=== PATIENT | male | born 1945 | race Caucasian/White ===

== ENCOUNTER → 2025-01-11 | Outpatient (CLI) | payer MEDICARE, BC, SELFPAY ==
--- NOTE | 2025-01-11 | XR_ITS ---
Examination: PA lateral chest 2 views TECHNIQUE: Upright PA lateral chest 2 views Exam date and time: January 11, 2025 at 0816 hours INDICATIONS: Anterior chest pain beginning 5 days ago FINDINGS: Normal heart size Scarring in the lingular segment. No pneumonia or pulmonary edema Prominent osteopenia IMPRESSION: No pneumonia or pulmonary edema
== END | disposition home or self-care (01) ==
PROVIDERS: PCP Family Medicine; Referring Provider Family Medicine; Visit Provider Family Medicine
DX: R07.1 Chest pain on breathing (principal)
CPT/HCPCS: 71046

== ENCOUNTER 2025-02-20 07:14 | Emergency (ER) | payer MEDICARE, BC, SELFPAY ==
[2025-02-20 07:15] VITALS: BMI 25.8
[2025-02-20 07:28] VITALS: BP 189/97; PULSE 96; RESP 18; TEMP 36.6; O2SAT 94
--- NOTE | 2025-02-20 07:36 | PD.EDRME ---
Rapid Medical Screening Exam E Arrival date/time: 02/20/25 07:14 79-year-old male with a history of a CVA, BPH, hypertension presents to the emergency room with a chief complaint of epistaxis x 3 hours. Patient states this epistaxis has been bothering him for the last week, he saw an ENT specialist yesterday but states his symptoms have not gotten better. The patient is on blood thinners. I have greeted and performed a focused initial assessment of this patient. A comprehensive ED assessment and evaluation of the patient, analysis of all test results, and completion of the medical decision making process will be conducted by additional ED providers. Chief Complaint: Epistaxis/Nasal Foreign Body Vital signs: Vital Signs Temperature 97.9 F 02/20/25 07:28 Pulse Rate 96 02/20/25 07:28 Respiratory Rate 18 02/20/25 07:28 Blood Pressure 189/97 H 02/20/25 07:28 Pulse Oximetry (%) 94 L 02/20/25 07:28 Oxygen Delivery Method Room Air 02/20/25 07:28 Vital signs reviewed by provider: Yes
[2025-02-20 08:03] LABS: Basophils % (Auto) 0 % (0-2.5); Eosinophils # (Auto) 0.2 Thou/mm3 (0.0-0.5); Eosinophils % (Auto) 2 % (0-10); Hematocrit 42.2 % (41.0-53.0); Hemoglobin 15.2 g/dL (13.5-16.0); Immature Granulocytes % (Auto) 1 % (0-0); Immature Granulocytes Auto 0.04 Thou/mm3 (0.00-0.00); Lymphocytes # (Auto) 1.6 Thou/mm3 (1.0-4.8); Lymphocytes % (Auto) 22 % (10-50); Mean Corpuscular Hemoglobin 30.8 pg (25.0-35.0); Mean Corpuscular Volume 85 fL (80-100); Monocytes # (Auto) 0.8 Thou/mm3 (0.0-0.8); Monocytes % (Auto) 11 % (0-12); Neutrophils # (Auto) 4.8 Thou/mm3 (1.8-7.7); Neutrophils % (Auto) 65 % (37-80); Nucleated Red Blood Cell % 0 /100 WBC (0); Platelet Count 167 Thou/mm3 (140-440); RDW Standard Deviation 41.6 fL (35.1-43.9); Red Blood Count 4.94 Miln/mm3 (4.50-5.90); White Blood Count 7.4 Thou/mm3 (3.8-10.6)
[2025-02-20 08:23] LABS: Partial Thromboplastin Time 25.6 Seconds (22.0-36.0); Prothrombin Time 11.4 Seconds (9.0-12.2)
[2025-02-20 08:25] LABS: Alanine Aminotransferase 19 U/L (10-49); Albumin, Serum 4.4 gm/dL (3.4-4.8); Albumin/Globulin Ratio 1.8 (1.2-2.2); Alkaline Phosphatase 92 U/L (46-116); Anion Gap 9 (7-16); Aspartate Amino Transferase 23 U/L (0-34); BUN/Creatinine Ratio 15 Ratio (12-20); Bilirubin,Total 0.8 mg/dL (0.3-1.2); Blood Urea Nitrogen 12 mg/dL (9-23); Calcium 9.9 mg/dL (8.3-10.6); Calcium (Corrected) 9.9 mg/dL (8.5-10.1); Carbon Dioxide 29.1 mMol/L (20.0-31.0); Chloride 98 mMol/L (98-107); Creatinine (Component) 0.8 mg/dL (0.6-1.3); Globulin 2.5 gm/dL (2.3-3.5); Glucose 110 mg/dL (74-106); Osmolality,Calculated 272 (275-295); Potassium 3.4 mMol/L (3.4-5.1); Sodium 136 mMol/L (136-145); Total Protein 6.9 gm/dL (5.7-8.2); eGFR > 60 See Note
[2025-02-20 09:08] VITALS: BP 198/121; PULSE 89; RESP 16; TEMP 37.2; O2SAT 95
--- NOTE | 2025-02-20 09:28 | PC.NURSE ---
Patient from [facility] and taken to room 17 with c/o epistaxis to right nare x 2 1/2 hrs, per patient he saw ENT for this yesterday and was prescribed ointment to be used 2 x a day, however, patient continue to bleed this am.
--- NOTE | 2025-02-20 10:26 | PD.EDADULT ---
ED General RME/HPI General Chief complaint: Epistaxis/Nasal Foreign Body Stated complaint: NOSE BLEED X 30 MIN; WON'T STOP, ON BLOOD THINNERS Arrival date/time: 02/20/25 07:14 RME / HPI RME / HPI narrative: Patient is a 79 years old male with PMH of CVA, BPH, hypertension, Parkinson disease presents to the ED complaining of epistaxis for 3 hours. Patient states this epistaxis has been bothering him for the last week, he saw an ENT specialist yesterday. He started bleeding again today morning and had packing done in the ED, however he continued bleeding. The patient is on clopidogrel. He denies trauma, fever, chills, SOB, chest pain. Related Data Home Medications ?Medication ?Instructions ?Recorded ?Confirmed amlodipine 10 mg tablet 5 mg PO QDAY 11/19/20 08/30/23 terazosin 5 mg capsule 5 mg PO QDAY 11/19/20 08/30/23 valsartan 80 mg tablet 320 mg PO QDAY 11/19/20 08/30/23 hydrochlorothiazide 12.5 mg capsule 12.5 mg PO QDAY 12/11/21 12/11/21 hydroxyzine HCl 50 mg tablet mg 08/30/23 tamsulosin 0.4 mg capsule mg PO 08/30/23 Previous Rx's ?Medication ?Instructions ?Recorded potassium chloride 10 mEq 10 meq PO QDAY #7 tabs 01/15/24 tablet,extended release Allergies Allergy/AdvReac Type Severity Reaction Status Date / Time No Known Allergies Allergy Verified 02/20/25 07:18 Review of Systems Review of Systems Systems Reviewed: All systems reviewed, normal except as documented ED Exam Narrative Physical exam: Gen: Well-developed and well-nourished elderly male. HEENT: NCAT, PERRLA, EOMI, MMM, anicteric conjunctivae, right nostril is packed with dry blood around it. CVS: normal S1 and S2. RRR. No M/R/G. Resp: CTA B/L. No rhonchi, rales, crackles or wheezing. Abd: soft, non-tender, non-distended. BS+ in all 4 quadrants. MSK: Good ROM in BUE & BLE. No edema or rash. Neuro: CN II-XII grossly intact. Strength 5/5 in BUE & BLE. Alert and oriented x3. Course Quality Measures none Orders Category Date Time Status CBC Stat Lab 02/20/25 07:50 Completed CMP [Comprehensive Metabolic Panel] Stat Lab 02/20/25 07:50 Completed PT [Prothrombin Time with INR] Stat Lab 02/20/25 07:50 Completed PTT [Partial Thromboplastin Time] Stat Lab 02/20/25 07:50 Completed Vital Signs Vital signs: Vital Signs Temperature 97.9 F 02/20/25 07:28 Pulse Rate 96 02/20/25 07:28 Respiratory Rate 18 02/20/25 07:28 Blood Pressure 189/97 H 02/20/25 07:28 Pulse Oximetry (%) 94 L 02/20/25 07:28 Oxygen Delivery Method Room Air 02/20/25 07:28 [facility] Patient data External records reviewed:: [facility] previous records Clinical information provided by:: patient and family Social determinants that could affect healthcare access:: none Patient has the following chronic illnesses:: CVA, BPH, hypertension, Parkinson disease How is presenting disease/condition affected by chronic disease/condition?: exacerbated by Evaluation data The following diagnostics were reviewed and interpreted by me:: lab results Lab and/or radiology exams considered but not ordered:: CT head Interpretation Summary: mild hyperglycemia Medications Medications considered but not ordered:: na Medication administrations:: na Consultations Consultation(s) initiated? (list below): No Diagnosis Differential Diagnosis ED Complaint MDM: anterior epistaxis, posterior epistaxis Most likely diagnosis given after review of the tests above:: Anterior epistaxis Admission Indicated Admission indicated?: not indicated Explain why admission is indicated or not indicated:: Simple anterior epistaxis, resolved after packing. Admission Request Was there a request for admission?: No Disposition Plan Disposition Plan: Discharge Discharge Attestation Discharge Attestation: The patient and all family members were given an opportunity to ask questions and understood the discharge instructions. Discharge instructions specifically effects, indications for sooner follow up or return to the emergency department, and the expected course of current diagnosis. Patient condition: Stable Medical Decision Making MDM Narrative MDM Narrative: The patient is an 79-year-old male with a history of cerebrovascular accident (CVA), benign prostatic hyperplasia (BPH), hypertension, and Parkinson's disease, presenting with a 3-hour episode of anterior epistaxis that persisted despite packing in the emergency department (ED). He reports ongoing epistaxis over the past week and had seen an ENT specialist the day before. The patient is on clopidogrel, which may have contributed to the bleeding. No other associated symptoms such as trauma, fever, chills, shortness of breath, or chest pain were reported. Examination findings include nasal packing in the right nostril with dry blood around it, and all other systemic examinations were unremarkable. The patient's anterior epistaxis resolved after nasal packing in the ED. Recommendations include leaving the packing in place for 2-3 days, with follow-up care by his ENT or primary care provider (PCP) for removal. He is advised to continue his home medications as prescribed and return to the ED if symptoms recur or worsen. A follow-up visit with his PCP within one week is also recommended to ensure proper recovery and assess the need for further management. Differential Diagnosis Differential Diagnosis: anterior epistaxis, posterior epistaxis Lab Data 02/20/25 07:50 02/20/25 07:50 Labs: Lab Results 02/20/25 Range/Units 07:50 WBC 7.4 (3.8-10.6) Thou/mm3 RBC 4.94 (4.50-5.90) Miln/mm3 Hgb 15.2 (13.5-16.0) g/dL Hct 42.2 (41.0-53.0) % MCV 85 (80-100) fL MCH 30.8 (25.0-35.0) pg MCHC 36.0 (31.0-37.0) g/dl RDW Std Deviation 41.6 (35.1-43.9) fL Plt Count 167 (140-440) Thou/mm3 Neut % (Auto) 65 (37-80) % Lymph % (Auto) 22 (10-50) % [place] % (Auto) 11 (0-12) % Eos % (Auto) 2 (0-10) % Baso % (Auto) 0 (0-2.5) % Neut # (Auto) 4.8 (1.8-7.7) Thou/mm3 Lymph # (Auto) 1.6 (1.0-4.8) Thou/mm3 [place] # (Auto) 0.8 (0.0-0.8) Thou/mm3 Eos # (Auto) 0.2 (0.0-0.5) Thou/mm3 Baso # (Auto) 0.0 (0.0-0.2) Thou/mm3 Immature Gran # (Auto) 0.04 H (0.00-0.00) Thou/mm3 Absolute Nucleated RBC 0.00 (0.00-0.00) Thou/mm3 Immature Gran % 1 H (0-0) % Nucleated RBC % 0 (0) /100 WBC PT 11.4 (9.0-12.2) Seconds INR 1.0 (0.9-1.3) APTT 25.6 (22.0-36.0) Seconds Sodium 136 (136-145) mMol/L Potassium 3.4 (3.4-5.1) mMol/L Chloride 98 (98-107) mMol/L Carbon Dioxide 29.1 (20.0-31.0) mMol/L Anion Gap 9 (7-16) BUN 12 (9-23) mg/dL Creatinine 0.8 (0.6-1.3) mg/dL Estim Creat Clear Calc 76.0 (>60) mL/min eGFR > 60 (60 - ) See Note BUN/Creatinine Ratio 15 (12-20) Ratio Glucose 110 H (74-106) mg/dL Calculated Osmolality 272 L (275-295) Calcium 9.9 (8.3-10.6) mg/dL Corrected Calcium 9.9 (8.5-10.1) mg/dL Total Bilirubin 0.8 (0.3-1.2) mg/dL AST 23 (0-34) U/L ALT 19 (10-49) U/L Alkaline Phosphatase 92 (46-116) U/L Total Protein 6.9 (5.7-8.2) gm/dL Albumin 4.4 (3.4-4.8) gm/dL Globulin 2.5 (2.3-3.5) gm/dL Albumin/Globulin Ratio 1.8 (1.2-2.2) Discharge Plan Plan Patient Disposition: HOME (Self Care) Patient condition on transfer: Stable Prescriptions/Referrals Prescriptions/Med Rec: No Action terazosin 5 mg capsule 5 mg PO QDAY amlodipine 10 mg tablet 5 mg PO QDAY valsartan 80 mg tablet 320 mg PO QDAY hydrochlorothiazide 12.5 mg capsule 12.5 mg PO QDAY potassium chloride 10 mEq tablet extended release 10 meq PO QDAY Qty: 7 0RF hydroxyzine HCl 50 mg tablet Patient Comments: TAKE 1 TABLET BY MOUTH TWICE A DAY NEEDED tamsulosin 0.4 mg capsule PO Patient Comments: TAKE 1 CAPSULE BY MOUTH TWICE A DAY Referrals: Bruce Osman MD [Primary Care Provider] - In 1 week Problem List Clinical Impression: Epistaxis Patient/Caregiver Discharge Instructions Education Materials: ED Epistaxis (Adult), ED Nasal Packing Removable Anterior Additional Instructions: Keep nasal packing for 2-3 days, then visit your ENT/PCP or ER to remove it. Follow up with PCP within 1 week. Continue home medications as prescribed. Return to the ED if symptoms recur or worsen. Print Language: Tanzanian Stand Alone Forms: Jane Award Info., Patient Portal Info Letter
[2025-02-20 10:50] VITALS: BP 203/112; PULSE 90; RESP 16; O2SAT 95
--- NOTE | 2025-02-20 10:51 | PC.NURSE ---
Dr. Little at bedside.
--- NOTE | 2025-02-20 11:17 | PC.NURSE ---
Patient and family at bedside insistent upon getting d/c instructions now, family and patient upset stating that was very rude attempted to help resolve issue, however, family states, it's ok I just need to get him out of here d/c instructions given informed patient and family they can contact hospital and ask for Sky, from patient experience so they could express there concerns.
== END 2025-02-20 11:19 | disposition home or self-care (01) ==
PROVIDERS: Nurse Practitioner Family; Emergency Provider Emergency Medicine; PCP Family Medicine
DX: R04.0 Epistaxis (principal)
CPT/HCPCS: 36415; 80053; 85025; 85610; 85730; 99283

== ENCOUNTER → 2025-03-18 | Outpatient (CLI) | payer MEDICARE, BC, SELFPAY ==
[2025-03-18 08:23] LABS: Basophils % (Auto) 0 % (0-2.5); Eosinophils # (Auto) 0.2 Thou/mm3 (0.0-0.5); Eosinophils % (Auto) 3 % (0-10); Hemoglobin 14.3 g/dL (13.5-16.0); Immature Granulocytes % (Auto) 0 % (0-0); Immature Granulocytes Auto 0.03 Thou/mm3 (0.00-0.00); Lymphocytes # (Auto) 1.6 Thou/mm3 (1.0-4.8); Lymphocytes % (Auto) 21 % (10-50); Mean Corpuscular Hemoglobin 30.9 pg (25.0-35.0); Mean Corpuscular Volume 91 fL (80-100); Monocytes # (Auto) 0.9 Thou/mm3 (0.0-0.8); Monocytes % (Auto) 12 % (0-12); Neutrophils # (Auto) 4.8 Thou/mm3 (1.8-7.7); Neutrophils % (Auto) 64 % (37-80); Nucleated Red Blood Cell % 0 /100 WBC (0); Platelet Count 166 Thou/mm3 (140-440); RDW Standard Deviation 43.9 fL (35.1-43.9); Red Blood Count 4.63 Miln/mm3 (4.50-5.90); White Blood Count 7.5 Thou/mm3 (3.8-10.6)
[2025-03-18 08:40] LABS: Alanine Aminotransferase 11 U/L (10-49); Albumin, Serum 4.1 gm/dL (3.4-4.8); Alkaline Phosphatase 86 U/L (46-116); Anion Gap 5 (7-16); Aspartate Amino Transferase 17 U/L (0-34); BUN/Creatinine Ratio 14 Ratio (12-20); Bilirubin,Direct 0.3 mg/dL (0.0-0.3); Bilirubin,Total 0.9 mg/dL (0.3-1.2); Blood Urea Nitrogen 14 mg/dL (9-23); Calcium 9.1 mg/dL (8.3-10.6); Carbon Dioxide 30.8 mMol/L (20.0-31.0); Chloride 106 mMol/L (98-107); Cholesterol 100 mg/dL (132-200); Free T4 (Free Thyroxine) 1.31 ng/dL (0.89-1.76); Glucose 111 mg/dL (74-106); HDL Cholesterol 51 mg/dL (40-60); LDL Cholesterol,Calculated 36 mg/dL (0-130); Osmolality,Calculated 284 (275-295); Potassium 3.6 mMol/L (3.4-5.1); Sodium 142 mMol/L (136-145); Thyroid Stimulating Hormone 1.61 uIU/mL (0.55-4.78); Total Protein 6.3 gm/dL (5.7-8.2); Triglycerides 63 mg/dL (30-150); eGFR > 60 See Note
== END | disposition home or self-care (01) ==
LOC: COPL 06:47
PROVIDERS: PCP Family Medicine; Referring Provider Internal Medicine Cardiovascular Disease; Visit Provider Internal Medicine Cardiovascular Disease
DX: E78.5 Hyperlipidemia, unspecified (principal); I10 Essential (primary) hypertension
CPT/HCPCS: 36415; 80048; 80061; 80076; 84439; 84443; 85025

== ENCOUNTER 2025-04-25 09:30 | Inpatient (IN) | payer MEDICARE, BC, SELFPAY ==
[2025-04-25] VITALS (20 sets, daily range): BP systolic 90–143; BP diastolic 68–97; PULSE 72–153; RESP 17–40; TEMP 36.6–37.8; O2SAT 91–99; BMI 26.1
--- NOTE | 2025-04-25 09:38 | EKG_ITS ---
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1945 Requested By: ED Temporary Provider Order Number: [id number] Reading MD: ED Temporary Provider Measurements Intervals [place] Rate: 153 P: AK: QRS: -16 QRSD: 112 T: 23 QT: 290 QTc: 463 Interpretive Statements ATRIAL FLUTTER/TACHYCARDIA WITH RAPID VENTRICULAR RESPONSE WITH ABERRANT CONDUCTION OR VENTRICULAR PREMATURE COMPLEXES INCOMPLETE RIGHT BUNDLE BRANCH BLOCK [90+ ms QRS DURATION, TERMINAL R IN V1/V2, 40+ ms S IN I/aVL/V4/V5/V6] MODERATE ST DEPRESSION [0.05+ mV ST DEPRESSION] CRITICAL TEST RESULT Compared to ECG 01/15/2024 06:58:23 Ventricular premature complex(es) now present Aberrant conduction of supraventricular beat(s) now present Incomplete right bundle-branch block now present ST (T wave) deviation now present Supraventricular rhythm no longer present /store/S0/[id number]/[id number].pdf
--- NOTE | 2025-04-25 09:48 | XR_ITS ---
Examination: AP chest single view Technique one AP portable upright chest single view Date and time: April 25, 2025 10:23 AM Comparison January 11, 2025 INDICATIONS: Chest pain beginning 2 days ago. FINDINGS: Diffuse bilateral significant pneumonia. Normal heart size Moderate vascular congestion Prominent osteopenia IMPRESSION: Diffuse extensive bilateral pneumonia
[2025-04-25] MEDS: SODIUM CHLORIDE 0.9% 1000 ML 1,000 ML 999 ML IV ×2 (10:05→11:50)
--- NOTE | 2025-04-25 10:06 | PD.EDSOB ---
ED SOB =RME/HPI General Chief Complaint: Shortness of Breath/Dyspnea Stated Complaint: SENT BY PMD FOR IRREGULAR BREATHING Time Seen by Provider: 04/25/25 09:43 Arrival date/time: 04/25/25 09:30 RME / HPI RME / HPI Narrative: 79 year old male with history of Parkinson's disease, CVA, on Eliquis, hypertension, BPH, hyperlipidemia presents to the ED for evaluation of shortness of breath that began 2 days ago and progressively worsening. More so with talking. Accompanied by subjective fevers and productive cough with clear phlegm. Denies hemoptysis or any change in sputum color. Approximately 6 days ago, the patient?s daughter noted that he had been complaining of chest congestion. He consulted with his PCP, who prescribed a 7 day course of Augmentin and Benzonatate. The patient reports taking the medications with only minimal improvement. The patient denies any chest pain. Denies the use of supplemental oxygen at home. Denies any sick contacts or any recent travel. Related Data Home Medications ?Medication ?Instructions ?Recorded ?Confirmed tamsulosin 0.4 mg capsule 0.4 mg PO QAM 08/30/23 04/25/25 atorvastatin 80 mg tablet 80 mg PO QPM 04/25/25 04/25/25 benzonatate 200 mg capsule 200 mg PO TID 04/25/25 04/25/25 buspirone 10 mg tablet 10 mg PO BID 04/25/25 04/25/25 carbidopa ER 25 mg-levodopa 100 mg 1 tab PO BID 04/25/25 04/25/25 tablet,extended release cetirizine 10 mg tablet 10 mg PO QPM 04/25/25 04/25/25 clopidogrel 75 mg tablet 75 mg PO QDAY 04/25/25 04/25/25 dutasteride 0.5 mg capsule 0.5 mg PO QPM 04/25/25 04/25/25 hydrochlorothiazide 12.5 mg tablet 12.5 mg PO QDAY 04/25/25 04/25/25 lactulose 10 gram/15 mL oral 10 g PO QAM 04/25/25 04/25/25 solution montelukast 10 mg tablet 10 mg PO QAM 04/25/25 04/25/25 potassium citrate 15 mEq (1,620 15 meq PO BID 04/25/25 04/25/25 mg) tablet,extended release Allergies Allergy/AdvReac Type Severity Reaction Status Date / Time No Known Allergies Allergy Verified 04/25/25 09:34 Review of Systems Review of Systems Narrative Review of Systems: GEN: + fever, no chills, no weight loss EYES: No discharge, no visual changes, no pain HEENT: No ear pain, no congestion, no sore throat PULM: + shortness of breath, +cough CV: No chest pain, no dyspnea on exertion, no palpitations GI: No nausea, no vomiting, no diarrhea, no pain, no constipation : No frequency, no urgency, no dysuria MUSC/SKEL: No joint pain, no back pain SKIN: No rash NEURO: No weakness, no headache Past Medical History Past Medical History NEUROLOGIC: Positive Neurological Disorders, Cerebrovascular Accident (2022 no deficits) and Migraine CARDIAC: Positive Cardiac Disorders, Hypercholesterolemia and Hypertension GENITOURINARY: Positive Benign Prostatic Hyperplasia MUSCULOSKELETAL: Positive Musculoskeletal Disorders OTHER HISTORY: Positive Chicken Pox, Measles and Mumps Surgical History SURGICAL: Positive Vasectomy Social History SMOKING STATUS: Former smoker ED Exam Narrative Physical exam: GENERAL APPEARANCE: alert and oriented x 4, well-developed, well-nourished, tachypneic, dyspneic HEENT: Normocephalic, atraumatic; pupils equal, round, reactive to light; EOMI; mucous membranes pink, moist; oropharynx clear NECK: Supple LUNGS: Tachypneic, dyspneic; no wheezes, no rales, no rhonchi HEART: Tachycardic; normal S1, S2; no murmurs ABDOMEN: non distended; normal BS; soft, no tenderness, no guarding, no rebound; no masses, no organomegaly, no hernia BACK: no CVA tenderness EXTREMITIES: atraumatic; no edema NEUROLOGIC: awake; alert and oriented x4; cranial nerves II-XII grossly intact; no focal sensory or motor deficits PSYCHIATRIC: appropriate mood and affect SKIN: warm, dry, normal color; no rashes Course Course Course Narrative: chest xray ordered to help determine etiology of shortness of breath. Quality Measures none Orders Category Date Time Status Can Maker NOW Care 04/25/25 09:48 Active EKG (ED ONLY) *Do not use* NOW Care 04/25/25 09:38 Completed EKG (ED ONLY) *Do not use* NOW Care 04/25/25 11:35 Active EKG (ED Only) Stat Exams 04/25/25 09:38 Draft EKG (ED Only) Stat Exams 04/25/25 11:35 Ordered XR chest 1V portable Stat Exams 04/25/25 09:48 Completed B-Type Natriuretic Peptide Stat Lab 04/25/25 10:00 Completed Blood Culture (Lab) Stat Lab 04/25/25 10:00 Received CBC Stat Lab 04/25/25 10:14 Completed Cocci Serology IgM with reflex to IgG [Cocci Serology, Lab 04/25/25 11:33 Received Unk History] Stat Comprehensive Metabolic Panel Stat Lab 04/25/25 10:14 Completed Lactate (Lactic Acid) Stat Lab 04/25/25 10:14 Results Lipase Stat Lab 04/25/25 10:14 Completed Magnesium Stat Lab 04/25/25 10:14 Completed Partial Thromboplastin Time Stat Lab 04/25/25 10:14 Completed Procalcitonin Stat Lab 04/25/25 10:14 Completed Prothrombin Time with INR Stat Lab 04/25/25 10:14 Completed Troponin I Stat Lab 04/25/25 10:14 Completed Urinalysis Stat Lab 04/25/25 10:23 Completed Urine Culture Stat Lab 04/25/25 10:23 Received Azithromycin Inj [Zithromax Inj] 500 mg Med 04/25/25 11:21 Active Sodium Chloride 0.9% 250 ml [Ns] 250 ml IV X1 DILTIAZEM in D5W 125 MG Med 04/25/25 10:10 Active 125 mg in 125 ml IV 5 mg/hr Diltiazem Inj [Cardizem Inj] Med 04/25/25 10:05 Discontinued 15 mg IV X1 ONE MethylPREDNISolone.* [SoluMEDROL Inj] Med 04/25/25 11:21 Discontinued 125 mg IVP X1 ONE Sodium Chloride 0.9% 1000 ml [Ns] 1,000 ml Med 04/25/25 11:30 Active IV 999 mls/hr cefTRIAXone/D5w 1gm IV premix [Rocephin/D5w 1gm IV Med 04/25/25 11:21 Discontinued premix] 1 gm in 50 ml IV X1 Oxygen Delivery PRN RT 04/25/25 10:13 Active Vital Signs Vital signs: Vital Signs Temperature 100.1 F 04/25/25 10:00 Pulse Rate 150 H 04/25/25 10:00 Respiratory Rate 24 H 04/25/25 10:00 Blood Pressure 123/81 04/25/25 10:00 Pulse Oximetry (%) 91 L 04/25/25 10:00 Oxygen Delivery Method Oxy Mask 04/25/25 10:00 Oxygen Flow Rate 15 04/25/25 10:00 Shortness of Breath / Dyspnea MDM Narrative MDM Narrative:: IAlivia am scribing for and in the presence of Dr. Astorga. 1014: Patient saturating 91% on 15L Oxy Mask. Ordered high flow. 1037: Patient received 15mg IV Diltiazem and started on Diltiazem drip, HR 146 at this time. Ordered for 1L IVF. Saturating 99% on high flow. 1145: Rate has improved, now 93 bpm, atrial fibrillation with occasional PVCs. Patient data External records reviewed:: [facility] previous records (I reviewed ED visit on 02/20/2025 ) Clinical information provided by:: patient and family (daughter adds to hpi ) Social determinants that could affect healthcare access:: none Patient has the following chronic illnesses:: Parkinson's disease, CVA, on Eliquis, hypertension, BPH, hyperlipidemia How is presenting disease/condition affected by chronic disease/condition?: exacerbated by Evaluation data The following diagnostics were reviewed and interpreted by me:: lab results, radiology exam(s) and EKG tracing(s) (EKG #1 @ 09:47 AM. Atrial firbrillation with occasional PVCs, rate 150, incomplete right bundle branch block. EKG #2 @ 11:49 AM shows atrial fbrillation with occasional PVCs, rate 93. ) Lab and/or radiology exams considered but not ordered:: None Interpretation Summary: Ordering Physician: Marisol Astorga MD Date of Service: 04/25/25 Procedure(s): XR chest 1V portable Accession Number(s): [id number] cc: Parrish Murphy MD; Marisol Astorga MD~ Examination: AP chest single view Technique one AP portable upright chest single view Date and time: April 25, 2025 10:23 AM Comparison January 11, 2025 INDICATIONS: Chest pain beginning 2 days ago. FINDINGS: Diffuse bilateral significant pneumonia. Normal heart size Moderate vascular congestion Prominent osteopenia IMPRESSION: Diffuse extensive bilateral pneumonia Dictated By: Parrish Murphy MD Signed By: <Electronically signed by Parrish Murphy MD in OV> 04/25/25 1117 Medications / Prescriptions Medications or Prescriptions considered but not ordered:: None Medication administrations:: Medication Administration History Diltiazem HCl (Diltiazem In D5w 125 Mg) 125 mg in 125 mls @ 5 mls/hr IV .Q24H JANINE Stop: 05/25/25 10:09 Last Admin: 04/25/25 10:45 Dose: 5 mg/hr, 5 mls/hr Documented By: REBEKA Azithromycin 500 mg/ Sodium (Chloride) 250 mls @ 250 mls/hr IV X1 ONE Stop: 04/25/25 12:20 Sodium Chloride (Ns) 1,000 mls @ 999 mls/hr IV .Q1H1M ONE Stop: 04/25/25 12:30 Discontinued Medications Diltiazem HCl (Diltiazem Inj 5 Mg/Ml Vial 5 Ml) 15 mg IV X1 ONE Stop: 04/25/25 10:06 Last Admin: 04/25/25 10:35 Dose: 15 mg Documented By: REBEKA Comments: Ceftriaxone Sodium/Dextrose (Rocephin/D5w 1gm Iv Premix) 1 gm in 50 mls @ 100 mls/hr IV X1 ONE Stop: 04/25/25 11:50 Last Admin: 04/25/25 11:42 Dose: 100 mls/hr Documented By: SHARON Methylprednisolone Sodium Succinate (Methylprednisolone Sod Succ 62.5 Mg/Ml 2ml Vial) 125 mg IVP X1 ONE Stop: 04/25/25 11:22 Last Admin: 04/25/25 11:38 Dose: 125 mg Documented By: SHARON See above Consultations Consultation(s) initiated? (list below): Yes Consultation #1 (Physician, Specialty, Details): I spoke with resident Dr. Herring working with Dr. Gonzales. Discussed patients PMHx, HPI, ED course, exam findings, labs, and radiology results. The hospitalist agree to accept the patient for admission. Time: 11:42 Diagnosis Shortness of Breath Differential Diagnosis: acute exacerbation of chronic obstructive airways disease, congestive heart failure and community acquired pneumonia Most likely diagnosis given after review of the tests above:: Pneumonia Atrial fibrillation Elevated toponin Admission Indicated Admission indicated?: indicated Admission Request Was there a request for admission?: Yes Admission Attestation Admission request attestation: Discussed case with [] from Hospitalist service regarding admission. Discussed patients ED course, exam findings, labs, and radiology results. The Hospitalist [agrees,declines] to accept the patient for admission. Disposition Plan Disposition Plan: Admit Critical Care Time Critical Care Time Critical Care Time: Yes Total Critical Care Time (min.): 35 Attestation: The high probability of sudden, clinically significant deterioration in the patient's condition required the highest level of my preparedness to intervene urgently. The services I provided to this patient were to treat and/or prevent clinically significant deterioration. Services included the following: chart data review, reviewing nursing notes and/or old charts, documentation time, systems consultant collaboration regarding findings and treatment options, medication orders and management, direct patient care, vital sign assessments and ordering, interpreting and reviewing diagnostic studies and lab tests. Aggregate critical care time includes only time during which I was engaged in work directly related to the patient's care, as described above, whether at bedside or elsewhere in the Emergency Department. It did not include time spent performing other reported procedures or the services of residents, students, nurses or physician assistants. Discharge Plan Plan Patient Disposition: Admit Acute Care w/in Hospital Prescriptions/Referrals Prescriptions/Med Rec: No Action tamsulosin 0.4 mg capsule 0.4 mg PO QAM Patient Comments: TAKE 1 CAPSULE BY MOUTH TWICE A DAY lactulose 10 gram/15 mL solution 10 g PO QAM Patient Comments: TAKE 15ML BY MOUTH EVERY DAY IN THE MORNING FOR CONSTIPATION benzonatate 200 mg capsule 200 mg PO TID carbidopa-levodopa 25-100 mg tablet extended release 1 tab PO BID Patient Comments: TAKE 1 TABLET BY MOUTH TWICE A DAY clopidogrel 75 mg tablet 75 mg PO QDAY Patient Comments: TAKE 1 TABLET BY MOUTH EVERY DAY dutasteride 0.5 mg capsule 0.5 mg PO QPM Patient Comments: TAKE 1 CAPSULE BY MOUTH EVERY EVENING hydrochlorothiazide 12.5 mg tablet 12.5 mg PO QDAY Patient Comments: TAKE 1 TABLET BY MOUTH EVERY DAY buspirone 10 mg tablet 10 mg PO BID Patient Comments: TAKE 1 TABLET BY MOUTH TWICE A DAY cetirizine 10 mg tablet 10 mg PO QPM Patient Comments: TAKE 1 TABLET BY MOUTH AT DINNER NEEDED FOR ALLERGY atorvastatin 80 mg tablet 80 mg PO QPM Patient Comments: TAKE 1 TABLET BY MOUTH NIGHTLY AT BEDTIME montelukast 10 mg tablet 10 mg PO QAM Patient Comments: TAKE 1 TABLET BY MOUTH EVERY DAY potassium citrate 15 mEq tablet extended release 15 meq PO BID Patient Comments: TAKE 1 TABLET BY MOUTH TWICE A DAY Referrals: Bruce Osman MD [Primary Care Provider] - In 1 week Problem List Clinical Impression: Pneumonia, Atrial fibrillation, Elevated troponin Patient/Caregiver Discharge Instructions Print Language: R[place] Stand Alone Forms: Jane Award Info., Patient Portal Info Letter
[2025-04-25 10:31] LABS: Collection Type, Urine Clean Catch
[2025-04-25 10:35] LABS: Basophils # (Auto) 0.1 Thou/mm3 (0.0-0.2); Basophils % (Auto) 0 % (0-2.5); Eosinophils % (Auto) 0 % (0-10); Hematocrit 40.1 % (41.0-53.0); Hemoglobin 13.9 g/dL (13.5-16.0); Immature Granulocytes % (Auto) 2 % (0-0); Immature Granulocytes Auto 0.64 Thou/mm3 (0.00-0.00); Lymphocytes # (Auto) 0.9 Thou/mm3 (1.0-4.8); Lymphocytes % (Auto) 3 % (10-50); Mean Corpuscular HGB Conc 34.7 g/dl (31.0-37.0); Mean Corpuscular Hemoglobin 30.8 pg (25.0-35.0); Mean Corpuscular Volume 89 fL (80-100); Monocytes # (Auto) 2.3 Thou/mm3 (0.0-0.8); Monocytes % (Auto) 8 % (0-12); Neutrophils # (Auto) 24.5 Thou/mm3 (1.8-7.7); Neutrophils % (Auto) 86 % (37-80); Nucleated Red Blood Cell % 0 /100 WBC (0); Platelet Count 369 Thou/mm3 (140-440); RDW Standard Deviation 43.7 fL (35.1-43.9); Red Blood Count 4.52 Miln/mm3 (4.50-5.90); White Blood Count 28.4 Thou/mm3 (3.8-10.6)
[2025-04-25] MEDS: DILTIAZEM INJ 5 MG/ML VIAL 5 ML 15 MG IV (10:35)
[2025-04-25 10:40] LABS: Bilirubin,Urine Negative (Negative); Blood,Urine Trace (Negative); Clarity,Urine Clear (Clear/Hazy); Color,Urine Yellow (Lt Yel-Yel); Glucose, Urine Negative (Negative); Ketones,Urine Trace (Negative); Leukocyte Esterase,Urine Negative (Negative); Nitrite,Urine Negative (Negative); Protein,Urine 1+ (Neg - Trace); RBC,Urine < 1 /hpf (0-3); Specific Gravity,Urine 1.033 (1.001-1.035); Squamous Epithelial Cell,Urine < 1 /hpf (0-5); WBC,Urine 1 /hpf (0-5)
[2025-04-25] MEDS: DILTIAZEM in D5W 125 MG 125 MG/125 ML BAG IV (10:45)
[2025-04-25 10:48] LABS: INR 1.2 (0.9-1.3); Partial Thromboplastin Time 23.7 Seconds (22.0-36.0); Prothrombin Time 12.5 Seconds (9.0-12.2)
[2025-04-25 11:02] LABS: Alanine Aminotransferase 43 U/L (10-49); Albumin/Globulin Ratio 1.3 (1.2-2.2); Alkaline Phosphatase 107 U/L (46-116); Anion Gap 17 (7-16); Aspartate Amino Transferase 30 U/L (0-34); BUN/Creatinine Ratio 21 Ratio (12-20); Bilirubin,Total 0.8 mg/dL (0.3-1.2); Blood Urea Nitrogen 23 mg/dL (9-23); Calcium 9.7 mg/dL (8.3-10.6); Calcium (Corrected) 9.7 mg/dL (8.5-10.1); Chloride 90 mMol/L (98-107); Creatinine (Component) 1.1 mg/dL (0.6-1.3); Estimated Creatinine Clearance 55.3 mL/min (>60); Glucose 200 mg/dL (74-106); Lipase 25 U/L (12-53); Magnesium 2.1 mg/dL (1.6-2.6); Osmolality,Calculated 270 (275-295); Procalcitonin 0.95 ng/ml (0.0-0.49); Sodium 130 mMol/L (136-145); eGFR > 60 See Note
[2025-04-25 11:03] LABS: Lactate (Lactic Acid) 5.4 mMol/L (0.4-2.0)
[2025-04-25 11:04] LABS: Troponin I 0.135 ng/mL (0.0-0.045)
[2025-04-25 11:05] LABS: B-Type Natriuretic Peptide 629 pg/mL (0-100)
--- NOTE | 2025-04-25 11:35 | EKG_ITS ---
[facility] Test Date: 2025-04-25 Pat Name: DANISHA PEOPLES Department: Room: - Gender: Male Shared Services Representative: : 1945 Requested By: Marisol Ortiz Order Number: [id number] Reading MD: Marisol Ortiz Measurements Intervals [place] Rate: 93 P: VT: QRS: -2 QRSD: 93 T: 18 QT: 367 QTc: 457 Interpretive Statements ATRIAL FIBRILLATION WITH ABERRANT CONDUCTION OR VENTRICULAR PREMATURE COMPLEXES ABNORMAL RHYTHM ECG Compared to ECG 04/25/2025 09:47:12 Atrial flutter no longer present Incomplete right bundle-branch block no longer present ST (T wave) deviation no longer present /store/S0/[id number]/[id number].pdf
[2025-04-25] MEDS: MethylPREDNISolone SOD SUCC 62.5 MG/ML 2ML VIAL 125 MG IVP (11:38)
[2025-04-25] MEDS: cefTRIAXone/D5w 1gm IV premix 1 GM/50 ML BAG IV (11:42)
[2025-04-25] MEDS: AZITHROMYCIN INJ 500 MG in SODIUM CHLORIDE 0.9% 250 ML 250 ML 250 MG IV (12:12)
--- NOTE | 2025-04-25 12:26 | ECHO_ITS ---
Transthoracic Echo Report Ht (in): 70 Wt (lb): 182 Exam Location: Echo Lab Status: Inpatient Equipment Planner: Vanessa Martinez Indications: Procedure Performed: BP: 140 / 84 HR: 67 Technical Quality: Technically difficult study MEASUREMENTS (Male / Female) Normal Values 2D ECHO LV Diastolic Diameter PLAX 4.5 cm 4.2 - 5.9 / 3.9 - 5.3 cm LV Systolic Diameter PLAX 3.0 cm IVS Diastolic Thickness 0.9 cm 0.6 - 1.0 / 0.6 - 0.9 cm LVPW Diastolic Thickness 0.8 cm 0.6 - 1.0 / 0.6 - 0.9 cm LV Relative Wall Thickness 0.4 LVOT Diameter 2.1 cm LA Systolic Diameter LX 2.9 cm 3.0 - 4.0 / 2.7 - 3.8 cm LV Ejection Fraction MOD BP 56.5 % >= 55 % LV Cardiac Index MOD BP 1530.8 cm?/min?m? LV Ejection Fraction MOD 4C 59.7 % LV Cardiac Index MOD 4C 1619.9 cm?/min?m? LV Ejection Fraction 4C AL 59.8 % LV Cardiac Index 4C AL 1680.9 cm?/min?m? LV Ejection Fraction MOD 2C 50.5 % LV Cardiac Index MOD 2C 1326.3 cm?/min?m? LV Ejection Fraction 2C AL 51.2 % LV Cardiac Index 2C AL 1346.6 cm?/min?m? LA Volume Index 17.9 cm?/m? 16 - 28 cm?/m? M-MODE Aortic Root Diameter MM 2.7 cm LA Systolic Diameter MM 3.7 cm LA Ao Ratio MM 1.4 AV Cusp Separation MM 1.5 cm DOPPLER AV Peak Velocity 105.3 cm/s AV Peak Gradient 4.4 mmHg AV Mean Gradient 2.3 mmHg AV Velocity Time Integral 19.5 cm LVOT Peak Velocity 112.0 cm/s LVOT Peak Gradient 5.0 mmHg LVOT Velocity Time Integral 23.3 cm LVOT Cardiac Index 2662.5 cm?/min?m? AV Area Cont Eq vti 4.1 cm? AV Area Cont Eq pk 3.7 cm? MV Area PHT 4.1 cm? Mitral E Point Velocity 66.0 cm/s Mitral A Point Velocity 78.1 cm/s Mitral E to A Ratio 0.8 LV E' Lateral Velocity 9.3 cm/s Mitral E to LV E' Lateral Ratio 7.1 LV E' Septal Velocity 7.7 cm/s Mitral E to LV E' Septal Ratio 8.5 TR Peak Velocity 375.0 cm/s TR Peak Gradient 56.3 mmHg PV Peak Velocity 58.9 cm/s PV Peak Gradient 1.4 mmHg FINDINGS Left Ventricle Normal left ventricular size, wall thickness, systolic function with no obvious regional wall motion abnormalities.There is grade I diastolic dysfunction of the left ventricle (impaired relaxation pattern). The ejection fraction is visually estimated at 55-60%. Right Ventricle The right ventricle is normal in size and systolic function. Left Atrium The left atrium is normal by two-dimensional, color flow and Doppler imaging with no structural abnormalities, no thrombus formation present. Right Atrium The right atrium is normal by two-dimensional imaging, color flow and Doppler imaging with no structural abnormalities, no thrombus formation present. Atrial Septum The interatrial septum appears normal with no evidence of a shunt. Aorta The aorta is normal by two-dimensional, color flow and Doppler interrogation. Mitral Valve Mild mitral regurgitation. Aortic Valve The aortic valve is trileaflet and normal by two-dimensional, color flow and Doppler interrogation. There is no significant aortic valve regurgitation. Tricuspid Valve There is moderate tricuspid regurgitation. Pulmonic Valve The pulmonic valve is not well visualized. There is no significant pulmonic valve regurgitation. Vessels Inferior vena cava not well visualized. Pericardium The pericardium is normal by two-dimensional imaging. There is no significant pericardial effusion. CONCLUSIONS Indication: Assess for wall motion abnormalities, EF Normal LV size and function. Grade I diastolic dysfunction. Estimated EF 55- 60%. RV is normal in size and systolic function. Mild MR. Moderate TR. Lesly Marie (Electronically Signed) Final Date: 27 Apr 2025 11:27
[2025-04-25 12:29] LABS: COVID-19 Antigen (In-House) Negative (Negative)
[2025-04-25] MEDS: LEVALBUTEROL RT 0.63 MG/3 ML NEBU INH ×3 (12:38→13:40)
[2025-04-25] MEDS: IPRATROPIUM RT 0.5 MG/ 2.5 ML NEBU INH ×4 (12:38→19:46)
[2025-04-25] MEDS: HEPARIN SOD INJ 5000 UNIT/ML VIAL SC (12:41)
[2025-04-25 12:44] LABS: Respiratory Syncytial Virus Ag Negative (Negative)
[2025-04-25 13:27] LABS: Reflex Lactate? Y
--- NOTE | 2025-04-25 13:34 | PD.RESHP ---
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 He follows up with his PCP Dr. Osman and wax cutter Dr. Molina Patient's says that his cough and congestion started 1 week ago and at the time he presented to his PCP who prescribed him a 1 week course of amoxicillin and benzonatate. However during this time his symptoms did not improve and actually progressively worsened resulting in a fever in the past 24 hours and palpitations. Of note patient did have recent travel about 2 weeks ago to [place]. Denies any vomiting, nausea, diarrhea, chest pain/pressure, sick contacts. Subsequently he again presented to his PCPs office today for worsening symptoms after failing outpatient antibiotics, his PCP instructed him to immediately present to the emergency department. Of note 2 years ago patient had a stroke and was treated with tenecteplase, however his symptoms were not resolving and he had to be airlifted to a hospital in [place]. After the stroke he still had mild residual right lower limb weakness and was on treatment with clopidogrel for prophylaxis. He also says that he regularly follows with his wax cutter Dr. Molina as an outpatient and at his last appointment he was told that he was fit as an ox . Patient denies any known history of atrial fibrillation and cannot recall if he has ever had an echocardiogram or stress test in the past. From his medication list he also does not appear to be on any anticoagulation or rate control medication. Incidentally on exam patient's right lower extremity was noted to be slightly larger than his left and according to the patient he had an outpatient duplex scan which was negative for any DVT. ED course: BP 121/75, pulse 86, RR 36, temp 98.3, SpO2 97% on high flow nasal cannula 40/85 Labs significant for WBC 28.4, lactic acid 5.4, BNP 629 and troponin 0.135. Chest x-ray showed extensive bilateral consolidation Initial EKG showed A-fib with RVR 155 and repeat showed A-fib rate 93. No acute ST changes In the ED patient received normal saline 2 L IV fluid bolus, diltiazem 50 Mg IV x 1, diltiazem drip at 5 Mg, methylprednisolone 125 Mg IV x 1, ceftriaxone 1 g IV x 1, azithromycin 500 Mg IV x 1 Patient will be admitted for treatment and management of acute respiratory failure with hypoxia secondary to community-acquired pneumonia. Pantry Cook, Dr. Americo Morrison consulted and closely following. Appreciate recommendations Review of Systems Review of Systems Narrative Review of Systems: GENERAL: Denies fever/chills or diaphoresis. HEENT: Denies headaches or visual changes. Denies discharge. Neuro: Denies unusual weakness or difficulty speaking. CARDIO: As above PULM: As above GI: Denies abdominal pain, N/V/C/D. Reports having BMs. URO: Denies burning/itching/pain/urinary changes. MSK/EXT/SKIN: Denies joint/skeletal/muscle pain, issues/changes in upper or lower extremities, itchiness, or superficial pain. PSYCH: Cooperative, pleasant mood & affect. The rest of the review of systems is otherwise negative. Past Medical History Past Medical History Comments PMH COMMENT: Past medical history: Essential tremor BPH History of stroke 2022 with residual right leg weakness Primary hypertension Hyperlipidemia Medication list: Atorvastatin 80 Mg p.o. daily Benzonatate 200 Mg p.o. 3 times daily Buspirone 10 mg p.o. twice daily Carbidopa/levodopa 1 tab p.o. twice daily Cetirizine 10 Mg p.o. every afternoon Clopidogrel 75 Mg p.o. daily Dutasteride 0.5 Mg p.o. every afternoon HCTZ 12.5 Mg p.o. daily Lactulose 10G p.o. nightly Montelukast 10 Mg p.o. every morning Potassium citrate 15 mEq p.o. twice daily Tamsulosin 0.4 Mg p.o. 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 Has 2 biologic kids and 5 step kids Tobacco use: Quit 45 years ago. Approximately 10 pack years ETHO use: Socially Illicit drug use: Denies Social History Note: Lives alone Family History: His father of colon cancer at 42 Exam Vital Signs Temp Pulse Resp BP Pulse Ox O2 Del Method O2 Flow Rate 98.3 F 88 28 H 121/75 100 High Flow Nasal Cannula 40 04/25/25 11:00 04/25/25 12:42 04/25/25 12:42 04/25/25 11:00 04/25/25 12:42 04/25/25 11:00 04/25/25 12:42 FiO2 85 04/25/25 12:42 Narrative Exam Constitutional Alert, oriented x 3 and comfortable. Elderly male on HFNC at 40/85. Able to speak in full sentences HEENT Vision grossly intact. Patent nares. Trachea midline Respiratory Chest normal on inspection and reduced air entry in all lung noonan with mild crackles at bases Cardiovascular S1 and S2 audible, RRR. No murmurs carotid bruit. No gross JVD. Abdominal Soft and non tender to palpation in all quadrants. BS + Genitourinary No bladder tenderness, no flank pain. Normal to palpation Musculoskeletal Extremities tone within normal limits. Right lower extremity appears slightly larger than left. Trace edema Neurological CN II - XII grossly intact. Extremity motor and sensation grossly intact. Skin Warm, dry and intact. No apparent lesions. Psychiatric Patient has good affect, is cooperative Results: Labs 04/26/25 05:01 04/26/25 05:01 Labs: Short CBC 04/25/25 Range/Units 10:14 WBC 28.4 H (3.8-10.6) Thou/mm3 Hgb 13.9 (13.5-16.0) g/dL Hct 40.1 L (41.0-53.0) % Plt Count 369 D (140-440) Thou/mm3 BMP 04/25/25 10:14 Sodium 130 L Potassium 4.0 Chloride 90 L Carbon Dioxide 23.0 BUN 23 Creatinine 1.1 Glucose 200 H Calcium 9.7 Cardiac Enzymes 04/25/25 Range/Units 10:14 Troponin I 0.135 H* (0.0-0.045) ng/mL Liver Function 04/25/25 Range/Units 10:14 Total Bilirubin 0.8 (0.3-1.2) mg/dL AST 30 (0-34) U/L ALT 43 (10-49) U/L Alkaline Phosphatase 107 (46-116) U/L Albumin 4.0 (3.4-4.8) gm/dL Urine 04/25/25 Range/Units 10:23 Urine Color Yellow (Lt Yel-Yel) Urine Clarity Clear (Clear/Hazy) Urine pH 6.0 (5.0-7.0) Ur Specific [place] 1.033 (1.001-1.035) Urine Protein 1+ A (Neg - Trace) Urine Glucose (UA) Negative (Negative) Quality Measures Quality Measures none Advance care planning discussed with:: patient Medications Home Medications and Allergies Home Medications ?Medication ?Instructions ?Recorded ?Confirmed ?Type tamsulosin 0.4 mg capsule 0.4 mg PO QAM 08/30/23 04/25/25 History atorvastatin 80 mg tablet 80 mg PO QPM 04/25/25 04/25/25 History benzonatate 200 mg capsule 200 mg PO TID 04/25/25 04/25/25 History buspirone 10 mg tablet 10 mg PO BID 04/25/25 04/25/25 History carbidopa ER 25 mg-levodopa 100 mg 1 tab PO BID 04/25/25 04/25/25 History tablet,extended release cetirizine 10 mg tablet 10 mg PO QPM 04/25/25 04/25/25 History clopidogrel 75 mg tablet 75 mg PO QDAY 04/25/25 04/25/25 History dutasteride 0.5 mg capsule 0.5 mg PO QPM 04/25/25 04/25/25 History hydrochlorothiazide 12.5 mg tablet 12.5 mg PO QDAY 04/25/25 04/25/25 History lactulose 10 gram/15 mL oral 10 g PO QAM 04/25/25 04/25/25 History solution montelukast 10 mg tablet 10 mg PO QAM 04/25/25 04/25/25 History potassium citrate 15 mEq (1,620 15 meq PO BID 04/25/25 04/25/25 History mg) tablet,extended release Allergies Allergy/AdvReac Type Severity Reaction Status Date / Time No Known Allergies Allergy Verified 04/25/25 09:34 Visit Medications Acetaminophen (Acetaminophen 325 Mg Tablet) 650 mg PO Q6H PRN PRN Reason: Fever >100.3 or pain Stop: 05/25/25 12:22 Hydrocodone Bitart/Acetaminophen (Hydrocodone/Apap 5/325 Tablet) 1 tab PO Q4HR PRN PRN Reason: PAIN SCALE 4-10(Mod-Sev Stop: 04/30/25 12:22 Heparin Sodium (Porcine) (Heparin Sod Inj 5000 Unit/Ml Vial) 5,000 unit SC BID JANINE Stop: 05/09/25 12:29 Last Admin: 04/25/25 12:41 Dose: 5,000 unit Diltiazem HCl (Diltiazem In D5w 125 Mg) 125 mg in 125 mls @ 5 mls/hr IV .Q24H JANINE Stop: 05/25/25 10:09 Last Admin: 04/25/25 10:45 Dose: 5 mg/hr, 5 mls/hr Ipratropium [place] (Ipratropium Rt 0.5 Mg/ 2.5 Ml Nebu) 0.5 mg INH Q20MIN JANINE Stop: 04/27/25 12:31 Last Admin: 04/25/25 12:38 Dose: 0.5 mg Levalbuterol HCl (Levalbuterol Rt 0.63 Mg/3 Ml Nebu) 0.63 mg INH Q20MIN JANINE Stop: 04/27/25 12:31 Last Admin: 04/25/25 12:38 Dose: 0.63 mg Ondansetron HCl (Ondansetron Inj 2 Mg/Ml Inj 2 Ml) 4 mg IVP Q6H PRN; Protocol PRN Reason: NAUSEA OR VOMITING Stop: 05/25/25 12:22 Discontinued Medications Diltiazem HCl (Diltiazem Inj 5 Mg/Ml Vial 5 Ml) 15 mg IV X1 ONE Stop: 04/25/25 10:06 Last Admin: 04/25/25 10:35 Dose: 15 mg Azithromycin 500 mg/ Sodium (Chloride) 250 mls @ 250 mls/hr IV X1 ONE Stop: 04/25/25 12:20 Last Admin: 04/25/25 12:12 Dose: 250 mls/hr Ceftriaxone Sodium/Dextrose (Rocephin/D5w 1gm Iv Premix) 1 gm in 50 mls @ 100 mls/hr IV X1 ONE Stop: 04/25/25 11:50 Last Infusion: 04/25/25 12:12 Dose: Infused Sodium Chloride (Ns) 1,000 mls @ 999 mls/hr IV .Q1H1M ONE Stop: 04/25/25 12:30 Last Admin: 04/25/25 11:50 Dose: 999 mls/hr Sodium Chloride (Ns) 1,000 mls @ 999 mls/hr IV .Q1H1M ONE Stop: 04/25/25 11:05 Last Infusion: 04/25/25 11:05 Dose: Infused Methylprednisolone Sodium Succinate (Methylprednisolone Sod Succ 62.5 Mg/Ml 2ml Vial) 125 mg IVP X1 ONE Stop: 04/25/25 11:22 Last Admin: 04/25/25 11:38 Dose: 125 mg Sodium Chloride (Sodium Chloride Rt 10% 15 Ml Nebu) 5 ml INH X1 ONE Stop: 04/25/25 12:24 Assessment & Plan Plan Patient is an 79-year-old male with a past medical history significant for essential tremor, BPH, primary hypertension, hyperlipidemia and 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 He follows up with his PCP Dr. Osman and wax cutter Dr. Molina. Patient will be admitted for treatment and management of acute respiratory failure with hypoxia secondary to community-acquired pneumonia. Acute respiratory failure with hypoxia secondary to likely community-acquired pneumonia Possible ARDS Lactic acidosis Leukocytosis patient presented with worsening cough and shortness of breath refractory to outpatient antibiotics. On exam had severely reduced air entry in all lung noonan with mild crackles at bases. Labs showed WBC 28.4, lactic acid 5.4, BNP 629 and troponin 0.135 Chest x-ray showed extensive bilateral consolidation PSI; risk class IV. Hospitalization recommended based on risk Dresden score; positive; severe ARDS P/F ratio 84.7. 45% mortality Ronda index; 3.69 points. Risk of HFNC failure is high Plan: ? Trend lactic acid ? RSV, cocci, influenza A and B, Legionella ordered ? Started on levofloxacin 750 Mg IV daily on [04/25? ? Levalbuterol nebs Q6 hourly ? Ipratropium nebs Q6 hourly ? Chest physiotherapy Q6 hourly ? Acapella device Q6 hourly New onset A-fib with RVR Patient endorses some palpitations starting last night and continuing today intermittently. Initial EKG showed A-fib with RVR 155 and repeat showed A-fib rate 93. No acute ST changes Received diltiazem 15 Mg IV x 1 followed by non titratable diltiazem infusion in the ED after which rate improved to 93 [id number]; 5 points; stroke risk 7.2%. HAS-BLED; 4 points. Major risk of bleeding Plan: ? Continue telemetry monitoring ? Transthoracic echocardiogram ordered to assess wall motion abnormalities, valvular defects and ejection fraction ? Discontinue diltiazem infusion ? Started on diltiazem 60 Mg p.o. 3 times daily for rate control ? To discuss patient's risk versus benefit of anticoagulation ? Pantry Cook, Dr. Americo Morrison consulted and closely following. Appreciate recommendations Primary hypertension Hyperlipidemia Plan: ? Resumed home medication atorvastatin ? HCTZ on hold for now Right lower extremity swelling On exam right lower extremity appears to be mildly larger than the left. When questioned patient states that he had an outpatient duplex ultrasound which was negative for DVT Troponinemia NSTEMI type I versus type II On admission troponin mildly elevated at 0.135 and patient had palpitations and mild chest pressure. Plan: ? Trend troponin BPH Plan: ? Resume home medication tamsulosin and dutasteride Health maintenance: Disposition: IV antibiotics. HFNC. Pending cardiology recommendation Diet: Regular Lines: pIVs GI Prophylaxis: None Thrombo Prophylaxis: Heparin Code status: DNR Plan of care discussed with Attending Dr. Gonzales and PGY2 Dr. Nima Deluca MD PGY 1 Disclaimer: This note was dictated by speech recognition. Minor errors in director skills may be present due to voice recognition software. Attending Provider Attestation/Addendum I reviewed labs, imaging, EKG, home medications and prior available records. Face to face evaluation was performed by me. I have personally examined the patient and discussed assessment and plan with the IM team. I reviewed the resident note and agree with the plan with exceptions as below. Acute hypoxic respiratory failure Bilateral pneumonia Possible CHF History of CVA Lactic acidosis Non-STEMI Atrial fibrillation with controlled ventricular rhythm Started levofloxacin Continue oxygen and wean off as tolerated Gave low-dose Lasix IV. Ordered echocardiogram Trend troponin Continue clopidogrel and atorvastatin Trend lactic acid: Normalized Started diltiazem drip. Switch to oral diltiazem
--- NOTE | 2025-04-25 13:45 | PC.NURSE ---
lunch tray provided.
[2025-04-25 14:02] LABS: Base Excess 0 (-3-3); HCO3 23 mEq/L (20-26); PCO2 34 mmHg (32.0-48.0); PO2 73 mmHg (83-108); pH, Arterial 7.45 (7.35-7.45)
[2025-04-25 14:14] LABS: Allen Test Performed/OK; Inspired Oxygen, FIO2 70 %; O2 Saturation 97 % (91-98); Puncture Site Right Radial
--- NOTE | 2025-04-25 14:21 | PC.CC ---
Patient is a 79 year-old male who presents to the hospital for AHRF Secondary to CAP. NATHALYWStephaine made [id number] contact with patient. ASW introduced self, role, and reason for visit. Patient appeared alert and oriented to self, location, and situation. Patient was informed of limits to confidentiality. At bedside was patient's daughter, Lorie Felix whom patient provided consent to remain in the room during assessment. Patient was pleasant and engaged in initial assessment. Patient confirmed information on demographics and reports he lives alone. Per patient, his medical decision makers are both of his daughters Lorie Felix and Jackelyn Escalante . Patient reports he is able to ambulate independently at home and complete his own ADLs. Patient does not require any oxygen at home or DME. Patient is not a dialysis patient. Patient's primary care provider is Bruce Osman and his pharmacy of choice is [facility]. Upon discharge the patient plans to return back home and is open to home health if needed. product manager financial services to follow up for any discharge needs.
[2025-04-25] MEDS: LEVOFLOXACIN/D5W 750MG IVPB 750 MG/150 ML BAG 100 MG IV (14:43)
[2025-04-25] MEDS: CLOPIDOGREL BISULFATE 75 MG TABLET PO (14:43)
[2025-04-25] MEDS: FUROSEMIDE INJ 10 MG/ML VIAL 2 ML 20 MG IVP (14:45)
[2025-04-25 15:24] LABS: Troponin I 0.125 ng/mL (0.0-0.045)
--- NOTE | 2025-04-25 16:13 | CHAP ---
Family member expressed gratitude for visit and conversation
[2025-04-25] MEDS: guaiFENesin SYRUP 200 MG/10 ML UDC 100 MG PO ×2 (16:26→21:08)
[2025-04-25] MEDS: BENZONATATE 100 MG CAPSULE 200 MG PO ×2 (16:27→21:11)
--- NOTE | 2025-04-25 17:11 | ESCONSULT_ITS ---
<Statement entered by Gisela Morrison MD - 04/26/25 17:27> I personally evaluated examined the patient in the emergency room with resident physician PGY 2 Dr. Bishop patient's very well-known to me history of longstanding hypertension admitted hospital pneumonia is atrial fibrillation paroxysmal episode or rapid heart rate digoxin diltiazem converted the patient to sinus rhythm patient gives history of paroxysmal episodes of palpitations he had a stroke in August 2024 patient apparently only on Plavix most likely patient has had paroxysmal A-fib causing stroke and he should be treated with Eliquis 5 mg twice daily I also recommend continuing the amiodarone to maintain sinus rhythm. Evaluate the patient and treatment plan recommendations discussed and agree with the treatment plan recommendation as documented by Dr. Bishop PGY 2 HPI Data of Consult Requesting Physician: Johnny Gonzales MD Admitting Provider: Johnny Gonzales MD Attending Provider: Jhonny Gonzales MD Primary Care Provider: Bruce Osman MD Consult Narrative Reason for consult: New Afib History of present illness: Patient is a 79 years old male with PMH of CVA with residual right leg weakness, BPH, hypertension, hyperlipidemia, Parkinson disease (essential tremor?) presents to the ED complaining of shortness of breath for the last week. He was seen by his PCP 1 week ago and was prescribed amoxicillin for pneumonia, his symptoms has failed to improve and over the last 4 days his SOB was getting significantly worse. His reported his pulse ox was at 70% today. He went to his PCP and and was told to go to the ED. He denies any chest pain or pressure. He also denies orthopnea symptoms. His legs got swollen also within the last week. He takes HCTZ at home for hypertension and clopidogrel and atorvastatin due to prior stroke. He is followed by Dr. Molina outpatient. In the ED on admission his BP 123/81, HR 150 BPM, RR 24, temp 100.1F, saturation 91% on 15L oxymask. Labs showed WBC 28.4, Na 130, LA 5.4, troponin I 0.135 -> 0.125, BNP 629. CXR showed extensive bilateral pneumonia. EKG showed atrial tachycardia with RVR at 153, he was given diltiazem IV and EKG showed sinus tachycardia. On telemonitor his rhythm is irregular with no clear P waves. Patient met SIRS criteria and was admitted for further management. Cardiology was consulted due to new onset Afib. Patient was seen and examined at the bedside. He is on high flow oxygen saturating 92%. Continue management of underlying pneumonia. Continue diltiazem PO. Start on amiodarone 200 mg BID and Eliquis 5 mg BID. Echo is pending. cc:: cc: Johnny Gonzales MD Review of Systems Review of Systems Systems Reviewed: All systems reviewed, normal except as documented Exam Vital Signs Temp Pulse Resp BP Pulse Ox O2 Del Method O2 Flow Rate 98.8 F 89 22 H 131/82 H 97 High Flow Nasal Cannula 40 04/25/25 15:39 04/25/25 15:39 04/25/25 15:39 04/25/25 15:39 04/25/25 15:39 04/25/25 11:00 04/25/25 14:09 FiO2 70 04/25/25 14:09 Narrative Exam Gen: Well-developed and well-nourished on high flow oxygen, not in distress. HEENT: NCAT, PERRLA, EOMI, MMM, anicteric conjunctivae. CVS: normal S1 and S2. RRR. No M/R/G. Difficult auscultation due to high flow oxygen. Resp: rhonchi B/L. No rales, crackles or wheezing. Abd: soft, obese, non-tender, non-distended. BS+ in all 4 quadrants. MSK: Good ROM in BUE & BLE. 2+ pitting edema RLE, Trace edema LLE. Neuro: CN II-XII grossly intact. Strength 5/5 in BUE & BLE. Alert and oriented x3. Psych: appropriate mood and affect. Results Labs 04/25/25 10:14 04/25/25 10:14 Labs: Short CBC 04/25/25 Range/Units 10:14 WBC 28.4 H (3.8-10.6) Thou/mm3 Hgb 13.9 (13.5-16.0) g/dL Hct 40.1 L (41.0-53.0) % Plt Count 369 D (140-440) Thou/mm3 BMP 04/25/25 10:14 Sodium 130 L Potassium 4.0 Chloride 90 L Carbon Dioxide 23.0 BUN 23 Creatinine 1.1 Glucose 200 H Calcium 9.7 Cardiac Enzymes 04/25/25 04/25/25 Range/Units 10:14 14:21 Troponin I 0.135 H* 0.125 H* (0.0-0.045) ng/mL Liver Function 04/25/25 Range/Units 10:14 Total Bilirubin 0.8 (0.3-1.2) mg/dL AST 30 (0-34) U/L ALT 43 (10-49) U/L Alkaline Phosphatase 107 (46-116) U/L Albumin 4.0 (3.4-4.8) gm/dL Urine 04/25/25 Range/Units 10:23 Urine Color Yellow (Lt Yel-Yel) Urine Clarity Clear (Clear/Hazy) Urine pH 6.0 (5.0-7.0) Ur Specific [place] 1.033 (1.001-1.035) Urine Protein 1+ A (Neg - Trace) Urine Glucose (UA) Negative (Negative) ABG Interpretation ABG results: 04/25/25 13:58 ABG pH 7.45 ABG pCO2 34 ABG pO2 73 L ABG HCO3 23 ABG O2 Saturation 97 ABG Base Excess 0 Quality Measures Quality Measures VTE prophylaxis Advance care planning discussed with:: patient Medications Home Medications and Allergies Home Medications ?Medication ?Instructions ?Recorded ?Confirmed ?Type tamsulosin 0.4 mg capsule 0.4 mg PO QAM 08/30/2304/25 History atorvastatin 80 mg tablet 80 mg PO QPM 04/25/25 History benzonatate 200 mg capsule 200 mg PO TID 04/25/2503/29 History buspirone 10 mg tablet 10 mg PO BID 04/25/25 History carbidopa ER 25 mg-levodopa 100 mg 1 tab PO BID 04/25/25 History tablet,extended release cetirizine 10 mg tablet 10 mg PO QPM 04/25/25 History clopidogrel 75 mg tablet 75 mg PO QDAY 04/25/2504/25 History dutasteride 0.5 mg capsule 0.5 mg PO QPM 04/25/2503/29 History hydrochlorothiazide 12.5 mg tablet 12.5 mg PO QDAY 04/25/25 History lactulose 10 gram/15 mL oral 10 g PO QAM 04/25/25 05/2 08/22 History solution montelukast 10 mg tablet 10 mg PO QAM 04/25/25 History potassium citrate 15 mEq (1,620 15 meq PO BID 04/25/25 04/25/25 History mg) tablet,extended release Allergies Allergy/AdvReac Type Severity Reaction Status Date / Time No Known Allergies Allergy Verified 04/25/25 09:34 Visit Medications Acetaminophen (Acetaminophen 325 Mg Tablet) 650 mg PO Q6H PRN PRN Reason: Fever >100.3 or pain Stop: 05/25/25 12:22 Hydrocodone Bitart/Acetaminophen (Hydrocodone/Apap 5/325 Tablet) 1 tab PO Q4HR PRN PRN Reason: PAIN SCALE 4-10(Mod-Sev Stop: 04/30/25 12:22 Atorvastatin Calcium (Atorvastatin Calcium 20 Mg Tablet) 80 mg PO QPM [facility] Stop: 05/25/25 20:59 Benzonatate (Benzonatate 100 Mg Capsule) 200 mg PO TID [facility]; Protocol Stop: 05/25/25 14:14 Last Admin: 04/25/25 16:27 Dose: 200 mg Buspirone HCl (Buspirone Hcl 5 Mg Tablet) 10 mg PO BID [facility] Stop: 05/25/25 20:59 Carbidopa/Levodopa (Carbidopa/Levodopa Cr 25/100 Tabcr) 1 tab PO BID [facility] Stop: 05/25/25 20:59 Clopidogrel Bisulfate (Clopidogrel Bisulfate 75 Mg Tablet) 75 mg PO QDAY [facility] Stop: 05/25/25 14:14 Last Admin: 04/25/25 14:43 Dose: 75 mg Diltiazem HCl (Diltiazem 30 Mg Tablet) 60 mg PO TID [facility] Stop: 05/25/25 21:59 Dutasteride (Dutasteride 0.5 Mg Capsule (Non-Formulary)) 0.5 mg PO QPM [facility] Stop: 05/25/25 20:59 Guaifenesin (Guaifenesin Syrup 200 Mg/10 Ml Udc) 100 mg PO QID [facility]; Protocol Stop: 05/25/25 16:59 Last Admin: 04/25/25 16:26 Dose: 100 mg Heparin Sodium (Porcine) (Heparin Sod Inj 5000 Unit/Ml Vial) 5,000 unit SC BID [facility] Stop: 05/09/25 12:29 Last Admin: 04/25/25 12:41 Dose: 5,000 unit Levofloxacin/Dextrose (Levaquin Ivpb) 750 mg in 150 mls @ 100 mls/hr IV QDAY [facility] Stop: 05/02/25 14:14 Last Admin: 04/25/25 14:43 Dose: 100 mls/hr Ipratropium [place] (Ipratropium Rt 0.5 Mg/ 2.5 Ml Nebu) 0.5 mg INH Q20MIN [facility] Stop: 04/27/25 12:31 Last Admin: 04/25/25 12:38 Dose: 0.5 mg Ipratropium [place] (Ipratropium Rt 0.5 Mg/ 2.5 Ml Nebu) 0.5 mg INH Q6HRRT [facility] Stop: 05/25/25 18:59 Levalbuterol HCl (Levalbuterol Rt 0.63 Mg/3 Ml Nebu) 0.63 mg INH Q20MIN [facility] Stop: 04/27/25 12:31 Last Admin: 04/25/25 12:38 Dose: 0.63 mg Montelukast Sodium (Montelukast Sodium 10 Mg Tablet) 10 mg PO QAM [facility] Stop: 05/26/25 08:59 Ondansetron HCl (Ondansetron Inj 2 Mg/Ml Inj 2 Ml) 4 mg IVP Q6H PRN; Protocol PRN Reason: NAUSEA OR VOMITING Stop: 05/25/25 12:22 Sennosides (Senna Tablet) 1 tab PO QDAY [facility]; Protocol Stop: 05/26/25 08:59 Tamsulosin HCl (Tamsulosin Hcl 0.4 Mg Capsule) 0.4 mg PO QAM [facility] Stop: 05/26/25 08:59 Discontinued Medications Diltiazem HCl (Diltiazem Inj 5 Mg/Ml Vial 5 Ml) 15 mg IV X1 ONE Stop: 04/25/25 10:06 Last Admin: 04/25/25 10:35 Dose: 15 mg Furosemide (Furosemide Inj 10 Mg/Ml Vial 2 Ml) 20 mg IVP X1 ONE Stop: 04/25/25 14:12 Last Admin: 04/25/25 14:45 Dose: 20 mg Diltiazem HCl (Diltiazem In D5w 125 Mg) 125 mg in 125 mls @ 5 mls/hr IV .Q24H [facility] Stop: 05/25/25 10:09 Last Admin: 04/25/25 10:45 Dose: 5 mg/hr, 5 mls/hr Azithromycin 500 mg/ Sodium (Chloride) 250 mls @ 250 mls/hr IV X1 ONE Stop: 04/25/25 12:20 Last Infusion: 04/25/25 13:12 Dose: Infused Ceftriaxone Sodium/Dextrose (Rocephin/D5w 1gm Iv Premix) 1 gm in 50 mls @ 100 mls/hr IV X1 ONE Stop: 04/25/25 11:50 Last Infusion: 04/25/25 12:12 Dose: Infused Sodium Chloride (Ns) 1,000 mls @ 999 mls/hr IV .Q1H1M ONE Stop: 04/25/25 12:30 Last Infusion: 04/25/25 11:50 Dose: Infused Sodium Chloride (Ns) 1,000 mls @ 999 mls/hr IV .Q1H1M ONE Stop: 04/25/25 11:05 Last Infusion: 04/25/25 11:05 Dose: Infused Levalbuterol HCl (Levalbuterol Rt 0.31 Mg/3 Ml Nebu) 0.31 mg INH Q6HRRT ONE Stop: 04/25/25 16:18 Methylprednisolone Sodium Succinate (Methylprednisolone Sod Succ 62.5 Mg/Ml 2ml Vial) 125 mg IVP X1 ONE Stop: 04/25/25 11:22 Last Admin: 04/25/25 11:38 Dose: 125 mg Sodium Chloride (Sodium Chloride Rt 10% 15 Ml Nebu) 5 ml INH X1 ONE Stop: 04/25/25 12:24 Assessment & Plan Plan Patient is a 79 years old male with PMH of CVA with residual right leg weakness, BPH, hypertension, hyperlipidemia, Parkinson disease (essential tremor?) presents to the ED complaining of shortness of breath for the last week. CXR showed extensive bilateral pneumonia. Patient met SIRS criteria and was admitted for further management. Cardiology was consulted due to new onset Afib. #Paroxysmal Afib. - Patient reported palpitations for a year. - [id number] 5 points. Plan: - continue diltiazem 60 mg TID. - started on amiodarone 200 mg BID. - started on Eliquis 5 mg BID. #Troponinemia. #Hx of CVA. - Patient had stroke in 2022. - on admission troponin I 0.135 -> 0.125. Likely NSTEMI type II in setting of sepsis. Plan: - continue trending troponin I. - resume home Plavix and atorvastatin. #Elevated BNP. #BLE swelling. - no CHF history. - presented with BLE swelling and BNP 629. - echo from 2022 showed EF 69%. Plan: - echo is pending. Management of other problems as per primary team. Plan of care discussed with attending Dr. Morrison. Dario Rousseau MD, PGY 2. Disclaimer: This note was dictated by speech recognition. Minor errors in smoke control supervisor may be present due to voice recognition software.
[2025-04-25] MEDS: BusPIRone HCL 5 MG TABLET 10 MG PO (21:09)
[2025-04-25] MEDS: DUTASTERIDE 0.5 MG CAPSULE (NON-FORMULARY) PO (21:09)
[2025-04-25] MEDS: APIXABAN 2.5 MG TABLET 5 MG PO (21:10)
[2025-04-25] MEDS: ATORVASTATIN CALCIUM 20 MG TABLET 80 MG PO (21:10)
[2025-04-25] MEDS: TABCR PO (21:11)
[2025-04-25] MEDS: DILTIAZEM 30 MG TABLET 60 MG PO (21:11)
[2025-04-25] MEDS: CARBIDOPA PO (21:11)
[2025-04-25] MEDS: LEVODOPA PO (21:11)
[2025-04-25] MEDS: AMIODARONE HCL 200 MG TABLET PO (21:12)
[2025-04-25] MEDS: MELATONIN 3 MG TABLET PO (23:45)
[2025-04-26] VITALS (23 sets, daily range): BP systolic 99–149; BP diastolic 56–86; PULSE 63–92; RESP 15–33; TEMP 36–36.7; O2SAT 88–99; BMI 27.1
[2025-04-26] MEDS: IPRATROPIUM RT 0.5 MG/ 2.5 ML NEBU INH ×4 (00:21→19:10)
[2025-04-26] MEDS: DILTIAZEM 30 MG TABLET 60 MG PO ×3 (05:07→21:01)
[2025-04-26] MEDS: BENZONATATE 100 MG CAPSULE 200 MG PO ×3 (05:07→21:01)
[2025-04-26] MEDS: guaiFENesin SYRUP 200 MG/10 ML UDC 100 MG PO ×4 (05:07→20:55)
[2025-04-26 06:20] LABS: Basophils % (Auto) 0 % (0-2.5); Eosinophils % (Auto) 0 % (0-10); Hematocrit 33.9 % (41.0-53.0); Hemoglobin 11.7 g/dL (13.5-16.0); Immature Granulocytes % (Auto) 2 % (0-0); Immature Granulocytes Auto 0.34 Thou/mm3 (0.00-0.00); Lymphocytes # (Auto) 0.8 Thou/mm3 (1.0-4.8); Lymphocytes % (Auto) 3 % (10-50); Mean Corpuscular HGB Conc 34.5 g/dl (31.0-37.0); Mean Corpuscular Hemoglobin 30.5 pg (25.0-35.0); Mean Corpuscular Volume 89 fL (80-100); Monocytes # (Auto) 1.1 Thou/mm3 (0.0-0.8); Monocytes % (Auto) 5 % (0-12); Neutrophils % (Auto) 90 % (37-80); Nucleated Red Blood Cell % 0 /100 WBC (0); Platelet Count 266 Thou/mm3 (140-440); RDW Standard Deviation 44.2 fL (35.1-43.9); Red Blood Count 3.83 Miln/mm3 (4.50-5.90); White Blood Count 23.3 Thou/mm3 (3.8-10.6)
[2025-04-26 06:50] LABS: Alanine Aminotransferase 25 U/L (10-49); Albumin, Serum 3.3 gm/dL (3.4-4.8); Albumin/Globulin Ratio 1.6 (1.2-2.2); Alkaline Phosphatase 117 U/L (46-116); Anion Gap 10 (7-16); Aspartate Amino Transferase 39 U/L (0-34); BUN/Creatinine Ratio 33 Ratio (12-20); Bilirubin,Total 0.4 mg/dL (0.3-1.2); Blood Urea Nitrogen 30 mg/dL (9-23); Calcium (Corrected) 8.6 mg/dL (8.5-10.1); Chloride 99 mMol/L (98-107); Creatinine (Component) 0.9 mg/dL (0.6-1.3); Estimated Creatinine Clearance 67.6 mL/min (>60); Globulin 2.1 gm/dL (2.3-3.5); Glucose 179 mg/dL (74-106); Magnesium 2.2 mg/dL (1.6-2.6); Osmolality,Calculated 284 (275-295); Phosphorous 3.7 mg/dL (2.4-5.1); Potassium 4.8 mMol/L (3.4-5.1); Sodium 137 mMol/L (136-145); Total Protein 5.4 gm/dL (5.7-8.2); eGFR > 60 See Note
[2025-04-26] MEDS: PANTOPRAZOLE INJ 40 MG VIAL IVP (08:00)
[2025-04-26] MEDS: LEVOFLOXACIN/D5W 750MG IVPB 750 MG/150 ML BAG 100 MG IV (08:00)
[2025-04-26] MEDS: MONTELUKAST SODIUM 10 MG TABLET PO (08:01)
[2025-04-26] MEDS: SENNA TABLET 1 TAB PO (08:01)
[2025-04-26] MEDS: TAMSULOSIN HCL 0.4 MG CAPSULE PO (08:01)
[2025-04-26] MEDS: APIXABAN 2.5 MG TABLET 5 MG PO ×2 (08:01→20:56)
[2025-04-26] MEDS: BusPIRone HCL 5 MG TABLET 10 MG PO ×2 (08:02→20:56)
[2025-04-26] MEDS: AMIODARONE HCL 200 MG TABLET PO ×2 (08:03→20:56)
[2025-04-26] MEDS: CLOPIDOGREL BISULFATE 75 MG TABLET PO (08:03)
[2025-04-26] MEDS: TABCR PO ×2 (08:06→21:09)
[2025-04-26] MEDS: CARBIDOPA PO ×2 (08:06→21:09)
[2025-04-26] MEDS: LEVODOPA PO ×2 (08:06→21:09)
--- NOTE | 2025-04-26 09:14 | EKG_ITS ---
[facility] Test Date: 2025-04-26 Pat Name: DANISHA PEOPLES Department: Room: S263A Gender: Male [employer]: GAGE : 1945 Requested By: Demian Deluca Order Number: [id number] Reading MD: Demian Deluca Measurements Intervals Point Clear Rate: 65 P: 33 DE: 191 QRS: 30 QRSD: 111 T: 27 QT: 469 QTc: 490 Interpretive Statements SINUS RHYTHM WITH SINUS ARRHYTHMIA MODERATE INTRAVENTRICULAR CONDUCTION DELAY MODERATE T-WAVE ABNORMALITY, CONSIDER ANTEROLATERAL ISCHEMIA Compared to ECG 04/25/2025 11:49:13 Intraventricular conduction delay now present T-wave abnormality now present Possible ischemia now present Atrial fibrillation no longer present Ventricular premature complex(es) no longer present Aberrant conduction of supraventricular beat(s) no longer present /store/S0/[id number]
--- NOTE | 2025-04-26 09:55 | PD.RESPRO ---
Documentation for date of: 04/26/25 Subjective Subjective Interval history: Overnight patient was hypotensive with BP 99/56, diltiazem infusion was subsequently discontinued. This morning patient says he feels better, endorses improvement of his shortness of breath although he still has a productive. Currently saturating at 94% on HFNC at 30L O2, 80% FiO2. From telemetry review patient alternated between sinus arrhythmia and sinus rhythm overnight with heart rates in the 60s/80s. Troponin down trended to 0.125 from 0.135, WBC decreased to 23.3 from 28.4, hemoglobin decreased to 11.7 from 13.9, K4.8 and Mg 2.2. Sputum Gram stain grew 3+ GPC preliminary, urine and blood cultures pending. Currently patient on day 2 levofloxacin 750 Mg IV daily, levalbuterol and ipratropium nebs Q6 hourly and amiodarone, diltiazem and apixaban for A-fib. Lasix 20 Mg IV x 1 given. Exam Vital Signs Temp Pulse Resp BP Pulse Ox O2 Del Method O2 Flow Rate 97.9 F 75 21 H 118/71 93 L High Flow Nasal Cannula 30 04/26/25 08:00 04/26/25 08:03 04/26/25 08:00 04/26/25 08:03 04/26/25 08:00 04/26/25 08:00 04/26/25 08:00 FiO2 70 04/26/25 08:00 Narrative Exam Constitutional Alert, oriented x 3 and comfortable. Elderly male on HFNC at 30 / 80. Able to speak in full sentences HEENT Vision grossly intact. Patent nares. Trachea midline Respiratory Chest normal on inspection and improved air entry in all lung noonan with mild crackles at bases Cardiovascular S1 and S2 audible, RRR. 4/6 ejection systolic murmur heard at right sternal border with radiation to bilateral carotid. JVD not assessed Abdominal Soft and non tender to palpation in all quadrants. BS + Genitourinary No bladder tenderness, no flank pain. Normal to palpation Musculoskeletal Extremities tone within normal limits. Right lower extremity appears slightly larger than left. No signs of edema. Neurological CN II - XII grossly intact. Extremity motor and sensation grossly intact. Skin Warm, dry and intact. No apparent lesions. Psychiatric Patient has good affect, is cooperative Objective Labs 04/26/25 13:59 05/30/25 05:01 Labs: Laboratory Results - last 24 hr 04/25/25 04/25/25 04/25/25 10:00 10:14 10:23 WBC 28.4 H RBC 4.52 Hgb 13.9 Hct 40.1 L MCV 89 MCH 30.8 MCHC 34.7 RDW Std Deviation 43.7 Plt Count 369 D Neut % (Auto) 86 H Lymph % (Auto) 3 L [place] % (Auto) 8 Eos % (Auto) 0 Baso % (Auto) 0 Neut # (Auto) 24.5 H Lymph # (Auto) 0.9 L [place] # (Auto) 2.3 H Eos # (Auto) 0.0 Baso # (Auto) 0.1 Immature Gran # (Auto) 0.64 H Absolute Nucleated RBC 0.00 Immature Gran % 2 H Nucleated RBC % 0 PT 12.5 H INR 1.2 APTT 23.7 Puncture Site ABG pH ABG pCO2 ABG pO2 ABG HCO3 ABG O2 Saturation ABG Base Excess FiO2 Sodium 130 L Potassium 4.0 Chloride 90 L Carbon Dioxide 23.0 Anion Gap 17 H BUN 23 Creatinine 1.1 Estim Creat Clear Calc 55.3 L eGFR > 60 BUN/Creatinine Ratio 21 H Glucose 200 H Calculated Osmolality 270 L Lactic Acid 5.4 H* Calcium 9.7 Corrected Calcium 9.7 Phosphorus Magnesium 2.1 Total Bilirubin 0.8 AST 30 ALT 43 Alkaline Phosphatase 107 Troponin I 0.135 H* B-Natriuretic Peptide 629 H* Total Protein 7.0 Albumin 4.0 Globulin 3.0 Albumin/Globulin Ratio 1.3 Lipase 25 Procalcitonin 0.95 H Ur Collection Type Clean Catch Urine Color Yellow Urine Clarity Clear Urine pH 6.0 Ur Specific [place] 1.033 Urine Protein 1+ A Urine Glucose (UA) Negative Urine Ketones Trace Urine Blood Trace Urine Nitrite Negative Urine Bilirubin Negative Urine Urobilinogen (Auto) 4.0 Ur Leukocyte Esterase Negative Urine RBC < 1 Urine WBC 1 Ur Squamous Epith Cells < 1 Urine Bacteria None RSV Rapid SARS-CoV-2 Ag (Rapid) 04/25/25 04/25/25 04/25/25 11:57 12:18 13:33 WBC RBC Hgb Hct MCV MCH MCHC RDW Std Deviation Plt Count Neut % (Auto) Lymph % (Auto) [place] % (Auto) Eos % (Auto) Baso % (Auto) Neut # (Auto) Lymph # (Auto) [place] # (Auto) Eos # (Auto) Baso # (Auto) Immature Gran # (Auto) Absolute Nucleated RBC Immature Gran % Nucleated RBC % PT INR APTT Puncture Site ABG pH ABG pCO2 ABG pO2 ABG HCO3 ABG O2 Saturation ABG Base Excess FiO2 Sodium Potassium Chloride Carbon Dioxide Anion Gap BUN Creatinine Estim Creat Clear Calc eGFR BUN/Creatinine Ratio Glucose Calculated Osmolality Lactic Acid 2.0 Calcium Corrected Calcium Phosphorus Magnesium Total Bilirubin AST ALT Alkaline Phosphatase Troponin I B-Natriuretic Peptide Total Protein Albumin Globulin Albumin/Globulin Ratio Lipase Procalcitonin Ur Collection Type Urine Color Urine Clarity Urine pH Ur Specific [place] Urine Protein Urine Glucose (UA) Urine Ketones Urine Blood Urine Nitrite Urine Bilirubin Urine Urobilinogen (Auto) Ur Leukocyte Esterase Urine RBC Urine WBC Ur Squamous Epith Cells Urine Bacteria RSV Rapid Negative SARS-CoV-2 Ag (Rapid) Negative 04/25/25 04/25/25 04/26/25 13:58 14:21 05:01 WBC 23.3 H D RBC 3.83 L Hgb 11.7 L D Hct 33.9 L MCV 89 MCH 30.5 MCHC 34.5 RDW Std Deviation 44.2 H Plt Count 266 D Neut % (Auto) 90 H Lymph % (Auto) 3 L [place] % (Auto) 5 Eos % (Auto) 0 Baso % (Auto) 0 Neut # (Auto) 21.0 H Lymph # (Auto) 0.8 L [place] # (Auto) 1.1 H Eos # (Auto) 0.0 Baso # (Auto) 0.0 Immature Gran # (Auto) 0.34 H Absolute Nucleated RBC 0.00 Immature Gran % 2 H Nucleated RBC % 0 PT INR APTT Puncture Site Right Radial ABG pH 7.45 ABG pCO2 34 ABG pO2 73 L ABG HCO3 23 ABG O2 Saturation 97 ABG Base Excess 0 FiO2 70 Sodium 137 Potassium 4.8 D Chloride 99 Carbon Dioxide 28.0 Anion Gap 10 BUN 30 H Creatinine 0.9 Estim Creat Clear Calc 67.6 eGFR > 60 BUN/Creatinine Ratio 33 H Glucose 179 H Calculated Osmolality 284 Lactic Acid Calcium 8.0 L D Corrected Calcium 8.6 Phosphorus 3.7 Magnesium 2.2 Total Bilirubin 0.4 AST 39 H ALT 25 Alkaline Phosphatase 117 H Troponin I 0.125 H* B-Natriuretic Peptide Total Protein 5.4 L Albumin 3.3 L D Globulin 2.1 L Albumin/Globulin Ratio 1.6 Lipase Procalcitonin Ur Collection Type Urine Color Urine Clarity Urine pH Ur Specific [place] Urine Protein Urine Glucose (UA) Urine Ketones Urine Blood Urine Nitrite Urine Bilirubin Urine Urobilinogen (Auto) Ur Leukocyte Esterase Urine RBC Urine WBC Ur Squamous Epith Cells Urine Bacteria RSV Rapid SARS-CoV-2 Ag (Rapid) ABG Interpretation ABG results: 04/25/25 13:58 ABG pH 7.45 ABG pCO2 34 ABG pO2 73 L ABG HCO3 23 ABG O2 Saturation 97 ABG Base Excess 0 Quality Measures Quality Measures VTE prophylaxis Advance care planning discussed with:: patient Assessment & Plan Assessment Current Active Medications: Generic Name Dose Route Start Last Admin Trade Name Freq PRN Reason Stop Dose Admin Acetaminophen 650 mg 04/26/25 07:40 Acetaminophen 325 Mg Tablet PO 05/25/25 12:22 Q6H PRN Fever >100.3 or pain 1-3 Hydrocodone Bitart/Acetaminophen 1 tab 04/25/25 12:23 Hydrocodone/Apap 5/325 Tablet PO 04/30/25 12:22 Q4HR PRN PAIN SCALE 4-10(Mod-Sev Amiodarone HCl 200 mg 04/25/25 19:05 04/26/25 08:03 Amiodarone Hcl 200 Mg Tablet PO 05/25/25 19:04 200 mg BID JANINE Administration Apixaban 5 mg 04/25/25 21:00 04/26/25 08:01 Apixaban 2.5 Mg Tablet PO 05/25/25 20:59 5 mg BID JANINE Administration Atorvastatin Calcium 80 mg 04/25/25 21:00 04/25/25 21:10 Atorvastatin Calcium 20 Mg Tablet PO 05/25/25 20:59 80 mg QPM JANINE Administration Benzonatate 200 mg 04/25/25 14:15 04/26/25 05:07 Benzonatate 100 Mg Capsule PO 05/25/25 14:14 200 mg TID JANINE Administration Protocol Buspirone HCl 10 mg 04/25/25 21:00 04/26/25 08:02 Buspirone Hcl 5 Mg Tablet PO 05/25/25 20:59 10 mg BID JANINE Administration Carbidopa/Levodopa 1 tab 04/25/25 21:00 04/26/25 08:06 Carbidopa/Levodopa Cr 25/100 Tabcr PO 05/25/25 20:59 1 tab BID JANINE Administration Clopidogrel Bisulfate 75 mg 04/25/25 14:15 04/26/25 08:03 Clopidogrel Bisulfate 75 Mg Tablet PO 05/25/25 14:14 75 mg QDAY JANINE Administration Diltiazem HCl 60 mg 04/25/25 22:00 04/26/25 05:07 Diltiazem 30 Mg Tablet PO 05/25/25 21:59 60 mg TID JANINE Administration Dutasteride 0.5 mg 04/25/25 21:00 04/25/25 21:09 Dutasteride 0.5 Mg Capsule (Non-Formulary) PO 05/25/25 20:59 0.5 mg QPM JANINE Administration Guaifenesin 100 mg 04/25/25 17:00 04/26/25 05:07 Guaifenesin Syrup 200 Mg/10 Ml Udc PO 05/25/25 16:59 100 mg QID JANINE Administration Protocol Levofloxacin/Dextrose 750 mg in 150 mls @ 100 mls/hr 04/25/25 14:15 04/26/25 08:00 Levaquin Ivpb IV 05/02/25 14:14 100 mls/hr QDAY JANINE Administration Ipratropium [place] 0.5 mg 04/25/25 19:00 04/26/25 06:36 Ipratropium Rt 0.5 Mg/ 2.5 Ml Nebu INH 05/25/25 18:59 0.5 mg Q6HRRT JANINE Administration Melatonin 3 mg 04/25/25 23:40 04/25/25 23:45 Melatonin 3 Mg Tablet PO 05/25/25 23:39 3 mg HS JANINE Administration Montelukast Sodium 10 mg 04/26/25 09:00 04/26/25 08:01 Montelukast Sodium 10 Mg Tablet PO 05/26/25 08:59 10 mg QAM JANINE Administration Ondansetron HCl 4 mg 04/25/25 12:23 Ondansetron Inj 2 Mg/Ml Inj 2 Ml IVP 05/25/25 12:22 Q6H PRN NAUSEA OR VOMITING Protocol Pantoprazole Sodium 40 mg 04/26/25 09:00 04/26/25 08:00 Pantoprazole Inj 40 Mg Vial IVP 05/26/25 08:59 40 mg QDAY JANINE Administration Sennosides 1 tab 04/26/25 09:00 04/26/25 08:01 Senna Tablet PO 05/26/25 08:59 1 tab QDAY [facility] Administration Protocol Tamsulosin HCl 0.4 mg 04/26/25 09:00 04/26/25 08:01 Tamsulosin Hcl 0.4 Mg Capsule PO 05/26/25 08:59 0.4 mg QAM [facility] Administration Plan Patient is an 79-year-old male with a past medical history significant for essential tremor, BPH, primary hypertension, hyperlipidemia and 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 He follows up with his PCP Dr. 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 Molina. Patient will be admitted for treatment and management of acute respiratory failure with hypoxia secondary to community-acquired pneumonia. Acute respiratory failure with hypoxia secondary to likely community-acquired pneumonia - resolving Possible ARDS Lactic acidosis -resolved Leukocytosis?resolving patient presented with worsening cough and shortness of breath refractory to outpatient antibiotics. On exam had severely reduced air entry in all lung noonan with mild crackles at bases. Labs showed WBC 28.4, lactic acid 5.4, BNP 629 and troponin 0.135 Chest x-ray showed extensive bilateral consolidation PSI; risk class IV. Hospitalization recommended based on risk Shickley score; positive; severe ARDS P/F ratio 84.7. 45% mortality S/F ratio : 117.5 - Non-intubated ARDS Ronda index; 3.69 points. Risk of HFNC failure is high Currently saturating at 94% on HFNC at 30L O2, 80% FiO2. From telemetry review patient alternated between sinus arrhythmia and sinus rhythm overnight with heart rates in the 60s/80s. Troponin down trended to 0.125 from 0.135, WBC decreased to 23.3 from 28.4, hemoglobin decreased to 11.7 from 13.9, K4.8 and Mg 2.2. Sputum Gram stain grew 3+ GPC preliminary, urine and blood cultures pending. Currently patient on day 2 levofloxacin 750 Mg IV daily, levalbuterol and ipratropium nebs Q6 hourly and amiodarone, diltiazem and apixaban for A-fib. Lasix 20 Mg IV x 1 given. Plan: ? Pending cocci serology ? D2 levofloxacin 750 Mg IV daily on [04/25? ? Lasix 20 Mg IV x 1 given ? Levalbuterol nebs Q6 hourly ? Ipratropium nebs Q6 hourly ? Chest physiotherapy Q6 hourly ? Acapella device Q6 hourly ? Both patient and his daughter updated on poor prognosis and high likelihood of deterioration and possible . They expressed understanding. Acute blood loss anemia On admission patient's Hb 13.9 now 11.7. Patient started on Eliquis overnight along with clopidogrel. Plan: ? Repeat H&H at 2 PM New onset A-fib with RVR Patient endorses some palpitations starting last night and continuing today intermittently. Initial EKG showed A-fib with RVR 155 and repeat showed A-fib rate 93. No acute ST changes Received diltiazem 15 Mg IV x 1 followed by non titratable diltiazem infusion in the ED after which rate improved to 93 [id number]; 5 points; stroke risk 7.2%. HAS-BLED; 4 points. Major risk of bleeding Currently saturating at 94% on HFNC at 30L O2, 80% FiO2. From telemetry review patient alternated between sinus arrhythmia and sinus rhythm overnight with heart rates in the 60s/80s. Troponin down trended to 0.125 from 0.135, WBC decreased to 23.3 from 28.4, hemoglobin decreased to 11.7 from 13.9, K4.8 and Mg 2.2. Sputum Gram stain grew 3+ GPC preliminary, urine and blood cultures pending. Currently patient on day 2 levofloxacin 750 Mg IV daily, levalbuterol and ipratropium nebs Q6 hourly and amiodarone, diltiazem and apixaban for A-fib. Lasix 20 Mg IV x 1 given. Plan: ? Continue telemetry monitoring ? Transthoracic echocardiogram ordered to assess wall motion abnormalities, valvular defects and ejection fraction ? Continue diltiazem 60 Mg p.o. 3 times daily for rate control ? Continue amiodarone 200 Mg p.o. twice daily as per cardiology recommendations ? Continue apixaban 5 Mg p.o. twice daily as per cardiology recommendations ? [facility] Floor, Dr. Americo Morrison consulted and closely following. Appreciate recommendations Cardiac murmur, unspecified 4/6 ejection systolic murmur heard at right sternal border with radiation to bilateral carotids. Thrill palpated. Plan: ? Transthoracic echocardiogram ordered to assess wall motion abnormalities, valvular defects and ejection fraction Primary hypertension Hyperlipidemia Plan: ? Continue home medication atorvastatin ? HCTZ on hold for now Right lower extremity swelling On exam right lower extremity appears to be mildly larger than the left. When questioned patient states that he had an outpatient duplex ultrasound which was negative for DVT Troponinemia NSTEMI type I versus type II On admission troponin mildly elevated at 0.135 down trended to 0.125. Most likely type II in setting of demand ischemia from pneumonia. No need to further trend troponins BPH Plan: ? Bladder scan as needed ordered ? In-N-Out catheter as needed ordered ? Continue home medication tamsulosin and dutasteride Health maintenance: Disposition: IV antibiotics. HFNC. Pending echo. Diet: Regular Lines: pIVs GI Prophylaxis: Pantoprazole 40 Mg IV daily Thrombo Prophylaxis: Apixaban Code status: DNR Plan of care discussed with Attending Dr. Christian Deluca MD PGY 1 Disclaimer: This note was dictated by speech recognition. Minor errors in executive vice president and chief financial officer may be present due to voice recognition software. Attending Provider Attestation/Addendum I reviewed labs, imaging, EKG, home medications and prior available records. Face to face evaluation was performed by me. I have personally examined the patient and discussed assessment and plan with the IM team. I reviewed the resident note and agree with the plan with exceptions as below. Acute hypoxic respiratory failure Bilateral pneumonia Possible CHF History of CVA Lactic acidosis Non-STEMI Atrial fibrillation with controlled ventricular rhythm Started levofloxacin Follow-up cocci IgM. Follow-up sputum culture: Grew gram-positive cocci Continue oxygen and wean off as tolerated Continue IV Lasix. Ordered echocardiogram Trend troponin: Peaked Continue clopidogrel and atorvastatin Consulted cardiology Trend lactic acid: Normalized Started diltiazem drip. Switched to oral diltiazem. Added p.o. amiodarone. Started Eliquis
[2025-04-26] MEDS: FUROSEMIDE INJ 10 MG/ML 4ML VIAL 20 MG IVP (10:19)
--- NOTE | 2025-04-26 10:44 | ESPR_ITS ---
<Statement entered by Gisela Morrison MD - 04/26/25 17:35> I personally examined evaluate the patient appears to be much better today no further episodes of A-fib sinus rhythm does not complain of shortness of breath improving with pneumonia treatment recommend continue current regimen amiodarone Eliquis because of paroxysmal A-fib and recent stroke [id number] is more than 5. Evaluated patient with resident physician Dr. Bishop agree with treatment plan and recommendations. Documentation for date of: 04/26/25 Subjective Subjective Interval history: Patient is a 79 years old male with PMH of CVA with residual right leg weakness, BPH, hypertension, hyperlipidemia, Parkinson disease (essential tremor?) presents to the ED complaining of shortness of breath for the last week. He was seen by his PCP 1 week ago and was prescribed amoxicillin for pneumonia, his symptoms has failed to improve and over the last 4 days his SOB was getting significantly worse. His reported his pulse ox was at 70% today. He went to his PCP and and was told to go to the ED. He denies any chest pain or pressure. He also denies orthopnea symptoms. His legs got swollen also within the last week. He takes HCTZ at home for hypertension and clopidogrel and atorvastatin due to prior stroke. He is followed by Dr. Molina outpatient. In the ED on admission his BP 123/81, HR 150 BPM, RR 24, temp 100.1F, saturation 91% on 15L oxymask. Labs showed WBC 28.4, Na 130, LA 5.4, troponin I 0.135 -> 0.125, BNP 629. CXR showed extensive bilateral pneumonia. EKG showed atrial tachycardia with RVR at 153, he was given diltiazem IV and EKG showed sinus tachycardia. On telemonitor his rhythm is irregular with no clear P waves. Patient met SIRS criteria and was admitted for further management. Cardiology was consulted due to new onset Afib. 04/25/2025: Patient was seen and examined at the bedside. He is on high flow oxygen saturating 92%. Continue management of underlying pneumonia. Continue diltiazem PO. Start on amiodarone 200 mg BID and Eliquis 5 mg BID. Echo is pending. 04/26/2025: Patient was seen and examined at the bedside. No acute overnight events. He reports his breathing has improved significantly today. He is WBCs are downtrending. He remains on high flow oxygen 30 L 70% FiO2 saturating 93%. Vitals are stable, blood pressure 118/71, heart rate 75 bpm. Echo is pending. He continues on diltiazem 60 mg 3 times daily, clopidogrel, amiodarone 200 mg twice daily and Eliquis 5 mg twice daily and atorvastatin. Exam Vital Signs Temp Pulse Resp BP Pulse Ox O2 Del Method O2 Flow Rate 97.9 F 68 21 H 122/76 93 L High Flow Nasal Cannula 30 04/26/25 08:00 04/26/25 10:19 04/26/25 08:00 04/26/25 10:19 04/26/25 08:00 04/26/25 08:00 04/26/25 08:00 FiO2 70 04/26/25 08:00 Narrative Exam Gen: Well-developed and well-nourished on high flow oxygen, not in distress. HEENT: NCAT, PERRLA, EOMI, MMM, anicteric conjunctivae. CVS: normal S1 and S2. RRR. No M/R/G. Difficult auscultation due to high flow oxygen. Resp: rhonchi B/L. No rales, crackles or wheezing. Abd: soft, obese, non-tender, non-distended. BS+ in all 4 quadrants. MSK: Good ROM in BUE & BLE. 1+ pitting edema RLE, Trace edema LLE. Neuro: CN II-XII grossly intact. Strength 5/5 in BUE & BLE. Alert and oriented x3. Psych: appropriate mood and affect. Objective Labs 04/26/25 05:01 04/26/25 05:01 Labs: Laboratory Results - last 24 hr 04/25/25 04/25/25 04/25/25 10:00 10:14 10:23 WBC 28.4 H RBC 4.52 Hgb 13.9 Hct 40.1 L MCV 89 MCH 30.8 MCHC 34.7 RDW Std Deviation 43.7 Plt Count 369 D Neut % (Auto) 86 H Lymph % (Auto) 3 L [place] % (Auto) 8 Eos % (Auto) 0 Baso % (Auto) 0 Neut # (Auto) 24.5 H Lymph # (Auto) 0.9 L [place] # (Auto) 2.3 H Eos # (Auto) 0.0 Baso # (Auto) 0.1 Immature Gran # (Auto) 0.64 H Absolute Nucleated RBC 0.00 Immature Gran % 2 H Nucleated RBC % 0 PT 12.5 H INR 1.2 APTT 23.7 Puncture Site ABG pH ABG pCO2 ABG pO2 ABG HCO3 ABG O2 Saturation ABG Base Excess FiO2 Sodium 130 L Potassium 4.0 Chloride 90 L Carbon Dioxide 23.0 Anion Gap 17 H BUN 23 Creatinine 1.1 Estim Creat Clear Calc 55.3 L eGFR > 60 BUN/Creatinine Ratio 21 H Glucose 200 H Calculated Osmolality 270 L Lactic Acid 5.4 H* Calcium 9.7 Corrected Calcium 9.7 Phosphorus Magnesium 2.1 Total Bilirubin 0.8 AST 30 ALT 43 Alkaline Phosphatase 107 Troponin I 0.135 H* B-Natriuretic Peptide 629 H* Total Protein 7.0 Albumin 4.0 Globulin 3.0 Albumin/Globulin Ratio 1.3 Lipase 25 Procalcitonin 0.95 H Ur Collection Type Clean Catch Urine Color Yellow Urine Clarity Clear Urine pH 6.0 Ur Specific [place] 1.033 Urine Protein 1+ A Urine Glucose (UA) Negative Urine Ketones Trace Urine Blood Trace Urine Nitrite Negative Urine Bilirubin Negative Urine Urobilinogen (Auto) 4.0 Ur Leukocyte Esterase Negative Urine RBC < 1 Urine WBC 1 Ur Squamous Epith Cells < 1 Urine Bacteria None RSV Rapid SARS-CoV-2 Ag (Rapid) 04/25/25 04/25/25 04/25/25 11:57 12:18 13:33 WBC RBC Hgb Hct MCV MCH MCHC RDW Std Deviation Plt Count Neut % (Auto) Lymph % (Auto) [place] % (Auto) Eos % (Auto) Baso % (Auto) Neut # (Auto) Lymph # (Auto) [place] # (Auto) Eos # (Auto) Baso # (Auto) Immature Gran # (Auto) Absolute Nucleated RBC Immature Gran % Nucleated RBC % PT INR APTT Puncture Site ABG pH ABG pCO2 ABG pO2 ABG HCO3 ABG O2 Saturation ABG Base Excess FiO2 Sodium Potassium Chloride Carbon Dioxide Anion Gap BUN Creatinine Estim Creat Clear Calc eGFR BUN/Creatinine Ratio Glucose Calculated Osmolality Lactic Acid 2.0 Calcium Corrected Calcium Phosphorus Magnesium Total Bilirubin AST ALT Alkaline Phosphatase Troponin I B-Natriuretic Peptide Total Protein Albumin Globulin Albumin/Globulin Ratio Lipase Procalcitonin Ur Collection Type Urine Color Urine Clarity Urine pH Ur Specific [place] Urine Protein Urine Glucose (UA) Urine Ketones Urine Blood Urine Nitrite Urine Bilirubin Urine Urobilinogen (Auto) Ur Leukocyte Esterase Urine RBC Urine WBC Ur Squamous Epith Cells Urine Bacteria RSV Rapid Negative SARS-CoV-2 Ag (Rapid) Negative 04/25/25 04/25/25 04/26/25 13:58 14:21 05:01 WBC 23.3 H D RBC 3.83 L Hgb 11.7 L D Hct 33.9 L MCV 89 MCH 30.5 MCHC 34.5 RDW Std Deviation 44.2 H Plt Count 266 D Neut % (Auto) 90 H Lymph % (Auto) 3 L [place] % (Auto) 5 Eos % (Auto) 0 Baso % (Auto) 0 Neut # (Auto) 21.0 H Lymph # (Auto) 0.8 L [place] # (Auto) 1.1 H Eos # (Auto) 0.0 Baso # (Auto) 0.0 Immature Gran # (Auto) 0.34 H Absolute Nucleated RBC 0.00 Immature Gran % 2 H Nucleated RBC % 0 PT INR APTT Puncture Site Right Radial ABG pH 7.45 ABG pCO2 34 ABG pO2 73 L ABG HCO3 23 ABG O2 Saturation 97 ABG Base Excess 0 FiO2 70 Sodium 137 Potassium 4.8 D Chloride 99 Carbon Dioxide 28.0 Anion Gap 10 BUN 30 H Creatinine 0.9 Estim Creat Clear Calc 67.6 eGFR > 60 BUN/Creatinine Ratio 33 H Glucose 179 H Calculated Osmolality 284 Lactic Acid Calcium 8.0 L D Corrected Calcium 8.6 Phosphorus 3.7 Magnesium 2.2 Total Bilirubin 0.4 AST 39 H ALT 25 Alkaline Phosphatase 117 H Troponin I 0.125 H* B-Natriuretic Peptide Total Protein 5.4 L Albumin 3.3 L D Globulin 2.1 L Albumin/Globulin Ratio 1.6 Lipase Procalcitonin Ur Collection Type Urine Color Urine Clarity Urine pH Ur Specific [place] Urine Protein Urine Glucose (UA) Urine Ketones Urine Blood Urine Nitrite Urine Bilirubin Urine Urobilinogen (Auto) Ur Leukocyte Esterase Urine RBC Urine WBC Ur Squamous Epith Cells Urine Bacteria RSV Rapid SARS-CoV-2 Ag (Rapid) ABG Interpretation ABG results: 04/25/25 13:58 ABG pH 7.45 ABG pCO2 34 ABG pO2 73 L ABG HCO3 23 ABG O2 Saturation 97 ABG Base Excess 0 Quality Measures Quality Measures VTE prophylaxis Advance care planning discussed with:: patient Assessment & Plan Assessment Current Active Medications: Generic Name Dose Route Start Last Admin Trade Name Rex PRN Reason Stop Dose Admin Acetaminophen 650 mg 04/26/25 07:40 Acetaminophen 325 Mg Tablet PO 05/25/25 12:22 Q6H PRN Fever >100.3 or pain 1-3 Hydrocodone Bitart/Acetaminophen 1 tab 04/25/25 12:23 Hydrocodone/Apap 5/325 Tablet PO 04/30/25 12:22 Q4HR PRN PAIN SCALE 4-10(Mod-Sev Amiodarone HCl 200 mg 04/25/25 19:05 04/26/25 08:03 Amiodarone Hcl 200 Mg Tablet PO 05/25/25 19:04 200 mg BID JANINE Administration Apixaban 5 mg 04/25/25 21:00 04/26/25 08:01 Apixaban 2.5 Mg Tablet PO 05/25/25 20:59 5 mg BID JANINE Administration Atorvastatin Calcium 80 mg 04/25/25 21:00 04/25/25 21:10 Atorvastatin Calcium 20 Mg Tablet PO 05/25/25 20:59 80 mg QPM JANINE Administration Benzonatate 200 mg 04/25/25 14:15 04/26/25 05:07 Benzonatate 100 Mg Capsule PO 05/25/25 14:14 200 mg TID JANINE Administration Protocol Buspirone HCl 10 mg 04/25/25 21:00 04/26/25 08:02 Buspirone Hcl 5 Mg Tablet PO 05/25/25 20:59 10 mg BID JANINE Administration Carbidopa/Levodopa 1 tab 04/25/25 21:00 04/26/25 08:06 Carbidopa/Levodopa Cr 25/100 Tabcr PO 05/25/25 20:59 1 tab BID JANINE Administration Clopidogrel Bisulfate 75 mg 04/25/25 14:15 04/26/25 08:03 Clopidogrel Bisulfate 75 Mg Tablet PO 05/25/25 14:14 75 mg QDAY JANINE Administration Diltiazem HCl 60 mg 04/25/25 22:00 04/26/25 05:07 Diltiazem 30 Mg Tablet PO 05/25/25 21:59 60 mg TID JANINE Administration Dutasteride 0.5 mg 04/25/25 21:00 04/25/25 21:09 Dutasteride 0.5 Mg Capsule (Non-Formulary) PO 05/25/25 20:59 0.5 mg QPM JANINE Administration Guaifenesin 100 mg 04/25/25 17:00 04/26/25 05:07 Guaifenesin Syrup 200 Mg/10 Ml Udc PO 05/25/25 16:59 100 mg QID JANINE Administration Protocol Levofloxacin/Dextrose 750 mg in 150 mls @ 100 mls/hr 04/25/25 14:15 04/26/25 08:00 Levaquin Ivpb IV 05/02/25 14:14 100 mls/hr QDAY JANINE Administration Ipratropium [place] 0.5 mg 04/25/25 19:00 04/26/25 06:36 Ipratropium Rt 0.5 Mg/ 2.5 Ml Nebu INH 05/25/25 18:59 0.5 mg Q6HRRT JANINE Administration Melatonin 3 mg 04/25/25 23:40 04/25/25 23:45 Melatonin 3 Mg Tablet PO 05/25/25 23:39 3 mg HS JANINE Administration Montelukast Sodium 10 mg 04/26/25 09:00 04/26/25 08:01 Montelukast Sodium 10 Mg Tablet PO 05/26/25 08:59 10 mg QAM JANINE Administration Ondansetron HCl 4 mg 04/25/25 12:23 Ondansetron Inj 2 Mg/Ml Inj 2 Ml IVP 05/25/25 12:22 Q6H PRN NAUSEA OR VOMITING Protocol Pantoprazole Sodium 40 mg 04/26/25 09:00 04/26/25 08:00 Pantoprazole Inj 40 Mg Vial IVP 05/26/25 08:59 40 mg QDAY JANINE Administration Sennosides 1 tab 04/26/25 09:00 04/26/25 08:01 Senna Tablet PO 05/26/25 08:59 1 tab QDAY JANINE Administration Protocol Tamsulosin HCl 0.4 mg 04/26/25 09:00 04/26/25 08:01 Tamsulosin Hcl 0.4 Mg Capsule PO 05/26/25 08:59 0.4 mg QAM JANINE Administration Plan Patient is a 79 years old male with PMH of CVA with residual right leg weakness, BPH, hypertension, hyperlipidemia, Parkinson disease (essential tremor?) presents to the ED complaining of shortness of breath for the last week. CXR showed extensive bilateral pneumonia. Patient met SIRS criteria and was admitted for further management. Cardiology was consulted due to new onset Afib. #Paroxysmal Afib. - Patient reported palpitations for a year. - [id number] 5 points. Plan: - Continue on diltiazem 60 mg TID. - Continue on amiodarone 200 mg BID. - Continue on Eliquis 5 mg BID. #Troponinemia. #Hx of CVA. - Patient had stroke in 2022. - on admission troponin I 0.135 -> 0.125. Likely NSTEMI type II in setting of sepsis. Plan: - Continue home Plavix and atorvastatin. #Elevated BNP. #BLE swelling. - no CHF history. - presented with BLE swelling and BNP 629. - echo from 2022 showed EF 69%. - given 40 mg of Lasix IV. Plan: - echo is pending. Management of other problems as per primary team. Plan of care discussed with attending Dr. Morrison. Dario Rousseau MD, PGY 2. Disclaimer: This note was dictated by speech recognition. Minor errors in air carrier operations inspector may be present due to voice recognition software.
[2025-04-26 12:43] LABS: Cocci Serology, IgM Negative (Negative)
[2025-04-26 14:25] LABS: Basophils % (Auto) 0 % (0-2.5); Eosinophils % (Auto) 0 % (0-10); Hematocrit 35.2 % (41.0-53.0); Hemoglobin 12.4 g/dL (13.5-16.0); Immature Granulocytes % (Auto) 1 % (0-0); Immature Granulocytes Auto 0.33 Thou/mm3 (0.00-0.00); Lymphocytes # (Auto) 0.7 Thou/mm3 (1.0-4.8); Lymphocytes % (Auto) 3 % (10-50); Mean Corpuscular HGB Conc 35.2 g/dl (31.0-37.0); Mean Corpuscular Hemoglobin 30.2 pg (25.0-35.0); Mean Corpuscular Volume 86 fL (80-100); Monocytes # (Auto) 1.4 Thou/mm3 (0.0-0.8); Monocytes % (Auto) 6 % (0-12); Neutrophils # (Auto) 21.2 Thou/mm3 (1.8-7.7); Neutrophils % (Auto) 89 % (37-80); Nucleated Red Blood Cell % 0 /100 WBC (0); Platelet Count 228 Thou/mm3 (140-440); RDW Standard Deviation 42.5 fL (35.1-43.9); Red Blood Count 4.11 Miln/mm3 (4.50-5.90); White Blood Count 23.7 Thou/mm3 (3.8-10.6)
--- NOTE | 2025-04-26 14:25 | PC.SS ---
Rounding note: patient continues being on highflow of 02.
[2025-04-26 14:53] LABS: OBS Card Lot # 23001; OBS Developer Lot # 23002; OBS Performed By raccj; OBS QC OK? Yes; Occult Blood, Stool Negative (Negative)
[2025-04-26] MEDS: FUROSEMIDE INJ 10 MG/ML VIAL 2 ML 20 MG IVP (17:14)
[2025-04-26] MEDS: HYDROcodone/APAP 5/325 TABLET 1 TAB PO (19:47)
[2025-04-26] MEDS: MELATONIN 3 MG TABLET PO (20:56)
[2025-04-26] MEDS: DUTASTERIDE 0.5 MG CAPSULE (NON-FORMULARY) PO (20:56)
[2025-04-26] MEDS: ATORVASTATIN CALCIUM 20 MG TABLET 80 MG PO (20:56)
[2025-04-27] VITALS (20 sets, daily range): BP systolic 115–150; BP diastolic 66–92; PULSE 59–97; RESP 10–37; TEMP 36.1–36.4; O2SAT 88–99; BMI 26.7
[2025-04-27] MEDS: IPRATROPIUM RT 0.5 MG/ 2.5 ML NEBU INH ×4 (00:41→18:33)
[2025-04-27] MEDS: guaiFENesin SYRUP 200 MG/10 ML UDC 100 MG PO ×3 (06:02→21:32)
[2025-04-27] MEDS: FUROSEMIDE INJ 10 MG/ML VIAL 2 ML 20 MG IVP ×2 (06:02→18:35)
[2025-04-27] MEDS: DILTIAZEM 30 MG TABLET 60 MG PO ×3 (06:03→22:36)
[2025-04-27] MEDS: BENZONATATE 100 MG CAPSULE 200 MG PO ×3 (06:03→21:31)
[2025-04-27 06:17] LABS: Basophils % (Auto) 0 % (0-2.5); Eosinophils % (Auto) 0 % (0-10); Hematocrit 36.9 % (41.0-53.0); Hemoglobin 12.6 g/dL (13.5-16.0); Immature Granulocytes % (Auto) 2 % (0-0); Immature Granulocytes Auto 0.43 Thou/mm3 (0.00-0.00); Lymphocytes # (Auto) 1.1 Thou/mm3 (1.0-4.8); Lymphocytes % (Auto) 5 % (10-50); Mean Corpuscular HGB Conc 34.1 g/dl (31.0-37.0); Mean Corpuscular Hemoglobin 30.2 pg (25.0-35.0); Mean Corpuscular Volume 89 fL (80-100); Monocytes % (Auto) 8 % (0-12); Neutrophils # (Auto) 21.3 Thou/mm3 (1.8-7.7); Neutrophils % (Auto) 86 % (37-80); Nucleated Red Blood Cell % 0 /100 WBC (0); Platelet Count 311 Thou/mm3 (140-440); RDW Standard Deviation 44.3 fL (35.1-43.9); Red Blood Count 4.17 Miln/mm3 (4.50-5.90); White Blood Count 24.9 Thou/mm3 (3.8-10.6)
[2025-04-27 06:32] LABS: Alanine Aminotransferase 15 U/L (10-49); Albumin, Serum 3.5 gm/dL (3.4-4.8); Albumin/Globulin Ratio 1.6 (1.2-2.2); Alkaline Phosphatase 124 U/L (46-116); Anion Gap 8 (7-16); Aspartate Amino Transferase 48 U/L (0-34); BUN/Creatinine Ratio 38 Ratio (12-20); Bilirubin,Total 0.5 mg/dL (0.3-1.2); Blood Urea Nitrogen 34 mg/dL (9-23); Calcium 8.5 mg/dL (8.3-10.6); Calcium (Corrected) 8.9 mg/dL (8.5-10.1); Carbon Dioxide 30.6 mMol/L (20.0-31.0); Chloride 100 mMol/L (98-107); Creatinine (Component) 0.9 mg/dL (0.6-1.3); Estimated Creatinine Clearance 67.6 mL/min (>60); Globulin 2.2 gm/dL (2.3-3.5); Glucose 136 mg/dL (74-106); Magnesium 2.4 mg/dL (1.6-2.6); Osmolality,Calculated 287 (275-295); Phosphorous 3.8 mg/dL (2.4-5.1); Potassium 5.3 mMol/L (3.4-5.1); Sodium 139 mMol/L (136-145); Total Protein 5.7 gm/dL (5.7-8.2); eGFR > 60 See Note
--- NOTE | 2025-04-27 07:15 | PC.NURSE ---
0699 Dr. Mahoney notified about increasing o2 requirements overnight. Dr. Mahoney to give sign out to dayshift and continue from there.
--- NOTE | 2025-04-27 08:18 | XR_ITS ---
Examination: AP chest single view Technique one AP upright portable chest single view Date and time: April 27, 2025 0822 hrs. Comparison April 25, 2025 Indications: Acute hypoxic respiratory failure. Findings: Prominent bilateral lung opacity Mild enlargement cardiac contour with vascular congestion Moderate osteopenia Impression: Extensive bilateral pneumonia Mild associated heart failure.
[2025-04-27] MEDS: LEVODOPA PO ×2 (08:30→21:30)
[2025-04-27] MEDS: CARBIDOPA PO ×2 (08:30→21:30)
[2025-04-27] MEDS: TABCR PO ×2 (08:30→21:30)
[2025-04-27] MEDS: BusPIRone HCL 5 MG TABLET 10 MG PO ×2 (11:34→21:32)
[2025-04-27] MEDS: APIXABAN 2.5 MG TABLET 5 MG PO ×2 (11:34→21:31)
[2025-04-27] MEDS: AMIODARONE HCL 200 MG TABLET PO ×2 (11:34→21:32)
[2025-04-27] MEDS: CLOPIDOGREL BISULFATE 75 MG TABLET PO (11:35)
[2025-04-27] MEDS: FUROSEMIDE INJ 10 MG/ML 4ML VIAL 40 MG IVP (11:35)
[2025-04-27] MEDS: CEFEPIME INJ 2 GM in SODIUM CHLORIDE 0.9% (Popper) 50 ML IV ×2 (11:35→22:09)
[2025-04-27] MEDS: LEVOFLOXACIN/D5W 750MG IVPB 750 MG/150 ML BAG 100 MG IV (11:35)
[2025-04-27] MEDS: PANTOPRAZOLE INJ 40 MG VIAL IVP (11:36)
[2025-04-27] MEDS: TAMSULOSIN HCL 0.4 MG CAPSULE PO (11:36)
[2025-04-27] MEDS: MONTELUKAST SODIUM 10 MG TABLET PO (11:37)
[2025-04-27] MEDS: VANCOMYCIN/D5W 1,250 MG IVPB 250 ML 120 MG IV (11:40)
[2025-04-27] MEDS: LEVALBUTEROL RT 0.63 MG/3 ML NEBU INH ×2 (13:05→18:33)
--- NOTE | 2025-04-27 13:25 | ESPR_ITS ---
<Statement entered by Gisela Morrison MD - 04/28/25 19:36> I personally evaluated examined the patient appears to have worsened from yesterday shortness of breath worsened hypoxemia high flow oxygen now chest x- ray bilateral infiltration possible pneumonia versus heart failure but more consider volume overload continue IV diuretic therapy if he does not improve aggressive and IV diuretic therapy as long as renal function is normal still has paroxysmal A-fib continue the Eliquis because of previous history of stroke we will monitor the patient closely agree with the treatment plan recommendation as documented by Dr. Bishop PGY 2 Documentation for date of: 04/27/25 Subjective Subjective Interval history: Patient is a 79 years old male with PMH of CVA with residual right leg weakness, BPH, hypertension, hyperlipidemia, Parkinson disease (essential tremor?) presents to the ED complaining of shortness of breath for the last week. He was seen by his PCP 1 week ago and was prescribed amoxicillin for pneumonia, his symptoms has failed to improve and over the last 4 days his SOB was getting significantly worse. His reported his pulse ox was at 70% today. He went to his PCP and and was told to go to the ED. He denies any chest pain or pressure. He also denies orthopnea symptoms. His legs got swollen also within the last week. He takes HCTZ at home for hypertension and clopidogrel and atorvastatin due to prior stroke. He is followed by Dr. Molina outpatient. In the ED on admission his BP 123/81, HR 150 BPM, RR 24, temp 100.1F, saturation 91% on 15L oxymask. Labs showed WBC 28.4, Na 130, LA 5.4, troponin I 0.135 -> 0.125, BNP 629. CXR showed extensive bilateral pneumonia. EKG showed atrial tachycardia with RVR at 153, he was given diltiazem IV and EKG showed sinus tachycardia. On telemonitor his rhythm is irregular with no clear P waves. Patient met SIRS criteria and was admitted for further management. Cardiology was consulted due to new onset Afib. 04/25/2025: Patient was seen and examined at the bedside. He is on high flow oxygen saturating 92%. Continue management of underlying pneumonia. Continue diltiazem PO. Start on amiodarone 200 mg BID and Eliquis 5 mg BID. Echo is pending. 04/26/2025: Patient was seen and examined at the bedside. No acute overnight events. He reports his breathing has improved significantly today. He is WBCs are downtrending. He remains on high flow oxygen 30 L 70% FiO2 saturating 93%. Vitals are stable, blood pressure 118/71, heart rate 75 bpm. Echo is pending. He continues on diltiazem 60 mg 3 times daily, clopidogrel, amiodarone 200 mg twice daily and Eliquis 5 mg twice daily andatorvastatin. 04/27/2025: Patient was seen and examined at the bedside. Overnight patient desaturated on maximum high flow oxygen and was started on BiPAP. he is hemodynamically stable otherwise. Telemonitor shows possible MAT. Continue pneumonia treatment and avoid IVF if possible. Give another dose of IV Lasix 40 mg today. Exam Vital Signs Temp Pulse Resp BP Pulse Ox O2 Del Method O2 Flow Rate 97.0 F 94 27 H 150/92 H 95 BiPAP 40 04/27/25 12:00 04/27/25 13:05 04/27/25 13:05 04/27/25 12:00 04/27/25 13:05 04/27/25 12:00 04/27/25 13:05 FiO2 80 04/27/25 13:05 Narrative Exam Gen: Well-developed and well-nourished on BiPAP in mild distress. HEENT: NCAT, PERRLA, EOMI, MMM, anicteric conjunctivae. CVS: normal S1 and S2. RRR. No M/R/G. Difficult auscultation due to BiPAP. Resp: rhonchi B/L. No rales, crackles or wheezing. Abd: soft, obese, non-tender, non-distended. BS+ in all 4 quadrants. MSK: Good ROM in BUE & BLE. 1+ pitting edema RLE, Trace edema LLE. Neuro: CN II-XII grossly intact. Strength 5/5 in BUE & BLE. Alert and oriented x3. Objective Labs 04/27/25 05:15 04/27/25 05:15 Labs: Laboratory Results - last 24 hr 04/26/25 04/26/25 04/27/25 13:59 14:40 05:15 WBC 23.7 H 24.9 H RBC 4.11 L 4.17 L Hgb 12.4 L 12.6 L Hct 35.2 L 36.9 L MCV 86 89 MCH 30.2 30.2 MCHC 35.2 34.1 RDW Std Deviation 42.5 44.3 H Plt Count 228 D 311 D Neut % (Auto) 89 H 86 H Lymph % (Auto) 3 L 5 L [place] % (Auto) 6 8 Eos % (Auto) 0 0 Baso % (Auto) 0 0 Neut # (Auto) 21.2 H 21.3 H Lymph # (Auto) 0.7 L 1.1 [place] # (Auto) 1.4 H 2.0 H Eos # (Auto) 0.0 0.0 Baso # (Auto) 0.0 0.0 Immature Gran # (Auto) 0.33 H 0.43 H Absolute Nucleated RBC 0.00 0.00 Immature Gran % 1 H 2 H Nucleated RBC % 0 0 Sodium 139 Potassium 5.3 H D Chloride 100 Carbon Dioxide 30.6 Anion Gap 8 BUN 34 H Creatinine 0.9 Estim Creat Clear Calc 67.6 eGFR > 60 BUN/Creatinine Ratio 38 H Glucose 136 H Calculated Osmolality 287 Calcium 8.5 Corrected Calcium 8.9 Phosphorus 3.8 Magnesium 2.4 Total Bilirubin 0.5 AST 48 H ALT 15 Alkaline Phosphatase 124 H Total Protein 5.7 Albumin 3.5 Globulin 2.2 L Albumin/Globulin Ratio 1.6 Stool Occult Blood Negative ABG Interpretation ABG results: 04/25/25 13:58 ABG pH 7.45 ABG pCO2 34 ABG pO2 73 L ABG HCO3 23 ABG O2 Saturation 97 ABG Base Excess 0 Quality Measures Quality Measures VTE prophylaxis Advance care planning discussed with:: patient Assessment & Plan Assessment Current Active Medications: Generic Name Dose Route Start Last Admin Trade Name Freq PRN Reason Stop Dose Admin Acetaminophen 650 mg 04/26/25 07:40 Acetaminophen 325 Mg Tablet PO 05/25/25 12:22 Q6H PRN Fever >100.3 or pain 1-3 Hydrocodone Bitart/Acetaminophen 1 tab 04/25/25 12:23 04/26/25 19:47 Hydrocodone/Apap 5/325 Tablet PO 04/30/25 12:22 1 tab Q4HR PRN Administration PAIN SCALE 4-10(Mod-Sev Amiodarone HCl 200 mg 04/25/25 19:05 04/27/25 11:34 Amiodarone Hcl 200 Mg Tablet PO 05/25/25 19:04 200 mg BID JANINE Administration Apixaban 5 mg 04/25/25 21:00 04/27/25 11:34 Apixaban 2.5 Mg Tablet PO 05/25/25 20:59 5 mg BID JANINE Administration Atorvastatin Calcium 80 mg 04/25/25 21:00 04/26/25 20:56 Atorvastatin Calcium 20 Mg Tablet PO 05/25/25 20:59 80 mg QPM JANINE Administration Benzonatate 200 mg 04/25/25 14:15 04/27/25 06:03 Benzonatate 100 Mg Capsule PO 05/25/25 14:14 200 mg TID JANINE Administration Protocol Buspirone HCl 10 mg 04/25/25 21:00 04/27/25 11:34 Buspirone Hcl 5 Mg Tablet PO 05/25/25 20:59 10 mg BID JANINE Administration Carbidopa/Levodopa 1 tab 04/25/25 21:00 04/27/25 08:30 Carbidopa/Levodopa Cr 25/100 Tabcr PO 05/25/25 20:59 1 tab BID JANINE Administration Clopidogrel Bisulfate 75 mg 04/25/25 14:15 04/27/25 11:35 Clopidogrel Bisulfate 75 Mg Tablet PO 05/25/25 14:14 75 mg QDAY JANINE Administration Diltiazem HCl 60 mg 04/25/25 22:00 04/27/25 06:03 Diltiazem 30 Mg Tablet PO 05/25/25 21:59 60 mg TID JANINE Administration Dutasteride 0.5 mg 04/25/25 21:00 04/26/25 20:56 Dutasteride 0.5 Mg Capsule (Non-Formulary) PO 05/25/25 20:59 0.5 mg QPM JANINE Administration Furosemide 20 mg 04/26/25 18:00 04/27/25 06:02 Furosemide Inj 10 Mg/Ml Vial 2 Ml IVP 05/26/25 17:59 20 mg BIDD JANINE Administration Guaifenesin 100 mg 04/25/25 17:00 04/27/25 11:36 Guaifenesin Syrup 200 Mg/10 Ml Udc PO 05/25/25 16:59 100 mg QID JANINE Administration Protocol Levofloxacin/Dextrose 750 mg in 150 mls @ 100 mls/hr 04/25/25 14:15 04/27/25 11:35 Levaquin Ivpb IV 05/02/25 14:14 100 mls/hr QDAY JANINE Administration Cefepime HCl 2 gm/ Sodium 50 mls @ 100 mls/hr 04/27/25 11:07 04/27/25 11:35 Chloride IV 05/04/25 11:06 100 mls/hr Q8HR JANINE Administration Vancomycin HCl/Dextrose 250 mls @ 120 mls/hr 04/27/25 11:15 04/27/25 11:40 Vancomycin/D5w 1,250 Mg Ivpb IV 05/04/25 11:14 120 mls/hr DAILY@1000 JANINE Administration Ipratropium [place] 0.5 mg 04/25/25 19:00 04/27/25 13:04 Ipratropium Rt 0.5 Mg/ 2.5 Ml Nebu INH 05/25/25 18:59 0.5 mg Q6HRRT JANINE Administration Levalbuterol HCl 0.63 mg 04/27/25 13:00 04/27/25 13:05 Levalbuterol Rt 0.63 Mg/3 Ml Nebu INH 05/27/25 12:59 0.63 mg Q6HRRT JANINE Administration Melatonin 3 mg 04/25/25 23:40 04/26/25 20:56 Melatonin 3 Mg Tablet PO 05/25/25 23:39 3 mg HS JANINE Administration Methylprednisolone Sodium Succinate 60 mg 04/27/25 13:30 Methylprednisolone Sod Succ 40 Mg Vial IVP 05/04/25 13:29 Q8H JANINE Montelukast Sodium 10 mg 04/26/25 09:00 04/27/25 11:37 Montelukast Sodium 10 Mg Tablet PO 05/26/25 08:59 10 mg QAM JANINE Administration Ondansetron HCl 4 mg 04/25/25 12:23 Ondansetron Inj 2 Mg/Ml Inj 2 Ml IVP 05/25/25 12:22 Q6H PRN NAUSEA OR VOMITING Protocol Pantoprazole Sodium 40 mg 04/26/25 09:00 04/27/25 11:36 Pantoprazole Inj 40 Mg Vial IVP 05/26/25 08:59 40 mg QDAY JANINE Administration Pharmacy Consult 1 each 04/27/25 11:15 Vancomycin Pharmacy To Dose 1 Each Each IV 05/27/25 11:14 QDAY PRN CONSULT Sennosides 1 tab 04/26/25 09:00 04/27/25 11:41 Senna Tablet PO 05/26/25 08:59 Not Given QDAY [facility] Protocol Tamsulosin HCl 0.4 mg 04/26/25 09:00 04/27/25 11:36 Tamsulosin Hcl 0.4 Mg Capsule PO 05/26/25 08:59 0.4 mg QAM JANINE Administration Plan Patient is a 79 years old male with PMH of CVA with residual right leg weakness, BPH, hypertension, hyperlipidemia, Parkinson disease (essential tremor?) presents to the ED complaining of shortness of breath for the last week. CXR showed extensive bilateral pneumonia. Patient met SIRS criteria and was admitted for further management. Cardiology was consulted due to new onset Afib. #Paroxysmal Afib. - Patient reported palpitations for a year. - [id number] 5 points. Plan: - Continue on diltiazem 60 mg TID. - Continue on amiodarone 200 mg BID. - Continue on Eliquis 5 mg BID. #Troponinemia. #Hx of CVA. - Patient had stroke in 2022. - on admission troponin I 0.135 -> 0.125. Likely NSTEMI type II in setting of sepsis. Plan: - Continue home Plavix and atorvastatin. #HFpEF 55-60%. - no CHF history. - presented with BLE swelling and BNP 629. - echo from 2022 showed EF 69%. - echo from 04/25/25 showed grade I diastolic dysfunction, estimated EF 55-60%. - given 40 mg of Lasix IV. Plan: - give another dose of Lasix IV 40 mg today. Management of other problems as per primary team. Plan of care discussed with attending Dr. Morrison. Dario Rousseau MD, PGY 2. Disclaimer: This note was dictated by speech recognition. Minor errors in engine room operator may be present due to voice recognition software.
[2025-04-27 13:35] LABS: Allen Test Not Performed; Base Excess 6 (-3-3); HCO3 30 mEq/L (20-26); O2 Saturation 95 % (91-98); PCO2 38 mmHg (32.0-48.0); PO2 68 mmHg (83-108); Puncture Site Right Radial; pH, Arterial 7.51 (7.35-7.45)
[2025-04-27 13:36] LABS: Inspired Oxygen, FIO2 80 %
[2025-04-27 13:39] LABS: Anion Gap 12 (7-16); BUN/Creatinine Ratio 35 Ratio (12-20); Blood Urea Nitrogen 28 mg/dL (9-23); Calcium 8.2 mg/dL (8.3-10.6); Carbon Dioxide 29.5 mMol/L (20.0-31.0); Chloride 97 mMol/L (98-107); Creatinine (Component) 0.8 mg/dL (0.6-1.3); Glucose 164 mg/dL (74-106); Osmolality,Calculated 285 (275-295); Potassium 4.3 mMol/L (3.4-5.1); Sodium 138 mMol/L (136-145); eGFR > 60 See Note
--- NOTE | 2025-04-27 13:54 | PC.RT ---
Spoke with md about whether to put pt back on bipap or leave pt on high flow per abg results. Pt currently saturating 96% on 40 lpm and 100% fio2, no respiratory distress or increased WOB noted at this time. Md agreed to keep pt on high flow on current settings.
--- NOTE | 2025-04-27 13:55 | PD.ADDPROG ---
Addendum Progress Note Addendum Date of report being addended: 04/27/25 Narrative: Attending's attestation: I reviewed labs, imaging, EKG, home medications and prior available records. Face to face evaluation was performed by me. I have personally examined the patient and discussed assessment and plan with the IM team. I reviewed the resident note and agree with the plan with exceptions as below. Acute hypoxic respiratory failure Bilateral pneumonia Possible CHF History of CVA Lactic acidosis Non-STEMI Atrial fibrillation with controlled ventricular rhythm Oxygen requirements increased. Ordered chest x-ray that showed worsening infiltrates. Broaden antibiotics to vancomycin/cefepime. Started the patient on BiPAP. Follow-up ABG in the evening Follow-up cocci IgM: Negative. Follow-up sputum culture: Grew gram-positive cocci Continue oxygen and wean off as tolerated Continue IV Lasix. Increased the dose ordered echocardiogram Trend troponin: Peaked Continue clopidogrel and atorvastatin Consulted cardiology Trend lactic acid: Normalized Started diltiazem drip. Switched to oral diltiazem. Added p.o. amiodarone. Started Eliquis
[2025-04-27 14:14] LABS: Cocci Serology, IgG Negative (Negative)
--- NOTE | 2025-04-27 15:16 | PD.RESPRO ---
Documentation for date of: 04/27/25 Subjective Subjective Interval history: Patient was seen and examined at bedside. Noticed that he is still on high flow nasal cannula saturating 93% on 90% FiO2 and 40 L flow. He denied any new symptoms at this time however noticed that he was tachypneic. Overnight patient was put on BiPAP because of his oxygen saturation was in the high 80s and low 90s. His respiratory rate was 29 . His WBC showed mild decrease to 24.9, his hemoglobin stable at 12.6, ordered for the patient repeat ABG which showed mild alkalosis most likely secondary to his tachypnea, Lasix, and the BiPAP his pH of 7.51, pCO2 of 38, PO2 of 68 which decreased from last ABG during admission which was 73. His sodium bicarb within normal limits. For that reason we will not start the patient on Diamox at this time. I spoke with the patient regarding his CODE STATUS in order for us to have a plan for possible need of intubation mechanical ventilation. Patient was hesitant regarding the ventilation as he mentions that his because of mechanical ventilation complication that resulted in rupture of her line and . Explained the risks and benefits of mechanical ventilation if needed. He told me to talk with his stepdaughter Lorie. I called her she mentioned that she will be at the hospital within the next few minutes as she mentions that she is not the decision-maker and she has to talk with other family members and they will come to the hospital for discussion regarding his CODE STATUS. Because of his condition keep worsening we will broaden his antibiotics from levofloxacin to cefepime and vancomycin we also added for the patient Solu-Medrol 60 mg 3 times daily. Exam Vital Signs Temp Pulse Resp BP Pulse Ox O2 Del Method O2 Flow Rate 97.0 F 85 33 H 150/92 H 96 BiPAP 40 04/27/25 12:00 04/27/25 14:19 04/27/25 13:57 04/27/25 14:19 04/27/25 13:57 04/27/25 12:00 04/27/25 13:57 FiO2 100 04/27/25 13:57 Narrative Exam GEN: AOx3, tachypneic however he is able to speak full sentences, on high flow nasal cannula HEENT: NC/AC, oral mucosa moist, neck supple CVS: RRR, S1-S2 present, no murmurs appreciated RESP: Patient looks in respiratory distress, coarse crepitations bilaterally, good air entry bilaterally. GI: soft,non distended, non tender, NBS MSK: able to move all 4 limbs, place lower extremity edema SKIN: warm and dry HISTORICAL RECORDS ADMINISTRATOR: CN II-XII and Sensation grossly intact. Objective Labs 04/28/25 05:29 04/28/25 05:29 Labs: Laboratory Results - last 24 hr 04/25/25 04/27/25 04/27/25 11:33 05:15 12:53 WBC 24.9 H RBC 4.17 L Hgb 12.6 L Hct 36.9 L MCV 89 MCH 30.2 MCHC 34.1 RDW Std Deviation 44.3 H Plt Count 311 D Neut % (Auto) 86 H Lymph % (Auto) 5 L Clayton % (Auto) 8 Eos % (Auto) 0 Baso % (Auto) 0 Neut # (Auto) 21.3 H Lymph # (Auto) 1.1 Clayton # (Auto) 2.0 H Eos # (Auto) 0.0 Baso # (Auto) 0.0 Immature Gran # (Auto) 0.43 H Absolute Nucleated RBC 0.00 Immature Gran % 2 H Nucleated RBC % 0 Puncture Site ABG pH ABG pCO2 ABG pO2 ABG HCO3 ABG O2 Saturation ABG Base Excess FiO2 Sodium 139 138 Potassium 5.3 H D 4.3 D Chloride 100 97 L Carbon Dioxide 30.6 29.5 Anion Gap 8 12 BUN 34 H 28 H Creatinine 0.9 0.8 Estim Creat Clear Calc 67.6 76.0 eGFR > 60 > 60 BUN/Creatinine Ratio 38 H 35 H Glucose 136 H 164 H Calculated Osmolality 287 285 Calcium 8.5 8.2 L Corrected Calcium 8.9 Phosphorus 3.8 Magnesium 2.4 Total Bilirubin 0.5 AST 48 H ALT 15 Alkaline Phosphatase 124 H Total Protein 5.7 Albumin 3.5 Globulin 2.2 L Albumin/Globulin Ratio 1.6 Coccidioides IgG Ab Negative 04/27/25 13:25 WBC RBC Hgb Hct MCV MCH MCHC RDW Std Deviation Plt Count Neut % (Auto) Lymph % (Auto) Clayton % (Auto) Eos % (Auto) Baso % (Auto) Neut # (Auto) Lymph # (Auto) Clayton # (Auto) Eos # (Auto) Baso # (Auto) Immature Gran # (Auto) Absolute Nucleated RBC Immature Gran % Nucleated RBC % Puncture Site Right Radial ABG pH 7.51 H ABG pCO2 38 ABG pO2 68 L ABG HCO3 30 H ABG O2 Saturation 95 ABG Base Excess 6 H FiO2 80 Sodium Potassium Chloride Carbon Dioxide Anion Gap BUN Creatinine Estim Creat Clear Calc eGFR BUN/Creatinine Ratio Glucose Calculated Osmolality Calcium Corrected Calcium Phosphorus Magnesium Total Bilirubin AST ALT Alkaline Phosphatase Total Protein Albumin Globulin Albumin/Globulin Ratio Coccidioides IgG Ab ABG Interpretation ABG results: 04/25/25 04/27/25 13:58 13:25 ABG pH 7.45 7.51 H ABG pCO2 34 38 ABG pO2 73 L 68 L ABG HCO3 23 30 H ABG O2 Saturation 97 95 ABG Base Excess 0 6 H Quality Measures Quality Measures VTE prophylaxis Advance care planning discussed with:: patient and child Assessment & Plan Assessment Current Active Medications: Generic Name Dose Route Start Last Admin Trade Name Freq PRN Reason Stop Dose Admin Acetaminophen 650 mg 04/26/25 07:40 Acetaminophen 325 Mg Tablet PO 05/25/25 12:22 Q6H PRN Fever >100.3 or pain 1-3 Hydrocodone Bitart/Acetaminophen 1 tab 04/25/25 12:23 04/26/25 19:47 Hydrocodone/Apap 5/325 Tablet PO 04/30/25 12:22 1 tab Q4HR PRN Administration PAIN SCALE 4-10(Mod-Sev Amiodarone HCl 200 mg 04/25/25 19:05 04/27/25 11:34 Amiodarone Hcl 200 Mg Tablet PO 05/25/25 19:04 200 mg BID JANINE Administration Apixaban 5 mg 04/25/25 21:00 04/27/25 11:34 Apixaban 2.5 Mg Tablet PO 05/25/25 20:59 5 mg BID JANINE Administration Atorvastatin Calcium 80 mg 04/25/25 21:00 04/26/25 20:56 Atorvastatin Calcium 20 Mg Tablet PO 05/25/25 20:59 80 mg QPM JANINE Administration Benzonatate 200 mg 04/25/25 14:15 04/27/25 14:19 Benzonatate 100 Mg Capsule PO 05/25/25 14:14 200 mg TID JANINE Administration Protocol Buspirone HCl 10 mg 04/25/25 21:00 04/27/25 11:34 Buspirone Hcl 5 Mg Tablet PO 05/25/25 20:59 10 mg BID JANINE Administration Carbidopa/Levodopa 1 tab 04/25/25 21:00 04/27/25 08:30 Carbidopa/Levodopa Cr 25/100 Tabcr PO 05/25/25 20:59 1 tab BID JANINE Administration Clopidogrel Bisulfate 75 mg 04/25/25 14:15 04/27/25 11:35 Clopidogrel Bisulfate 75 Mg Tablet PO 05/25/25 14:14 75 mg QDAY JANINE Administration Diltiazem HCl 60 mg 04/25/25 22:00 04/27/25 14:19 Diltiazem 30 Mg Tablet PO 05/25/25 21:59 60 mg TID JANINE Administration Dutasteride 0.5 mg 04/25/25 21:00 04/26/25 20:56 Dutasteride 0.5 Mg Capsule (Non-Formulary) PO 05/25/25 20:59 0.5 mg QPM JANINE Administration Furosemide 20 mg 04/26/25 18:00 04/27/25 06:02 Furosemide Inj 10 Mg/Ml Vial 2 Ml IVP 05/26/25 17:59 20 mg BIDD JANINE Administration Guaifenesin 100 mg 04/25/25 17:00 04/27/25 11:36 Guaifenesin Syrup 200 Mg/10 Ml Udc PO 05/25/25 16:59 100 mg QID JANINE Administration Protocol Levofloxacin/Dextrose 750 mg in 150 mls @ 100 mls/hr 04/25/25 14:15 04/27/25 11:35 Levaquin Ivpb IV 05/02/25 14:14 100 mls/hr QDAY JANINE Administration Cefepime HCl 2 gm/ Sodium 50 mls @ 100 mls/hr 04/27/25 11:07 04/27/25 11:35 Chloride IV 05/04/25 11:06 100 mls/hr Q8HR JANINE Administration Vancomycin HCl/Dextrose 250 mls @ 120 mls/hr 04/27/25 11:15 04/27/25 11:40 Vancomycin/D5w 1,250 Mg Ivpb IV 05/04/25 11:14 120 mls/hr DAILY@1000 JANINE Administration Ipratropium Glide 0.5 mg 04/25/25 19:00 04/27/25 13:04 Ipratropium Rt 0.5 Mg/ 2.5 Ml Nebu INH 05/25/25 18:59 0.5 mg Q6HRRT JANINE Administration Levalbuterol HCl 0.63 mg 04/27/25 13:00 04/27/25 13:05 Levalbuterol Rt 0.63 Mg/3 Ml Nebu INH 05/27/25 12:59 0.63 mg Q6HRRT JANINE Administration Melatonin 3 mg 04/25/25 23:40 04/26/25 20:56 Melatonin 3 Mg Tablet PO 05/25/25 23:39 3 mg HS JANINE Administration Methylprednisolone Sodium Succinate 60 mg 04/27/25 13:30 04/27/25 14:19 Methylprednisolone Sod Succ 40 Mg Vial IVP 05/04/25 13:29 60 mg Q8H JANINE Administration Montelukast Sodium 10 mg 04/26/25 09:00 04/27/25 11:37 Montelukast Sodium 10 Mg Tablet PO 05/26/25 08:59 10 mg QAM JANINE Administration Ondansetron HCl 4 mg 04/25/25 12:23 Ondansetron Inj 2 Mg/Ml Inj 2 Ml IVP 05/25/25 12:22 Q6H PRN NAUSEA OR VOMITING Protocol Pantoprazole Sodium 40 mg 04/26/25 09:00 04/27/25 11:36 Pantoprazole Inj 40 Mg Vial IVP 05/26/25 08:59 40 mg QDAY JANINE Administration Pharmacy Consult 1 each 04/27/25 11:15 Vancomycin Pharmacy To Dose 1 Each Each IV 05/27/25 11:14 QDAY PRN CONSULT Sennosides 1 tab 04/26/25 09:00 04/27/25 11:41 Senna Tablet PO 05/26/25 08:59 Not Given QDAY JANINE Protocol Tamsulosin HCl 0.4 mg 04/26/25 09:00 04/27/25 11:36 Tamsulosin Hcl 0.4 Mg Capsule PO 05/26/25 08:59 0.4 mg QAM JANINE Administration Plan Summary: Patient is an 79-year-old male with a past medical history significant for essential tremor, BPH, primary hypertension, hyperlipidemia and 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 He follows up with his PCP Dr. Osman and bilingual speech language pathologist Dr. Molina. Patient will be admitted for treatment and management of acute respiratory failure with hypoxia secondary to community-acquired pneumonia. #ARDS #Acute respiratory failure with hypoxia secondary to likely community-acquired pneumonia #Community-acquired pneumonia failed outpatient treatment patient presented with worsening cough and shortness of breath refractory to outpatient antibiotics. On exam had severely reduced air entry in all lung noonan with mild crackles at bases. Labs showed WBC 28.4, lactic acid 5.4, BNP 629 and troponin 0.135 Chest x-ray showed extensive bilateral consolidation PSI; risk class IV. Hospitalization recommended based on risk [place] score; positive; severe ARDS P/F ratio 84.7. 45% mortality S/F ratio : 117.5 - Non-intubated ARDS Ronda index; 3.69 points. Risk of HFNC failure is high Currently saturating 93% on 100% FiO2 and 40 L flow. From telemetry review patient alternated between sinus arrhythmia and sinus rhythm overnight with heart rates in the 60s/80s. Echo showed normal left ventricular function with ejection fraction of 55 to 60%. Grade 1 diastolic dysfunction. Plan: ? Pending cocci serology ? Stop levofloxacin 750 Mg IV daily on [04/25?04/27/2025 ? Start the patient on cefepime 2 g IV Q8h March 2025 ? Start the patient on vancomycin pharmacy to dose March 2025 ? Lasix 40 mg x 1 IV stat ? Start the patient on Solu-Medrol 60 mg IV every 8 hours ? Lasix 20 Mg IV x 1 given ? Levalbuterol nebs Q6 hourly ? Ipratropium nebs Q6 hourly ? Chest physiotherapy Q6 hourly ? Acapella device Q6 hourly ? Goals of care discussion was held today for 27 Apr 2025 with the family in the afternoon regarding the patient CODE STATUS and possible see the need of intubation. #New onset A-fib with RVR #Diastolic dysfunction grade 1 #Non-STEMI type II?resolved Patient endorses some palpitations starting last night and continuing today intermittently. Initial EKG showed A-fib with RVR 155 and repeat showed A-fib rate 93. No acute ST changes Received diltiazem 15 Mg IV x 1 followed by non titratable diltiazem infusion in the ED after which rate improved to 93 [id number]; 5 points; stroke risk 7.2%. HAS-BLED; 4 points. Major risk of bleeding Echocardiogram showed ejection fraction of 60%, diastolic dysfunction grade 1. Plan: ? Continue telemetry monitoring ? Continue diltiazem 60 Mg p.o. 3 times daily for rate control ? Continue amiodarone 200 Mg p.o. twice daily as per cardiology recommendations ? Continue apixaban 5 Mg p.o. twice daily as per cardiology recommendations ? Industrial Training Specialist, Dr. Americo Morrison consulted and closely following. Appreciate recommendations #Possible acute blood loss anemia On admission patient's Hb 13.9 now 11.7. Patient started on Eliquis overnight along with clopidogrel. 04/27/2025 his hemoglobin today is 12.6 yesterday was 12.4. Plan: ? Continue to monitor H&H daily #Primary hypertension #Hyperlipidemia Plan: ? Continue home medication atorvastatin ? HCTZ on hold for now #Right lower extremity swelling On exam right lower extremity appears to be mildly larger than the left. When questioned patient states that he had an outpatient duplex ultrasound which was negative for DVT #Troponinemia #NSTEMI type II On admission troponin mildly elevated at 0.135 down trended to 0.125. Most likely type II in setting of demand ischemia from pneumonia. No need to further trend troponins #BPH Plan: ? Bladder scan as needed ordered ? In-N-Out catheter as needed ordered ? Continue home medication tamsulosin and dutasteride Health maintenance: Disposition: IV antibiotics. HFNC. Diet: Regular Lines: pIVs GI Prophylaxis: Pantoprazole 40 Mg IV daily Thrombo Prophylaxis: Apixaban Code status: DNR, however, dose of care to be discussed with the family regarding his CODE STATUS and the anticipated need of intubation. - Patient's plan and care discussed with my attending, Dr. Christian Herring MD Internal Medicine PGY-2 Attending Provider Attestation/Addendum I reviewed labs, imaging, EKG, home medications and prior available records. Face to face evaluation was performed by me. I have personally examined the patient and discussed assessment and plan with the IM team. I reviewed the resident note and agree with the plan with exceptions as below. Acute hypoxic respiratory failure Bilateral pneumonia Possible CHF History of CVA Lactic acidosis Non-STEMI Atrial fibrillation with controlled ventricular rhythm Oxygen requirements increased. Ordered chest x-ray that showed worsening infiltrates. Broaden antibiotics to vancomycin/cefepime. Started the patient on BiPAP. Follow-up ABG in the evening Follow-up cocci IgM: Negative. Follow-up sputum culture: Grew gram-positive cocci Continue oxygen and wean off as tolerated Continue IV Lasix. Increased the dose ordered echocardiogram Trend troponin: Peaked Continue clopidogrel and atorvastatin Consulted cardiology Trend lactic acid: Normalized Started diltiazem drip. Switched to oral diltiazem. Added p.o. amiodarone. Started Eliquis
--- NOTE | 2025-04-27 16:49 | PD.RESEVENT ---
Documentation for date of: 04/27/25 Event Note Event Note: Today at 4 PM I had a discussion with the family including Lorie his stepdaughter and his daughter Jackelyn regarding his condition. I explained the risk and benefits of medical treatment and what can be done to the patient that his condition to deteriorate. They asked for some time to discuss with the family. Eventually they decided with the patient Farhan Medina that they want to change his CODE STATUS from DNR/DNI to limited code where no compression however they want intubation if needed. CODE STATUS was changed as per the patient and family wishes. - Patient's plan and care discussed with my attending, Dr. Christian Herring MD Internal Medicine PGY-2
[2025-04-27] MEDS: ATORVASTATIN CALCIUM 20 MG TABLET 80 MG PO (21:31)
[2025-04-27] MEDS: MELATONIN 3 MG TABLET PO (21:32)
[2025-04-27] MEDS: DUTASTERIDE 0.5 MG CAPSULE (NON-FORMULARY) PO (21:33)
[2025-04-27 22:34] LABS: Allen Test Performed/OK; Base Excess 5 (-3-3); HCO3 29 mEq/L (20-26); Inspired Oxygen, FIO2 100 %; O2 Saturation 93 % (91-98); PCO2 40 mmHg (32.0-48.0); PO2 63 mmHg (83-108); Puncture Site Right Radial; pH, Arterial 7.48 (7.35-7.45)
[2025-04-28] VITALS (73 sets, daily range): BP systolic 124–162; BP diastolic 69–94; PULSE 70–103; RESP 0–43; TEMP 36.1–36.9; O2SAT 86–98; BMI 26.7
[2025-04-28] MEDS: IPRATROPIUM RT 0.5 MG/ 2.5 ML NEBU INH ×4 (01:59→18:18)
[2025-04-28] MEDS: LEVALBUTEROL RT 0.63 MG/3 ML NEBU INH ×4 (02:00→18:18)
[2025-04-28] MEDS: guaiFENesin SYRUP 200 MG/10 ML UDC 100 MG PO ×4 (05:26→20:09)
[2025-04-28] MEDS: BENZONATATE 100 MG CAPSULE 200 MG PO ×3 (05:26→21:14)
[2025-04-28] MEDS: CEFEPIME INJ 2 GM in SODIUM CHLORIDE 0.9% (Popper) 50 ML IV ×3 (05:31→21:14)
[2025-04-28] MEDS: DILTIAZEM 30 MG TABLET 60 MG PO ×3 (05:35→21:15)
[2025-04-28] MEDS: FUROSEMIDE INJ 10 MG/ML VIAL 2 ML 20 MG IVP ×2 (05:36→17:38)
[2025-04-28 06:05] LABS: Basophils % (Auto) 0 % (0-2.5); Eosinophils % (Auto) 0 % (0-10); Hematocrit 36.5 % (41.0-53.0); Hemoglobin 13.1 g/dL (13.5-16.0); Immature Granulocytes % (Auto) 2 % (0-0); Immature Granulocytes Auto 0.36 Thou/mm3 (0.00-0.00); Lymphocytes # (Auto) 0.4 Thou/mm3 (1.0-4.8); Lymphocytes % (Auto) 2 % (10-50); Mean Corpuscular HGB Conc 35.9 g/dl (31.0-37.0); Mean Corpuscular Hemoglobin 30.5 pg (25.0-35.0); Mean Corpuscular Volume 85 fL (80-100); Monocytes # (Auto) 0.5 Thou/mm3 (0.0-0.8); Monocytes % (Auto) 3 % (0-12); Neutrophils # (Auto) 18.6 Thou/mm3 (1.8-7.7); Neutrophils % (Auto) 94 % (37-80); Nucleated Red Blood Cell % 0 /100 WBC (0); Platelet Count 231 Thou/mm3 (140-440); RDW Standard Deviation 41.9 fL (35.1-43.9); Red Blood Count 4.29 Miln/mm3 (4.50-5.90); White Blood Count 19.9 Thou/mm3 (3.8-10.6)
[2025-04-28 07:02] LABS: Alanine Aminotransferase 33 U/L (10-49); Albumin, Serum 3.5 gm/dL (3.4-4.8); Albumin/Globulin Ratio 1.5 (1.2-2.2); Alkaline Phosphatase 153 U/L (46-116); Anion Gap 12 (7-16); Aspartate Amino Transferase 25 U/L (0-34); BUN/Creatinine Ratio 29 Ratio (12-20); Bilirubin,Total 0.8 mg/dL (0.3-1.2); Blood Urea Nitrogen 26 mg/dL (9-23); Calcium 8.5 mg/dL (8.3-10.6); Calcium (Corrected) 8.9 mg/dL (8.5-10.1); Carbon Dioxide 29.7 mMol/L (20.0-31.0); Chloride 95 mMol/L (98-107); Creatinine (Component) 0.9 mg/dL (0.6-1.3); Estimated Creatinine Clearance 67.6 mL/min (>60); Globulin 2.3 gm/dL (2.3-3.5); Glucose 201 mg/dL (74-106); Magnesium 2.2 mg/dL (1.6-2.6); Osmolality,Calculated 284 (275-295); Phosphorous 3.6 mg/dL (2.4-5.1); Potassium 4.7 mMol/L (3.4-5.1); Sodium 137 mMol/L (136-145); Total Protein 5.8 gm/dL (5.7-8.2); eGFR > 60 See Note
--- NOTE | 2025-04-28 08:17 | PC.NURSE ---
MD Ambrocio made aware of increasing O2 demands of patient, upon shift change patient on HFNC 35L and 100% FiO2. Patient's O2 saturation dropping down to the 80's. Patient placed on BiPap machine.
--- NOTE | 2025-04-28 08:18 | PC.NURSE ---
MD Ambrocio called, pt refusing BiPap, at bedside educating patient on BiPap and STAT ABG ordered.
[2025-04-28 08:47] LABS: Base Excess 6 (-3-3); HCO3 30 mEq/L (20-26); Inspired O2, VO2 Liters 92 L/min; Inspired Oxygen, FIO2 70 %; O2 Saturation 93 % (91-98); PCO2 41 mmHg (32.0-48.0); PO2 64 mmHg (83-108); pH, Arterial 7.48 (7.35-7.45)
[2025-04-28 08:48] LABS: Allen Test Performed/OK; Puncture Site Right Radial
[2025-04-28] MEDS: APIXABAN 2.5 MG TABLET 5 MG PO ×2 (09:34→20:08)
[2025-04-28] MEDS: CLOPIDOGREL BISULFATE 75 MG TABLET PO (09:34)
[2025-04-28] MEDS: LEVODOPA PO (09:34)
[2025-04-28] MEDS: CARBIDOPA PO (09:34)
[2025-04-28] MEDS: TABCR PO (09:34)
[2025-04-28] MEDS: PANTOPRAZOLE INJ 40 MG VIAL IVP (09:34)
[2025-04-28] MEDS: BusPIRone HCL 5 MG TABLET 10 MG PO ×2 (09:35→20:07)
[2025-04-28] MEDS: SENNA TABLET 1 TAB PO (09:35)
[2025-04-28] MEDS: AMIODARONE HCL 200 MG TABLET PO ×2 (09:35→20:08)
[2025-04-28] MEDS: LEVOFLOXACIN/D5W 750MG IVPB 750 MG/150 ML BAG 100 MG IV (09:35)
[2025-04-28] MEDS: TAMSULOSIN HCL 0.4 MG CAPSULE PO (09:35)
[2025-04-28] MEDS: VANCOMYCIN/D5W 1,250 MG IVPB 250 ML 120 MG IV (09:35)
[2025-04-28] MEDS: MONTELUKAST SODIUM 10 MG TABLET PO (09:35)
--- NOTE | 2025-04-28 09:59 | ESPR_ITS ---
<Statement entered by Nara Ambrocio MD - 04/28/25 14:53> Patient was seen and examined by me personally. I have directly supervised and reviewed documentation by the team resident and agree with its findings with any exceptions or additional findings as below. Plan of care was discussed with the attending, Dr. Albarado. Mr. 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 He initally was started on levofloxacin, however, due to worsening pulmonary status antibiotics were broadened to cefepime and vancomycin. Initially COVID, influenza A&B, cocci, and blood cultures were negative. Sputum culture negative but was poor in quality with significant squams. Primary team had discussion regarding the guarded prognosis due to worsening hypoxia and oxygen requirements up to 100% FiO2 Hi-Flow and needing BiPAP. Patient was initially DNR status but changed to Limited Code including Intubation OK but No Chest Compressions. New Team B took over care on 04/28/2025. This morning the patient was saturating low 90s and high 80s on maxed out Hi-Flow, therefore RT transitioned the patient to BiPAP. However patient was showing some reluctance in keeping the BiPAP on. He was awake, alert, and oriented, able to speak full sentences but clearly exerting significant effort in respiration with retractions and belly breathing. Our team came to speak to the patient and family again, patient felt calmer on the BiPAP and maintained compliance. Ordered repeat cocci, beta-1-D glucan, repeat sputum culture, ABG. However due to tachypnea up to the high 30s and clear effort in respiration, decided to consult ICU for anticipation of possible deterioration and/or need for closer monitoring, likely has underlying ARDS. Ordered CT angio chest to further evaluate hypoxia however after consultation with ICU decided to cancel due to high risk status on Hi-Flow/BiPAP for now. Nara Ambrocio, PGY-2 Documentation for date of: 04/28/25 Subjective Subjective Interval history: Patient seen and examined at bedside. Patient was unable to maintain SpO2 more than 92 on high flow nasal cannula O2 flow 40, FiO2 100. Was transition to BiPAP, reportedly patient had anxiety secondary to BiPAP, was counseled, agreed to continue with BiPAP. Patient had significant respiratory distress, respiratory rate in 40s and had accessory muscle use. Ordered repeat cocci, beta-1 3D glucan, repeat sputum culture. Clinical Consultant was consulted as patient has underlying ARDS, no improvement noted since admission. Patient will be upgraded to intensive care unit for observation. On chart review in November [address] abdomen pelvis does show minor pulmonary fibrosis pattern at lung base Exam Vital Signs Temp Pulse Resp BP Pulse Ox O2 Del Method O2 Flow Rate 97.2 F 87 16 151/75 H 91 L High Flow Nasal Cannula 35 04/28/25 08:00 04/28/25 09:35 04/28/25 08:00 04/28/25 09:35 04/28/25 08:00 04/28/25 08:00 04/28/25 08:00 FiO2 100 04/28/25 08:00 Narrative Exam GEN: AOx3, tachypneic, on BiPaP HEENT: NC/AC, oral mucosa moist, neck supple CVS: Irregular rate, S1-S2 present, no murmurs appreciated RESP: Increased respiratory distress noted, accessory muscle use noted, coarse crepitations bilateral GI: soft,non distended, non tender, NBS MSK: able to move all 4 limbs, place lower extremity edema SKIN: warm and dry CHIP PERSON: CN II-XII and Sensation grossly intact. Objective Labs 04/30/25 04:48 04/30/25 04:48 Labs: Laboratory Results - last 24 hr 04/25/25 04/27/25 04/27/25 11:33 12:53 13:25 WBC RBC Hgb Hct MCV MCH MCHC RDW Std Deviation Plt Count Neut % (Auto) Lymph % (Auto) [place] % (Auto) Eos % (Auto) Baso % (Auto) Neut # (Auto) Lymph # (Auto) [place] # (Auto) Eos # (Auto) Baso # (Auto) Immature Gran # (Auto) Absolute Nucleated RBC Immature Gran % Nucleated RBC % Puncture Site Right Radial ABG pH 7.51 H ABG pCO2 38 ABG pO2 68 L ABG HCO3 30 H ABG O2 Saturation 95 ABG Base Excess 6 H Oxygen Liter Flow FiO2 80 Sodium 138 Potassium 4.3 D Chloride 97 L Carbon Dioxide 29.5 Anion Gap 12 BUN 28 H Creatinine 0.8 Estim Creat Clear Calc 76.0 eGFR > 60 BUN/Creatinine Ratio 35 H Glucose 164 H Calculated Osmolality 285 Calcium 8.2 L Corrected Calcium Phosphorus Magnesium Total Bilirubin AST ALT Alkaline Phosphatase Total Protein Albumin Globulin Albumin/Globulin Ratio Coccidioides IgG Ab Negative 04/27/25 04/28/25 04/28/25 22:23 05:29 08:42 WBC 19.9 H D RBC 4.29 L Hgb 13.1 L Hct 36.5 L MCV 85 MCH 30.5 MCHC 35.9 RDW Std Deviation 41.9 Plt Count 231 D Neut % (Auto) 94 H Lymph % (Auto) 2 L [place] % (Auto) 3 Eos % (Auto) 0 Baso % (Auto) 0 Neut # (Auto) 18.6 H Lymph # (Auto) 0.4 L [place] # (Auto) 0.5 Eos # (Auto) 0.0 Baso # (Auto) 0.0 Immature Gran # (Auto) 0.36 H Absolute Nucleated RBC 0.00 Immature Gran % 2 H Nucleated RBC % 0 Puncture Site Right Radial Right Radial ABG pH 7.48 H 7.48 H ABG pCO2 40 41 ABG pO2 63 L 64 L ABG HCO3 29 H 30 H ABG O2 Saturation 93 93 ABG Base Excess 5 H 6 H Oxygen Liter Flow 92 FiO2 100 70 Sodium 137 Potassium 4.7 Chloride 95 L Carbon Dioxide 29.7 Anion Gap 12 BUN 26 H Creatinine 0.9 Estim Creat Clear Calc 67.6 eGFR > 60 BUN/Creatinine Ratio 29 H Glucose 201 H Calculated Osmolality 284 Calcium 8.5 Corrected Calcium 8.9 Phosphorus 3.6 Magnesium 2.2 Total Bilirubin 0.8 AST 25 ALT 33 Alkaline Phosphatase 153 H D Total Protein 5.8 Albumin 3.5 Globulin 2.3 Albumin/Globulin Ratio 1.5 Coccidioides IgG Ab ABG Interpretation ABG results: 04/25/25 04/27/25 04/27/25 13:58 13:25 22:23 ABG pH 7.45 7.51 H 7.48 H ABG pCO2 34 38 40 ABG pO2 73 L 68 L 63 L ABG HCO3 23 30 H 29 H ABG O2 Saturation 97 95 93 ABG Base Excess 0 6 H 5 H 04/28/25 08:42 ABG pH 7.48 H ABG pCO2 41 ABG pO2 64 L ABG HCO3 30 H ABG O2 Saturation 93 ABG Base Excess 6 H Quality Measures Quality Measures VTE prophylaxis Advance care planning discussed with:: patient and child Assessment & Plan Assessment Current Active Medications: Generic Name Dose Route Start Last Admin Trade Name Freq PRN Reason Stop Dose Admin Acetaminophen 650 mg 04/26/25 07:40 Acetaminophen 325 Mg Tablet PO 05/25/25 12:22 Q6H PRN Fever >100.3 or pain 1-3 Hydrocodone Bitart/Acetaminophen 1 tab 04/25/25 12:23 04/26/25 19:47 Hydrocodone/Apap 5/325 Tablet PO 04/30/25 12:22 1 tab Q4HR PRN Administration PAIN SCALE 4-10(Mod-Sev Amiodarone HCl 200 mg 04/25/25 19:05 04/28/25 09:35 Amiodarone Hcl 200 Mg Tablet PO 05/25/25 19:04 200 mg BID JANINE Administration Apixaban 5 mg 04/25/25 21:00 04/28/25 09:34 Apixaban 2.5 Mg Tablet PO 05/25/25 20:59 5 mg BID JANINE Administration Atorvastatin Calcium 80 mg 04/25/25 21:00 04/27/25 21:31 Atorvastatin Calcium 20 Mg Tablet PO 05/25/25 20:59 80 mg QPM JANINE Administration Benzonatate 200 mg 04/25/25 14:15 04/28/25 05:26 Benzonatate 100 Mg Capsule PO 05/25/25 14:14 200 mg TID JANINE Administration Protocol Buspirone HCl 10 mg 04/25/25 21:00 04/28/25 09:35 Buspirone Hcl 5 Mg Tablet PO 05/25/25 20:59 10 mg BID JANINE Administration Carbidopa/Levodopa 1 tab 04/25/25 21:00 04/28/25 09:34 Carbidopa/Levodopa Cr 25/100 Tabcr PO 05/25/25 20:59 1 tab BID JANINE Administration Clopidogrel Bisulfate 75 mg 04/25/25 14:15 04/28/25 09:34 Clopidogrel Bisulfate 75 Mg Tablet PO 05/25/25 14:14 75 mg QDAY JANINE Administration Diltiazem HCl 60 mg 04/25/25 22:00 04/28/25 05:35 Diltiazem 30 Mg Tablet PO 05/25/25 21:59 60 mg TID JANINE Administration Dutasteride 0.5 mg 04/25/25 21:00 04/27/25 21:33 Dutasteride 0.5 Mg Capsule (Non-Formulary) PO 05/25/25 20:59 0.5 mg QPM JANINE Administration Furosemide 20 mg 04/26/25 18:00 04/28/25 05:36 Furosemide Inj 10 Mg/Ml Vial 2 Ml IVP 05/26/25 17:59 20 mg BIDD JANINE Administration Guaifenesin 100 mg 04/25/25 17:00 04/28/25 05:26 Guaifenesin Syrup 200 Mg/10 Ml Udc PO 05/25/25 16:59 100 mg QID JANINE Administration Protocol Levofloxacin/Dextrose 750 mg in 150 mls @ 100 mls/hr 04/25/25 14:15 04/28/25 09:35 Levaquin Ivpb IV 05/02/25 14:14 100 mls/hr QDAY JANINE Administration Cefepime HCl 2 gm/ Sodium 50 mls @ 100 mls/hr 04/27/25 11:07 04/28/25 05:31 Chloride IV 05/04/25 11:06 100 mls/hr Q8HR JANINE Administration Vancomycin HCl/Dextrose 250 mls @ 120 mls/hr 04/27/25 11:15 04/28/25 09:35 Vancomycin/D5w 1,250 Mg Ivpb IV 05/04/25 11:14 120 mls/hr DAILY@1000 JANINE Administration Ipratropium [place] 0.5 mg 04/25/25 19:00 04/28/25 06:34 Ipratropium Rt 0.5 Mg/ 2.5 Ml Nebu INH 05/25/25 18:59 0.5 mg Q6HRRT JANINE Administration Levalbuterol HCl 0.63 mg 04/27/25 13:00 04/28/25 06:34 Levalbuterol Rt 0.63 Mg/3 Ml Nebu INH 05/27/25 12:59 0.63 mg Q6HRRT JANINE Administration Melatonin 3 mg 04/25/25 23:40 04/27/25 21:32 Melatonin 3 Mg Tablet PO 05/25/25 23:39 3 mg HS JANNIE Administration Methylprednisolone Sodium Succinate 60 mg 04/27/25 13:30 04/28/25 05:28 Methylprednisolone Sod Succ 40 Mg Vial IVP 05/04/25 13:29 60 mg Q8H JANINE Administration Montelukast Sodium 10 mg 04/26/25 09:00 04/28/25 09:35 Montelukast Sodium 10 Mg Tablet PO 05/26/25 08:59 10 mg QAM JANINE Administration Ondansetron HCl 4 mg 04/25/25 12:23 Ondansetron Inj 2 Mg/Ml Inj 2 Ml IVP 05/25/25 12:22 Q6H PRN NAUSEA OR VOMITING Protocol Pantoprazole Sodium 40 mg 04/26/25 09:00 04/28/25 09:34 Pantoprazole Inj 40 Mg Vial IVP 05/26/25 08:59 40 mg QDAY JANINE Administration Pharmacy Consult 1 each 04/27/25 11:15 Vancomycin Pharmacy To Dose 1 Each Each IV 05/27/25 11:14 QDAY PRN CONSULT Sennosides 1 tab 04/26/25 09:00 04/28/25 09:35 Senna Tablet PO 05/26/25 08:59 1 tab QDAY JANINE Administration Protocol Tamsulosin HCl 0.4 mg 04/26/25 09:00 04/28/25 09:35 Tamsulosin Hcl 0.4 Mg Capsule PO 05/26/25 08:59 0.4 mg QAM JANINE Administration Plan Summary: Patient is an 79-year-old male with a past medical history significant for essential tremor, BPH, primary hypertension, hyperlipidemia and 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 He follows up with his PCP Dr. Osman and bilingual receptionist Dr. Molina. Patient will be admitted for treatment and management of acute respiratory failure with hypoxia secondary to community- acquired pneumonia. #ARDS #Acute respiratory failure with hypoxia secondary to likely community-acquired pneumonia #Community-acquired pneumonia failed outpatient treatment Patient presented with worsening cough and shortness of breath refractory to outpatient antibiotics. On exam had severely reduced air entry in all lung noonan with mild crackles at bases. Labs showed WBC 28.4, lactic acid 5.4, BNP 629 and troponin 0.135 Chest x-ray showed extensive bilateral consolidation PSI; risk class IV. Hospitalization recommended based on risk Monroe score; positive; severe ARDS P/F ratio 84.7. 45% mortality S/F ratio : 117.5 - Non-intubated ARDS Ronda index; 3.69 points. Risk of HFNC failure is high Currently saturating 93% on 100% FiO2 and 40 L flow. From telemetry review patient alternated between sinus arrhythmia and sinus rhythm overnight with heart rates in the 60s/80s. Echo showed normal left ventricular function with ejection fraction of 55 to 60%. Grade 1 diastolic dysfunction. Plan: ? Repeat cocci serology, ordered beta-1 3D glucan, will repeat sputum culture ? Consulted spinning bath patroller, patient will be upgraded to ICU for observation ? Continue levofloxacin 750 Mg IV daily on [04/25?04/27/2025 ? Continue cefepime 2 g IV Q8h March 2025 ? Continue vancomycin pharmacy to dose March 2025 ? Continue Solu-Medrol 60 mg IV every 8 hours ? Coninue Lasix 20 Mg IV twice daily ? Levalbuterol nebs Q6 hourly ? Ipratropium nebs Q6 hourly ? Chest physiotherapy Q6 hourly ? Acapella device Q6 hourly #New onset A-fib with RVR #Diastolic dysfunction grade 1 #Non-STEMI type II?resolved Patient endorses some palpitations starting last night and continuing today intermittently. Initial EKG showed A-fib with RVR 155 and repeat showed A-fib rate 93. No acute ST changes Received diltiazem 15 Mg IV x 1 followed by non titratable diltiazem infusion in the ED after which rate improved to 93 [id number]; 5 points; stroke risk 7.2%. HAS-BLED; 4 points. Major risk of bleeding Echocardiogram showed ejection fraction of 60%, diastolic dysfunction grade 1. Plan: ? Continue telemetry monitoring ? Continue diltiazem 60 Mg p.o. 3 times daily for rate control ? Continue amiodarone 200 Mg p.o. twice daily as per cardiology recommendations ? Continue apixaban 5 Mg p.o. twice daily as per cardiology recommendations ? Environmental Remediation Engineer, Dr. Americo Morrison consulted and closely following. Appreciate recommendation ? Continue Plavix 75 mg daily #Primary hypertension #Hyperlipidemia Plan: ? Continue home medication atorvastatin ? Patient is on Cardizem 60 mg p.o. daily #Right lower extremity swelling On exam right lower extremity appears to be mildly larger than the left. When questioned patient states that he had an outpatient duplex ultrasound which was negative for DVT #Troponinemia #NSTEMI type II On admission troponin mildly elevated at 0.135 down trended to 0.125. Most likely type II in setting of demand ischemia from pneumonia. No need to further trend troponins #Parkinson's disease Continue home dose carbidopa levodopa Patient is on buspirone at home, continue #BPH Continue Flomax, dutasteride Health maintenance: Disposition: IV antibiotics. HFNC. Diet: Regular Lines: pIVs GI Prophylaxis: Pantoprazole 40 Mg IV daily Thrombo Prophylaxis: Apixaban Code status: Limited code, no chest compressions, acceptable to intubation Case discussed with Attending Dr. Albarado and Dr. Ambrocio PGY2. Glendy Engle PGY1 Disclaimer: This note was dictated by speech recognition. Minor errors in plant pathology teacher may be present due to voice recognition software. Attending Provider Attestation/Addendum Face to face evaluation was performed by me. I have personally seen and examined the patient. I discussed the assessment and plan with the entire medicine team. I reviewed available medical records, imaging studies, laboratory results. I agree with the above subjective data, objective findings, assessment and plan except as corrected by me or noted below Acute hypoxic respiratory failure ARDS New onset acute CHF suspected to be diastolic Bilateral lower lobe pneumonia, likely bacterial gram-positive cocci NSTEMI type II, demand ischemia due to above Continue with antibiotics, continue with IV diuresis, high flow nasal cannula oxygen alternating with BiPAP, repeat ABG, spinning bath patroller consultation for evaluation possible upgrade to the ICU. Continue with current medications, follow vitals, labs, clinical course closely. Very few patient with multiple coronary disease and multiorgan dysfunction, high risk of morbidity/mortality. DNR-but okay with intubation More than > 30 minutes spent on the encounter
--- NOTE | 2025-04-28 10:06 | PC.SS ---
Addendum entered by Eulalia Martin 04/28/25 15:25: Per rounding notes, pt is in ICU in obs, no d/c date at this time. Original Note: ASW met with Team B and per their report, pt is on IV antibiotics, on Bipap and is staying. At this time, there is no d/c date.
[2025-04-28 12:07] LABS: Procalcitonin 0.25 ng/ml (0.0-0.49)
--- NOTE | 2025-04-28 12:49 | ESCONSULT_ITS ---
<Statement entered by Wei Padilla MD - 04/29/25 07:54> TOTAL CC TIME: 45 MIN I saw and evaluated the patient. I reviewed the resident?s note and agree with findings and plan as documented in the resident?s note. Upon my evaluation, this patient had a high probability of imminent or life- threatening deterioration due to acute hypoxic respiratory failure, which required my direct attention, intervention, and personal management. This time is exclusive of time spent on procedures, which are documented separately if performed. Subacute progressive SOB on presentation progressed to severe acute hypoxic resp failure lack of infectious prodrome exposures 1mo prior at [employer] [place] no prior hx of resp failure no hobbies/pets/inflammatory exposure risks past imaging 2022 CT brain (for cva) revealed subpleural reticular mild changes ??early ILD; past CT abd/pelv w/ basilar r>l bronchiectasis ??aspiration chronic PCL mild/mod elevated on admission - absence of fevers, chills, productive cough Agree w/ steroids and empiric abx - but d/c vancomycin STOP AMIODARONE STAT due to acute hypoxic resp failure monitor closely in ICU - intubate if necessary - very limited to no role for NIPPV above discussed at length with ICU team HPI Data of Consult Patient: new to practice Consult date: 04/28/25 Requesting Physician: Johnny Gonzales MD Admitting Provider: Johnny Gonzales MD Attending Provider: Johnny Gonzales MD Primary Care Provider: Bruce Osman MD Consult Narrative Reason for consult: Hypoxia on HFNC History of present illness: ESTABLISHED DIAGNOSES: 1. Essential tremor 2. Benign prostatic hyperplasia 3. Primary hypertension 4. Hyperlipidemia 5. Seasonal allergies 6. 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 Possible new onset CHF 8. New onset Atrial Fibrillation HISTORY OF PRESENT ILLNESS : Patient is an 79-year-old male with a past medical history significant for essential tremor, BPH, primary hypertension, hyperlipidemia and 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 He follows up with his PCP Dr. Osman and senior data modeler Dr. Molina Patient's says that his cough and congestion started 1 week ago and at the time he presented to his PCP who prescribed him a 1 week course of amoxicillin and benzonatate. However during this time his symptoms did not improve and actually progressively worsened resulting in a fever in the past 24 hours and palpitations. Of note patient did have recent travel about 2 weeks ago to [place]. Denies any vomiting, nausea, diarrhea, chest pain/pressure, sick contacts. Patient also denies any subjective fevers, exposure to birds, cat scratches or bites, exposure to car exhaust and heavy machinery. Patient got his COVID-vaccine in 2019 and flu shot last year. Subsequently he again presented to his PCPs office on 04/25 for worsening symptoms after failing outpatient antibiotics, his PCP instructed him to immediately present to the emergency department. Of note 2 years ago patient had a stroke and was treated with tenecteplase, however his symptoms were not resolving and he had to be airlifted to a hospital in [place]. After the stroke he still had mild residual right lower limb weakness and was on treatment with clopidogrel for prophylaxis. He also says that he regularly follows with his senior data modeler Dr. Molina as an outpatient and at his last appointment he was told that he was fit as an ox . Patient denies any known history of atrial fibrillation and cannot recall if he has ever had an echocardiogram or stress test in the past. From his medication list he also does not appear to be on any anticoagulation or rate control medication. Incidentally on exam patient's right lower extremity was noted to be slightly larger than his left and according to the patient he had an outpatient duplex scan which was negative for any DVT. ED course: BP 121/75, pulse 86, RR 36, temp 98.3, SpO2 97% on high flow nasal cannula 40/85 Labs significant for WBC 28.4, lactic acid 5.4, BNP 629 and troponin 0.135. Chest x-ray showed extensive bilateral consolidation Initial EKG showed A-fib with RVR 155 and repeat showed A-fib rate 93. No acute ST changes In the ED patient received normal saline 2 L IV fluid bolus, diltiazem 50 Mg IV x 1, diltiazem drip at 5 Mg, methylprednisolone 125 Mg IV x 1, ceftriaxone 1 g IV x 1, azithromycin 500 Mg IV x 1 Upon admission patient was DNR, however as patient's condition deteriorated during hospitalization discussion was held with him and his family who changed his CODE STATUS to limited code, no CPR but intubation allowed. Currently patient is on the maximum setting of HFNC at 40L/min and 100% FiO2 and saturating between 91/94%. Patient will be upgraded to the ICU for closer monitoring and possible intubation with mechanical ventilation. HOME AND VISIT MEDICATIONS: 1. Atorvastatin 80 Mg p.o. every afternoon 2. Benzonatate 200 Mg p.o. 3 times daily 3. Buspirone 100 Mg p.o. twice daily 4. Carbidopa?levodopa 1 tab p.o. 2 times daily 5. Cetirizine 10 Mg p.o. every afternoon 6. Clopidogrel 75 Mg p.o. daily 7. Dutasteride 0.5 Mg p.o. every afternoon 8. HCTZ 12.5 Mg p.o. daily 9. Lactulose 10 g p.o. every morning 10. Montelukast 10 Mg p.o. nightly 11. Potassium citrate 15 mEq p.o. twice daily 12. Tamsulosin 0.4 Mg p.o. every morning 13. Apixaban 5 Mg p.o. twice daily 14. Diltiazem 60 Mg p.o. 3 times daily 15. Amiodarone 200 Mg p.o. twice daily 16. Furosemide 20 Mg IV twice daily 17. Levalbuterol every 6 hourly 18. Ipratropium Q6 hourly 19. Methylprednisone 60 Mg IV every 8 hourly 20. Montelukast 10 Mg p.o. every morning 21. Pantoprazole 40 Mg IV daily 22. Senna 1 tab p.o. daily 23. Cefepime 2 g IV every 8 hourly 24. Vancomycin 1 g IV daily LABS: Influenza A and B negative, COVID-negative, RSV negative, cocci negative, sputum Gram stain 3+ GPC, 2+ WBC, sputum culture 3+ mixed safia, blood and urine cultures negative, WBC 19.9, Pro-Andres 0.95 IMAGING : Chest x-ray on this admission showed extensive bilateral pulmonary consolidation with pulmonary edema. Patient had a chest x-ray done in December [address] images from 2020 and 2022 were reviewed which did reveal some upper and lower lobe bronchiectasis and early fibrotic changes. IMPRESSION: 1. Acute respiratory failure with hypoxia secondary to acute interstitial pneumonitis 2. Likely ARDS RECOMMENDATION: Recommend to hold amiodarone as this may be contributing to interstitial lung disease. Continue with HFNC treatment along with broad- spectrum antibiotics and IV steroids. If patient's continues to deteriorate for possible intubation with mechanical ventilation. cc:: cc: Johnny Gonzales MD Review of Systems Review of Systems Narrative Review of Systems: GENERAL: Denies fever/chills or diaphoresis. Weight loss over past 3 years HEENT: Denies headaches or visual changes. Denies discharge. Neuro: Denies unusual weakness or difficulty speaking. CARDIO: As above PULM: As above GI: Denies abdominal pain, N/V/C/D. Reports having BMs. URO: Denies burning/itching/pain/urinary changes. MSK/EXT/SKIN: Denies joint/skeletal/muscle pain, issues/changes in upper or lower extremities, itchiness, or superficial pain. PSYCH: Cooperative, pleasant mood & affect. The rest of the review of systems is otherwise negative. Exam Vital Signs Temp Pulse Resp BP Pulse Ox O2 Del Method O2 Flow Rate 97.5 F 90 28 H 130/87 H 94 L High Flow Nasal Cannula 40 04/28/25 12:04/28/25 12:04/28/25 12:04/28/25 12:04/28/25 12:04/28/25 12:04/28/25 12:09 FiO2 100 04/28/25 12:09 Narrative Exam Constitutional Alert, oriented x 3 and comfortable. Elderly male on HFNC at 40L/min and 100% FiO2. Able to speak in full sentences HEENT Vision grossly intact. Patent nares. Trachea midline Respiratory Chest normal on inspection and decreased air entry in all lung noonan, fine inspiratory crackles and coarse crackles at bilateral bases. Abdominal breathing with accessory muscle use Cardiovascular S1 and S2 audible, RRR. 4/6 ejection systolic murmur heard at right sternal border with radiation to bilateral carotid. JVD not assessed Abdominal Soft, obese and non tender to palpation in all quadrants. BS + Genitourinary No bladder tenderness, no flank pain. Normal to palpation. Condom catheter Musculoskeletal Extremities tone within normal limits. Right lower extremity appears slightly larger than left. No signs of edema. Neurological CN II - XII grossly intact. Extremity motor and sensation grossly intact. Gait not assessed Skin Warm, dry and intact. Multiple ecchymosis on bilateral arms Psychiatric Patient has good affect, is cooperative Results Labs 04/28/25 05:29 04/28/25 05:29 Labs: Short CBC 04/28/25 Range/Units 05: WBC 19.9 H D (3.8-10.6) Thou/mm3 Hgb 13.1 L (13.5-16.0) g/dL Hct 36.5 L (41.0-53.0) % Plt Count 231 D (140-440) Thou/mm3 BMP 04/27/25 04/28/25 12:53 05:29 Sodium 138 137 Potassium 4.3 D 4.7 Chloride 97 L 95 L Carbon Dioxide 29.5 29.7 BUN 28 H 26 H Creatinine 0.8 0.9 Glucose 164 H 201 H Calcium 8.2 L 8.5 Liver Function 04/28/25 Range/Units 05:29 Total Bilirubin 0.8 (0.3-1.2) mg/dL AST 25 (0-34) U/L ALT 33 (10-49) U/L Alkaline Phosphatase 153 H D (46-116) U/L Albumin 3.5 (3.4-4.8) gm/dL ABG Interpretation ABG results: 04/25/25 04/27/25 04/27/25 13:58 13:25 22:23 ABG pH 7.45 7.51 H 7.48 H ABG pCO2 34 38 40 ABG pO2 73 L 68 L 63 L ABG HCO3 23 30 H 29 H ABG O2 Saturation 97 95 93 ABG Base Excess 0 6 H 5 H 04/28/25 08:42 ABG pH 7.48 H ABG pCO2 41 ABG pO2 64 L ABG HCO3 30 H ABG O2 Saturation 93 ABG Base Excess 6 H Quality Measures Quality Measures VTE prophylaxis Advance care planning discussed with:: patient and child Medications Home Medications and Allergies Home Medications ?Medication ?Instructions ?Recorded ?Confirmed ?Type tamsulosin 0.4 mg capsule 0.4 mg PO QAM 08/30/2304/25 History atorvastatin 80 mg tablet 80 mg PO QPM 04/25/25 History benzonatate 200 mg capsule 200 mg PO TID 04/25/25 05/08/22 History buspirone 10 mg tablet 10 mg PO BID 04/25/25 History carbidopa ER 25 mg-levodopa 100 mg 1 tab PO BID 04/25/25 History tablet,extended release cetirizine 10 mg tablet 10 mg PO QPM 04/25/25 History clopidogrel 75 mg tablet 75 mg PO QDAY 04/25/2504/25 History dutasteride 0.5 mg capsule 0.5 mg PO QPM 04/25/2503/29 History hydrochlorothiazide 12.5 mg tablet 12.5 mg PO QDAY 04/25/25 History lactulose 10 gram/15 mL oral 10 g PO QAM 04/25/2503/29 History solution montelukast 10 mg tablet 10 mg PO QAM 04/25/25 History potassium citrate 15 mEq (1,620 15 meq PO BID 04/25/25 04/25/25 History mg) tablet,extended release Allergies Allergy/AdvReac Type Severity Reaction Status Date / Time No Known Allergies Allergy Verified 04/25/25 09:34 Visit Medications Acetaminophen (Acetaminophen 325 Mg Tablet) 650 mg PO Q6H PRN PRN Reason: Fever >100.3 or pain 1-3 Stop: 05/25/25 12:22 Hydrocodone Bitart/Acetaminophen (Hydrocodone/Apap 5/325 Tablet) 1 tab PO Q4HR PRN PRN Reason: PAIN SCALE 4-10(Mod-Sev Stop: 04/30/25 12:22 Last Admin: 04/26/25 19:47 Dose: 1 tab Amiodarone HCl (Amiodarone Hcl 200 Mg Tablet) 200 mg PO BID [facility] Stop: 05/25/25 19:04 Last Admin: 04/28/25 09:35 Dose: 200 mg Apixaban (Apixaban 2.5 Mg Tablet) 5 mg PO BID [facility] Stop: 05/25/25 20:59 Last Admin: 04/28/25 09:34 Dose: 5 mg Atorvastatin Calcium (Atorvastatin Calcium 20 Mg Tablet) 80 mg PO QPM [facility] Stop: 05/25/25 20:59 Last Admin: 04/27/25 21:31 Dose: 80 mg Benzonatate (Benzonatate 100 Mg Capsule) 200 mg PO TID [facility]; Protocol Stop: 05/25/25 14:14 Last Admin: 04/28/25 05:26 Dose: 200 mg Buspirone HCl (Buspirone Hcl 5 Mg Tablet) 10 mg PO BID [facility] Stop: 05/25/25 20:59 Last Admin: 04/28/25 09:35 Dose: 10 mg Carbidopa/Levodopa (Carbidopa/Levodopa Cr 25/100 Tabcr) 1 tab PO BID [facility] Stop: 05/25/25 20:59 Last Admin: 04/28/25 09:34 Dose: 1 tab Clopidogrel Bisulfate (Clopidogrel Bisulfate 75 Mg Tablet) 75 mg PO QDAY [facility] Stop: 05/25/25 14:14 Last Admin: 04/28/25 09:34 Dose: 75 mg Diltiazem HCl (Diltiazem 30 Mg Tablet) 60 mg PO TID [facility] Stop: 05/25/25 21:59 Last Admin: 04/28/25 05:35 Dose: 60 mg Dutasteride (Dutasteride 0.5 Mg Capsule (Non-Formulary)) 0.5 mg PO QPM [facility] Stop: 05/25/25 20:59 Last Admin: 04/27/25 21:33 Dose: 0.5 mg Furosemide (Furosemide Inj 10 Mg/Ml Vial 2 Ml) 20 mg IVP BIDD [facility] Stop: 05/26/25 17:59 Last Admin: 04/28/25 05:36 Dose: 20 mg Guaifenesin (Guaifenesin Syrup 200 Mg/10 Ml Udc) 100 mg PO QID [facility]; Protocol Stop: 05/25/25 16:59 Last Admin: 04/28/25 12:13 Dose: 100 mg Levofloxacin/Dextrose (Levaquin Ivpb) 750 mg in 150 mls @ 100 mls/hr IV QDAY [facility] Stop: 05/02/25 14:14 Last Admin: 04/28/25 09:35 Dose: 100 mls/hr Cefepime HCl 2 gm/ Sodium (Chloride) 50 mls @ 100 mls/hr IV Q8HR [facility] Stop: 05/04/25 11:06 Last Admin: 04/28/25 05:31 Dose: 100 mls/hr Vancomycin HCl/Dextrose (Vancomycin/D5w 1,250 Mg Ivpb) 250 mls @ 120 mls/hr IV DAILY@1000 [facility] Stop: 05/04/25 11:14 Last Admin: 04/28/25 09:35 Dose: 120 mls/hr Ipratropium Bradford (Ipratropium Rt 0.5 Mg/ 2.5 Ml Nebu) 0.5 mg INH Q6HRRT JANINE Stop: 05/25/25 18:59 Last Admin: 04/28/25 12:09 Dose: 0.5 mg Levalbuterol HCl (Levalbuterol Rt 0.63 Mg/3 Ml Nebu) 0.63 mg INH Q6HRRT JANINE Stop: 05/27/25 12:59 Last Admin: 04/28/25 12:09 Dose: 0.63 mg Melatonin (Melatonin 3 Mg Tablet) 3 mg PO HS [facility] Stop: 05/25/25 23:39 Last Admin: 04/27/25 21:32 Dose: 3 mg Methylprednisolone Sodium Succinate (Methylprednisolone Sod Succ 40 Mg Vial) 60 mg IVP Q8H JANINE Stop: 05/04/25 13:29 Last Admin: 04/28/25 05:28 Dose: 60 mg Montelukast Sodium (Montelukast Sodium 10 Mg Tablet) 10 mg PO QAM [facility] Stop: 05/26/25 08:59 Last Admin: 04/28/25 09:35 Dose: 10 mg Ondansetron HCl (Ondansetron Inj 2 Mg/Ml Inj 2 Ml) 4 mg IVP Q6H PRN; Protocol PRN Reason: NAUSEA OR VOMITING Stop: 05/25/25 12:22 Pantoprazole Sodium (Pantoprazole Inj 40 Mg Vial) 40 mg IVP QDAY JANINE Stop: 05/26/25 08:59 Last Admin: 04/28/25 09:34 Dose: 40 mg Pharmacy Consult (Vancomycin Pharmacy To Dose 1 Each Each) 1 each IV QDAY PRN PRN Reason: CONSULT Stop: 05/27/25 11:14 Sennosides (Senna Tablet) 1 tab PO QDAY [facility]; Protocol Stop: 05/26/25 08:59 Last Admin: 04/28/25 09:35 Dose: 1 tab Tamsulosin HCl (Tamsulosin Hcl 0.4 Mg Capsule) 0.4 mg PO QAM [facility] Stop: 05/26/25 08:59 Last Admin: 04/28/25 09:35 Dose: 0.4 mg Discontinued Medications Acetaminophen (Acetaminophen 325 Mg Tablet) 650 mg PO Q6H PRN PRN Reason: Fever >100.3 or pain Stop: 05/25/25 12:22 Diltiazem HCl (Diltiazem Inj 5 Mg/Ml Vial 5 Ml) 15 mg IV X1 ONE Stop: 04/25/25 10:06 Last Admin: 04/25/25 10:35 Dose: 15 mg Furosemide (Furosemide Inj 10 Mg/Ml Vial 2 Ml) 20 mg IVP X1 ONE Stop: 04/25/25 14:12 Last Admin: 04/25/25 14:45 Dose: 20 mg Furosemide (Furosemide Inj 10 Mg/Ml 4ml Vial) 20 mg IVP X1 ONE Stop: 04/26/25 09:22 Last Admin: 04/26/25 10:19 Dose: 20 mg Furosemide (Furosemide Inj 10 Mg/Ml 4ml Vial) 40 mg IVP X1 ONE Stop: 04/27/25 08:04 Last Admin: 04/27/25 11:35 Dose: 40 mg Heparin Sodium (Porcine) (Heparin Sod Inj 5000 Unit/Ml Vial) 5,000 unit SC BID JANINE Stop: 05/09/25 12:29 Last Admin: 04/25/25 12:41 Dose: 5,000 unit Diltiazem HCl (Diltiazem In D5w 125 Mg) 125 mg in 125 mls @ 5 mls/hr IV .Q24H JANINE Stop: 05/25/25 10:09 Last Admin: 04/25/25 10:45 Dose: 5 mg/hr, 5 mls/hr Azithromycin 500 mg/ Sodium (Chloride) 250 mls @ 250 mls/hr IV X1 ONE Stop: 04/25/25 12:20 Last Infusion: 04/25/25 13:12 Dose: Infused Ceftriaxone Sodium/Dextrose (Rocephin/D5w 1gm Iv Premix) 1 gm in 50 mls @ 100 mls/hr IV X1 ONE Stop: 04/25/25 11:50 Last Infusion: 04/25/25 12:12 Dose: Infused Sodium Chloride (Ns) 1,000 mls @ 999 mls/hr IV .Q1H1M ONE Stop: 04/25/25 12:30 Last Infusion: 04/25/25 11:50 Dose: Infused Sodium Chloride (Ns) 1,000 mls @ 999 mls/hr IV .Q1H1M ONE Stop: 04/25/25 11:05 Last Infusion: 04/25/25 11:05 Dose: Infused Piperacillin Sod/Tazobactam (Sod 4.5 gm/ Sodium Chloride) 100 mls @ 200 mls/hr IV Q6HR JNAINE Stop: 05/04/25 11:03 Last Admin: 04/27/25 15:01 Dose: Not Given Ipratropium Bradford (Ipratropium Rt 0.5 Mg/ 2.5 Ml Nebu) 0.5 mg INH Q20MIN JANINE Stop: 04/27/25 12:31 Last Admin: 04/25/25 13:40 Dose: 0.5 mg Levalbuterol HCl (Levalbuterol Rt 0.63 Mg/3 Ml Nebu) 0.63 mg INH Q20MIN JANINE Stop: 04/27/25 12:31 Last Admin: 04/25/25 13:40 Dose: 0.63 mg Levalbuterol HCl (Levalbuterol Rt 0.31 Mg/3 Ml Nebu) 0.31 mg INH Q6HRRT ONE Stop: 04/25/25 16:18 Last Admin: 04/25/25 17:21 Dose: Not Given Methylprednisolone Sodium Succinate (Methylprednisolone Sod Succ 62.5 Mg/Ml 2ml Vial) 125 mg IVP X1 ONE Stop: 04/25/25 11:22 Last Admin: 04/25/25 11:38 Dose: 125 mg Sodium Chloride (Sodium Chloride Rt 10% 15 Ml Nebu) 5 ml INH X1 ONE Stop: 04/25/25 12:24 Last Admin: 04/26/25 00:23 Dose: Not Given Sodium Chloride (Sodium Chloride Rt 10% 15 Ml Nebu) 5 ml INH X1 ONE Stop: 04/28/25 09:56 Assessment & Plan Plan Patient is an 79-year-old male with a past medical history significant for essential tremor, BPH, primary hypertension, hyperlipidemia and 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 He follows up with his PCP Dr. Osman and senior data modeler Dr. Molina. Initially admitted to the floor for acute respiratory failure with hypoxia secondary to community-acquired pneumonia. Upgraded to the ICU for worsening hypoxia on HFNC at maximum settings for closer monitoring and possible intubation mechanical ventilation. NEURO History of stroke with mild right lower limb residual weakness Rx: Stroke prophylaxis with clopidogrel 75 Mg p.o. daily RRX: Will continue every shift neuro checks Essential tremor Patient on carbidopa/levodopa as home medication for tremor. No signs of parkinsonism. No cogwheel rigidity Rx: Continue home medication carbidopa/levodopa RRx: Will continue to monitor for cogwheel rigidity, tardive dyskinesia and dementia. CVS New onset atrial fibrillation, paroxysmal [id number] 5; HAS-BLED 4 Dx: EKG on admission showed A-fib with RVR, rate 155. Repeat EKG showed sinus arrhythmia, rate 65. From telemetry review, patient in sinus for the past 24 hours rate 60s/80s Rx: Telemetry monitoring. Diltiazem 60 Mg p.o. 3 times daily, apixaban 5 Mg p.o. twice daily. We recommend to hold amiodarone due to possible pulmonary toxicity RRX: We will continue to monitor heart rate and titrate diltiazem as necessary Elevated BNP with grade 1 diastolic dysfunction DDx: New onset CHF, inflammatory cytokines, atrial fibrillation, age Dx: Echo showed grade 1 diastolic dysfunction, EF 50-55%, BNP elevated at 629 Rx: Lasix 20 Mg IV twice daily, 1500 cc/day fluid restriction, strict ins and out RRX: Continue to monitor urine output Primary hypertension Currently BP 133/74 Rx: Continue diltiazem, Lasix RRx: Continue blood pressure monitor PULM Acute respiratory failure with hypoxia secondary to likely acute interstitial pneumonitis DDx: Community-acquired pneumonia, acute interstitial pneumonitis, hypersensitivity pneumonitis, autoimmune, COVID-19 Dx: Chest x-ray on this admission showed extensive bilateral pulmonary consolidation with pulmonary edema. Patient had a chest x-ray done in December [address] images from 2020 and 2022 were reviewed which did reveal some upper and lower lobe bronchiectasis and early fibrotic changes. Rx: HFNC, levalbuterol every 6 hourly, ipratropium Q6 hourly, chest physiotherapy Q6 hourly, methylprednisone 60 Mg IV every 8 hourly, cefepime 2 g IV every 8 hourly, vancomycin IV RRX: Monitor respiration rate and SpO2. Low threshold for intubation or mechanical intubation GI/Hep Peptic ulcer disease prophylaxis Rx: Pantoprazole 40 Mg IV daily RENAL Alkalosis, likely metabolic DDx: New onset A-fib, medication side effect Dx: pH 7.48, pCO2 41, bicarb 29.7 Rx: Will monitor bicarb on CMP HEME/ONC Normocytic Anemia DDx: Most likely from venipuncture Dx: Will limit blood test to only necessary investigations Leukocytosis DDx: Reactive, secondary to inflammation, steroid side effect Dx: WBC 19.9 Rx: Monitor on CBC ENDO HLD Dx: Triglycerides 63, total cholesterol 100, LDL 36, HDL 51 Rx: Continue home medication atorvastatin 80 Mg p.o. every afternoon ID Acute interstitial pneumonitis versus community-acquired pneumonia DDx: COVID-19, viral pneumonia Dx: Influenza A and B negative, COVID-negative, RSV negative, cocci negative, sputum Gram stain 3+ GPC, 2+ WBC, sputum culture 3+ mixed safia, blood and urine cultures negative, WBC 19.9, Pro-Andres 0.95 Rx: LDH, ferritin, CRP, ESR, Pro-Andres, KRYSTYNA panel, COVID-19 ordered RRX: Will follow-up on results and tailor treatment as necessary MSK/DERM Multiple ecchymoses on bilateral upper limbs DDx: Most likely from venipuncture Rx: Cold compress ICU Health maintenance: Dispo: Admit to ICU for close monitoring and possible Diet: Regular, 2G sodium restricted, 1800 cc/day fluid restriction DVT ppx: Apixaban 5 Mg p.o. twice daily GI ppx: Protonix 40mg IV daily Ventilattion: HFNC 40L/min and FiO2 100% Sedation: None IV lines: 1 piv. 18G on Right antecubital fossa Central line: No Arterial line: No Hua: NO Code status: Limited. NO CPR. Intubation is ok Plan of care discussed with Press Bucker Dr. Padilla and PGY 3 Dr. Henok Deluca MD PGY 1 Disclaimer: This note was dictated by speech recognition. Minor errors in muck hauler may be present due to voice recognition software.
[2025-04-28 13:26] LABS: Ferritin 356 ng/mL (10.5-307.3)
[2025-04-28 13:30] LABS: C-Reactive Protein 13.9 mg/dL (0.0-0.9); LDH (Lactate Dehydrogenase) 371 U/L (120-246)
--- NOTE | 2025-04-28 13:37 | PC.NURSE ---
Pt transferred to ICU room [address] 1300. Bedside shift report given to MAXIME Chapin.
[2025-04-28 13:40] LABS: Sed Rate (ESR) 21 mm/hr (0-20)
[2025-04-28 14:51] LABS: COVID-19 Antigen (In-House) Negative (Negative)
--- NOTE | 2025-04-28 16:00 | EKG_ITS ---
[facility] Test Date: 2025-04-28 Pat Name: DANISHA PEOPLES Department: Room: S254A Gender: Male Director Style: STAR : 1945 Requested By: Demian Deluca Order Number: [id number] Reading MD: Demian Deluca Measurements Intervals [place] Rate: 73 P: 3 MO: 222 QRS: 31 QRSD: 109 T: 32 QT: 414 QTc: 457 Interpretive Statements SINUS RHYTHM WITH FIRST DEGREE AV BLOCK WITH OCCASIONAL SUPRAVENTRICULAR PREMATURE COMPLEXES INCOMPLETE RIGHT BUNDLE BRANCH BLOCK MODERATE T-WAVE ABNORMALITY, CONSIDER ANTEROLATERAL ISCHEMIA Compared to ECG 04/26/2025 10:12:04 First degree AV block now present Incomplete right bundle-branch block now present Sinus arrhythmia no longer present Intraventricular conduction delay no longer present T-wave abnormality still present Possible ischemia still present /store/S0/[id number].pdf
--- NOTE | 2025-04-28 18:00 | EVENTNT_ITS ---
Documentation for date of: 04/28/25 Event Note Event Note: Patient developed orthopnea upon lying flat for ultrasound. POCUS Lung : Sliding sign positive, no sign of pneumothorax. Multiple B lines visualized in bilateral Lung noonan. Dilated IVC Impression: 1. Diastolic congestive heart failure exacerbation [EF 50-55%] Plan: - 2G sodium restriction - Fluid Restriction 1500cc/day - Strict I/O's - Discontinue Lasix and Start Bumex 2mg IV BID as per Cardiology recommendations - Resumed Amiodarone 200mg po BID as per Cardiology recommendations Plan of care discussed with Attending and PGY 3 Dr. Henok Deluca MD PGY 1 Disclaimer: This note was dictated by speech recognition. Minor errors in p 3 armament/ordnance ima technician may be present due to voice recognition software.
[2025-04-28] MEDS: BUMETANIDE INJ 0.25 MG/ML VIAL 4 ML 2 MG IVP (18:37)
[2025-04-28] MEDS: ATORVASTATIN CALCIUM 20 MG TABLET 80 MG PO (20:07)
[2025-04-28] MEDS: DUTASTERIDE 0.5 MG CAPSULE (NON-FORMULARY) PO (20:08)
--- NOTE | 2025-04-28 21:02 | ESCONSULT_ITS ---
RE: FARHAN ESCALANTE : 1945 DATE OF CONSULTATION: 04/28/2025 HISTORY OF PRESENT ILLNESS: Farhan Escalante is an 79-year-old male admitted to the hospital with possible pneumonia initially paroxysmal atrial fibrillation, developed congestive heart failure symptoms, possible bilateral infiltrate, worsening of shortness of breath since yesterday. He was on low-dose diuretic, did not respond. Still on high flow oxygen, which is quite concerning. He does not complain of any chest pain, shortness of breath, he remains in paroxysmal Afib, rate controlled. PHYSICAL EXAMINATION: Vital Signs: Exam shows blood pressure is nicely stable but critical. Blood pressure 130/76, Neck: Supple. Lungs: Decreased breath sounds. Heart: S1, S2 regular. Abdomen: Thin and soft. Extremities: No edema. LABORATORY DATA: Showed White count is down to 19.9 from 24. His ABG showed 7.48, 64 and 70% FiO2. Chemistry panel showed creatinine 0.9, BUN 26, and potassium is normal. His chest x-ray showed bilateral infiltrate, possibly bilateral pneumonia versus congestive heart failure, which appears to be more reasonable since a dramatic change in condition over the 24-hour period. Cardiac echocardiogram did show preserved ejection fraction of 55% to 60%, mild mitral regurgitation, moderate tricuspid regurgitation. Bedside echo does show dilated IVC. ASSESSMENT: 1. Acute hypoxic respiratory failure secondary to combination of pneumonia and congestive heart failure, volume overload. 2. Hypertensive cardiovascular disease. Hypertension. 3. Paroxysmal atrial fibrillation with history of stroke. RECOMMENDATIONS: Continue present medications. We will give IV Bumex 2 mg twice daily as a trial to see clinical improvement to 2 liters of urine output at least diuresis to improve oxygenation. If he does not improve renal function, worsens, he can back off from the diuretic and monitor clinically. DT: 19:51:11 TT: 20:45:00 Ref: [id number] - TID: [id number]
[2025-04-28] MEDS: MELATONIN 3 MG TABLET PO (21:15)
[2025-04-29] VITALS (38 sets, daily range): BP systolic 123–166; BP diastolic 66–96; PULSE 68–115; RESP 2–40; TEMP 36.1–36.9; O2SAT 87–98; BMI 25.2
[2025-04-29] MEDS: IPRATROPIUM RT 0.5 MG/ 2.5 ML NEBU INH ×4 (00:30→18:43)
[2025-04-29] MEDS: LEVALBUTEROL RT 0.63 MG/3 ML NEBU INH ×4 (00:30→18:43)
--- NOTE | 2025-04-29 05:00 | XR_ITS ---
Examination: AP chest single view Technique AP portable upright chest single view Date and time: April 29, 2025 0504 hours Comparison February 25, 2025 INDICATIONS: Pneumonia ARDS on earlier chest films this week, shortness of breath FINDINGS: Again noted diffuse extensive lung opacity Mild enlargement of cardiac origin. Vascular congestion moderate No pneumothorax Prominent osteopenia. IMPRESSION: Diffuse bilateral lung opacity, pneumonia/ARDS pattern
[2025-04-29] MEDS: BENZONATATE 100 MG CAPSULE 200 MG PO ×3 (05:02→22:03)
[2025-04-29] MEDS: CEFEPIME INJ 2 GM in SODIUM CHLORIDE 0.9% (Popper) 50 ML IV ×3 (05:02→22:00)
[2025-04-29] MEDS: DILTIAZEM 30 MG TABLET 60 MG PO ×3 (05:03→22:00)
[2025-04-29] MEDS: BUMETANIDE INJ 0.25 MG/ML VIAL 4 ML 2 MG IVP ×2 (05:11→08:13)
[2025-04-29] MEDS: guaiFENesin SYRUP 200 MG/10 ML UDC 100 MG PO ×4 (05:41→21:58)
[2025-04-29 05:52] LABS: Basophils % (Auto) 0 % (0-2.5); Eosinophils % (Auto) 0 % (0-10); Hematocrit 34.1 % (41.0-53.0); Hemoglobin 12.4 g/dL (13.5-16.0); Immature Granulocytes % (Auto) 1 % (0-0); Immature Granulocytes Auto 0.27 Thou/mm3 (0.00-0.00); Lymphocytes # (Auto) 0.4 Thou/mm3 (1.0-4.8); Lymphocytes % (Auto) 2 % (10-50); Mean Corpuscular HGB Conc 36.4 g/dl (31.0-37.0); Mean Corpuscular Hemoglobin 30.6 pg (25.0-35.0); Mean Corpuscular Volume 84 fL (80-100); Monocytes # (Auto) 0.7 Thou/mm3 (0.0-0.8); Monocytes % (Auto) 3 % (0-12); Neutrophils # (Auto) 17.6 Thou/mm3 (1.8-7.7); Neutrophils % (Auto) 93 % (37-80); Nucleated Red Blood Cell % 0 /100 WBC (0); Platelet Count 201 Thou/mm3 (140-440); RDW Standard Deviation 41.2 fL (35.1-43.9); Red Blood Count 4.05 Miln/mm3 (4.50-5.90); White Blood Count 18.9 Thou/mm3 (3.8-10.6)
[2025-04-29 06:32] LABS: Alanine Aminotransferase 49 U/L (10-49); Albumin, Serum 3.2 gm/dL (3.4-4.8); Albumin/Globulin Ratio 1.5 (1.2-2.2); Anion Gap 11 (7-16); Aspartate Amino Transferase 25 U/L (0-34); BUN/Creatinine Ratio 36 Ratio (12-20); Bilirubin,Total 0.6 mg/dL (0.3-1.2); Blood Urea Nitrogen 32 mg/dL (9-23); Calcium (Corrected) 8.6 mg/dL (8.5-10.1); Carbon Dioxide 29.4 mMol/L (20.0-31.0); Chloride 97 mMol/L (98-107); Creatinine (Component) 0.9 mg/dL (0.6-1.3); Estimated Creatinine Clearance 67.6 mL/min (>60); Globulin 2.1 gm/dL (2.3-3.5); Glucose 192 mg/dL (74-106); Magnesium 2.2 mg/dL (1.6-2.6); Osmolality,Calculated 285 (275-295); Phosphorous 4.1 mg/dL (2.4-5.1); Potassium 3.9 mMol/L (3.4-5.1); Sodium 137 mMol/L (136-145); Total Protein 5.3 gm/dL (5.7-8.2); eGFR > 60 See Note
[2025-04-29 06:33] LABS: Alkaline Phosphatase 130 U/L (46-116)
[2025-04-29] MEDS: POTASSIUM CHLORIDE 10% 20 MEQ/15 ML UDC GT (08:10)
[2025-04-29] MEDS: TAMSULOSIN HCL 0.4 MG CAPSULE PO (08:14)
[2025-04-29] MEDS: PANTOPRAZOLE INJ 40 MG VIAL IVP (08:14)
[2025-04-29] MEDS: BusPIRone HCL 5 MG TABLET 10 MG PO ×2 (08:14→21:59)
[2025-04-29] MEDS: MONTELUKAST SODIUM 10 MG TABLET PO (08:15)
[2025-04-29] MEDS: LEVOFLOXACIN/D5W 750MG IVPB 750 MG/150 ML BAG 100 MG IV (08:15)
[2025-04-29] MEDS: APIXABAN 2.5 MG TABLET 5 MG PO ×2 (08:15→21:58)
[2025-04-29] MEDS: CLOPIDOGREL BISULFATE 75 MG TABLET PO (08:15)
[2025-04-29] MEDS: AMIODARONE HCL 200 MG TABLET PO ×2 (08:15→21:59)
[2025-04-29] MEDS: SENNA TABLET 1 TAB PO (08:33)
[2025-04-29] MEDS: FUROSEMIDE INJ 10 MG/ML 4ML VIAL 40 MG IVP ×2 (09:28→17:01)
--- NOTE | 2025-04-29 09:38 | ESPR_ITS ---
Documentation for date of: 04/29/25 Subjective Subjective Interval history: This is a 79yo M who presents with SOB on 04/25. Patient states that his cough is productive. Images noticed shortness of breath approximately a week or so prior to arrival. On admission to the ER his chest x-ray showed bilateral infiltrates. He required high FiO2 to maintain sats above 90%. He was started on antibiotics and steroids on the floor. His respiratory status declined yesterday requiring ICU evaluation. He was on 100% FiO2 satting 88-89%. He was started on more aggressive diuresis with good urinary output. He is currently net -200 cc over the last 24 hours. He does appear to be net pos over his hospital stay. Today his sats are 95% on 100% FiO2 feeling well. Denies chest pain, n/v, fever/chills, abd pain Critical Care Note Critical care time (min.): 40 Exam Vital Signs Temp Pulse Resp BP Pulse Ox O2 Del Method O2 Flow Rate 98.4 F 73 28 H 142/71 H 93 L High Flow Nasal Cannula 40 04/29/25 07:00 04/29/25 09:28 04/29/25 07:00 04/29/25 09:28 04/29/25 07:00 04/29/25 05:00 04/29/25 06:23 FiO2 100 04/29/25 06:23 Narrative Exam Gen- NAD, AAOx3, elderly and frail, nl body habitus HEENT- NC/AT, mucosa hydrated, sclera anicteric, HFNC in place Chest- diminished with crackles at post bases, HRRR, no increase in WOB no use of accessory muscles Abd- s/nt/bs+ Ext- pedal edema, pulses palp, no clubbing, no mottling, moves all 4 Physical Exam Completion Physical Exam Complete?: Yes Objective - [employer] Labs 04/30/25 04:48 04/30/25 04:48 Labs: Laboratory Results - last 24 hr 04/28/25 04/28/25 04/29/25 05:29 14:00 04:32 WBC 18.9 H RBC 4.05 L Hgb 12.4 L Hct 34.1 L MCV 84 MCH 30.6 MCHC 36.4 RDW Std Deviation 41.2 Plt Count 201 D Neut % (Auto) 93 H Lymph % (Auto) 2 L [place] % (Auto) 3 Eos % (Auto) 0 Baso % (Auto) 0 Neut # (Auto) 17.6 H Lymph # (Auto) 0.4 L [place] # (Auto) 0.7 Eos # (Auto) 0.0 Baso # (Auto) 0.0 Immature Gran # (Auto) 0.27 H Absolute Nucleated RBC 0.00 Immature Gran % 1 H Nucleated RBC % 0 ESR 21 H Sodium 137 Potassium 3.9 D Chloride 97 L Carbon Dioxide 29.4 Anion Gap 11 BUN 32 H Creatinine 0.9 Estim Creat Clear Calc 67.6 eGFR > 60 BUN/Creatinine Ratio 36 H Glucose 192 H Calculated Osmolality 285 Calcium 8.0 L Corrected Calcium 8.6 Phosphorus 4.1 Magnesium 2.2 Ferritin 356 H Total Bilirubin 0.6 AST 25 ALT 49 Alkaline Phosphatase 130 H D Lactate Dehydrogenase 371 H C-Reactive Prot, Quant 13.9 H Total Protein 5.3 L Albumin 3.2 L Globulin 2.1 L Albumin/Globulin Ratio 1.5 Procalcitonin 0.25 SARS-CoV-2 Ag (Rapid) Negative Assessment & Plan Additional Assessment Additional Assessment: In summary this is a 79yo M admitted with acute hypoxic resp failure a/p [employer]ORY WORK[employer] stable CV Afib - on amio and apixiban HFpEF- on diuretics Resp Acute hypoxic resp failure- currently on HFNC 100% FiO2-> titrated down to 75% today - currently on abx, diuretics, steroids - unclear etiology - procal minimally elevated on arrival and yesterday wnl - Cx NTD and has been on abx without significant improvement - ? drug toxicity v ILD v vasculitis v atypical infection - IgM neg, HIV neg, RSV neg, covid neg ARDS- pt meets criteria for ARDS - does not require intubation at this time - would utilize bipap judiciously given risk of P-SILI - ? chronicity -> no signs of elevated pulmonary pressures or RV pressure/volume overload which would be expected if he had long standing undx ILD Renal Metabolic alkalosis- likely contraction GI stable Endo stable Heme Leukocytosis- on steroids but trending down Anemia- near baseline, no active bleed noted, monitor ID -stable case d/w ICU team d/w pt in detail. he stated he would not want to be intubated and does not want to be hooked up to life support labs, imaging, records reviewed ~40min required for eval, exam, review , intervention, discusion and formulation of POC Provider Notation Provider Notation: Although this document has been carefully reviewed, there may still be some phonetic and other typographical errors. These errors are purely grammatical due to imperfections in the software program and should not be construed in any way to compromise the substance of the patient's medical care during this visit. Thank you for the opportunity and privilege in assisting you with this patient's care and management.
--- NOTE | 2025-04-29 09:40 | XR_ITS ---
Examination: CT chest, without intravenous contrast. Sagittal and coronal 2-D reconstructions. Exam date and time: April 29, 2025 1115 hours INDICATIONS: Severe hypoxia today CTDI:vol (mGy) 23.3 DLP: (mGycm) 849 Technique: Multiple 3.0 mm axial sections of the chest to been obtained. Bone and lung density settings are obtained. Sagittal and coronal 2-D reconstructions have been obtained. Low dose protocols were performed. One or more of the following dose reduction techniques were used; automated exposure control, adjustment of the mA and/or KV according to patient size, use of iterative reconstruction technique. Findings: No thoracic aortic aneurysm dilatation Pulmonary artery segments are not enlarged Severe bilateral lung opacity with mild bilateral pleural effusions Liver cysts Gallstones 3 mm partially visualized left renal calculus No pancreatic mass Nodular thickening left adrenal gland Moderate osteopenia IMPRESSION: Severe bilateral lung opacity, pneumonia/ARDS pattern Cholelithiasis 3 mm left renal calculus
[2025-04-29 09:41] LABS: HIV (1&2) Antibody Rapid Non-Reactive
--- NOTE | 2025-04-29 10:52 | PD.RESPRO ---
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 He follows up with his PCP Dr. Osman and cessation systems outreach specialist Dr. Molina Patient's says that his cough and congestion started 1 week ago and at the time he presented to his PCP who prescribed him a 1 week course of amoxicillin and benzonatate. However during this time his symptoms did not improve and actually progressively worsened resulting in a fever in the past 24 hours and palpitations. Of note patient did have recent travel about 2 weeks ago to [place]. Denies any vomiting, nausea, diarrhea, chest pain/pressure, sick contacts. Patient also denies any subjective fevers, exposure to birds, cat scratches or bites, exposure to car exhaust and heavy machinery. Patient got his COVID-vaccine in 2019 and flu shot last year. Subsequently he again presented to his PCPs office on 04/25 for worsening symptoms after failing outpatient antibiotics, his PCP instructed him to immediately present to the emergency department. Of note 2 years ago patient had a stroke and was treated with tenecteplase, however his symptoms were not resolving and he had to be airlifted to a hospital in [place]. After the stroke he still had mild residual right lower limb weakness and was on treatment with clopidogrel for prophylaxis. He also says that he regularly follows with his cessation systems outreach specialist Dr. Molina as an outpatient and at his last appointment he was told that he was fit as an ox . Patient denies any known history of atrial fibrillation and cannot recall if he has ever had an echocardiogram or stress test in the past. From his medication list he also does not appear to be on any anticoagulation or rate control medication. Incidentally on exam patient's right lower extremity was noted to be slightly larger than his left and according to the patient he had an outpatient duplex scan which was negative for any DVT. ED course: BP 121/75, pulse 86, RR 36, temp 98.3, SpO2 97% on high flow nasal cannula 40/85 Labs significant for WBC 28.4, lactic acid 5.4, BNP 629 and troponin 0.135. Chest x-ray showed extensive bilateral consolidation Initial EKG showed A-fib with RVR 155 and repeat showed A-fib rate 93. No acute ST changes In the ED patient received normal saline 2 L IV fluid bolus, diltiazem 50 Mg IV x 1, diltiazem drip at 5 Mg, methylprednisolone 125 Mg IV x 1, ceftriaxone 1 g IV x 1, azithromycin 500 Mg IV x 1 Upon admission patient was DNR, however as patient's condition deteriorated during hospitalization discussion was held with him and his family who changed his CODE STATUS to limited code, no CPR but intubation allowed. Currently patient is on the maximum setting of HFNC at 40L/min and 100% FiO2 and saturating between 91/94%. Patient will be upgraded to the ICU for closer monitoring and possible intubation with mechanical ventilation. 04/29/2025 Overnight there was a discussion with patient and family about switching CODE STATUS from limited to full code, eventually decision was made to keep limited code with no CPR. Upon further discussion this morning with the patient's decision was made to switch patient to DNR/DNI. I/Os 1540/1665, weight decreased to 79.9 kg from 89.6 kg. Patient seen and examined in ICU this morning, denies any SOB, chest pain/pressure and palpitations. However he does endorse generalized weakness and says that he was too weak to stand this morning. Blood pressure 142/71, pulse 73, saturating 96% on HFNC 40L/min and 100% FiO2. Telemetry reviewed patient's rhythm was sinus overnight with rates in the 70s?80s. WBC improved to 18.9 from 19.9, PLT decreased to 201 from 231, chloride improved to 97 from 95, BUN increased to 32 from 26. Patient on broad-spectrum antibiotics with cefepime 2 g IV every 8 hourly, levofloxacin 750 Mg IV daily and vancomycin 1 g IV daily. DuoNebs every 6 hourly, methylprednisone 60 Mg IV every 8 hourly and diuresis with Bumex 2 Mg IV twice daily. Today we will discontinue vancomycin as bacterial pneumonia unlikely, decrease diuresis to Lasix 40 Mg IV twice daily, ordered ANCA panel and chest CT. Patient currently saturation 94% on HFNC 40l / FiO2 75% and clinically stable for downgrade to the floor. Exam Vital Signs Temp Pulse Resp BP Pulse Ox O2 Del Method O2 Flow Rate 98.4 F 73 40 H 142/71 H 96 High Flow Nasal Cannula 40 06/02/25 07:00 04/29/25 10:03 04/29/25 10:03 04/29/25 09:28 04/29/25 10:03 04/29/25 05:00 04/29/25 10:03 FiO2 100 04/29/25 10:03 Narrative Exam Constitutional Alert, oriented x 3 and comfortable. Elderly male on HFNC at 40L/min and 100% FiO2. Able to speak in full sentences HEENT Vision grossly intact. Patent nares. Trachea midline Respiratory Chest normal on inspection and decreased air entry in all lung noonan, fine inspiratory crackles and coarse crackles at bilateral bases. Abdominal breathing with accessory muscle use Cardiovascular S1 and S2 audible, RRR. 4/6 ejection systolic murmur heard at right sternal border with radiation to bilateral carotid. JVD not assessed Abdominal Soft, obese and non tender to palpation in all quadrants. BS + Genitourinary No bladder tenderness, no flank pain. Normal to palpation. Condom catheter Musculoskeletal Extremities tone within normal limits. Right lower extremity appears slightly larger than left. No signs of edema. Neurological CN II - XII grossly intact. Extremity motor and sensation grossly intact. Gait not assessed Skin Warm, dry and intact. Multiple ecchymosis on bilateral arms Psychiatric Patient has good affect, is cooperative Objective Labs 04/29/25 04:32 04/29/25 04:32 Labs: Laboratory Results - last 24 hr 04/28/25 04/28/25 04/29/25 05:29 14:00 04:32 WBC 18.9 H RBC 4.05 L Hgb 12.4 L Hct 34.1 L MCV 84 MCH 30.6 MCHC 36.4 RDW Std Deviation 41.2 Plt Count 201 D Neut % (Auto) 93 H Lymph % (Auto) 2 L Mcnairy % (Auto) 3 Eos % (Auto) 0 Baso % (Auto) 0 Neut # (Auto) 17.6 H Lymph # (Auto) 0.4 L [place] # (Auto) 0.7 Eos # (Auto) 0.0 Baso # (Auto) 0.0 Immature Gran # (Auto) 0.27 H Absolute Nucleated RBC 0.00 Immature Gran % 1 H Nucleated RBC % 0 ESR 21 H Sodium 137 Potassium 3.9 D Chloride 97 L Carbon Dioxide 29.4 Anion Gap 11 BUN 32 H Creatinine 0.9 Estim Creat Clear Calc 67.6 eGFR > 60 BUN/Creatinine Ratio 36 H Glucose 192 H Calculated Osmolality 285 Calcium 8.0 L Corrected Calcium 8.6 Phosphorus 4.1 Magnesium 2.2 Ferritin 356 H Total Bilirubin 0.6 AST 25 ALT 49 Alkaline Phosphatase 130 H D Lactate Dehydrogenase 371 H C-Reactive Prot, Quant 13.9 H Total Protein 5.3 L Albumin 3.2 L Globulin 2.1 L Albumin/Globulin Ratio 1.5 Procalcitonin 0.25 HIV 1&2 Antibody Rapid Non-Reactive SARS-CoV-2 Ag (Rapid) Negative ABG Interpretation ABG results: 04/25/25 04/27/25 04/27/25 13:58 13:25 22:23 ABG pH 7.45 7.51 H 7.48 H ABG pCO2 34 38 40 ABG pO2 73 L 68 L 63 L ABG HCO3 23 30 H 29 H ABG O2 Saturation 97 95 93 ABG Base Excess 0 6 H 5 H 04/28/25 08:42 ABG pH 7.48 H ABG pCO2 41 ABG pO2 64 L ABG HCO3 30 H ABG O2 Saturation 93 ABG Base Excess 6 H Quality Measures Quality Measures VTE prophylaxis Advance care planning discussed with:: patient and child Assessment & Plan Assessment Current Active Medications: Generic Name Dose Route Start Last Admin Trade Name Freq PRN Reason Stop Dose Admin Acetaminophen 650 mg 04/26/25 07:40 Acetaminophen 325 Mg Tablet PO 05/25/25 12:22 Q6H PRN Fever >100.3 or pain 1-3 Hydrocodone Bitart/Acetaminophen 1 tab 04/25/25 12:23 04/26/25 19:47 Hydrocodone/Apap 5/325 Tablet PO 04/30/25 12:22 1 tab Q4HR PRN Administration PAIN SCALE 4-10(Mod-Sev Amiodarone HCl 200 mg 04/25/25 19:05 04/29/25 08:15 Amiodarone Hcl 200 Mg Tablet PO 05/25/25 19:04 200 mg BID JANINE Administration Apixaban 5 mg 04/25/25 21:00 04/29/25 08:15 Apixaban 2.5 Mg Tablet PO 05/25/25 20:59 5 mg BID JANINE Administration Atorvastatin Calcium 80 mg 04/25/25 21:00 04/28/25 20:07 Atorvastatin Calcium 20 Mg Tablet PO 05/25/25 20:59 80 mg QPM JANINE Administration Benzonatate 200 mg 04/25/25 14:15 04/29/25 05:02 Benzonatate 100 Mg Capsule PO 05/25/25 14:14 200 mg TID JANINE Administration Protocol Buspirone HCl 10 mg 04/25/25 21:00 04/29/25 08:14 Buspirone Hcl 5 Mg Tablet PO 05/25/25 20:59 10 mg BID JANINE Administration Carbidopa/Levodopa 1 tab 04/25/25 21:00 04/29/25 10:15 Carbidopa/Levodopa Cr 25/100 Tabcr PO 05/25/25 20:59 Not Given BID JANINE Clopidogrel Bisulfate 75 mg 04/25/25 14:15 04/29/25 08:15 Clopidogrel Bisulfate 75 Mg Tablet PO 05/25/25 14:14 75 mg QDAY JANINE Administration Diltiazem HCl 60 mg 04/25/25 22:00 04/29/25 05:03 Diltiazem 30 Mg Tablet PO 05/25/25 21:59 60 mg TID JANINE Administration Dutasteride 0.5 mg 04/25/25 21:00 04/28/25 20:08 Dutasteride 0.5 Mg Capsule (Non-Formulary) PO 05/25/25 20:59 0.5 mg QPM JANINE Administration Furosemide 40 mg 04/29/25 09:15 04/29/25 09:28 Furosemide Inj 10 Mg/Ml 4ml Vial IVP 05/29/25 09:14 40 mg QDAY JANINE Administration Guaifenesin 100 mg 04/25/25 17:00 04/29/25 05:41 Guaifenesin Syrup 200 Mg/10 Ml Udc PO 05/25/25 16:59 100 mg QID JANINE Administration Protocol Levofloxacin/Dextrose 750 mg in 150 mls @ 100 mls/hr 04/25/25 14:15 04/29/25 08:15 Levaquin Ivpb IV 05/02/25 14:14 100 mls/hr QDAY JANINE Administration Cefepime HCl 2 gm/ Sodium 50 mls @ 100 mls/hr 04/27/25 11:07 04/29/25 05:02 Chloride IV 05/04/25 11:06 100 mls/hr Q8HR JANINE Administration Vancomycin HCl/Dextrose 250 mls @ 120 mls/hr 04/27/25 11:15 04/28/25 09:35 Vancomycin/D5w 1,250 Mg Ivpb IV 05/04/25 11:14 120 mls/hr DAILY@1000 JANINE Administration Ipratropium [place] 0.5 mg 04/25/25 19:00 04/29/25 06:23 Ipratropium Rt 0.5 Mg/ 2.5 Ml Nebu INH 05/25/25 18:59 0.5 mg Q6HRRT JANINE Administration Levalbuterol HCl 0.63 mg 04/27/25 13:00 04/29/25 06:23 Levalbuterol Rt 0.63 Mg/3 Ml Nebu INH 05/27/25 12:59 0.63 mg Q6HRRT JANINE Administration Melatonin 3 mg 04/25/25 23:40 04/28/25 21:15 Melatonin 3 Mg Tablet PO 05/25/25 23:39 3 mg HS JANINE Administration Methylprednisolone Sodium Succinate 60 mg 04/27/25 13:30 04/29/25 05:09 Methylprednisolone Sod Succ 40 Mg Vial IVP 05/04/25 13:29 60 mg Q8H JANINE Administration Montelukast Sodium 10 mg 04/26/25 09:00 04/29/25 08:15 Montelukast Sodium 10 Mg Tablet PO 05/26/25 08:59 10 mg QAM JANINE Administration Ondansetron HCl 4 mg 04/25/25 12:23 Ondansetron Inj 2 Mg/Ml Inj 2 Ml IVP 05/25/25 12:22 Q6H PRN NAUSEA OR VOMITING Protocol Pantoprazole Sodium 40 mg 04/26/25 09:00 04/29/25 08:14 Pantoprazole Inj 40 Mg Vial IVP 05/26/25 08:59 40 mg QDAY JANINE Administration Pharmacy Consult 1 each 04/27/25 11:15 Vancomycin Pharmacy To Dose 1 Each Each IV 05/27/25 11:14 QDAY PRN CONSULT Sennosides 1 tab 04/26/25 09:00 04/29/25 08:33 Senna Tablet PO 05/26/25 08:59 1 tab QDAY JANINE Administration Protocol Tamsulosin HCl 0.4 mg 04/26/25 09:00 04/29/25 08:14 Tamsulosin Hcl 0.4 Mg Capsule PO 05/26/25 08:59 0.4 mg QAM [facility] Administration Plan Patient is an 79-year-old male with a past medical history significant for essential tremor, BPH, primary hypertension, hyperlipidemia and 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 He follows up with his PCP Dr. Osman and cessation systems outreach specialist Dr. Molina. Initially admitted to the floor for acute respiratory failure with hypoxia secondary to community-acquired pneumonia. Upgraded to the ICU for worsening hypoxia on HFNC at maximum settings for closer monitoring and possible intubation mechanical ventilation. NEURO History of stroke with mild right lower limb residual weakness Rx: Stroke prophylaxis with clopidogrel 75 Mg p.o. daily RRX: Will continue every shift neuro checks Essential tremor Patient on carbidopa/levodopa as home medication for tremor. No signs of parkinsonism. No cogwheel rigidity Rx: Continue home medication carbidopa/levodopa RRx: Will continue to monitor for cogwheel rigidity, tardive dyskinesia and dementia. CVS New onset atrial fibrillation, paroxysmal [id number] 5; HAS-BLED 4 Dx: EKG on admission showed A-fib with RVR, rate 155. Repeat EKG showed sinus arrhythmia, rate 65. From telemetry review, patient in sinus for the past 24 hours rate 60s/80s Rx: Telemetry monitoring. Diltiazem 60 Mg p.o. 3 times daily, apixaban 5 Mg p.o. twice daily. Resumed Amiodarone 200mg po BID as per cardiology recommendations RRX: We will continue to monitor heart rate and titrate diltiazem as necessary Elevated BNP with grade 1 diastolic dysfunction DDx: New onset CHF, inflammatory cytokines, atrial fibrillation, age Dx: Echo showed grade 1 diastolic dysfunction, EF 50-55%, BNP elevated at 629 Rx: 1500 cc/day fluid restriction, strict ins and out. Discontinued Bumex 2mg IV BID. Started on Lasix 40mg IV BID RRX: Continue to monitor urine output Primary hypertension Currently BP 140/67 Rx: Continue diltiazem, Lasix RRx: Continue blood pressure monitor PULM Acute respiratory failure with hypoxia secondary to possible ARDS [place] Criteria positive ; severe ARDS. P/F 95 DDx: Acute interstitial pneumonitis, Instertitial lung disease, hypersensitivity pneumonitis, autoimmune, Fungal Dx: Chest x-ray on this admission showed extensive bilateral pulmonary consolidation with pulmonary edema. Patient had a chest x-ray done in December [address] images from 2020 and 2022 were reviewed which did reveal some upper and lower lobe bronchiectasis and early fibrotic changes. Rx: HFNC- wean as tolerated, levalbuterol every 6 hourly, ipratropium Q6 hourly, chest physiotherapy Q6 hourly, methylprednisone 60 Mg IV every 8 hourly, cefepime 2 g IV every 8 hourly. Discontinued Vancomycin RRX: Monitor respiration rate and SpO2. GI/Hep Peptic ulcer disease prophylaxis Rx: Pantoprazole 40 Mg IV daily RRx: Will discontinue proior to discharge Elevated ALP ALP 153 -->130 DDx: Cholestasis, antibiotic side effect, CHF Rx : Monitor on CMP Decreased Protein Total Protein 5.8 ---> 5.3 DDx : Inflammatory process, malnutrition Rx: Monitor on CMP. Treat under-lying cause RENAL Alkalosis, likely metabolic DDx: New onset A-fib, medication side effect Dx: pH 7.48, pCO2 41, bicarb 29.7 Rx: Will monitor bicarb on CMP Hypochloremia Cl 95 ---> 97 DDx: Likely secondary to metabolic alkalosis HEME/ONC Normocytic Anemia DDx: Most likely from venipuncture Dx: 13.1 --> 12.4 Leukocytosis DDx: Reactive, secondary to inflammation, steroid side effect Dx: WBC 19.9 ---> 18.9 Rx: Monitor on CBC ENDO HLD Dx: Triglycerides 63, total cholesterol 100, LDL 36, HDL 51 Rx: Continue home medication atorvastatin 80 Mg p.o. every afternoon ID Acute interstitial pneumonitis versus community-acquired pneumonia DDx: COVID-19, viral pneumonia Dx: Influenza A and B negative, COVID-negative, RSV negative, cocci negative, sputum Gram stain 3+ GPC, 2+ WBC, sputum culture 3+ mixed safia, blood and urine cultures negative, WBC 19.9, Pro-Andres 0.95 Rx: ANCA panel ordered. Follow-up on KRYSTYNA panel. Discontinued vancomycin IV. Continue cefepime 2 g IV every 8 hourly and levofloxacin 750 mg IV daily RRX: Will follow-up on results and tailor treatment as necessary MSK/DERM Multiple ecchymoses on bilateral upper limbs DDx: Most likely from venipuncture Rx: Cold compress ICU Health maintenance: Dispo: Titrating supplemental O2, Broad Spectrum IV antibiotics, IV steroids. Patient currently saturation 94% on HFNC 40l / FiO2 75% and clinically stable for downgrade to the floor. Diet: Regular, 2G sodium restricted, 1800 cc/day fluid restriction. Dysphagia II DVT ppx: Apixaban 5 Mg p.o. twice daily GI ppx: Protonix 40mg IV daily Ventilattion: HFNC 40L/min and FiO2 100% Sedation: None IV lines: 1 piv. 18G on Right antecubital fossa Central line: No Arterial line: No Hua: NO Code status: Limited. NO CPR. Intubation is ok Plan of care discussed with [employer] Dr. Mathews and PGY 3 Dr. Henok Deluca MD PGY 1 Disclaimer: This note was dictated by speech recognition. Minor errors in industrial chemicals supervisor may be present due to voice recognition software.
[2025-04-29 14:40] LABS: Cocci Serology, IgM Negative (Negative)
--- NOTE | 2025-04-29 15:35 | ESPR_ITS ---
<Statement entered by Nara Ambrocio MD - 04/30/25 06:03> Patient was seen and examined by me personally. I have directly supervised and reviewed documentation by the team resident and agree with its findings with any exceptions or additional findings as below. Plan of care was discussed with the attending, Dr. Albarado. Patient received as downgrade back to Team B today. Will continue care with Hi- Flow O2, chest physio, neb treatments, broad spectrum antibiotics. Continue Lasix at 40 BID. Patient will be DNR/DNI per recent ICU discussion with family, and will confirm again. Nara Ambrocio, PGY-2 Documentation for date of: 04/29/25 Subjective Subjective Interval history: Patient seen and examined at bedside. Patient was upgraded to intensive care unit for close observation and possible need of intubation. Over the course of the last 24 hours cardiology was consulted and patient was started on Lasix 40 mg twice daily per cardiology recommendations. Patient SpO2 was titrated down to 75%, 40 L O2 flow rate. Goals of care discussion was held with family this morning, decision was made to switch patient to DNR/DNI per patient's wishes. Patient downgraded to telemetry, will resume care. Exam Vital Signs Temp Pulse Resp BP Pulse Ox O2 Del Method O2 Flow Rate 97.5 F 83 31 H 137/77 H 91 L High Flow Nasal Cannula 40 04/29/25 12:01 04/29/25 15:00 04/29/25 15:00 04/29/25 15:00 04/29/25 15:00 04/29/25 05:00 04/29/25 14:34 FiO2 75 04/29/25 14:34 Narrative Exam Constitutional: Alert, oriented x 3 and comfortable. Elderly male on HFNC at 40L/min and 100% FiO2. Able to speak in full sentences HEENT: Vision grossly intact. Patent nares. Trachea midline Respiratory: Chest normal on inspection and decreased air entry in all lung noonan, fine inspiratory crackles and coarse crackles at bilateral bases. Abdominal breathing with accessory muscle use Cardiovascular: S1 and S2 audible, RRR. 4/6 ejection systolic murmur heard at right sternal border with radiation to bilateral carotid. JVD not assessed Abdominal: Soft, obese and non tender to palpation in all quadrants. BS + Genitourinary: No bladder tenderness, no flank pain. Normal to palpation. Condom catheter Musculoskeletal: Extremities tone within normal limits. Right lower extremity appears slightly larger than left. No signs of edema. Neurological: CN II - XII grossly intact. Extremity motor and sensation grossly intact. Gait not assessed Skin: Warm, dry and intact. Multiple ecchymosis on bilateral arms Psychiatric: Patient has good affect, is cooperative Objective Labs 04/30/25 04:48 04/30/25 04:48 Labs: Laboratory Results - last 24 hr 04/29/25 04/29/25 04:32 10:03 WBC 18.9 H RBC 4.05 L Hgb 12.4 L Hct 34.1 L MCV 84 MCH 30.6 MCHC 36.4 RDW Std Deviation 41.2 Plt Count 201 D Neut % (Auto) 93 H Lymph % (Auto) 2 L [place] % (Auto) 3 Eos % (Auto) 0 Baso % (Auto) 0 Neut # (Auto) 17.6 H Lymph # (Auto) 0.4 L [place] # (Auto) 0.7 Eos # (Auto) 0.0 Baso # (Auto) 0.0 Immature Gran # (Auto) 0.27 H Absolute Nucleated RBC 0.00 Immature Gran % 1 H Nucleated RBC % 0 Sodium 137 Potassium 3.9 D Chloride 97 L Carbon Dioxide 29.4 Anion Gap 11 BUN 32 H Creatinine 0.9 Estim Creat Clear Calc 67.6 eGFR > 60 BUN/Creatinine Ratio 36 H Glucose 192 H Calculated Osmolality 285 Calcium 8.0 L Corrected Calcium 8.6 Phosphorus 4.1 Magnesium 2.2 Total Bilirubin 0.6 AST 25 ALT 49 Alkaline Phosphatase 130 H D Total Protein 5.3 L Albumin 3.2 L Globulin 2.1 L Albumin/Globulin Ratio 1.5 Vancomycin Trough 6.0 Coccidioides IgM Ab Negative HIV 1&2 Antibody Rapid Non-Reactive ABG Interpretation ABG results: 04/25/25 04/27/25 04/27/25 13:58 13:25 22:23 ABG pH 7.45 7.51 H 7.48 H ABG pCO2 34 38 40 ABG pO2 73 L 68 L 63 L ABG HCO3 23 30 H 29 H ABG O2 Saturation 97 95 93 ABG Base Excess 0 6 H 5 H 04/28/25 08:42 ABG pH 7.48 H ABG pCO2 41 ABG pO2 64 L ABG HCO3 30 H ABG O2 Saturation 93 ABG Base Excess 6 H Quality Measures Quality Measures VTE prophylaxis Advance care planning discussed with:: patient Assessment & Plan Assessment Current Active Medications: Generic Name Dose Route Start Last Admin Trade Name Freq PRN Reason Stop Dose Admin Acetaminophen 650 mg 04/26/25 07:40 Acetaminophen 325 Mg Tablet PO 05/25/25 12:22 Q6H PRN Fever >100.3 or pain 1-3 Hydrocodone Bitart/Acetaminophen 1 tab 04/25/25 12:23 04/26/25 19:47 Hydrocodone/Apap 5/325 Tablet PO 04/30/25 12:22 1 tab Q4HR PRN Administration PAIN SCALE 4-10(Mod-Sev Amiodarone HCl 200 mg 04/25/25 19:05 04/29/25 08:15 Amiodarone Hcl 200 Mg Tablet PO 05/25/25 19:04 200 mg BID JANINE Administration Apixaban 5 mg 04/25/25 21:00 04/29/25 08:15 Apixaban 2.5 Mg Tablet PO 05/25/25 20:59 5 mg BID JANINE Administration Atorvastatin Calcium 80 mg 04/25/25 21:00 04/28/25 20:07 Atorvastatin Calcium 20 Mg Tablet PO 05/25/25 20:59 80 mg QPM JANINE Administration Benzonatate 200 mg 04/25/25 14:15 04/29/25 13:01 Benzonatate 100 Mg Capsule PO 05/25/25 14:14 200 mg TID JANINE Administration Protocol Buspirone HCl 10 mg 04/25/25 21:00 04/29/25 08:14 Buspirone Hcl 5 Mg Tablet PO 05/25/25 20:59 10 mg BID JANINE Administration Carbidopa/Levodopa 1 tab 04/25/25 21:00 04/29/25 10:15 Carbidopa/Levodopa Cr 25/100 Tabcr PO 05/25/25 20:59 Not Given BID JANINE Clopidogrel Bisulfate 75 mg 04/25/25 14:15 04/29/25 08:15 Clopidogrel Bisulfate 75 Mg Tablet PO 05/25/25 14:14 75 mg QDAY JANINE Administration Diltiazem HCl 60 mg 04/25/25 22:00 04/29/25 13:00 Diltiazem 30 Mg Tablet PO 05/25/25 21:59 60 mg TID JANINE Administration Dutasteride 0.5 mg 04/25/25 21:00 04/28/25 20:08 Dutasteride 0.5 Mg Capsule (Non-Formulary) PO 05/25/25 20:59 0.5 mg QPM JANINE Administration Furosemide 40 mg 04/29/25 18:00 Furosemide Inj 10 Mg/Ml 4ml Vial IVP 05/29/25 17:59 BIDD JANINE Guaifenesin 100 mg 04/25/25 17:00 04/29/25 12:06 Guaifenesin Syrup 200 Mg/10 Ml Udc PO 05/25/25 16:59 100 mg QID JANINE Administration Protocol Levofloxacin/Dextrose 750 mg in 150 mls @ 100 mls/hr 04/25/25 14:15 04/29/25 08:15 Levaquin Ivpb IV 05/02/25 14:14 100 mls/hr QDAY JANINE Administration Cefepime HCl 2 gm/ Sodium 50 mls @ 100 mls/hr 04/27/25 11:07 04/29/25 13:00 Chloride IV 05/04/25 11:06 100 mls/hr Q8HR JANINE Administration Ipratropium [place] 0.5 mg 04/25/25 19:00 04/29/25 12:20 Ipratropium Rt 0.5 Mg/ 2.5 Ml Nebu INH 05/25/25 18:59 0.5 mg Q6HRRT JANINE Administration Levalbuterol HCl 0.63 mg 04/27/25 13:00 04/29/25 12:20 Levalbuterol Rt 0.63 Mg/3 Ml Nebu INH 05/27/25 12:59 0.63 mg Q6HRRT JANINE Administration Melatonin 3 mg 04/25/25 23:40 04/28/25 21:15 Melatonin 3 Mg Tablet PO 05/25/25 23:39 3 mg HS JANINE Administration Methylprednisolone Sodium Succinate 60 mg 04/27/25 13:30 04/29/25 12:57 Methylprednisolone Sod Succ 40 Mg Vial IVP 05/04/25 13:29 60 mg Q8H JANINE Administration Montelukast Sodium 10 mg 04/26/25 09:00 04/29/25 08:15 Montelukast Sodium 10 Mg Tablet PO 05/26/25 08:59 10 mg QAM JANINE Administration Ondansetron HCl 4 mg 04/25/25 12:23 Ondansetron Inj 2 Mg/Ml Inj 2 Ml IVP 05/25/25 12:22 Q6H PRN NAUSEA OR VOMITING Protocol Pantoprazole Sodium 40 mg 04/26/25 09:00 04/29/25 08:14 Pantoprazole Inj 40 Mg Vial IVP 05/26/25 08:59 40 mg QDAY JANINE Administration Sennosides 1 tab 04/26/25 09:00 04/29/25 08:33 Senna Tablet PO 05/26/25 08:59 1 tab QDAY JANINE Administration Protocol Tamsulosin HCl 0.4 mg 04/26/25 09:00 04/29/25 08:14 Tamsulosin Hcl 0.4 Mg Capsule PO 05/26/25 08:59 0.4 mg QAM JANINE Administration Plan Summary: Patient is an 79-year-old male with a past medical history significant for essential tremor, BPH, primary hypertension, hyperlipidemia and 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 He follows up with his PCP Dr. Osman and physical biochemist Dr. Molina. Patient will be admitted for treatment and management of acute respiratory failure with hypoxia secondary to community- acquired pneumonia. #ARDS #Acute respiratory failure with hypoxia secondary to likely community-acquired pneumonia #?Acute interstitial pneumonitis #Community-acquired pneumonia failed outpatient treatment Patient presented with worsening cough and shortness of breath refractory to outpatient antibiotics. On exam had severely reduced air entry in all lung noonan with mild crackles at bases. Labs showed WBC 28.4, lactic acid 5.4, BNP 629 and troponin 0.135 Chest x-ray showed extensive bilateral consolidation PSI; risk class IV. Hospitalization recommended based on risk Newcomb score; positive; severe ARDS P/F ratio 84.7. 45% mortality S/F ratio : 117.5 - Non-intubated ARDS Ronda index; 3.69 points. Risk of HFNC failure is high Currently saturating 93% on 100% FiO2 and 40 L flow. From telemetry review patient alternated between sinus arrhythmia and sinus rhythm overnight with heart rates in the 60s/80s. Echo showed normal left ventricular function with ejection fraction of 55 to 60%. Grade 1 diastolic dysfunction. Plan: ? Follow cocci serology, ordered beta-1 3D glucan, will repeat sputum culture, ANCA screen, KRYSTYNA panel ? Consulted technology sales specialist, patient will be upgraded to ICU for observation ? Continue levofloxacin 750 Mg IV daily on [04/25?04/27/2025 ? Continue cefepime 2 g IV Q8h March 2025 ? Continue vancomycin pharmacy to dose March 2025 ? Continue Solu-Medrol 60 mg IV every 8 hours ? Coninue Lasix 20 Mg IV twice daily ? Levalbuterol nebs Q6 hourly ? Ipratropium nebs Q6 hourly ? Chest physiotherapy Q6 hourly ? Acapella device Q6 hourly #New onset A-fib with RVR #Diastolic dysfunction grade 1 #Non-STEMI type II?resolved Patient endorses some palpitations starting last night and continuing today intermittently. Initial EKG showed A-fib with RVR 155 and repeat showed A-fib rate 93. No acute ST changes Received diltiazem 15 Mg IV x 1 followed by non titratable diltiazem infusion in the ED after which rate improved to 93 [id number]; 5 points; stroke risk 7.2%. HAS-BLED; 4 points. Major risk of bleeding Echocardiogram showed ejection fraction of 60%, diastolic dysfunction grade 1. Plan: ? Continue telemetry monitoring ? 1500 cc/day fluid restriction, strict ins and out. Discontinued Bumex 2mg IV BID. Started on Lasix 40mg IV BID ? Continue diltiazem 60 Mg p.o. 3 times daily for rate control ? Continue amiodarone 200 Mg p.o. twice daily as per cardiology recommendations ? Continue apixaban 5 Mg p.o. twice daily as per cardiology recommendations ? Overlock Sleeve Setter, Dr. Americo Morrison consulted and closely following. Appreciate recommendation ? Continue Plavix 75 mg daily #Primary hypertension #Hyperlipidemia Plan: ? Continue home medication atorvastatin ? Patient is on Cardizem 60 mg p.o. daily #Right lower extremity swelling On exam right lower extremity appears to be mildly larger than the left. When questioned patient states that he had an outpatient duplex ultrasound which was negative for DVT #Troponinemia #NSTEMI type II On admission troponin mildly elevated at 0.135 down trended to 0.125. Most likely type II in setting of demand ischemia from pneumonia. No need to further trend troponins #?Parkinson's disease #Essential tremor Continue home dose carbidopa levodopa Patient is on buspirone at home, continue #BPH Continue Flomax, dutasteride Health maintenance: Disposition: IV antibiotics. HFNC. Diet: Regular Lines: pIVs GI Prophylaxis: Pantoprazole 40 Mg IV daily Thrombo Prophylaxis: Apixaban Code status: Limited code, no chest compressions, acceptable to intubation Case discussed with Attending Dr. Albarado and Dr. Ambrocio PGY2. Glendy Engle PGY1 Disclaimer: This note was dictated by speech recognition. Minor errors in cuff setter lockstitch may be present due to voice recognition software. Attending Provider Attestation/Addendum Face to face evaluation was performed by me. I have personally seen and examined the patient. I discussed the assessment and plan with the entire medicine team. I reviewed available medical records, imaging studies, laboratory results. I agree with the above subjective data, objective findings, assessment and plan except as corrected by me or noted below Acute hypoxic respiratory failure ARDS New onset acute CHF suspected to be diastolic Bilateral lower lobe pneumonia, likely bacterial gram-positive cocci NSTEMI type II, demand ischemia due to above Continue with antibiotics, continue with IV diuresis,HFNC-was upgraded to the ICU, downgraded. Appreciate help. Cardiology was also consulted, appreciate help. Very few patient with multiple coronary disease and multiorgan dysfunction, high risk of morbidity/mortality. More than > 30 minutes spent on the encounter
--- NOTE | 2025-04-29 15:57 | PC.SS ---
Update: Patient on high flow nasal cannula, 40L. P.O. feedings. Patient not receiving pressor support. Cardiology is consulting. Code status is now DNR/DNI. Patient has been downgraded from ICU.
[2025-04-29] MEDS: MELATONIN 3 MG TABLET PO (21:59)
[2025-04-29] MEDS: DUTASTERIDE 0.5 MG CAPSULE (NON-FORMULARY) PO (21:59)
[2025-04-29] MEDS: ATORVASTATIN CALCIUM 20 MG TABLET 80 MG PO (22:00)
--- NOTE | 2025-04-29 23:13 | ESPR_ITS ---
RE: DANISHA PEOPLES : 1945 DATE OF SERVICE: 04/29/2025 SUBJECTIVE: The patient is seen in the intensive care unit for cardiovascular assessment. I have known him for several years with long-standing hypertension, 79-year-old male with hypertension, stroke last year, paroxysmal atrial fibrillation, CHADS-VASc score high, came to the hospital with multiple problems, initially thought to be pneumonia, but definitely there were extensive bilateral pneumonia process and infiltration, possible ARDS with pneumonia versus possible fluid overload. Cardiac echo showed preserved ejection fraction. Today, chest x-ray was repeated again showed significant alveolar infiltrates, ARDS pattern and the CT scan also confirmed the same findings. The patient's oxygen requirement is still high, but there is some improvement with the diuretic, oxygenation requires . I reviewed x-ray again showed there is definite evidence of some pulmonary congestion with cephalization, but most of it appears to be interstitial infiltrate possible pneumonia. Clinically, the patient is alert, awake and in no acute distress. He is still on high flow oxygen by nasal cannula. OBJECTIVE: Vital Signs: Blood pressure 160/70, slightly high today, pulse rate is 80, respiration is 28. Temperature is normal. Head: Atraumatic. Neck: Supple. JVD is present. Chest: Symmetric. Lungs: Decreased breath sounds. Heart: S1, S2 regular. Abdomen: Distention, thin and soft. Extremities: No significant edema. /RECTAL: Not performed. Neurologic: Normal. IMPRESSION: 1. Bilateral extensive pneumonia with hypoxic respiratory failure. 2. Element of volume overload with congestive heart failure requiring diuretic. 3. Paroxysmal atrial fibrillation, still having atrial fibrillation episodes. 4. History of stroke with high CHADS-VASc score. Possible embolic stroke . RECOMMENDATIONS: 1. Continue amiodarone 200 mg b.i.d. 2. Continue the apixaban 5 mg twice daily for anticoagulation and IV antibiotics aggressively for possible pneumonia. 3. Diltiazem being given for rate control in case the patient goes in . We will continue to monitor the patient closely. Condition remains stable, but will be transferred to telemetry. We will monitor the patient on telemetry as well. DT: 21:40:41 TT: 22:47:00 Ref: [id number] - TID: [id number]
[2025-04-30] VITALS (20 sets, daily range): BP systolic 137–158; BP diastolic 73–89; PULSE 69–86; RESP 20–27; TEMP 36.1–36.6; O2SAT 88–95
[2025-04-30] MEDS: LEVALBUTEROL RT 0.63 MG/3 ML NEBU INH ×4 (00:08→19:21)
[2025-04-30] MEDS: IPRATROPIUM RT 0.5 MG/ 2.5 ML NEBU INH ×4 (00:08→19:21)
[2025-04-30 05:39] LABS: Basophils % (Auto) 0 % (0-2.5); Eosinophils % (Auto) 0 % (0-10); Hematocrit 38.9 % (41.0-53.0); Hemoglobin 13.4 g/dL (13.5-16.0); Immature Granulocytes % (Auto) 2 % (0-0); Lymphocytes # (Auto) 0.5 Thou/mm3 (1.0-4.8); Lymphocytes % (Auto) 2 % (10-50); Mean Corpuscular HGB Conc 34.4 g/dl (31.0-37.0); Mean Corpuscular Hemoglobin 29.8 pg (25.0-35.0); Mean Corpuscular Volume 87 fL (80-100); Monocytes # (Auto) 0.8 Thou/mm3 (0.0-0.8); Monocytes % (Auto) 4 % (0-12); Neutrophils # (Auto) 20.1 Thou/mm3 (1.8-7.7); Neutrophils % (Auto) 92 % (37-80); Nucleated Red Blood Cell % 0 /100 WBC (0); Platelet Count 208 Thou/mm3 (140-440); RDW Standard Deviation 42.5 fL (35.1-43.9); Red Blood Count 4.49 Miln/mm3 (4.50-5.90); White Blood Count 21.8 Thou/mm3 (3.8-10.6)
[2025-04-30] MEDS: guaiFENesin SYRUP 200 MG/10 ML UDC 100 MG PO ×4 (05:40→21:38)
[2025-04-30] MEDS: CEFEPIME INJ 2 GM in SODIUM CHLORIDE 0.9% (Popper) 50 ML IV ×3 (05:40→21:38)
[2025-04-30] MEDS: FUROSEMIDE INJ 10 MG/ML 4ML VIAL 40 MG IVP ×2 (05:41→17:34)
[2025-04-30] MEDS: BENZONATATE 100 MG CAPSULE 200 MG PO ×3 (05:42→21:36)
[2025-04-30] MEDS: DILTIAZEM 30 MG TABLET 60 MG PO ×3 (05:42→21:36)
[2025-04-30 05:56] LABS: Alanine Aminotransferase 60 U/L (10-49); Albumin, Serum 3.5 gm/dL (3.4-4.8); Albumin/Globulin Ratio 1.5 (1.2-2.2); Alkaline Phosphatase 134 U/L (46-116); Anion Gap 12 (7-16); Aspartate Amino Transferase 27 U/L (0-34); BUN/Creatinine Ratio 38 Ratio (12-20); Bilirubin,Total 0.7 mg/dL (0.3-1.2); Blood Urea Nitrogen 49 mg/dL (9-23); Calcium 8.5 mg/dL (8.3-10.6); Calcium (Corrected) 8.9 mg/dL (8.5-10.1); Carbon Dioxide 31.9 mMol/L (20.0-31.0); Chloride 95 mMol/L (98-107); Creatinine (Component) 1.3 mg/dL (0.6-1.3); Estimated Creatinine Clearance 46.8 mL/min (>60); Globulin 2.3 gm/dL (2.3-3.5); Glucose 200 mg/dL (74-106); Magnesium 2.3 mg/dL (1.6-2.6); Osmolality,Calculated 296 (275-295); Phosphorous 4.3 mg/dL (2.4-5.1); Sodium 139 mMol/L (136-145); Total Protein 5.8 gm/dL (5.7-8.2); eGFR 56 See Note
[2025-04-30] MEDS: TAMSULOSIN HCL 0.4 MG CAPSULE PO (08:48)
[2025-04-30] MEDS: PANTOPRAZOLE INJ 40 MG VIAL IVP (08:48)
[2025-04-30] MEDS: CLOPIDOGREL BISULFATE 75 MG TABLET PO (08:48)
[2025-04-30] MEDS: SENNA TABLET 1 TAB PO (08:48)
[2025-04-30] MEDS: BusPIRone HCL 5 MG TABLET 10 MG PO ×2 (08:48→21:39)
[2025-04-30] MEDS: MONTELUKAST SODIUM 10 MG TABLET PO (08:48)
[2025-04-30] MEDS: APIXABAN 2.5 MG TABLET 5 MG PO ×2 (08:48→21:39)
[2025-04-30] MEDS: AMIODARONE HCL 200 MG TABLET PO ×2 (08:49→21:39)
[2025-04-30] MEDS: LEVOFLOXACIN/D5W 750MG IVPB 750 MG/150 ML BAG 100 MG IV (08:50)
--- NOTE | 2025-04-30 09:27 | PC.SS ---
Update: Patient is on high flow oxygen. Patient is receiving IV antibiotics and steroids. Patient is an ICU downgrade.
[2025-04-30] MEDS: TABCR PO ×2 (09:50→21:45)
[2025-04-30] MEDS: LEVODOPA PO ×2 (09:50→21:45)
[2025-04-30] MEDS: CARBIDOPA PO ×2 (09:50→21:45)
--- NOTE | 2025-04-30 09:56 | ESPR_ITS ---
<Statement entered by Nara Ambrocio MD - 04/30/25 15:37> Patient was seen and examined by me personally. I have directly supervised and reviewed documentation by the team resident and agree with its findings with any exceptions or additional findings as below. Plan of care was discussed with the attending, Dr. Call. Nara Ambrocio, PGY-2 Documentation for date of: 04/30/25 Subjective Subjective Interval history: Patient seen and examined at bedside. Patient has pending ANCA screen, antiproteinase 3 and antimyeloperoxidase, was ordered by waste disposal attendant team. CT scan of the chest done during ICU showed severe bilateral lung opacity, pneumonia/ARDS pattern. Patient's repeat cocci IgM was negative, pending IgG, pending beta-1 3D glucan. Sputum culture positive for GPC, pending speciation. Will stop Levaquin and start patient on doxycycline. Confirmed with patient regarding CODE STATUS, patient agrees with no intubation if needed, wants to proceed with DNR/DNI. Mild DEVYN noted, patient is on Lasix 40 mg twice daily per cardiology recommendations. Will continue for Lasix for now, patient is net hospitalization positive for fluid balance. Will consider nephrology consult in a.m. if renal function continues to worsen. Will continue to titrate down FiO2 with the goal of SpO2 greater than 92. Will continue with close monitoring. Exam Vital Signs Temp Pulse Resp BP Pulse Ox O2 Del Method O2 Flow Rate 97.1 F 73 23 H 146/76 H 93 L Nasal Cannula 40 04/30/25 08:00 04/30/25 08:49 04/30/25 08:00 04/30/25 08:49 04/30/25 08:00 04/30/25 04:00 04/30/25 08:00 FiO2 85 04/30/25 08:00 Narrative Exam Constitutional: Alert, oriented x 3 and comfortable. Elderly male on HFNC at 40L/min and 85% FiO2. Able to speak in full sentences HEENT: Vision grossly intact. Patent nares. Trachea midline Respiratory: Chest normal on inspection and decreased air entry in all lung noonan, fine inspiratory crackles and coarse crackles at bilateral bases. Abdominal breathing with accessory muscle use Cardiovascular: S1 and S2 audible, RRR. 4/6 ejection systolic murmur heard at right sternal border with radiation to bilateral carotid. JVD not assessed Abdominal: Soft, obese and non tender to palpation in all quadrants. BS + Genitourinary: No bladder tenderness, no flank pain. Normal to palpation. Condom catheter Musculoskeletal: Extremities tone within normal limits. Right lower extremity appears slightly larger than left. No signs of edema. Neurological: CN II - XII grossly intact. Extremity motor and sensation grossly intact. Gait not assessed Skin: Warm, dry and intact. Multiple ecchymosis on bilateral arms Psychiatric: Patient has good affect, is cooperative Objective Labs 04/30/25 04:48 04/30/25 04:48 Labs: Laboratory Results - last 24 hr 04/29/25 04/29/25 04/30/25 04:32 10:03 04:48 WBC 21.8 H RBC 4.49 L Hgb 13.4 L Hct 38.9 L MCV 87 MCH 29.8 MCHC 34.4 RDW Std Deviation 42.5 Plt Count 208 Neut % (Auto) 92 H Lymph % (Auto) 2 L Lassen % (Auto) 4 Eos % (Auto) 0 Baso % (Auto) 0 Neut # (Auto) 20.1 H Lymph # (Auto) 0.5 L Lassen # (Auto) 0.8 Eos # (Auto) 0.0 Baso # (Auto) 0.0 Immature Gran # (Auto) 0.40 H Absolute Nucleated RBC 0.00 Immature Gran % 2 H Nucleated RBC % 0 Sodium 139 Potassium 4.0 Chloride 95 L Carbon Dioxide 31.9 H Anion Gap 12 BUN 49 H Creatinine 1.3 Estim Creat Clear Calc 46.8 L eGFR 56 L BUN/Creatinine Ratio 38 H Glucose 200 H Calculated Osmolality 296 H Calcium 8.5 Corrected Calcium 8.9 Phosphorus 4.3 Magnesium 2.3 Total Bilirubin 0.7 AST 27 ALT 60 H Alkaline Phosphatase 134 H Total Protein 5.8 Albumin 3.5 Globulin 2.3 Albumin/Globulin Ratio 1.5 Vancomycin Trough 6.0 Coccidioides IgM Ab Negative ABG Interpretation ABG results: 04/25/25 04/27/25 04/27/25 13:58 13:25 22:23 ABG pH 7.45 7.51 H 7.48 H ABG pCO2 34 38 40 ABG pO2 73 L 68 L 63 L ABG HCO3 23 30 H 29 H ABG O2 Saturation 97 95 93 ABG Base Excess 0 6 H 5 H 04/28/25 08:42 ABG pH 7.48 H ABG pCO2 41 ABG pO2 64 L ABG HCO3 30 H ABG O2 Saturation 93 ABG Base Excess 6 H Quality Measures Quality Measures VTE prophylaxis Advance care planning discussed with:: patient Assessment & Plan Assessment Current Active Medications: Generic Name Dose Route Start Last Admin Trade Name Freq PRN Reason Stop Dose Admin Acetaminophen 650 mg 04/26/25 07:40 Acetaminophen 325 Mg Tablet PO 05/25/25 12:22 Q6H PRN Fever >100.3 or pain 1-3 Hydrocodone Bitart/Acetaminophen 1 tab 04/25/25 12:23 04/26/25 19:47 Hydrocodone/Apap 5/325 Tablet PO 04/30/25 12:22 1 tab Q4HR PRN Administration PAIN SCALE 4-10(Mod-Sev Amiodarone HCl 200 mg 04/25/25 19:05 04/30/25 08:49 Amiodarone Hcl 200 Mg Tablet PO 05/25/25 19:04 200 mg BID JANINE Administration Apixaban 5 mg 04/25/25 21:00 04/30/25 08:48 Apixaban 2.5 Mg Tablet PO 05/25/25 20:59 5 mg BID JANINE Administration Atorvastatin Calcium 80 mg 04/25/25 21:00 04/29/25 22:00 Atorvastatin Calcium 20 Mg Tablet PO 05/25/25 20:59 80 mg QPM JANINE Administration Benzonatate 200 mg 04/25/25 14:15 04/30/25 05:42 Benzonatate 100 Mg Capsule PO 05/25/25 14:14 200 mg TID JANINE Administration Protocol Buspirone HCl 10 mg 04/25/25 21:00 04/30/25 08:48 Buspirone Hcl 5 Mg Tablet PO 05/25/25 20:59 10 mg BID JANINE Administration Carbidopa/Levodopa 1 tab 04/25/25 21:00 04/30/25 09:50 Carbidopa/Levodopa Cr 25/100 Tabcr PO 05/25/25 20:59 1 tab BID JANINE Administration Clopidogrel Bisulfate 75 mg 04/25/25 14:15 04/30/25 08:48 Clopidogrel Bisulfate 75 Mg Tablet PO 05/25/25 14:14 75 mg QDAY JANINE Administration Diltiazem HCl 60 mg 04/25/25 22:00 04/30/25 05:42 Diltiazem 30 Mg Tablet PO 05/25/25 21:59 60 mg TID JANINE Administration Dutasteride 0.5 mg 04/25/25 21:00 04/29/25 21:59 Dutasteride 0.5 Mg Capsule (Non-Formulary) PO 05/25/25 20:59 0.5 mg QPM JANINE Administration Furosemide 40 mg 04/29/25 18:00 04/30/25 05:41 Furosemide Inj 10 Mg/Ml 4ml Vial IVP 05/29/25 17:59 40 mg BIDD JANINE Administration Guaifenesin 100 mg 04/25/25 17:00 04/30/25 05:40 Guaifenesin Syrup 200 Mg/10 Ml Udc PO 05/25/25 16:59 100 mg QID JANINE Administration Protocol Cefepime HCl 2 gm/ Sodium 50 mls @ 100 mls/hr 04/27/25 11:07 04/30/25 05:40 Chloride IV 05/04/25 11:06 100 mls/hr Q8HR JANINE Administration Doxycycline Hyclate 100 mg/ 100 mls @ 100 mls/hr 04/30/25 21:00 Sodium Chloride IV 05/07/25 20:59 BID JANINE Ipratropium [place] 0.5 mg 04/25/25 19:00 04/30/25 06:42 Ipratropium Rt 0.5 Mg/ 2.5 Ml Nebu INH 05/25/25 18:59 0.5 mg Q6HRRT JANINE Administration Levalbuterol HCl 0.63 mg 04/27/25 13:00 04/30/25 06:42 Levalbuterol Rt 0.63 Mg/3 Ml Nebu INH 05/27/25 12:59 0.63 mg Q6HRRT JANINE Administration Melatonin 3 mg 04/25/25 23:40 04/29/25 21:59 Melatonin 3 Mg Tablet PO 05/25/25 23:39 3 mg HS JANINE Administration Methylprednisolone Sodium Succinate 60 mg 04/27/25 13:30 04/30/25 05:42 Methylprednisolone Sod Succ 40 Mg Vial IVP 05/04/25 13:29 60 mg Q8H JANINE Administration Montelukast Sodium 10 mg 04/26/25 09:00 04/30/25 08:48 Montelukast Sodium 10 Mg Tablet PO 05/26/25 08:59 10 mg QAM JANINE Administration Ondansetron HCl 4 mg 04/25/25 12:23 Ondansetron Inj 2 Mg/Ml Inj 2 Ml IVP 05/25/25 12:22 Q6H PRN NAUSEA OR VOMITING Protocol Pantoprazole Sodium 40 mg 04/26/25 09:00 04/30/25 08:48 Pantoprazole Inj 40 Mg Vial IVP 05/26/25 08:59 40 mg QDAY JANINE Administration Sennosides 1 tab 04/26/25 09:00 04/30/25 08:48 Senna Tablet PO 05/26/25 08:59 1 tab QDAY JANINE Administration Protocol Tamsulosin HCl 0.4 mg 04/26/25 09:00 04/30/25 08:48 Tamsulosin Hcl 0.4 Mg Capsule PO 05/26/25 08:59 0.4 mg QAM JANINE Administration Plan Summary: Patient is an 79-year-old male with a past medical history significant for essential tremor, BPH, primary hypertension, hyperlipidemia and 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 He follows up with his PCP Dr. Osman and relief manager Dr. Molina. Patient will be admitted for treatment and management of acute respiratory failure with hypoxia secondary to community- acquired pneumonia. #ARDS #Acute respiratory failure with hypoxia secondary to likely community-acquired pneumonia #?Acute interstitial pneumonitis #Community-acquired pneumonia failed outpatient treatment Patient presented with worsening cough and shortness of breath refractory to outpatient antibiotics. On exam had severely reduced air entry in all lung noonan with mild crackles at bases. Labs showed WBC 28.4, lactic acid 5.4, BNP 629 and troponin 0.135 Chest x-ray showed extensive bilateral consolidation CT scan of the chest done during ICU showed severe bilateral lung opacity, pneumonia/ARDS pattern. PSI; risk class IV. Hospitalization recommended based on risk Harrison score; positive; severe ARDS P/F ratio 84.7. 45% mortality S/F ratio : 117.5 - Non-intubated ARDS Ronda index; 3.69 points. Risk of HFNC failure is high Echo showed normal left ventricular function with ejection fraction of 55 to 60%. Grade 1 diastolic dysfunction. Plan: ? Follow ANCA screen, antiproteinase 3 and antimyeloperoxidase ? Repeat cocci IgM was negative, pending IgG, pending beta-1 3D glucan. ? Started on doxycycline (04/30- ? Continue cefepime 2 g IV Q8h (04/27- ? Continue Solu-Medrol 60 mg IV every 8 hours ? Coninue Lasix 40 Mg IV twice daily ? Levalbuterol nebs Q6 hourly ? Ipratropium nebs Q6 hourly ? Chest physiotherapy Q6 hourly ? Acapella device Q6 hourly #New onset A-fib with RVR #Diastolic dysfunction grade 1 #Non-STEMI type II?resolved Patient endorses some palpitations starting last night and continuing today intermittently. Initial EKG showed A-fib with RVR 155 and repeat showed A-fib rate 93. No acute ST changes Received diltiazem 15 Mg IV x 1 followed by non titratable diltiazem infusion in the ED after which rate improved to 93 [id number]; 5 points; stroke risk 7.2%. HAS-BLED; 4 points. Major risk of bleeding Echocardiogram showed ejection fraction of 60%, diastolic dysfunction grade 1. Plan: ? Continue telemetry monitoring ? 1500 cc/day fluid restriction, strict ins and out. Discontinued Bumex 2mg IV BID. Started on Lasix 40mg IV BID ? Continue diltiazem 60 Mg p.o. 3 times daily for rate control ? Continue amiodarone 200 Mg p.o. twice daily as per cardiology recommendations ? Continue apixaban 5 Mg p.o. twice daily as per cardiology recommendations ? Documentation Specialist, Dr. Americo Morrison consulted and closely following. Appreciate recommendation ? Continue Plavix 75 mg daily #Acute kidney injury Mild DEVYN noted, patient is on Lasix 40 mg twice daily per cardiology recommendations. Will continue for Lasix for now, patient is net hospitalization positive for fluid balance. Will consider nephrology consult in a.m. if renal function continues to worsen. #Primary hypertension #Hyperlipidemia Plan: ? Continue home medication atorvastatin ? Patient is on Cardizem 60 mg p.o. daily #Right lower extremity swelling On exam right lower extremity appears to be mildly larger than the left. When questioned patient states that he had an outpatient duplex ultrasound which was negative for DVT #Troponinemia #NSTEMI type II On admission troponin mildly elevated at 0.135 down trended to 0.125. Most likely type II in setting of demand ischemia from pneumonia. No need to further trend troponins #Essential tremor Patient was never diagnosed formally by neurologist for Parkinson's disease, did have carbidopa levodopa started by primary care physician for tremor. Patient otherwise denies any dysphagia, has no resting tremor, denies any difficulty ambulating -Continue home dose carbidopa levodopa -Patient is on buspirone at home, continue #BPH -Continue Flomax, dutasteride Health maintenance: Disposition: IV antibiotics. HFNC. Diet: Regular Lines: pIVs GI Prophylaxis: Pantoprazole 40 Mg IV daily Thrombo Prophylaxis: Apixaban Code status: Limited code, no chest compressions, acceptable to intubation Case discussed with Attending Dr. Call and Dr. Ambrocio PGY2. Glendy Engle PGY1 Disclaimer: This note was dictated by speech recognition. Minor errors in novelty chain maker may be present due to voice recognition software. Attending Provider Attestation/Addendum I attest that I was physically present for the evaluation, physical examination, lab and imaging review of the patient with the residents. I discussed the case with the residents and agree with the findings and plans of care as documented above. At bedside today, patient continues to be on high flow nasal cannula, 40 L, 85 FiO2. Able to speak in full sentence, mild respiratory distress. Respiratory rate around low 20s. Has crackles on both side with decreased air entry. WBC count noted to be uptrending, 21.8 today from 18.9 yesterday. Continues to be on IV cefepime, we will switch levofloxacin to doxycycline. Also continues to be on Lasix 40 twice daily and Solu-Medrol 60 every 8 hours. Continues to be on Eliquis, diltiazem, amiodarone for A-fib. Sputum culture from 04/28/2025 grew GPC, blood culture from 04/25 is negative. We will continue to monitor closely and try to wean the supplemental oxygen down. Naseem Call MD
--- NOTE | 2025-04-30 14:30 | PC.SS ---
Rounding Note: Patient remains on high flow nasal cannula. Patient receiving IV antibiotics.
[2025-04-30 15:08] LABS: Cocci Serology, IgG Negative (Negative)
[2025-04-30] MEDS: MELATONIN 3 MG TABLET PO (21:34)
[2025-04-30] MEDS: ATORVASTATIN CALCIUM 20 MG TABLET 80 MG PO (21:34)
[2025-04-30] MEDS: DOXYCYCLINE INJ 100 MG in SODIUM CHLORIDE 0.9% (POP) 100 ML IV (21:37)
[2025-04-30] MEDS: DUTASTERIDE 0.5 MG CAPSULE (NON-FORMULARY) PO (21:45)
--- NOTE | 2025-04-30 23:51 | ESPR_ITS ---
RE: DANISHA PEOPLES : 1945 DATE OF SERVICE: 04/30/2025 The patient is an 79-year-old male known to me with a history of paroxysmal AFib and hypertension. He came to the hospital with what appears to be initially shortness of breath and pneumonia, significantly worsened with some volume overload and subsequently shortness of breath due to bilateral alveolar interstitial infiltrates, ARDS pattern as well with element of pneumonia as well as congestive heart failure, predominantly pneumonia. Still on high-flow oxygen, not doing that well. Complains of mild shortness of breath, but no chest pain. Remains in sinus rhythm mostly, occasionally goes into AFib, rate controlled. LABORATORY DATA: Continued to show white count elevation of 21,800, hemoglobin 13.4. Chest x-ray and CT confirm extensive ARDS, alveolar interstitial infiltrates. Chemistry panel shows creatinine is 1.9, BUN 49. Appears to have prerenal azotemia. PHYSICAL EXAMINATION: General: He is alert, awake, in no acute distress. Vital Signs: Blood pressure is slightly high today at 150/83. Pulse rate is 79, respirations 18, temperature normal. Neck: Supple. No JVD. Chest: Symmetrical. Lungs: Clear. No rales or rhonchi. Heart: S1, S2 regular. No gallops. Abdomen: Thin and soft. Extremities: Mild edema. Genitourinary and Rectal: Not performed. IMPRESSION/ASSESSMENT: 1. Hypoxic respiratory failure secondary to bilateral pneumonia, acute respiratory distress syndrome. 2. Mild congestive heart failure, improved now. 3. Prerenal azotemia, possibly the patient on the right side. 4. Paroxysmal atrial fibrillation. 5. History of recent stroke in 2023. RECOMMENDATIONS: Continue apixaban 5 mg twice daily. I do not see a need for Plavix which will be discontinued. We will also discontinue Lasix for now. Continue to monitor renal function closely. DT: 23:33:52 TT: 23:49:00 Ref: [id number] - TID: [id number]
[2025-05-01] VITALS (21 sets, daily range): BP systolic 134–160; BP diastolic 78–89; PULSE 56–90; RESP 17–28; TEMP 36.1–36.4; O2SAT 90–98
[2025-05-01] MEDS: LEVALBUTEROL RT 0.63 MG/3 ML NEBU INH ×4 (00:20→18:13)
[2025-05-01] MEDS: IPRATROPIUM RT 0.5 MG/ 2.5 ML NEBU INH ×4 (00:20→18:13)
[2025-05-01 05:36] LABS: Basophils % (Auto) 0 % (0-2.5); Eosinophils % (Auto) 0 % (0-10); Hematocrit 37.8 % (41.0-53.0); Hemoglobin 13.2 g/dL (13.5-16.0); Immature Granulocytes % (Auto) 3 % (0-0); Immature Granulocytes Auto 0.51 Thou/mm3 (0.00-0.00); Lymphocytes # (Auto) 0.4 Thou/mm3 (1.0-4.8); Lymphocytes % (Auto) 2 % (10-50); Mean Corpuscular HGB Conc 34.9 g/dl (31.0-37.0); Mean Corpuscular Hemoglobin 30.3 pg (25.0-35.0); Mean Corpuscular Volume 87 fL (80-100); Monocytes # (Auto) 0.7 Thou/mm3 (0.0-0.8); Monocytes % (Auto) 4 % (0-12); Neutrophils # (Auto) 17.2 Thou/mm3 (1.8-7.7); Neutrophils % (Auto) 91 % (37-80); Nucleated Red Blood Cell % 0 /100 WBC (0); Platelet Count 212 Thou/mm3 (140-440); RDW Standard Deviation 41.4 fL (35.1-43.9); Red Blood Count 4.36 Miln/mm3 (4.50-5.90); White Blood Count 18.9 Thou/mm3 (3.8-10.6)
[2025-05-01] MEDS: guaiFENesin SYRUP 200 MG/10 ML UDC 100 MG PO ×4 (05:42→20:40)
[2025-05-01] MEDS: BENZONATATE 100 MG CAPSULE 200 MG PO ×3 (05:43→21:54)
[2025-05-01] MEDS: DILTIAZEM 30 MG TABLET 60 MG PO ×3 (05:43→21:55)
[2025-05-01] MEDS: CEFEPIME INJ 2 GM in SODIUM CHLORIDE 0.9% (Popper) 50 ML IV ×3 (05:43→21:54)
[2025-05-01 06:37] LABS: Alanine Aminotransferase 44 U/L (10-49); Albumin, Serum 3.3 gm/dL (3.4-4.8); Albumin/Globulin Ratio 1.6 (1.2-2.2); Alkaline Phosphatase 112 U/L (46-116); Anion Gap 11 (7-16); Aspartate Amino Transferase 18 U/L (0-34); BUN/Creatinine Ratio 47 Ratio (12-20); Bilirubin,Total 0.7 mg/dL (0.3-1.2); Blood Urea Nitrogen 52 mg/dL (9-23); Calcium 8.4 mg/dL (8.3-10.6); Carbon Dioxide 31.6 mMol/L (20.0-31.0); Chloride 95 mMol/L (98-107); Creatinine (Component) 1.1 mg/dL (0.6-1.3); Estimated Creatinine Clearance 55.3 mL/min (>60); Globulin 2.1 gm/dL (2.3-3.5); Glucose 191 mg/dL (74-106); Magnesium 2.2 mg/dL (1.6-2.6); Osmolality,Calculated 294 (275-295); Potassium 3.6 mMol/L (3.4-5.1); Sodium 138 mMol/L (136-145); Total Protein 5.4 gm/dL (5.7-8.2); eGFR > 60 See Note
[2025-05-01] MEDS: DOXYCYCLINE INJ 100 MG in SODIUM CHLORIDE 0.9% (POP) 100 ML IV ×2 (09:23→20:38)
[2025-05-01] MEDS: BusPIRone HCL 5 MG TABLET 10 MG PO ×2 (09:24→20:42)
[2025-05-01] MEDS: AMIODARONE HCL 200 MG TABLET PO ×2 (09:24→20:40)
[2025-05-01] MEDS: APIXABAN 2.5 MG TABLET 5 MG PO ×2 (09:25→20:42)
[2025-05-01] MEDS: TABCR PO ×2 (09:25→20:41)
[2025-05-01] MEDS: SENNA TABLET 1 TAB PO (09:25)
[2025-05-01] MEDS: CARBIDOPA PO ×2 (09:25→20:41)
[2025-05-01] MEDS: TAMSULOSIN HCL 0.4 MG CAPSULE PO (09:25)
[2025-05-01] MEDS: LEVODOPA PO ×2 (09:25→20:41)
[2025-05-01] MEDS: PANTOPRAZOLE 40 MG TABLET PO (09:25)
[2025-05-01] MEDS: MONTELUKAST SODIUM 10 MG TABLET PO (09:25)
--- NOTE | 2025-05-01 14:23 | XR_ITS ---
Examination: CT chest, without intravenous contrast. Sagittal and coronal 2-D reconstructions. Exam date and time: May 01, 2025 1616 hours Comparison April 29, 2025 INDICATIONS: Respiratory failure difficulty breathing this week, severe pneumonia ARDS pattern on CT chest April 29, 2025 CTDI:vol (mGy) 14.7 DLP: (mGycm) 606 Technique: Multiple 3.0 mm axial sections of the chest to been obtained. Bone and lung density settings are obtained. Sagittal and coronal 2-D reconstructions have been obtained. Low dose protocols were performed. One or more of the following dose reduction techniques were used; automated exposure control, adjustment of the mA and/or KV according to patient size, use of iterative reconstruction technique. Findings: No thoracic aortic aneurysm dilatation Pulmonary artery segments are not enlarged. Significant calcification left anterior descending coronary artery Mild enlargement cardiac contour Prominent vascular congestion Pulmonary fibrosis pattern throughout the lungs with superimposed extensive bilateral pneumonia Mild associated heart failure with small pleural effusions Multiple liver cysts as well as calcification in the upper posterior right lobe of the liver Gallstones IMPRESSION: Significant pulmonary fibrosis Extensive superimposed bilateral pneumonia Mild associated heart failure
--- NOTE | 2025-05-01 14:30 | PC.SS ---
Rounding note: planned repeat imaging for the patient. D/c plan is home.
--- NOTE | 2025-05-01 15:40 | ESPR_ITS ---
Documentation for date of: 05/01/25 Subjective Subjective Interval history: No acute events overnight.?Patient seen and examined at bedside this AM.?Patient overall felt about the same, eager for improvement, continues to desaturate quickly with any physical effort. He is on 90% FiO2 this morning, saturating in the low 90s. Discussed case again with ICU attending Dr. Mathews, suggested adding Mucomyst and obtaining repeat imaging. Otherwise patient likely has underlying ILD with the ARDS which complicates recovery. Continue IV cefepime, IV doxycycline, Hi-Flow, Nebulizing treatments, chest physiotherapy, and await to see if there is recovery. Patient continues to mentate well and is seen speaking with family over the phone. Labs and vitals were reviewed.?He remains tachypneic in the low to mid 20s. No fevers overnight. Sputum culture from 04/28/2025 continues to show preliminary GPC although sample is poor quality, regardless will follow result. No further complaints at this time. Review of systems otherwise negative except what is mentioned above. Exam Vital Signs Temp Pulse Resp BP Pulse Ox O2 Del Method O2 Flow Rate 97.6 F 81 22 H 145/80 H 93 L High Flow Nasal Cannula 34 05/01/25 12:00 05/01/25 14:14 05/01/25 14:14 05/01/25 14:01 05/01/25 14:14 05/01/25 12:00 05/01/25 14:14 FiO2 75 05/01/25 14:14 Narrative Exam Constitutional: Alert, oriented x 3 and comfortable. Elderly male on HFNC at 40L/min and 90% FiO2. Able to speak in full sentences HEENT: Vision grossly intact. Patent nares. Trachea midline Respiratory: Chest normal on inspection and decreased air entry in all lung noonan, fine inspiratory crackles and coarse crackles at bilateral bases. Abdominal breathing with accessory muscle use Cardiovascular: S1 and S2 audible, RRR. 4/6 ejection systolic murmur heard at right sternal border with radiation to bilateral carotid. JVD not assessed Abdominal: Soft, obese and non tender to palpation in all quadrants. BS + Genitourinary: No bladder tenderness, no flank pain. Normal to palpation. Condom catheter Musculoskeletal: Extremities tone within normal limits. Right lower extremity appears slightly larger than left. No signs of edema. Neurological: CN II - XII grossly intact. Extremity motor and sensation grossly intact. Gait not assessed Skin: Warm, dry and intact. Multiple ecchymosis on bilateral arms Psychiatric: Patient has good affect, is cooperative Objective Labs 05/01/25 05:11 05/02/25 05:05 Labs: Laboratory Results - last 24 hr 05/01/25 05:11 WBC 18.9 H RBC 4.36 L Hgb 13.2 L Hct 37.8 L MCV 87 MCH 30.3 MCHC 34.9 RDW Std Deviation 41.4 Plt Count 212 Neut % (Auto) 91 H Lymph % (Auto) 2 L Benson % (Auto) 4 Eos % (Auto) 0 Baso % (Auto) 0 Neut # (Auto) 17.2 H Lymph # (Auto) 0.4 L Benson # (Auto) 0.7 Eos # (Auto) 0.0 Baso # (Auto) 0.0 Immature Gran # (Auto) 0.51 H Absolute Nucleated RBC 0.00 Immature Gran % 3 H Nucleated RBC % 0 Sodium 138 Potassium 3.6 Chloride 95 L Carbon Dioxide 31.6 H Anion Gap 11 BUN 52 H Creatinine 1.1 Estim Creat Clear Calc 55.3 L eGFR > 60 BUN/Creatinine Ratio 47 H Glucose 191 H Calculated Osmolality 294 Calcium 8.4 Corrected Calcium 9.0 Phosphorus 4.0 Magnesium 2.2 Total Bilirubin 0.7 AST 18 ALT 44 Alkaline Phosphatase 112 D Total Protein 5.4 L Albumin 3.3 L Globulin 2.1 L Albumin/Globulin Ratio 1.6 ABG Interpretation ABG results: 04/25/25 04/27/25 04/27/25 13:58 13:25 22:23 ABG pH 7.45 7.51 H 7.48 H ABG pCO2 34 38 40 ABG pO2 73 L 68 L 63 L ABG HCO3 23 30 H 29 H ABG O2 Saturation 97 95 93 ABG Base Excess 0 6 H 5 H 04/28/25 08:42 ABG pH 7.48 H ABG pCO2 41 ABG pO2 64 L ABG HCO3 30 H ABG O2 Saturation 93 ABG Base Excess 6 H Quality Measures Quality Measures VTE prophylaxis Advance care planning discussed with:: patient Assessment & Plan Assessment Current Active Medications: Generic Name Dose Route Start Last Admin Trade Name Freq PRN Reason Stop Dose Admin Acetaminophen 650 mg 04/26/25 07:40 Acetaminophen 325 Mg Tablet PO 05/25/25 12:22 Q6H PRN Fever >100.3 or pain 1-3 Amiodarone HCl 200 mg 04/25/25 19:05 05/01/25 09:24 Amiodarone Hcl 200 Mg Tablet PO 05/25/25 19:04 200 mg BID JANINE Administration Apixaban 5 mg 04/25/25 21:00 05/01/25 09:25 Apixaban 2.5 Mg Tablet PO 05/25/25 20:59 5 mg BID JANINE Administration Atorvastatin Calcium 80 mg 04/25/25 21:00 04/30/25 21:34 Atorvastatin Calcium 20 Mg Tablet PO 05/25/25 20:59 80 mg QPM JANINE Administration Benzonatate 200 mg 04/25/25 14:15 05/01/25 14:01 Benzonatate 100 Mg Capsule PO 05/25/25 14:14 200 mg TID JANINE Administration Protocol Buspirone HCl 10 mg 04/25/25 21:00 05/01/25 09:24 Buspirone Hcl 5 Mg Tablet PO 05/25/25 20:59 10 mg BID JANINE Administration Carbidopa/Levodopa 1 tab 04/25/25 21:00 05/01/25 09:25 Carbidopa/Levodopa Cr 25/100 Tabcr PO 05/25/25 20:59 1 tab BID JANINE Administration Diltiazem HCl 60 mg 04/25/25 22:00 05/01/25 14:01 Diltiazem 30 Mg Tablet PO 05/25/25 21:59 60 mg TID JANINE Administration Dutasteride 0.5 mg 04/25/25 21:00 04/30/25 21:45 Dutasteride 0.5 Mg Capsule (Non-Formulary) PO 05/25/25 20:59 0.5 mg QPM JANINE Administration Guaifenesin 100 mg 04/25/25 17:00 05/01/25 11:50 Guaifenesin Syrup 200 Mg/10 Ml Udc PO 05/25/25 16:59 100 mg QID JANINE Administration Protocol Cefepime HCl 2 gm/ Sodium 50 mls @ 100 mls/hr 04/27/25 11:07 05/01/25 14:01 Chloride IV 05/04/25 11:06 100 mls/hr Q8HR JANINE Administration Doxycycline Hyclate 100 mg/ 100 mls @ 100 mls/hr 04/30/25 21:00 05/01/25 09:23 Sodium Chloride IV 05/07/25 20:59 100 mls/hr BID JANINE Administration Ipratropium [place] 0.5 mg 04/25/25 19:00 05/01/25 12:50 Ipratropium Rt 0.5 Mg/ 2.5 Ml Nebu INH 05/25/25 18:59 0.5 mg Q6HRRT JANINE Administration Levalbuterol HCl 0.63 mg 04/27/25 13:00 05/01/25 12:49 Levalbuterol Rt 0.63 Mg/3 Ml Nebu INH 05/27/25 12:59 0.63 mg Q6HRRT JANINE Administration Melatonin 6 mg 05/01/25 21:00 Melatonin 3 Mg Tablet PO 05/31/25 20:59 HS JANINE Methylprednisolone Sodium Succinate 60 mg 04/27/25 13:30 05/01/25 14:00 Methylprednisolone Sod Succ 40 Mg Vial IVP 05/04/25 13:29 60 mg Q8H JANINE Administration Montelukast Sodium 10 mg 04/26/25 09:00 05/01/25 09:25 Montelukast Sodium 10 Mg Tablet PO 05/26/25 08:59 10 mg QAM JANINE Administration Ondansetron HCl 4 mg 04/25/25 12:23 Ondansetron Inj 2 Mg/Ml Inj 2 Ml IVP 05/25/25 12:22 Q6H PRN NAUSEA OR VOMITING Protocol Pantoprazole Sodium 40 mg 05/01/25 09:00 05/01/25 09:25 Pantoprazole 40 Mg Tablet PO 05/31/25 08:59 40 mg QDAY JANINE Administration Protocol Sennosides 1 tab 04/26/25 09:00 05/01/25 09:25 Senna Tablet PO 05/26/25 08:59 1 tab QDAY JANINE Administration Protocol Tamsulosin HCl 0.4 mg 04/26/25 09:00 05/01/25 09:25 Tamsulosin Hcl 0.4 Mg Capsule PO 05/26/25 08:59 0.4 mg QAM JANINE Administration Plan Summary: Patient is an 79-year-old male with a past medical history significant for essential tremor, BPH, primary hypertension, hyperlipidemia and history of stroke in 2022 with residual right leg weakness who initially presented on 04/25/2025 with chief complaints of cough and shortness of breath, subsequently admitted for treatment and management of acute respiratory failure with hypoxia secondary to community-acquired pneumonia. #ARDS #Acute respiratory failure with hypoxia secondary to likely community-acquired pneumonia #?Acute interstitial pneumonitis versus underlying interstitial lung disease #Community-acquired pneumonia failing outpatient treatment Patient presented with worsening cough and shortness of breath refractory to outpatient antibiotics. On exam had severely reduced air entry in all lung noonan with mild crackles at bases. Labs showed WBC 28.4, lactic acid 5.4, BNP 629 and troponin 0.135 Chest x-ray showed extensive bilateral consolidation CT scan of the chest done during ICU showed severe bilateral lung opacity, pneumonia/ARDS pattern. PSI; risk class IV. Hospitalization recommended based on risk Maben score; positive; severe ARDS P/F ratio 84.7. 45% mortality S/F ratio : 117.5 - Non-intubated ARDS Ronda index; 3.69 points. Risk of HFNC failure is high Echo showed normal left ventricular function with ejection fraction of 55 to 60%. Grade 1 diastolic dysfunction. Cocci IgM and IgG was negative x2 Plan: ? Pending ANCA screen, antiproteinase 3 and antimyeloperoxidase - Pending beta-1 3D glucan ? Continue IV doxycycline 100 mg BID (04/30- ? Continue IV cefepime 2 g IV Q8h (04/27- ? Continue Solu-Medrol 60 mg IV every 8 hours ? Discontinued Lasix 40 Mg IV twice daily due to mild DEVYN/contraction alkalosis ? Levalbuterol nebs Q6 hourly ? Ipratropium nebs Q6 hourly ? Chest physiotherapy Q6 hourly ? Acapella device Q6 hourly - Added Mucomyst q6h #New onset A-fib with RVR #Diastolic dysfunction grade 1 Patient endorsed some palpitations earlier this hospitalization. Initial EKG showed A-fib with RVR 155 and repeat showed A-fib rate 93. No acute ST changes Received diltiazem 15 Mg IV x 1 followed by non titratable diltiazem infusion in the ED after which rate improved to 93 [id number]; 5 points; stroke risk 7.2%. HAS-BLED; 4 points. Major risk of bleeding Echocardiogram showed ejection fraction of 60%, diastolic dysfunction grade 1. Cardiology discontinued Plavix 75 mg daily on 03/30 as there is no clinical indication at this time Plan: ? Continue telemetry monitoring ? Continue 1500 cc/day fluid restriction, strict ins and out. Diuresis has been discontinued ? Continue diltiazem 60 Mg p.o. 3 times daily for rate control ? Continue amiodarone 200 Mg p.o. twice daily as per cardiology recommendations ? Continue apixaban 5 Mg p.o. twice daily as per cardiology recommendations ? Chief Substation Operator, Dr. Americo Morrison consulted and closely following. Appreciate recommendations #Acute kidney injury Mild DEVYN noted, patient was on Lasix 40 mg twice daily per cardiology recommendations. Discontinued diuresis yesterday due to DEVYN, noted improvement in creatinine 1.3 to 1.1 - Continue to monitor renal function - Holding on any diuretics #Primary hypertension #Hyperlipidemia Plan: ? Continue home medication atorvastatin ? Patient is on Cardizem 60 mg p.o. TID - Losartan 50 mg qday added by Cardiology #Right lower extremity swelling On exam right lower extremity appears to be mildly larger than the left. When questioned patient states that he had an outpatient duplex ultrasound which was negative for DVT #Troponinemia #NSTEMI type II On admission troponin mildly elevated at 0.135 down trended to 0.125. Most likely type II in setting of demand ischemia from pneumonia. -No need to further trend troponins #Essential tremor Patient was never diagnosed formally by neurologist for Parkinson's disease, did have carbidopa levodopa started by primary care physician for tremor. Patient otherwise denies any dysphagia, has no resting tremor, denies any difficulty ambulating -Continue home dose carbidopa levodopa -Patient is on buspirone at home, continue #BPH -Continue Flomax, dutasteride Health maintenance: Disposition: IV antibiotics. HFNC. Diet: Regular Lines: pIVs GI Prophylaxis: Pantoprazole 40 Mg IV daily Thrombo Prophylaxis: Apixaban Code status: DNR Patient plan of care was discussed with the attending physician, Dr. Call. Nara Ambrocio, PGY-2 Attending Provider Attestation/Addendum I attest that I was physically present for the evaluation, physical examination, lab and imaging review of the patient with the residents. I discussed the case with the residents and agree with the findings and plans of care as documented above. At bedside today, patient is states she is feeling about the same compared to yesterday. Continues to be on high flow nasal cannula, 40 L 90 FiO2. Discussed the case with commercial correspondent, recommended Mucomyst along with repeat imaging. Patient has high suspicion for fibrotic lung disease with ARDS, which would indicate poor prognosis. Continues to be on broad-spectrum IV antibiotics, cefepime and doxycycline. Continues to have decreased air entry bilaterally, along with fine crackles bilaterally. We will also continue with nebulization chest physiotherapy. Ordered CT chest without contrast please patient has DEVYN and tendency for fluid overload. Continues to be on diltiazem, amiodarone, Eliquis for A-fib with RVR. Naseem Call MD
[2025-05-01] MEDS: ACETYLCYSTEINE SOL 20% 4 ML NEBU 3 ML INH (18:13)
[2025-05-01 19:47] LABS: (1-3)-B-D-glucan* <31 pg/mL
[2025-05-01] MEDS: DUTASTERIDE 0.5 MG CAPSULE (NON-FORMULARY) PO (20:40)
[2025-05-01] MEDS: ATORVASTATIN CALCIUM 20 MG TABLET 80 MG PO (20:41)
[2025-05-01] MEDS: MELATONIN 3 MG TABLET 6 MG PO (21:54)
[2025-05-02] VITALS (19 sets, daily range): BP systolic 121–155; BP diastolic 70–82; PULSE 61–82; RESP 19–30; TEMP 36.1–36.6; O2SAT 88–96
--- NOTE | 2025-05-02 01:17 | ESPR_ITS ---
RE: FARHAN PEOPLES : 1945 DATE OF SERVICE: 05/01/2025 Farhan is an 79-year-old male with a past medical history of hypertension and multiple problems with paroxysmal AFib and stroke, admitted to the hospital, extensive pneumonia, bilateral infiltrates. Initially, there was some suggestion of volume overloadimproved. Still had a fairly high requirement for high flow oxygen. Chest x-ray is still not improving. White count is still not improving that much. The patient did develop worsening of renal function and we backed off the diuretics and now the creatinine improved to 1.1, but BUN is 52. OBJECTIVE: Vital Signs: Blood pressure 160/84, pulse 70. Neck: Supple. No JVD. Chest: Symmetrical. Lungs: Decreased breath sounds. Heart: S1, S2 irregular. Abdomen: Thin and soft. Extremities: No edema. IMPRESSION/ASSESSMENT: 1. hypertension, not controlled well. 2. Extensive bilateral pneumonia, requiring antibiotics. 3. Prerenal azotemia due to diuretics. RECOMMENDATIONS: Continue medical management and he is still on IV diuretic therapy. He is on apixaban 5 mg twice daily for anticoagulation because of AFib and amiodarone 200 mg twice daily, maintaining sinus rhythm most of the time. The patient is also continuing on carbidopa/levodopa for parkinsonism and Maxipime/cefepime injection is given for IV antibiotics and also on cough syrup, methylprednisolone 60 mg every 8 hours, possibly contributing to white count elevation, possible interstitial lung disease. Pantoprazole 40 mg daily would be given. The patient is not on any hypertensive medications. We will start the patient on Cardizem CD 60 mg three times daily. We will change it to probably once a day and also start the patient on antihypertensive drug therapy, add losartan 50 mg daily for hypertension. DT: 22:52:44 TT: 23:19:00 Ref: [id number] - TID: [id number] MTDD
[2025-05-02] MEDS: IPRATROPIUM RT 0.5 MG/ 2.5 ML NEBU INH ×4 (01:23→18:40)
[2025-05-02] MEDS: ACETYLCYSTEINE SOL 20% 4 ML NEBU 3 ML INH ×4 (01:23→18:40)
[2025-05-02] MEDS: LEVALBUTEROL RT 0.63 MG/3 ML NEBU INH ×4 (01:23→18:40)
[2025-05-02] MEDS: guaiFENesin SYRUP 200 MG/10 ML UDC 100 MG PO ×4 (05:31→20:42)
[2025-05-02] MEDS: BENZONATATE 100 MG CAPSULE 200 MG PO ×3 (05:31→22:35)
[2025-05-02] MEDS: DILTIAZEM 30 MG TABLET 60 MG PO ×3 (05:32→22:35)
[2025-05-02] MEDS: CEFEPIME INJ 2 GM in SODIUM CHLORIDE 0.9% (Popper) 50 ML IV ×3 (05:32→22:34)
[2025-05-02 06:27] LABS: Anion Gap 9 (7-16); BUN/Creatinine Ratio 45 Ratio (12-20); Blood Urea Nitrogen 50 mg/dL (9-23); Carbon Dioxide 32.4 mMol/L (20.0-31.0); Chloride 97 mMol/L (98-107); Creatinine (Component) 1.1 mg/dL (0.6-1.3); Estimated Creatinine Clearance 55.3 mL/min (>60); Glucose 176 mg/dL (74-106); Osmolality,Calculated 292 (275-295); Potassium 3.8 mMol/L (3.4-5.1); Sodium 138 mMol/L (136-145); eGFR > 60 See Note
[2025-05-02 06:47] LABS: Interpretation NEGATIVE
[2025-05-02] MEDS: AMIODARONE HCL 200 MG TABLET PO ×2 (09:54→20:43)
[2025-05-02] MEDS: BusPIRone HCL 5 MG TABLET 10 MG PO ×2 (09:56→20:43)
[2025-05-02] MEDS: APIXABAN 2.5 MG TABLET 5 MG PO ×2 (09:56→20:44)
[2025-05-02] MEDS: PANTOPRAZOLE 40 MG TABLET PO (09:56)
[2025-05-02] MEDS: MONTELUKAST SODIUM 10 MG TABLET PO (09:56)
[2025-05-02] MEDS: LOSARTAN POTASSIUM 25 MG TABLET 50 MG PO (09:56)
[2025-05-02] MEDS: SENNA TABLET 1 TAB PO (09:56)
[2025-05-02] MEDS: DOXYCYCLINE INJ 100 MG in SODIUM CHLORIDE 0.9% (POP) 100 ML IV ×2 (09:57→20:39)
[2025-05-02] MEDS: TAMSULOSIN HCL 0.4 MG CAPSULE PO (09:57)
[2025-05-02] MEDS: CARBIDOPA PO ×2 (09:59→20:44)
[2025-05-02] MEDS: TABCR PO ×2 (09:59→20:44)
[2025-05-02] MEDS: LEVODOPA PO ×2 (09:59→20:44)
--- NOTE | 2025-05-02 12:56 | PC.SS ---
Update: Patient remains on high flow oxygen, 35L.
[2025-05-02] MEDS: FUROSEMIDE INJ 10 MG/ML 4ML VIAL 40 MG IVP (13:43)
--- NOTE | 2025-05-02 14:51 | PD.RESPRO ---
Documentation for date of: 05/02/25 Subjective Subjective Interval history: No acute events overnight.?Patient seen and examined at bedside this AM.?He reports that he was able to sleep a little last night after melatonin dose was increased to 6 mg. Otherwise, he reports no new complaints. He remains on 85% FiO2 and 35L. Labs and vitals were reviewed, which were all stable.?Sputum culture was nonspecific and nondiagnostic. Beta-D glucan was negative. Repeat CT shows same extensive severe pneumonia, fibrotic lungs, and mild heart failure pattern. Lasix 40 mg IV qday was added again. The patient keeps stating that he would like to go home. However, he also does not want to give up on fighting his lung condition. Later in the evening received notice from that patient's family is requesting a transfer. Dr. Ambrocio, PGY-2, and Dr. Call, attending, met with patient, step-daughter, and daughter at bedside. They would like the patient to receive pulmonary consultation for a second opinion. It was explained that this transfer would be very difficult and unlikely to occur. Regardless they are insistent on attempting transfer, mentioning hospitals like [facility] and [facility]. Will inform transfer RN to attempt process for transfer. Review of systems otherwise negative except what is mentioned above. Exam Vital Signs Temp Pulse Resp BP Pulse Ox O2 Del Method O2 Flow Rate 97.6 F 80 22 H 155/79 H 94 L High Flow Nasal Cannula 35 05/02/25 12:00 05/02/25 14:20 05/02/25 14:20 05/02/25 13:44 05/02/25 14:20 05/02/25 12:00 05/02/25 14:20 FiO2 85 05/02/25 14:20 Narrative Exam Constitutional: Alert, oriented x 3 and comfortable. Elderly male on HFNC at 35L/min and 85% FiO2. Able to speak in full sentences HEENT: Vision grossly intact. Patent nares. Trachea midline Respiratory: Chest normal on inspection and decreased air entry in all lung noonan, fine inspiratory crackles and coarse crackles at bilateral bases. Abdominal breathing with accessory muscle use Cardiovascular: S1 and S2 audible, RRR. 4/6 ejection systolic murmur heard at right sternal border with radiation to bilateral carotid. JVD not assessed Abdominal: Soft, obese and non tender to palpation in all quadrants. BS + Genitourinary: No bladder tenderness, no flank pain. Normal to palpation. Condom catheter Musculoskeletal: Extremities tone within normal limits. Right lower extremity appears slightly larger than left. No signs of edema. Neurological: CN II - XII grossly intact. Extremity motor and sensation grossly intact. Gait not assessed Skin: Warm, dry and intact. Multiple ecchymosis on bilateral arms Psychiatric: Patient has good affect, is cooperative Objective Labs 05/03/25 05:04 05/03/25 05:04 Labs: Laboratory Results - last 24 hr 04/29/25 05/02/25 04:32 05:05 Sodium 138 Potassium 3.8 Chloride 97 L Carbon Dioxide 32.4 H Anion Gap 9 BUN 50 H Creatinine 1.1 Estim Creat Clear Calc 55.3 L eGFR > 60 BUN/Creatinine Ratio 45 H Glucose 176 H Calculated Osmolality 292 Calcium 8.0 L Beta-(1,3)-D-Glucan <31 B-(1,3)-D-Glucan Intrp NEGATIVE ABG Interpretation ABG results: 04/25/25 04/27/25 04/27/25 13:58 13:25 22:23 ABG pH 7.45 7.51 H 7.48 H ABG pCO2 34 38 40 ABG pO2 73 L 68 L 63 L ABG HCO3 23 30 H 29 H ABG O2 Saturation 97 95 93 ABG Base Excess 0 6 H 5 H 04/28/25 08:42 ABG pH 7.48 H ABG pCO2 41 ABG pO2 64 L ABG HCO3 30 H ABG O2 Saturation 93 ABG Base Excess 6 H Quality Measures Quality Measures VTE prophylaxis Advance care planning discussed with:: patient Assessment & Plan Assessment Current Active Medications: Generic Name Dose Route Start Last Admin Trade Name Freq PRN Reason Stop Dose Admin Acetaminophen 650 mg 04/26/25 07:40 Acetaminophen 325 Mg Tablet PO 05/25/25 12:22 Q6H PRN Fever >100.3 or pain 1-3 Acetylcysteine 3 ml 05/01/25 19:00 05/02/25 12:50 Acetylcysteine Rand 20% 4 Ml Nebu INH 05/31/25 18:59 3 ml Q6HRRT JANINE Administration Amiodarone HCl 200 mg 04/25/25 19:05 05/02/25 09:54 Amiodarone Hcl 200 Mg Tablet PO 05/25/25 19:04 200 mg BID JANINE Administration Apixaban 5 mg 04/25/25 21:00 05/02/25 09:56 Apixaban 2.5 Mg Tablet PO 05/25/25 20:59 5 mg BID JANINE Administration Atorvastatin Calcium 80 mg 04/25/25 21:00 05/01/25 20:41 Atorvastatin Calcium 20 Mg Tablet PO 05/25/25 20:59 80 mg QPM JANINE Administration Benzonatate 200 mg 04/25/25 14:15 05/02/25 13:38 Benzonatate 100 Mg Capsule PO 05/25/25 14:14 200 mg TID JANIEN Administration Protocol Buspirone HCl 10 mg 04/25/25 21:00 05/02/25 09:56 Buspirone Hcl 5 Mg Tablet PO 05/25/25 20:59 10 mg BID JANINE Administration Carbidopa/Levodopa 1 tab 04/25/25 21:00 05/02/25 09:59 Carbidopa/Levodopa Cr 25/100 Tabcr PO 05/25/25 20:59 1 tab BID JANINE Administration Diltiazem HCl 60 mg 04/25/25 22:00 05/02/25 13:44 Diltiazem 30 Mg Tablet PO 05/25/25 21:59 60 mg TID JANINE Administration Dutasteride 0.5 mg 04/25/25 21:00 05/01/25 20:40 Dutasteride 0.5 Mg Capsule (Non-Formulary) PO 05/25/25 20:59 0.5 mg QPM JANINE Administration Furosemide 40 mg 05/02/25 13:15 05/02/25 13:43 Furosemide Inj 10 Mg/Ml 4ml Vial IVP 06/01/25 13:14 40 mg QDAY JANINE Administration Guaifenesin 100 mg 04/25/25 17:00 05/02/25 12:52 Guaifenesin Syrup 200 Mg/10 Ml Udc PO 05/25/25 16:59 100 mg QID JANINE Administration Protocol Cefepime HCl 2 gm/ Sodium 50 mls @ 100 mls/hr 04/27/25 11:07 05/02/25 13:43 Chloride IV 05/04/25 11:06 100 mls/hr Q8HR JANINE Administration Doxycycline Hyclate 100 mg/ 100 mls @ 100 mls/hr 04/30/25 21:00 05/02/25 09:57 Sodium Chloride IV 05/07/25 20:59 100 mls/hr BID JANINE Administration Ipratropium [place] 0.5 mg 04/25/25 19:00 05/02/25 12:50 Ipratropium Rt 0.5 Mg/ 2.5 Ml Nebu INH 05/25/25 18:59 0.5 mg Q6HRRT JANINE Administration Levalbuterol HCl 0.63 mg 04/27/25 13:00 05/02/25 12:49 Levalbuterol Rt 0.63 Mg/3 Ml Nebu INH 05/27/25 12:59 0.63 mg Q6HRRT JANINE Administration Losartan Potassium 50 mg 05/02/25 09:00 05/02/25 09:56 Losartan Potassium 25 Mg Tablet PO 06/01/25 08:59 50 mg QDAY JANINE Administration Melatonin 6 mg 05/01/25 21:00 05/01/25 21:54 Melatonin 3 Mg Tablet PO 05/31/25 20:59 6 mg HS JANINE Administration Methylprednisolone Sodium Succinate 60 mg 04/27/25 13:30 05/02/25 13:38 Methylprednisolone Sod Succ 40 Mg Vial IVP 05/04/25 13:29 60 mg Q8H JANINE Administration Montelukast Sodium 10 mg 04/26/25 09:00 05/02/25 09:56 Montelukast Sodium 10 Mg Tablet PO 05/26/25 08:59 10 mg QAM JANINE Administration Ondansetron HCl 4 mg 04/25/25 12:23 Ondansetron Inj 2 Mg/Ml Inj 2 Ml IVP 05/25/25 12:22 Q6H PRN NAUSEA OR VOMITING Protocol Pantoprazole Sodium 40 mg 05/01/25 09:00 05/02/25 09:56 Pantoprazole 40 Mg Tablet PO 05/31/25 08:59 40 mg QDAY JANINE Administration Protocol Sennosides 1 tab 04/26/25 09:00 05/02/25 09:56 Senna Tablet PO 05/26/25 08:59 1 tab QDAY JANINE Administration Protocol Tamsulosin HCl 0.4 mg 04/26/25 09:00 05/02/25 09:57 Tamsulosin Hcl 0.4 Mg Capsule PO 05/26/25 08:59 0.4 mg QAM JANINE Administration Plan Summary: Patient is an 79-year-old male with a past medical history significant for essential tremor, BPH, primary hypertension, hyperlipidemia and history of stroke in 2022 with residual right leg weakness who initially presented on 04/25/2025 with chief complaints of cough and shortness of breath, subsequently admitted for treatment and management of acute respiratory failure with hypoxia secondary to community-acquired pneumonia. #ARDS #Acute respiratory failure with hypoxia secondary to likely community-acquired pneumonia #?Acute interstitial pneumonitis versus underlying interstitial lung disease #Community-acquired pneumonia failing outpatient treatment Patient presented with worsening cough and shortness of breath refractory to outpatient antibiotics. On exam had severely reduced air entry in all lung noonan with mild crackles at bases. Labs showed WBC 28.4, lactic acid 5.4, BNP 629 and troponin 0.135 Chest x-ray showed extensive bilateral consolidation CT scan of the chest done during ICU showed severe bilateral lung opacity, pneumonia/ARDS pattern. PSI; risk class IV. Hospitalization recommended based on risk Westfall score; positive; severe ARDS P/F ratio 84.7. 45% mortality S/F ratio : 117.5 - Non-intubated ARDS Ronda index; 3.69 points. Risk of HFNC failure is high Echo showed normal left ventricular function with ejection fraction of 55 to 60%. Grade 1 diastolic dysfunction. Cocci IgM and IgG was negative x2 Beta-1 3D glucan negative Plan: ? Pending ANCA screen, antiproteinase 3 and antimyeloperoxidase ? Continue IV doxycycline 100 mg BID (04/30- ? Continue IV cefepime 2 g IV Q8h (04/27- ? Continue Solu-Medrol 60 mg IV every 8 hours ? Discontinued Lasix 40 Mg IV twice daily due to mild DEVYN/contraction alkalosis ? Levalbuterol nebs Q6 hourly ? Ipratropium nebs Q6 hourly ? Chest physiotherapy Q6 hourly ? Acapella device Q6 hourly - Continue Mucomyst q6h #New onset A-fib with RVR #Diastolic dysfunction grade 1 Patient endorsed some palpitations earlier this hospitalization. Initial EKG showed A-fib with RVR 155 and repeat showed A-fib rate 93. No acute ST changes Received diltiazem 15 Mg IV x 1 followed by non titratable diltiazem infusion in the ED after which rate improved to 93 [id number]; 5 points; stroke risk 7.2%. HAS-BLED; 4 points. Major risk of bleeding Echocardiogram showed ejection fraction of 60%, diastolic dysfunction grade 1. Cardiology discontinued Plavix 75 mg daily on 03/30 as there is no clinical indication at this time Plan: ? Continue telemetry monitoring ? Continue 1500 cc/day fluid restriction, strict ins and out. Diuresis has been discontinued ? Continue diltiazem 60 Mg p.o. 3 times daily for rate control ? Continue amiodarone 200 Mg p.o. twice daily as per cardiology recommendations ? Continue apixaban 5 Mg p.o. twice daily as per cardiology recommendations ? Signal Technician, Dr. Americo Morrison consulted and closely following. Appreciate recommendations - Restarted Lasix 40 mg IV qday #Acute kidney injury Mild DEVYN noted, patient was on Lasix 40 mg twice daily per cardiology recommendations. Discontinued diuresis yesterday due to DEVYN, noted improvement in creatinine 1.3 to 1.1 - Continue to monitor renal function #Primary hypertension #Hyperlipidemia Plan: ? Continue home medication atorvastatin ? Patient is on Cardizem 60 mg p.o. TID - Continue losartan 50 mg qday #Right lower extremity swelling On exam right lower extremity appears to be mildly larger than the left. When questioned patient states that he had an outpatient duplex ultrasound which was negative for DVT #Troponinemia #NSTEMI type II On admission troponin mildly elevated at 0.135 down trended to 0.125. Most likely type II in setting of demand ischemia from pneumonia. -No need to further trend troponins #Essential tremor Patient was never diagnosed formally by neurologist for Parkinson's disease, did have carbidopa levodopa started by primary care physician for tremor. Patient otherwise denies any dysphagia, has no resting tremor, denies any difficulty ambulating -Continue home dose carbidopa levodopa -Patient is on buspirone at home, continue #BPH -Continue Flomax, dutasteride Health maintenance: Disposition: IV antibiotics. HFNC. Diet: Regular Lines: pIVs GI Prophylaxis: Pantoprazole 40 Mg IV daily Thrombo Prophylaxis: Apixaban Code status: DNR Patient plan of care was discussed with the attending physician, Dr. Call. Nara Ambrocio, PGY-2 Attending Provider Attestation/Addendum I attest that I was physically present for the evaluation, physical examination, lab and imaging review of the patient with the residents. I discussed the case with the residents and agree with the findings and plans of care as documented above. At bedside today, patient states he feels similar, compared to yesterday. Continues to be on high flow nasal cannula, 35 L/85 FiO2. Continues to have tachycardia around low 20s, Has decreased air entry bilaterally and basal crackles. Appears to be in mild distress. Lab results show BUN/creatinine of 50/1.1. Continues to be on broad-spectrum IV antibiotics along with IV steroid. Had a meeting with family, patient, customer relations specialist at bedside. Explained in detail regarding his current condition, including his chest CT finding which shows significant pulmonary fibrosis and extensive superimposed bilateral pneumonia. Explained in detail about ongoing treatment, lack of significant improvement despite the aggressive treatment. Also discussed about his guarded prognosis. Presented with options for further management including continuation of aggressive therapy, heading towards palliative care/hospice/comfort measures. Family initially stated about discussing the options with rest of the family members and coming to her decision. Later in the evening, discussed with the family again. Family stated that since we do not have ongoing pulmonology service, they would like the patient to be transferred for pulmonology evaluation to explore any other available treatment options. Discussed with the transfer nurse, transfer process initiated for pulmonology consult and service. Prognosis is guarded. Naseem Call MD
--- NOTE | 2025-05-02 15:38 | PC.SS ---
BEE ROBBER informed by bedside nurse that patient and family requesting transfer. BEE ROBBER met with patient and family. Transfer request for pulmonology services. Preferred settings are [facility] or [facility]. Patient currently on high flow nasal cannula 35L. BEE ROBBER notified medical team of transfer request.
--- NOTE | 2025-05-02 17:26 | PC.CM ---
Addendum entered by Jose Rutledge RN 05/03/25 08:32: 0832 clinicals sent to [facility]. Original Note: 1900 spoke to Madison at [facility]. She stated transfer is declined due to no pulmonology services available. 1841 spoke to Anjali at [facility] and initiated the transfer. Anjali stated pulmonology is available only during the day time. She stated to follow back after 0800 am tomorrow morning that is when pulmonology will be available. She stated she will keep the pt on her list and transfer nurse at [facility] will follow on the transfer request. 1815 clinicals sent to [facility] and [facility]. [address] Ambrocio, pt needs to be transferred, requesting pulmonary consult for PNA on pulmonary fibrosis.
--- NOTE | 2025-05-02 17:26 | PC.ADMIT ---
181 clinicals sent to [facility]. [address] Ambrocio, pt needs to be transferred, requesting pulmonary consult for PNA on pulmonary fibrosis.
[2025-05-02] MEDS: ATORVASTATIN CALCIUM 20 MG TABLET 80 MG PO (20:43)
[2025-05-02] MEDS: DUTASTERIDE 0.5 MG CAPSULE (NON-FORMULARY) PO (20:43)
[2025-05-02] MEDS: DiphenhydrAMINE INJ 50 MG/ML VIAL 12.5 MG IVP (22:35)
[2025-05-03] VITALS (19 sets, daily range): BP systolic 138–167; BP diastolic 51–87; PULSE 66–95; RESP 19–30; TEMP 36.1–36.6; O2SAT 90–97; BMI 26.9
--- NOTE | 2025-05-03 00:08 | ESPR_ITS ---
RE: DANISHA PEOPLES : 1945 DATE OF SERVICE: 05/02/2025 HISTORY OF PRESENT ILLNESS: The patient is an 79-year-old male admitted to the hospital for multiple problems, especially shortness of breath due to severe pneumonia and ARDS. He still has a lot of shortness of breath, high flow oxygen. He does not complain of any chest pain; however he has had stroke. Clinically remain stable. He does not complain of any chest pain, orthopnea, or PND. OBJECTIVE: Vital Signs: His vital signs are stable. Blood pressure 154/ . Pulse rate is 80, respirations 20. Temperature normal. Pulse oximetry 94%. HEENT: Head is atraumatic normocephalic. Eyes normal. Neck: Supple. No JVD. Chest: Symmetrical. Lungs: Decreased breath sounds. Heart: S1, S2 regular. No gallops. Abdomen: Thin and soft. Extremities: Mild edema. LABORATORY DATA: Showed white count down to 18.9. Hematocrit is . Creatinine is 1.1. BUN 50. IMPRESSION: 1. Bilateral extensive pneumonia and ARDS. 2. Mild congestive heart failure, improved. 3. Prerenal azotemia, BUN is slightly elevated. Creatinine is normal. RECOMMENDATIONS: Continue antibody therapy. The patient is also receiving bronchodilator therapy as well as diltiazem 60 mg rate control along with Lasix 40 mg daily again and losartan 50 mg once a day along with methylprednisolone as well. Condition remains stable, but progress is guarded. DT: 22:53:48 TT: 23:54:00 Ref: [id number] - TID: [id number]
[2025-05-03] MEDS: ACETYLCYSTEINE SOL 20% 4 ML NEBU 3 ML INH ×3 (01:30→12:11)
[2025-05-03] MEDS: IPRATROPIUM RT 0.5 MG/ 2.5 ML NEBU INH ×3 (01:30→12:11)
[2025-05-03] MEDS: LEVALBUTEROL RT 0.63 MG/3 ML NEBU INH ×3 (01:30→12:11)
[2025-05-03 05:37] LABS: Basophils % (Auto) 0 % (0-2.5); Eosinophils % (Auto) 0 % (0-10); Hematocrit 36.8 % (41.0-53.0); Hemoglobin 13.4 g/dL (13.5-16.0); Immature Granulocytes % (Auto) 2 % (0-0); Immature Granulocytes Auto 0.37 Thou/mm3 (0.00-0.00); Lymphocytes # (Auto) 0.4 Thou/mm3 (1.0-4.8); Lymphocytes % (Auto) 2 % (10-50); Mean Corpuscular HGB Conc 36.4 g/dl (31.0-37.0); Mean Corpuscular Hemoglobin 30.2 pg (25.0-35.0); Mean Corpuscular Volume 83 fL (80-100); Monocytes # (Auto) 0.7 Thou/mm3 (0.0-0.8); Monocytes % (Auto) 4 % (0-12); Neutrophils % (Auto) 92 % (37-80); Nucleated Red Blood Cell % 0 /100 WBC (0); Platelet Count 160 Thou/mm3 (140-440); RDW Standard Deviation 40.2 fL (35.1-43.9); Red Blood Count 4.43 Miln/mm3 (4.50-5.90); White Blood Count 18.4 Thou/mm3 (3.8-10.6)
[2025-05-03 06:05] LABS: Anion Gap 9 (7-16); BUN/Creatinine Ratio 41 Ratio (12-20); Blood Urea Nitrogen 49 mg/dL (9-23); Carbon Dioxide 31.4 mMol/L (20.0-31.0); Chloride 94 mMol/L (98-107); Creatinine (Component) 1.2 mg/dL (0.6-1.3); Estimated Creatinine Clearance 50.7 mL/min (>60); Glucose 217 mg/dL (74-106); Osmolality,Calculated 288 (275-295); Potassium 4.4 mMol/L (3.4-5.1); Sodium 134 mMol/L (136-145); eGFR > 60 See Note
[2025-05-03] MEDS: BENZONATATE 100 MG CAPSULE 200 MG PO ×3 (06:13→21:13)
[2025-05-03] MEDS: guaiFENesin SYRUP 200 MG/10 ML UDC 100 MG PO ×4 (06:13→21:11)
[2025-05-03] MEDS: DILTIAZEM 30 MG TABLET 60 MG PO ×3 (06:13→21:10)
[2025-05-03] MEDS: CEFEPIME INJ 2 GM in SODIUM CHLORIDE 0.9% (Popper) 50 ML IV ×3 (06:16→22:20)
--- NOTE | 2025-05-03 08:14 | PC.CC ---
Addendum entered by Jose Rutledge RN 05/03/25 18:10: [address] Romano and updated him on transfer so far and also informed about recommendations given by [facility] manager aviation which are give broad spectrum abx, low dose steriods, diflucan, complete cocci serology. 1729 received call from pt daughter Lorie. I gave her the updates so for and the outcome. She stated [facility] transfer nurse is saying that they can help. I informed her that I already reached out to [facility] and [facility] is also under that TC. I explained her the medical team and pulmonology already reviewed the case and decline saying there is nothing they will do differently in treatment than what pt is already getting. It is a lateral request and therefore, transfer is declined. Lorie keep on insisting to transfer the pt out. Addendum entered by Jose Rutledge RN 05/03/25 18:04: 1648 received called from Samira at [facility] transfer center saying pulmonology is declining the transfer. But they do have recommendation- give broad spectrum abx, low dose steriods, diflucan, complete cocci serology. She also stated they don't have coverage for pulmonology during the weekend. But we can try back again on Tuesday. Addendum entered by Jose Rutledge RN 05/03/25 16:22: [address] Engle regarding the update so far. He still wants us to keep trying. I informed him the outcome of all the facilities that I have reached out too. He stated he understand and it's the family who is requesting. Addendum entered by Jose Rutledge RN 05/03/25 16:11: 1448 received call from Vicki at [facility]. Vicki stated pulmonology and medical team both reviewed the case and stated there is nothing they will do differently in treatment than what pt is already getting. It is a lateral request and therefore, transfer is declined. Addendum entered by Jose Rutledge RN 05/03/25 13:00: 1249 received call from Vicki at [facility]. She stated looks like it's a lateral transfer request. She stated they don't have pulmonology as an motor vehicle or caravan salesperson service. But she can present it to her medical team. She also requested to speak to Dr. Ambrocio, Dr. Ambrocio is not available. Conference call connected with Dr. Call. Addendum entered by Jose Rutledge RN 05/03/25 12:51: 1230 CT report send over to [facility]. 1115 received call from Loreta at [facility]. She wants me to send over the CT report. I informed her I am working on multiple stat transfers and I will send it once I get a chance. Addendum entered by Jose Rutledge RN 05/03/25 12:40: 1132 received call from Yaneth at [facility]. Patient is decliend due to capacity. 1035 received call from Allen at [facility] that pulmonology is not an motor vehicle or caravan salesperson service at [place]. He stated he did reach out to his medical team and product manager medical device and they declined the pt stating pt doesn't need transfer medically. Addendum entered by Jose Rutledge RN 05/03/25 08:51: 0846 called [facility], spoke to Allen and initiated the transfer. He stated to fax clinicals. I informed it has been sent, he would be getting it soon. Addendum entered by Jose Rutledge RN 05/03/25 08:46: 0845 clinicals sent to [facility] and [facility]. 0840 I reviewed DrRoseanna notes that family is requesting to reach out to [facility] and [place] like facilities. Addendum entered by Jose Rutledge RN 05/03/25 08:38: 0833 Called [facility], spoke to Yaneth and initiated the transfer. She stated to fax clinicals. Addendum entered by Jose Rutledge RN 05/03/25 08:27: 0824 called [facility], spoke to [place] and initiated the transfer. She stated to send clinicals and nurse will give me a call back. Original Note: 0813 spoke to Samira at [facility] for transfer update. She stated she was informed there is no need of HLOC transfer. Pt can be managed medically. Because the pt doesn't need any procedures which would require pulmonology. I requested her if we can get pulmonology consult for his recommendations and if the pulmonology can speak to our dr. She stated that she will see if she can help.
--- NOTE | 2025-05-03 08:15 | PC.SS ---
Addendum entered by RASHARD Ryder 05/03/25 14:31: Rounding note: patient is pending transfer for pulmonology services per family's request. Addendum entered by RASHARD Ryder 05/03/25 12:57: SS follow up: provided update to patient's . Original Note: SS follow up: updated patient's Lorie on current status for transfer as she called SS. She is aware our transfer nurse is actively working on this and no current accepting at this time.
[2025-05-03] MEDS: AMIODARONE HCL 200 MG TABLET PO ×2 (08:36→21:11)
[2025-05-03] MEDS: PANTOPRAZOLE 40 MG TABLET PO (08:36)
[2025-05-03] MEDS: APIXABAN 2.5 MG TABLET 5 MG PO ×2 (08:36→21:10)
[2025-05-03] MEDS: SENNA TABLET 1 TAB PO (08:36)
[2025-05-03] MEDS: LOSARTAN POTASSIUM 25 MG TABLET 50 MG PO (08:37)
[2025-05-03] MEDS: FUROSEMIDE INJ 10 MG/ML 4ML VIAL 40 MG IVP (08:38)
[2025-05-03] MEDS: TAMSULOSIN HCL 0.4 MG CAPSULE PO (08:38)
[2025-05-03] MEDS: BusPIRone HCL 5 MG TABLET 10 MG PO ×2 (08:38→21:10)
[2025-05-03] MEDS: MONTELUKAST SODIUM 10 MG TABLET PO (08:38)
[2025-05-03] MEDS: DOXYCYCLINE INJ 100 MG in SODIUM CHLORIDE 0.9% (POP) 100 ML IV ×2 (08:39→21:12)
[2025-05-03] MEDS: TABCR PO ×2 (10:28→21:10)
[2025-05-03] MEDS: LEVODOPA PO ×2 (10:28→21:10)
[2025-05-03] MEDS: CARBIDOPA PO ×2 (10:28→21:10)
--- NOTE | 2025-05-03 11:43 | PD.RESPRO ---
Documentation for date of: 05/03/25 Subjective Subjective Interval history: Patient seen and examined at bedside. Patient is on 35 L oxygen, FiO2 75%, saturating well at 93. Patient appears tired, complains of insomnia, was given Benadryl 12.5 mg IV x 1 overnight, reports that it did help him with insomnia. Patient will be given p.o. Benadryl as needed. Patient and patient's family are requesting transfer for pulmonology service, transfer center has received multiple denials from different facilities regarding transfer. Will continue to down titrate high flow nasal cannula with goal SpO2 92, continue IV antibiotics, IV steroids and breathing treatments. Exam Vital Signs Temp Pulse Resp BP Pulse Ox O2 Del Method O2 Flow Rate 97.9 F 68 30 H 152/81 H 97 High Flow Nasal Cannula 35 05/03/25 08:00 05/03/25 10:40 05/03/25 10:40 05/03/25 08:38 05/03/25 10:40 05/03/25 08:00 05/03/25 10:40 FiO2 85 05/03/25 10:40 Narrative Exam Constitutional: Alert, oriented x 3 and comfortable. Elderly male on HFNC at 35L/min and 75% FiO2. Able to speak in full sentences HEENT: Vision grossly intact. Patent nares. Trachea midline Respiratory: Chest normal on inspection and decreased air entry in all lung noonan, fine inspiratory crackles and coarse crackles at bilateral bases. Abdominal breathing with accessory muscle use Cardiovascular: S1 and S2 audible, RRR. 4/6 ejection systolic murmur heard at right sternal border with radiation to bilateral carotid. JVD not assessed Abdominal: Soft, obese and non tender to palpation in all quadrants. BS + Genitourinary: No bladder tenderness, no flank pain. Normal to palpation. Condom catheter Musculoskeletal: Extremities tone within normal limits. Right lower extremity appears slightly larger than left. No signs of edema. Neurological: CN II - XII grossly intact. Extremity motor and sensation grossly intact. Gait not assessed Skin: Warm, dry and intact. Multiple ecchymosis on bilateral arms Psychiatric: Patient has good affect, is cooperative Objective Labs 05/03/25 05:04 05/03/25 05:04 Labs: Laboratory Results - last 24 hr 05/03/25 05:04 WBC 18.4 H RBC 4.43 L Hgb 13.4 L Hct 36.8 L MCV 83 MCH 30.2 MCHC 36.4 RDW Std Deviation 40.2 Plt Count 160 D Neut % (Auto) 92 H Lymph % (Auto) 2 L Lucas % (Auto) 4 Eos % (Auto) 0 Baso % (Auto) 0 Neut # (Auto) 17.0 H Lymph # (Auto) 0.4 L Lucas # (Auto) 0.7 Eos # (Auto) 0.0 Baso # (Auto) 0.0 Immature Gran # (Auto) 0.37 H Absolute Nucleated RBC 0.00 Immature Gran % 2 H Nucleated RBC % 0 Sodium 134 L Potassium 4.4 D Chloride 94 L Carbon Dioxide 31.4 H Anion Gap 9 BUN 49 H Creatinine 1.2 Estim Creat Clear Calc 50.7 L eGFR > 60 BUN/Creatinine Ratio 41 H Glucose 217 H Calculated Osmolality 288 Calcium 9.0 ABG Interpretation ABG results: 04/25/25 04/27/25 04/27/25 13:58 13:25 22:23 ABG pH 7.45 7.51 H 7.48 H ABG pCO2 34 38 40 ABG pO2 73 L 68 L 63 L ABG HCO3 23 30 H 29 H ABG O2 Saturation 97 95 93 ABG Base Excess 0 6 H 5 H 04/28/25 08:42 ABG pH 7.48 H ABG pCO2 41 ABG pO2 64 L ABG HCO3 30 H ABG O2 Saturation 93 ABG Base Excess 6 H Quality Measures Quality Measures VTE prophylaxis Advance care planning discussed with:: patient Assessment & Plan Assessment Current Active Medications: Generic Name Dose Route Start Last Admin Trade Name Freq PRN Reason Stop Dose Admin Acetaminophen 650 mg 04/26/25 07:40 Acetaminophen 325 Mg Tablet PO 05/25/25 12:22 Q6H PRN Fever >100.3 or pain 1-3 Acetylcysteine 3 ml 05/01/25 19:00 05/03/25 06:40 Acetylcysteine Rand 20% 4 Ml Nebu INH 05/31/25 18:59 3 ml Q6HRRT JANINE Administration Amiodarone HCl 200 mg 04/25/25 19:05 05/03/25 08:36 Amiodarone Hcl 200 Mg Tablet PO 05/25/25 19:04 200 mg BID JANINE Administration Apixaban 5 mg 04/25/25 21:00 05/03/25 08:36 Apixaban 2.5 Mg Tablet PO 05/25/25 20:59 5 mg BID JANINE Administration Atorvastatin Calcium 80 mg 04/25/25 21:00 05/02/25 20:43 Atorvastatin Calcium 20 Mg Tablet PO 05/25/25 20:59 80 mg QPM JANINE Administration Benzonatate 200 mg 04/25/25 14:15 05/03/25 06:13 Benzonatate 100 Mg Capsule PO 05/25/25 14:14 200 mg TID JANINE Administration Protocol Buspirone HCl 10 mg 04/25/25 21:00 05/03/25 08:38 Buspirone Hcl 5 Mg Tablet PO 05/25/25 20:59 10 mg BID JANINE Administration Carbidopa/Levodopa 1 tab 04/25/25 21:00 05/03/25 10:28 Carbidopa/Levodopa Cr 25/100 Tabcr PO 05/25/25 20:59 1 tab BID JANINE Administration Dextrose 25 ml 05/03/25 09:39 Dextrose 50%-Water Inj 50 Ml Syringe IV 06/02/25 09:38 Q15MIN PRN BG 50-70 responsive npo pt Dextrose 50 ml 05/03/25 09:39 Dextrose 50%-Water Inj 50 Ml Syringe IV 06/02/25 09:38 Q15MIN PRN BG <50 OR BG <70 & pt unresponsive Diltiazem HCl 60 mg 04/25/25 22:00 05/03/25 06:13 Diltiazem 30 Mg Tablet PO 05/25/25 21:59 60 mg TID JANINE Administration Dutasteride 0.5 mg 04/25/25 21:00 05/02/25 20:43 Dutasteride 0.5 Mg Capsule (Non-Formulary) PO 05/25/25 20:59 0.5 mg QPM JANINE Administration Furosemide 40 mg 05/02/25 13:15 05/03/25 08:38 Furosemide Inj 10 Mg/Ml 4ml Vial IVP 06/01/25 13:14 40 mg QDAY JANINE Administration Glucagon 1 mg 05/03/25 09:39 Glucagon Inj 1 Mg Vial IM Q15MIN PRN BG <70, and no IV access Guaifenesin 100 mg 04/25/25 17:00 05/03/25 06:13 Guaifenesin Syrup 200 Mg/10 Ml Udc PO 05/25/25 16:59 100 mg QID JANINE Administration Protocol Cefepime HCl 2 gm/ Sodium 50 mls @ 100 mls/hr 04/27/25 11:07 05/03/25 06:16 Chloride IV 05/04/25 11:06 100 mls/hr Q8HR JANINE Administration Doxycycline Hyclate 100 mg/ 100 mls @ 100 mls/hr 04/30/25 21:00 05/03/25 08:39 Sodium Chloride IV 05/07/25 20:59 100 mls/hr BID JANINE Administration Insulin Human Lispro 0 unit 05/03/25 11:30 Insulin Lispro (Admelog) 1 Unit/0.01 Ml Unit SC 06/02/25 11:29 AC JANINE Protocol Ipratropium [place] 0.5 mg 04/25/25 19:00 05/03/25 06:40 Ipratropium Rt 0.5 Mg/ 2.5 Ml Nebu INH 05/25/25 18:59 0.5 mg Q6HRRT JANINE Administration Levalbuterol HCl 0.63 mg 04/27/25 13:00 05/03/25 06:41 Levalbuterol Rt 0.63 Mg/3 Ml Nebu INH 05/27/25 12:59 0.63 mg Q6HRRT JANINE Administration Losartan Potassium 50 mg 05/02/25 09:00 05/03/25 08:37 Losartan Potassium 25 Mg Tablet PO 06/01/25 08:59 50 mg QDAY JANINE Administration Melatonin 6 mg 05/01/25 21:00 05/02/25 21:47 Melatonin 3 Mg Tablet PO 05/31/25 20:59 Not Given HS REPLACED BY [facility] Methylprednisolone Sodium Succinate 60 mg 04/27/25 13:30 05/03/25 06:15 Methylprednisolone Sod Succ 40 Mg Vial IVP 05/04/25 13:29 60 mg Q8H JANINE Administration Montelukast Sodium 10 mg 04/26/25 09:00 05/03/25 08:38 Montelukast Sodium 10 Mg Tablet PO 05/26/25 08:59 10 mg QAM JANINE Administration Ondansetron HCl 4 mg 04/25/25 12:23 Ondansetron Inj 2 Mg/Ml Inj 2 Ml IVP 05/25/25 12:22 Q6H PRN NAUSEA OR VOMITING Protocol Pantoprazole Sodium 40 mg 05/01/25 09:00 05/03/25 08:36 Pantoprazole 40 Mg Tablet PO 05/31/25 08:59 40 mg QDAY REPLACED BY [facility] Administration Protocol Sennosides 1 tab 04/26/25 09:00 05/03/25 08:36 Senna Tablet PO 05/26/25 08:59 1 tab QDAY REPLACED BY [facility] Administration Protocol Tamsulosin HCl 0.4 mg 04/26/25 09:00 05/03/25 08:38 Tamsulosin Hcl 0.4 Mg Capsule PO 05/26/25 08:59 0.4 mg QAM REPLACED BY [facility] Administration Plan Summary: Patient is an 79-year-old male with a past medical history significant for essential tremor, BPH, primary hypertension, hyperlipidemia and history of stroke in 2022 with residual right leg weakness who initially presented on 04/25/2025 with chief complaints of cough and shortness of breath, subsequently admitted for treatment and management of acute respiratory failure with hypoxia secondary to community-acquired pneumonia. #ARDS #Acute respiratory failure with hypoxia secondary to likely community-acquired pneumonia #Pulmonary fibrosis #?Acute interstitial pneumonitis versus underlying interstitial lung disease #Community-acquired pneumonia failing outpatient treatment Patient presented with worsening cough and shortness of breath refractory to outpatient antibiotics. On exam had severely reduced air entry in all lung noonan with mild crackles at bases. Labs showed WBC 28.4, lactic acid 5.4, BNP 629 and troponin 0.135 Chest x-ray showed extensive bilateral consolidation CT scan of the chest done during ICU showed severe bilateral lung opacity, pneumonia/ARDS pattern. CT chest without contrast done on 05/01/2025 shows pulmonary fibrosis pattern throughout the lungs with superimposed extensive bilateral pneumonia PSI; risk class IV. Hospitalization recommended based on risk Mcintosh score; positive; severe ARDS P/F ratio 84.7. 45% mortality S/F ratio : 117.5 - Non-intubated ARDS Ronda index; 3.69 points. Risk of HFNC failure is high Echo showed normal left ventricular function with ejection fraction of 55 to 60%. Grade 1 diastolic dysfunction. Cocci IgM and IgG was negative x2 Beta-1 3D glucan negative Plan: ? Pending ANCA screen, antiproteinase 3 and antimyeloperoxidase ? Continue IV doxycycline 100 mg BID (04/30- ? Continue IV cefepime 2 g IV Q8h (04/27- ? Continue Solu-Medrol 60 mg IV every 8 hours ? Continue Lasix 40 Mg IV daily ? Levalbuterol nebs Q6 hourly ? Ipratropium nebs Q6 hourly ? Chest physiotherapy Q6 hourly ? Acapella device Q6 hourly - Continue Mucomyst q6h #New onset A-fib with RVR #Diastolic dysfunction grade 1 Patient endorsed some palpitations earlier this hospitalization. Initial EKG showed A-fib with RVR 155 and repeat showed A-fib rate 93. No acute ST changes Received diltiazem 15 Mg IV x 1 followed by non titratable diltiazem infusion in the ED after which rate improved to 93 [id number]; 5 points; stroke risk 7.2%. HAS-BLED; 4 points. Major risk of bleeding Echocardiogram showed ejection fraction of 60%, diastolic dysfunction grade 1. Cardiology discontinued Plavix 75 mg daily on 03/30 as there is no clinical indication at this time Plan: ? Continue telemetry monitoring ? Continue 1500 cc/day fluid restriction, strict ins and out. Diuresis has been discontinued ? Continue diltiazem 60 Mg p.o. 3 times daily for rate control ? Continue amiodarone 200 Mg p.o. twice daily as per cardiology recommendations ? Continue apixaban 5 Mg p.o. twice daily as per cardiology recommendations ? Senior Foreman, Dr. Americo Morrison consulted and closely following. Appreciate recommendations - Continue Lasix 40 mg IV qday #Acute kidney injury Mild DEVYN noted, patient was on Lasix 40 mg twice daily per cardiology recommendations. Diuresis was discontinued due to DEVYN, noted improvement in creatinine 1.3 to 1.1 However patient was started on Lasix 40 mg daily per cardiology recommendations, will monitor renal function closely - Continue to monitor renal function #Primary hypertension #Hyperlipidemia Plan: ? Continue home medication atorvastatin ? Patient is on Cardizem 60 mg p.o. TID - Continue losartan 50 mg qday #Multiple liver cyst #Cholelithiasis ? Incidental finding on CT chest ? Patient does not have any abdominal symptoms ? Liver function stable, we will continue to monitor closely #Right lower extremity swelling On exam right lower extremity appears to be mildly larger than the left. When questioned patient states that he had an outpatient duplex ultrasound which was negative for DVT #Troponinemia #NSTEMI type II On admission troponin mildly elevated at 0.135 down trended to 0.125. Most likely type II in setting of demand ischemia from pneumonia. -No need to further trend troponins #Essential tremor Patient was never diagnosed formally by neurologist for Parkinson's disease, did have carbidopa levodopa started by primary care physician for tremor. Patient otherwise denies any dysphagia, has no resting tremor, denies any difficulty ambulating -Continue home dose carbidopa levodopa -Patient is on buspirone at home, continue #BPH -Continue Flomax, dutasteride Health maintenance: Disposition: IV antibiotics. HFNC. Diet: Regular Lines: pIVs GI Prophylaxis: Pantoprazole 40 Mg IV daily Thrombo Prophylaxis: Apixaban Code status: DNR Patient plan of care was discussed with the attending physician, Dr. Call. Glendy Engle, PGY-1 Attending Provider Attestation/Addendum I attest that I was physically present for the evaluation, physical examination, lab and imaging review of the patient with the residents. I discussed the case with the residents and agree with the findings and plans of care as documented above. At bedside today, patient states he is feeling about the same compared to yesterday. Continues to be on high flow nasal cannula, slightly improved compared to yesterday. On 85% FiO2, 35L/min. Continues to be mildly tachycardic and tachypneic. WBC count slowly improving, 18.4 today from 18.9 yesterday. No current sodium level is 134 today, corrected sodium within normal limits. BUN/creatinine slightly worsened, 49/1.2 today. Glucose noted to be high at 217, likely secondary to steroid use, we will start the patient on insulin sliding scale. Continues to be on broad-spectrum antibiotics, IV cefepime and doxycycline. Also continues to be on IV steroids, Solu-Medrol 60 mg every 8 hour. We will continue with Lasix 40 mg daily, if kidney function continues to worsen we will DC tomorrow. Continues to be on chest physiotherapy Mucomyst and nebulization therapy. Cardiology following closely, patient continues to be on diltiazem, amiodarone and apixaban for A-fib with RVR, appreciate recommendations. Prognosis remains guarded. Had a detailed discussion with patient and multiple members of family again today. Explained in detail about how transfer process works. Also informed them about ongoing transfer process. The transfer nurse has attempted for multiple facilities. So far, the facilities have declined the patient either due to bed availability, due to pulmonary service unavailability or the transport being lateral transfer and not being candidate for pulmonology procedure. Explained again about current aggressive medical management and treatment options. Family insisted on continuing transfer process and obtain pulmonology service. We will continue with aggressive management and continue to pursue transfer process. Naseem Call MD
[2025-05-03] MEDS: INSULIN LISPRO (AdmeLOG) 1 UNIT/0.01 ML UNIT SC ×2 (12:12→16:35)
--- NOTE | 2025-05-03 17:08 | EVENTNT_ITS ---
Documentation for date of: 05/03/25 Event Note Event Note: At 4 PM, discussion held with family regarding transfer. Patient's family requested transfer for pulmonology care and supervision considering underlying ARDS, transfer process was initiated yesterday. Family was informed regarding patient being declined from multiple hospitals as transfer is being considered as a lateral transfer by multiple facilities. Family requesting transfer to emergency room in [place], was educated that patient cannot be transferred from inpatient to emergency department, verbalized understanding. Family informed at bedside that the transfer center will continue to try to transfer the patient, [place] was informed at bedside as well. Case discussed with Attending Dr. Call. Glendy Engle PGY1 Disclaimer: This note was dictated by speech recognition. Minor errors in business technology architect may be present due to voice recognition software.
[2025-05-03] MEDS: ATORVASTATIN CALCIUM 20 MG TABLET 80 MG PO (21:10)
[2025-05-03] MEDS: MELATONIN 3 MG TABLET 6 MG PO (21:10)
[2025-05-03] MEDS: DUTASTERIDE 0.5 MG CAPSULE (NON-FORMULARY) PO (21:10)
[2025-05-03] MEDS: ONDANSETRON INJ 2 MG/ML INJ 2 ML 4 MG IVP (22:16)
--- NOTE | 2025-05-03 23:40 | ESPR_ITS ---
RE: DANISHA PEOPLES : 1945 DATE OF SERVICE: 05/03/2025 SUBJECTIVE: The patient is doing a little better today. He is still having a lot of shortness of breath and orthopnea. The patient is not responding that well. He is still on very high flow oxygen due to ARDS, noncardiogenic pulmonary edema and extensive pulmonary infiltrate with interstitial lung disease. The patient's heart failure symptoms appear to be not overloaded. The patient's family is requesting transfer for pulmonology care at [facility] because they are not improving. The patient is, however, stable, not deteriorating any further, not complaining of any chest pain. He also remains stable hemodynamically. OBJECTIVE: Vital Signs: Blood pressure 160/80 and pulse 78. HEENT: Head atraumatic. Neck: Supple. Lungs: Decreased breath sounds. Heart: S1 and S2 regular. Abdomen: Thin and soft. Extremities: Mild edema. IMPRESSION: 1. Acute hypoxic respiratory failure secondary to combination of extensive pneumonia and bilateral alveolar infiltration. 2. Hypertension. RECOMMENDATIONS: The patient continues to be persistently hypertensive. The patient is only on diltiazem. He is also on losartan started yesterday 50 mg daily, probably increased to 100 mg daily if he does not have any problems starting tomorrow for hypertension management. We will also recommend continuing amiodarone for AFib and continues on anticoagulation with apixaban as well because of a history of stroke. DT: 23:02:58 TT: 23:39:00 Ref: [id number] - TID: [id number]
[2025-05-04] VITALS (19 sets, daily range): BP systolic 131–169; BP diastolic 70–96; PULSE 63–81; RESP 20–28; TEMP 36.1–36.8; O2SAT 90–98; BMI 26.9
[2025-05-04] MEDS: DILTIAZEM 30 MG TABLET 60 MG PO ×3 (05:18→21:20)
[2025-05-04] MEDS: BENZONATATE 100 MG CAPSULE 200 MG PO ×3 (05:18→21:21)
[2025-05-04] MEDS: CEFEPIME INJ 2 GM in SODIUM CHLORIDE 0.9% (Popper) 50 ML IV ×3 (05:19→21:13)
[2025-05-04 05:46] LABS: Basophils % (Auto) 0 % (0-2.5); Eosinophils % (Auto) 0 % (0-10); Hematocrit 38.8 % (41.0-53.0); Hemoglobin 13.7 g/dL (13.5-16.0); Immature Granulocytes % (Auto) 2 % (0-0); Immature Granulocytes Auto 0.32 Thou/mm3 (0.00-0.00); Lymphocytes # (Auto) 0.4 Thou/mm3 (1.0-4.8); Lymphocytes % (Auto) 2 % (10-50); Mean Corpuscular HGB Conc 35.3 g/dl (31.0-37.0); Mean Corpuscular Hemoglobin 30.2 pg (25.0-35.0); Mean Corpuscular Volume 86 fL (80-100); Monocytes # (Auto) 0.7 Thou/mm3 (0.0-0.8); Monocytes % (Auto) 3 % (0-12); Neutrophils # (Auto) 17.9 Thou/mm3 (1.8-7.7); Neutrophils % (Auto) 93 % (37-80); Nucleated Red Blood Cell % 0 /100 WBC (0); Platelet Count 142 Thou/mm3 (140-440); RDW Standard Deviation 41.1 fL (35.1-43.9); Red Blood Count 4.53 Miln/mm3 (4.50-5.90); White Blood Count 19.3 Thou/mm3 (3.8-10.6)
[2025-05-04 06:14] LABS: Glucose Estimated Average 134 mg/dL (80-131); Hemoglobin A1C 6.3 % Hgb (4.8-6.0)
[2025-05-04 06:38] LABS: Anion Gap 8 (7-16); BUN/Creatinine Ratio 45 Ratio (12-20); Blood Urea Nitrogen 49 mg/dL (9-23); Carbon Dioxide 30.3 mMol/L (20.0-31.0); Chloride 95 mMol/L (98-107); Creatinine (Component) 1.1 mg/dL (0.6-1.3); Estimated Creatinine Clearance 55.3 mL/min (>60); Glucose 199 mg/dL (74-106); Magnesium 2.5 mg/dL (1.6-2.6); Osmolality,Calculated 285 (275-295); Potassium 4.5 mMol/L (3.4-5.1); Sodium 133 mMol/L (136-145); eGFR > 60 See Note
[2025-05-04] MEDS: INSULIN LISPRO (AdmeLOG) 1 UNIT/0.01 ML UNIT SC ×3 (07:40→16:34)
[2025-05-04] MEDS: FUROSEMIDE INJ 10 MG/ML 4ML VIAL 40 MG IVP (08:49)
[2025-05-04] MEDS: DOXYCYCLINE INJ 100 MG in SODIUM CHLORIDE 0.9% (POP) 100 ML IV (08:49)
[2025-05-04] MEDS: BusPIRone HCL 5 MG TABLET 10 MG PO ×2 (08:50→21:20)
[2025-05-04] MEDS: AMIODARONE HCL 200 MG TABLET PO ×2 (08:51→21:20)
[2025-05-04] MEDS: PANTOPRAZOLE 40 MG TABLET PO (08:51)
[2025-05-04] MEDS: TAMSULOSIN HCL 0.4 MG CAPSULE PO (08:51)
[2025-05-04] MEDS: MONTELUKAST SODIUM 10 MG TABLET PO (08:51)
[2025-05-04] MEDS: TABCR PO ×2 (08:52→21:22)
[2025-05-04] MEDS: SENNA TABLET 1 TAB PO (08:52)
[2025-05-04] MEDS: APIXABAN 2.5 MG TABLET 5 MG PO ×2 (08:52→21:21)
[2025-05-04] MEDS: LEVODOPA PO ×2 (08:52→21:22)
[2025-05-04] MEDS: LOSARTAN POTASSIUM 25 MG TABLET 100 MG PO (08:52)
[2025-05-04] MEDS: CARBIDOPA PO ×2 (08:52→21:22)
[2025-05-04] MEDS: LEVALBUTEROL RT 0.63 MG/3 ML NEBU INH ×2 (12:19→18:05)
[2025-05-04] MEDS: IPRATROPIUM RT 0.5 MG/ 2.5 ML NEBU INH ×2 (12:19→18:05)
[2025-05-04] MEDS: ACETYLCYSTEINE SOL 20% 4 ML NEBU 3 ML INH ×2 (12:19→18:05)
--- NOTE | 2025-05-04 13:08 | PD.RESPRO ---
Documentation for date of: 05/04/25 Subjective Subjective Interval history: Patient seen and examined at bedside. Patient was denied by multiple facilities for transfer, patient and family was informed. Patient was moved to sit at the edge of the bed, patient tolerated well, as patient wiggled his legs, SpO2 decreased to 82?85. Eventually patient was moved back into the bed, was noted to be mildly tachypneic however which time patient returned to SpO2 90s Will continue to have the patient remove at the edge of the bed under supervision daily. Will continue to closely monitor patient, will continue to attempt to transfer the patient. Exam Vital Signs Temp Pulse Resp BP Pulse Ox O2 Del Method O2 Flow Rate 97.4 F 80 28 H 165/84 H 92 L High Flow Nasal Cannula 30 05/04/25 11:51 05/04/25 12:20 05/04/25 12:20 05/04/25 11:51 05/04/25 12:20 05/04/25 11:51 05/04/25 12:20 FiO2 75 05/04/25 12:20 Narrative Exam Constitutional: Alert, oriented x 3 and comfortable. Elderly male on HFNC at 30L/min and 70% FiO2. Able to speak in full sentences HEENT: Vision grossly intact. Patent nares. Trachea midline Respiratory: Chest normal on inspection and decreased air entry in all lung noonan, fine inspiratory crackles and coarse crackles at bilateral bases. Abdominal breathing with accessory muscle use Cardiovascular: S1 and S2 audible, RRR. 4/6 ejection systolic murmur heard at right sternal border with radiation to bilateral carotid. JVD not assessed Abdominal: Soft, obese and non tender to palpation in all quadrants. BS + Genitourinary: No bladder tenderness, no flank pain. Normal to palpation. Condom catheter Musculoskeletal: Extremities tone within normal limits. Right lower extremity appears slightly larger than left. No signs of edema. Neurological: CN II - XII grossly intact. Extremity motor and sensation grossly intact. Gait not assessed Skin: Warm, dry and intact. Multiple ecchymosis on bilateral arms Psychiatric: Patient has good affect, is cooperative Objective Labs 05/04/25 04:57 05/04/25 04:57 Labs: Laboratory Results - last 24 hr 05/04/25 04:57 WBC 19.3 H RBC 4.53 Hgb 13.7 Hct 38.8 L MCV 86 MCH 30.2 MCHC 35.3 RDW Std Deviation 41.1 Plt Count 142 Neut % (Auto) 93 H Lymph % (Auto) 2 L [place] % (Auto) 3 Eos % (Auto) 0 Baso % (Auto) 0 Neut # (Auto) 17.9 H Lymph # (Auto) 0.4 L [place] # (Auto) 0.7 Eos # (Auto) 0.0 Baso # (Auto) 0.0 Immature Gran # (Auto) 0.32 H Absolute Nucleated RBC 0.00 Immature Gran % 2 H Nucleated RBC % 0 Sodium 133 L Potassium 4.5 Chloride 95 L Carbon Dioxide 30.3 Anion Gap 8 BUN 49 H Creatinine 1.1 Estim Creat Clear Calc 55.3 L eGFR > 60 BUN/Creatinine Ratio 45 H Glucose [address] Glu mg/dL 134 H Hemoglobin A1c 6.3 H Calculated Osmolality 285 Calcium 9.0 Magnesium 2.5 ABG Interpretation ABG results: 04/25/25 04/27/25 04/27/25 13:58 13:25 22:23 ABG pH 7.45 7.51 H 7.48 H ABG pCO2 34 38 40 ABG pO2 73 L 68 L 63 L ABG HCO3 23 30 H 29 H ABG O2 Saturation 97 95 93 ABG Base Excess 0 6 H 5 H 04/28/25 08:42 ABG pH 7.48 H ABG pCO2 41 ABG pO2 64 L ABG HCO3 30 H ABG O2 Saturation 93 ABG Base Excess 6 H Quality Measures Quality Measures VTE prophylaxis Advance care planning discussed with:: patient Assessment & Plan Assessment Current Active Medications: Generic Name Dose Route Start Last Admin Trade Name Freq PRN Reason Stop Dose Admin Acetaminophen 650 mg 04/26/25 07:40 Acetaminophen 325 Mg Tablet PO 05/25/25 12:22 Q6H PRN Fever >100.3 or pain 1-3 Acetylcysteine 3 ml 05/01/25 19:00 05/04/25 12:19 Acetylcysteine Rand 20% 4 Ml Nebu INH 05/31/25 18:59 3 ml Q6HRRT JANINE Administration Amiodarone HCl 200 mg 04/25/25 19:05 05/04/25 08:51 Amiodarone Hcl 200 Mg Tablet PO 05/25/25 19:04 200 mg BID JANINE Administration Apixaban 5 mg 04/25/25 21:00 05/04/25 08:52 Apixaban 2.5 Mg Tablet PO 05/25/25 20:59 5 mg BID JANINE Administration Atorvastatin Calcium 80 mg 04/25/25 21:00 05/03/25 21:10 Atorvastatin Calcium 20 Mg Tablet PO 05/25/25 20:59 80 mg QPM JANINE Administration Benzonatate 200 mg 04/25/25 14:15 05/04/25 05:18 Benzonatate 100 Mg Capsule PO 05/25/25 14:14 200 mg TID JANINE Administration Protocol Buspirone HCl 10 mg 04/25/25 21:00 05/04/25 08:50 Buspirone Hcl 5 Mg Tablet PO 05/25/25 20:59 10 mg BID JANINE Administration Carbidopa/Levodopa 1 tab 04/25/25 21:00 05/04/25 08:52 Carbidopa/Levodopa Cr 25/100 Tabcr PO 05/25/25 20:59 1 tab BID JANINE Administration Dextrose 25 ml 05/03/25 09:39 Dextrose 50%-Water Inj 50 Ml Syringe IV 06/02/25 09:38 Q15MIN PRN BG 50-70 responsive npo pt Dextrose 50 ml 05/03/25 09:39 Dextrose 50%-Water Inj 50 Ml Syringe IV 06/02/25 09:38 Q15MIN PRN BG <50 OR BG <70 & pt unresponsive Diltiazem HCl 60 mg 04/25/25 22:00 05/04/25 05:18 Diltiazem 30 Mg Tablet PO 05/25/25 21:59 60 mg TID JANINE Administration Diphenhydramine HCl 12.5 mg 05/03/25 14:21 Diphenhydramine Elix 25 Mg/10 Ml Udc PO 06/02/25 20:59 HS PRN Insomia Doxycycline Hyclate 100 mg 05/04/25 21:00 Doxycycline 100 Mg Tablet PO 05/07/25 20:59 BID JANINE Protocol Dutasteride 0.5 mg 04/25/25 21:00 05/03/25 21:10 Dutasteride 0.5 Mg Capsule (Non-Formulary) PO 05/25/25 20:59 0.5 mg QPM JANINE Administration Furosemide 40 mg 05/02/25 13:15 05/04/25 08:49 Furosemide Inj 10 Mg/Ml 4ml Vial IVP 06/01/25 13:14 40 mg QDAY JANINE Administration Glucagon 1 mg 05/03/25 09:39 Glucagon Inj 1 Mg Vial IM Q15MIN PRN BG <70, and no IV access Guaifenesin 100 mg 04/25/25 17:00 05/04/25 11:47 Guaifenesin Syrup 200 Mg/10 Ml Udc PO 05/25/25 16:59 Not Given QID JANINE Protocol Insulin Human Lispro 0 unit 05/04/25 09:12 05/04/25 11:43 Insulin Lispro (Admelog) 1 Unit/0.01 Ml Unit SC 06/02/25 11:29 4 unit AC JANINE Administration Protocol Ipratropium [place] 0.5 mg 04/25/25 19:00 05/04/25 12:19 Ipratropium Rt 0.5 Mg/ 2.5 Ml Nebu INH 05/25/25 18:59 0.5 mg Q6HRRT JANINE Administration Levalbuterol HCl 0.63 mg 04/27/25 13:00 05/04/25 12:19 Levalbuterol Rt 0.63 Mg/3 Ml Nebu INH 05/27/25 12:59 0.63 mg Q6HRRT JANINE Administration Losartan Potassium 100 mg 05/04/25 09:00 05/04/25 08:52 Losartan Potassium 25 Mg Tablet PO 06/03/25 08:59 100 mg QDAY JANINE Administration Melatonin 6 mg 05/01/25 21:00 05/03/25 21:10 Melatonin 3 Mg Tablet PO 05/31/25 20:59 6 mg HS JANINE Administration Methylprednisolone Sodium Succinate 60 mg 04/27/25 13:30 05/04/25 05:19 Methylprednisolone Sod Succ 40 Mg Vial IVP 05/04/25 13:29 60 mg Q8H JANINE Administration Montelukast Sodium 10 mg 04/26/25 09:00 05/04/25 08:51 Montelukast Sodium 10 Mg Tablet PO 05/26/25 08:59 10 mg QAM JANINE Administration Ondansetron HCl 4 mg 04/25/25 12:23 05/03/25 22:16 Ondansetron Inj 2 Mg/Ml Inj 2 Ml IVP 05/25/25 12:22 4 mg Q6H PRN Administration NAUSEA OR VOMITING Protocol Pantoprazole Sodium 40 mg 05/01/25 09:00 05/04/25 08:51 Pantoprazole 40 Mg Tablet PO 05/31/25 08:59 40 mg QDAY [facility] Administration Protocol Sennosides 1 tab 04/26/25 09:00 05/04/25 08:52 Senna Tablet PO 05/26/25 08:59 1 tab QDAY [facility] Administration Protocol Tamsulosin HCl 0.4 mg 04/26/25 09:00 05/04/25 08:51 Tamsulosin Hcl 0.4 Mg Capsule PO 05/26/25 08:59 0.4 mg QAM [facility] Administration Plan Summary: Patient is an 79-year-old male with a past medical history significant for essential tremor, BPH, primary hypertension, hyperlipidemia and history of stroke in 2022 with residual right leg weakness who initially presented on 04/25/2025 with chief complaints of cough and shortness of breath, subsequently admitted for treatment and management of acute respiratory failure with hypoxia secondary to community-acquired pneumonia. #ARDS #Acute respiratory failure with hypoxia secondary to likely community-acquired pneumonia #Pulmonary fibrosis #?Acute interstitial pneumonitis versus underlying interstitial lung disease #Community-acquired pneumonia failing outpatient treatment Patient presented with worsening cough and shortness of breath refractory to outpatient antibiotics. On exam had severely reduced air entry in all lung noonan with mild crackles at bases. Labs showed WBC 28.4, lactic acid 5.4, BNP 629 and troponin 0.135 Chest x-ray showed extensive bilateral consolidation CT scan of the chest done during ICU showed severe bilateral lung opacity, pneumonia/ARDS pattern. CT chest without contrast done on 05/01/2025 shows pulmonary fibrosis pattern throughout the lungs with superimposed extensive bilateral pneumonia PSI; risk class IV. Hospitalization recommended based on risk Hughes score; positive; severe ARDS P/F ratio 84.7. 45% mortality S/F ratio : 117.5 - Non-intubated ARDS Ronda index; 3.69 points. Risk of HFNC failure is high Echo showed normal left ventricular function with ejection fraction of 55 to 60%. Grade 1 diastolic dysfunction. Cocci IgM and IgG was negative x2 Beta-1 3D glucan negative Plan: ? Pending ANCA screen, antiproteinase 3 and antimyeloperoxidase ? Continue IV doxycycline 100 mg BID (04/30- ? Continue IV cefepime 2 g IV Q8h (04/27- ? Continue Solu-Medrol 60 mg IV every 8 hours ? Continue Lasix 40 Mg IV daily ? Levalbuterol nebs Q6 hourly ? Ipratropium nebs Q6 hourly ? Chest physiotherapy Q6 hourly ? Acapella device Q6 hourly - Continue Mucomyst q6h #New onset A-fib with RVR #Diastolic dysfunction grade 1 Patient endorsed some palpitations earlier this hospitalization. Initial EKG showed A-fib with RVR 155 and repeat showed A-fib rate 93. No acute ST changes Received diltiazem 15 Mg IV x 1 followed by non titratable diltiazem infusion in the ED after which rate improved to 93 [id number]; 5 points; stroke risk 7.2%. HAS-BLED; 4 points. Major risk of bleeding Echocardiogram showed ejection fraction of 60%, diastolic dysfunction grade 1. Cardiology discontinued Plavix 75 mg daily on 03/30 as there is no clinical indication at this time Plan: ? Continue telemetry monitoring ? Continue 1500 cc/day fluid restriction, strict ins and out. - Continue Lasix 40 mg IV qday ? Continue diltiazem 60 Mg p.o. 3 times daily for rate control ? Continue amiodarone 200 Mg p.o. twice daily as per cardiology recommendations ? Continue apixaban 5 Mg p.o. twice daily as per cardiology recommendations ? Property Man, Dr. Americo Morrison consulted and closely following. Appreciate recommendations #Acute kidney injury Mild DEVYN noted, patient was on Lasix 40 mg twice daily per cardiology recommendations. Diuresis was discontinued due to DEVYN, noted improvement in creatinine 1.3 to 1.1 However patient was started on Lasix 40 mg daily per cardiology recommendations, will monitor renal function closely - Continue to monitor renal function #Primary hypertension #Hyperlipidemia Plan: ? Continue home medication atorvastatin ? Patient is on Cardizem 60 mg p.o. TID - Continue losartan 100 mg qday #Multiple liver cyst #Cholelithiasis ? Incidental finding on CT chest ? Patient does not have any abdominal symptoms ? Liver function stable, we will continue to monitor closely #Right lower extremity swelling On exam right lower extremity appears to be mildly larger than the left. When questioned patient states that he had an outpatient duplex ultrasound which was negative for DVT #Troponinemia #NSTEMI type II On admission troponin mildly elevated at 0.135 down trended to 0.125. Most likely type II in setting of demand ischemia from pneumonia. -No need to further trend troponins #Essential tremor Patient was never diagnosed formally by neurologist for Parkinson's disease, did have carbidopa levodopa started by primary care physician for tremor. Patient otherwise denies any dysphagia, has no resting tremor, denies any difficulty ambulating -Continue home dose carbidopa levodopa -Patient is on buspirone at home, continue #BPH -Continue Flomax, dutasteride Health maintenance: Disposition: IV antibiotics. HFNC. Diet: Regular Lines: pIVs GI Prophylaxis: Pantoprazole 40 Mg IV daily Thrombo Prophylaxis: Apixaban Code status: DNR Patient plan of care was discussed with the attending physician, Dr. Call. Glendy Engle, PGY-1 Attending Provider Attestation/Addendum I attest that I was physically present for the evaluation, physical examination, lab and imaging review of the patient with the residents. I discussed the case with the residents and agree with the findings and plans of care as documented above. At bedside today, patient states she feels the same compared to yesterday. Continues to be on high flow nasal cannula, 30 liters, 70 FiO2 this morning. Patient requested to try to ambulate, explained that it might be hard with nasal cannula, we will attempt to help him sit at the edge of the bed with close monitoring. Continues to be mildly tachypneic. Blood pressure noted to be high, cardiology following closely, recommended to start losartan 100 daily, appreciate recommendations. WBC count today is 19.3, patient continues to be on IV steroid. Lab results show sodium of 133, corrected sodium within normal limits. Kidney functions remained stable with BUN/creatinine of 49/1.1 and blood glucose remains more than 200. We will change his sliding scale to step 2. Continues to be on broad-spectrum antibiotics, blood cultures are negative. Updated the family at bedside regarding transfer status, informed them that all the facilities that we have attempted to transfer so far has declined either due to capacity or the transfer being lateral. Patient and family stated they would like to continue with current aggressive management including attempt for transfer. Naseem Call MD
[2025-05-04] MEDS: DOXYCYCLINE 100 MG TABLET PO (21:20)
[2025-05-04] MEDS: MELATONIN 3 MG TABLET 6 MG PO (21:21)
[2025-05-04] MEDS: ATORVASTATIN CALCIUM 20 MG TABLET 80 MG PO (21:22)
[2025-05-04] MEDS: DUTASTERIDE 0.5 MG CAPSULE (NON-FORMULARY) PO (21:22)
[2025-05-05] VITALS (14 sets, daily range): BP systolic 140–169; BP diastolic 71–95; PULSE 62–79; RESP 18–28; TEMP 36.1–36.8; O2SAT 89–95; BMI 25.5
--- NOTE | 2025-05-05 00:02 | PC.NURSE ---
PT REQUESTED BENADRYL FOR SLEEP BUT REFUSED LIQUID FORM. DR. BARRIENTOS NOTIFIED AND NEW ORDER RECEIVED.
[2025-05-05] MEDS: DiphenhydrAMINE 25 MG CAPSULE PO (00:08)
--- NOTE | 2025-05-05 01:00 | ESPR_ITS ---
RE: DANISHA PEOPLES : 1945 DATE OF SERVICE: 05/04/2025 SUBJECTIVE: The patient is an 79-year-old with a history of viral pneumonia and possible ARDS. He is clinically quite stable, not having shortness of breath or chest pain. He remains in sinus rhythm, not having any atrial fibrillation _. No shortness of breath or chest pain. Still requiring high-flow oxygen. OBJECTIVE: Vital Signs: Blood pressure 150/90 mmHg, pulse rate is 75, respirations 16, temperature normal. Neck: Supple. No JVD. Lungs: Clear. Heart: irregular.rhythm Abdomen: Thin and soft. Extremities: Mildly edematous. IMPRESSION: 1. Atrial fibrillation, controlled. 2. Congestive heart failure, well compensated. 3. Bilateral extensive pneumonia and RDS pattern due to possible viral pneumonia and bronchitis. RECOMMENDATIONS: 1. Continue present medications. The patient should improve gradually as he did not deteriorate any further at this time. 2. Continue apixaban 5 mg b.i.d., amiodarone 200 mg twice daily, and atorvastatin. 3. Antibiotics to be continued along with bronchodilators and supportive care. There is no indication for transfer of the patient since no further special care can be performed in any other center. He just needs oxygen and pulmonary support. DT: 23:52:44 TT: 00:57:00 Ref: [id number] - TID: [id number] MTDD
[2025-05-05] MEDS: ACETYLCYSTEINE SOL 20% 4 ML NEBU 3 ML INH ×3 (01:20→18:54)
[2025-05-05] MEDS: LEVALBUTEROL RT 0.63 MG/3 ML NEBU INH ×3 (01:20→18:54)
[2025-05-05] MEDS: IPRATROPIUM RT 0.5 MG/ 2.5 ML NEBU INH ×2 (01:20→18:54)
[2025-05-05] MEDS: BENZONATATE 100 MG CAPSULE 200 MG PO ×3 (05:55→22:27)
[2025-05-05] MEDS: DILTIAZEM 30 MG TABLET 60 MG PO ×3 (05:55→21:44)
[2025-05-05] MEDS: CEFEPIME INJ 2 GM in SODIUM CHLORIDE 0.9% (Popper) 50 ML IV ×3 (05:55→22:27)
[2025-05-05 06:13] LABS: Basophils % (Auto) 0 % (0-2.5); Eosinophils % (Auto) 0 % (0-10); Hematocrit 36.2 % (41.0-53.0); Hemoglobin 13.2 g/dL (13.5-16.0); Immature Granulocytes % (Auto) 1 % (0-0); Immature Granulocytes Auto 0.31 Thou/mm3 (0.00-0.00); Lymphocytes # (Auto) 0.5 Thou/mm3 (1.0-4.8); Lymphocytes % (Auto) 2 % (10-50); Mean Corpuscular HGB Conc 36.5 g/dl (31.0-37.0); Mean Corpuscular Hemoglobin 30.2 pg (25.0-35.0); Mean Corpuscular Volume 83 fL (80-100); Monocytes % (Auto) 9 % (0-12); Neutrophils # (Auto) 19.6 Thou/mm3 (1.8-7.7); Neutrophils % (Auto) 88 % (37-80); Nucleated Red Blood Cell % 0 /100 WBC (0); Platelet Count 211 Thou/mm3 (140-440); RDW Standard Deviation 40.3 fL (35.1-43.9); Red Blood Count 4.37 Miln/mm3 (4.50-5.90); White Blood Count 22.4 Thou/mm3 (3.8-10.6)
[2025-05-05 07:13] LABS: Anion Gap 7 (7-16); BUN/Creatinine Ratio 49 Ratio (12-20); Blood Urea Nitrogen 54 mg/dL (9-23); Calcium 8.5 mg/dL (8.3-10.6); Carbon Dioxide 34.7 mMol/L (20.0-31.0); Chloride 97 mMol/L (98-107); Creatinine (Component) 1.1 mg/dL (0.6-1.3); Estimated Creatinine Clearance 55.3 mL/min (>60); Glucose 152 mg/dL (74-106); Magnesium 2.4 mg/dL (1.6-2.6); Osmolality,Calculated 295 (275-295); Sodium 139 mMol/L (136-145); eGFR > 60 See Note
[2025-05-05] MEDS: INSULIN LISPRO (AdmeLOG) 1 UNIT/0.01 ML UNIT SC ×3 (07:24→16:37)
[2025-05-05] MEDS: AMIODARONE HCL 200 MG TABLET PO ×2 (08:55→21:44)
[2025-05-05] MEDS: TABCR PO ×2 (08:56→21:45)
[2025-05-05] MEDS: CARBIDOPA PO ×2 (08:56→21:45)
[2025-05-05] MEDS: BusPIRone HCL 5 MG TABLET 10 MG PO ×2 (08:56→21:44)
[2025-05-05] MEDS: LEVODOPA PO ×2 (08:56→21:45)
[2025-05-05] MEDS: APIXABAN 2.5 MG TABLET 5 MG PO ×2 (08:56→21:43)
[2025-05-05] MEDS: FUROSEMIDE INJ 10 MG/ML 4ML VIAL 40 MG IVP (08:57)
[2025-05-05] MEDS: DOXYCYCLINE 100 MG TABLET PO ×2 (08:57→21:44)
[2025-05-05] MEDS: LOSARTAN POTASSIUM 25 MG TABLET 100 MG PO (08:57)
[2025-05-05] MEDS: MONTELUKAST SODIUM 10 MG TABLET PO (08:58)
[2025-05-05] MEDS: TAMSULOSIN HCL 0.4 MG CAPSULE PO (08:58)
[2025-05-05] MEDS: SENNA TABLET 1 TAB PO (08:58)
[2025-05-05] MEDS: PANTOPRAZOLE 40 MG TABLET PO (08:58)
--- NOTE | 2025-05-05 10:47 | PD.RESPRO ---
Documentation for date of: 05/05/25 Subjective Subjective Interval history: Patient seen and examined at bedside. Patient continues to be on high flow nasal cannula, 30 L oxygen, FiO2 80% Labs and vitals reviewed, SpO2 94 on high flow nasal, tachypneic at times Patient continues to have leukocytosis, WBC count 22.4, will monitor otherwise renal function is stable Will continue with IV antibiotics, IV steroids and IV Lasix Exam Vital Signs Temp Pulse Resp BP Pulse Ox O2 Del Method O2 Flow Rate 97.2 F 62 22 H 145/78 H 89 L High Flow Nasal Cannula 30 05/05/25 08:00 05/05/25 08:57 05/05/25 08:00 05/05/25 08:57 05/05/25 08:00 05/05/25 08:00 05/05/25 08:00 FiO2 80 05/05/25 08:00 Narrative Exam Constitutional: Alert, oriented x 3 and comfortable. Elderly male on HFNC at 30L/min and 80% FiO2. Able to speak in full sentences HEENT: Vision grossly intact. Patent nares. Trachea midline Respiratory: Chest normal on inspection and decreased air entry in all lung noonan, fine inspiratory crackles and coarse crackles at bilateral bases. Cardiovascular: S1 and S2 audible, RRR. 4/6 ejection systolic murmur heard at right sternal border with radiation to bilateral carotid. JVD not assessed Abdominal: Soft, obese and non tender to palpation in all quadrants. BS + Genitourinary: No bladder tenderness, no flank pain. Normal to palpation. Condom catheter Musculoskeletal: Extremities tone within normal limits. Right lower extremity appears slightly larger than left. 1+ edema bilateral feet. Neurological: CN II - XII grossly intact. Extremity motor and sensation grossly intact. Gait not assessed Skin: Warm, dry and intact. Multiple ecchymosis on bilateral arms Psychiatric: Patient has good affect, is cooperative Objective Labs 05/05/25 05:47 05/05/25 05:47 Labs: Laboratory Results - last 24 hr 05/05/25 05:47 WBC 22.4 H RBC 4.37 L Hgb 13.2 L Hct 36.2 L MCV 83 MCH 30.2 MCHC 36.5 RDW Std Deviation 40.3 Plt Count 211 D Neut % (Auto) 88 H Lymph % (Auto) [address] [place] % (Auto) 9 Eos % (Auto) 0 Baso % (Auto) 0 Neut # (Auto) 19.6 H Lymph # (Auto) 0.[address] [place] # (Auto) 2.0 H Eos # (Auto) 0.0 Baso # (Auto) 0.0 Immature Gran # (Auto) 0.31 H Absolute Nucleated RBC 0.00 Immature Gran % 1 H Nucleated RBC % 0 Sodium 139 Potassium 4.0 D Chloride 97 L Carbon Dioxide 34.7 H Anion Gap 7 BUN 54 H Creatinine 1.1 Estim Creat Clear Calc 55.3 L eGFR > 60 BUN/Creatinine Ratio 49 H Glucose 152 H Calculated Osmolality 295 Calcium 8.5 Magnesium 2.4 ABG Interpretation ABG results: 04/25/25 04/27/25 04/27/25 13:58 13:25 22:23 ABG pH 7.45 7.51 H 7.48 H ABG pCO2 34 38 40 ABG pO2 73 L 68 L 63 L ABG HCO3 23 30 H 29 H ABG O2 Saturation 97 95 93 ABG Base Excess 0 6 H 5 H 04/28/25 08:42 ABG pH 7.48 H ABG pCO2 41 ABG pO2 64 L ABG HCO3 30 H ABG O2 Saturation 93 ABG Base Excess 6 H Quality Measures Quality Measures VTE prophylaxis Advance care planning discussed with:: patient Assessment & Plan Assessment Current Active Medications: Generic Name Dose Route Start Last Admin Trade Name Freq PRN Reason Stop Dose Admin Acetaminophen 650 mg 04/26/25 07:40 Acetaminophen 325 Mg Tablet PO 05/25/25 12:22 Q6H PRN Fever >100.3 or pain 1-3 Acetylcysteine 3 ml 05/01/25 19:00 05/05/25 07:06 Acetylcysteine Rand 20% 4 Ml Nebu INH 05/31/25 18:59 3 ml Q6HRRT JANINE Administration Amiodarone HCl 200 mg 04/25/25 19:05 05/05/25 08:55 Amiodarone Hcl 200 Mg Tablet PO 05/25/25 19:04 200 mg BID JANINE Administration Apixaban 5 mg 04/25/25 21:00 05/05/25 08:56 Apixaban 2.5 Mg Tablet PO 05/25/25 20:59 5 mg BID JANINE Administration Atorvastatin Calcium 80 mg 04/25/25 21:00 05/04/25 21:22 Atorvastatin Calcium 20 Mg Tablet PO 05/25/25 20:59 80 mg QPM JANINE Administration Benzonatate 200 mg 04/25/25 14:15 05/05/25 05:55 Benzonatate 100 Mg Capsule PO 05/25/25 14:14 200 mg TID JANINE Administration Protocol Buspirone HCl 10 mg 04/25/25 21:00 05/05/25 08:56 Buspirone Hcl 5 Mg Tablet PO 05/25/25 20:59 10 mg BID JANINE Administration Carbidopa/Levodopa 1 tab 04/25/25 21:00 05/05/25 08:56 Carbidopa/Levodopa Cr 25/100 Tabcr PO 05/25/25 20:59 1 tab BID JANINE Administration Dextrose 25 ml 05/03/25 09:39 Dextrose 50%-Water Inj 50 Ml Syringe IV 06/02/25 09:38 Q15MIN PRN BG 50-70 responsive npo pt Dextrose 50 ml 05/03/25 09:39 Dextrose 50%-Water Inj 50 Ml Syringe IV 06/02/25 09:38 Q15MIN PRN BG <50 OR BG <70 & pt unresponsive Diltiazem HCl 60 mg 04/25/25 22:00 05/05/25 05:55 Diltiazem 30 Mg Tablet PO 05/25/25 21:59 60 mg TID JANINE Administration Diphenhydramine HCl 12.5 mg 05/03/25 14:21 Diphenhydramine Elix 25 Mg/10 Ml Udc PO 06/02/25 20:59 HS PRN Insomia Doxycycline Hyclate 100 mg 05/04/25 21:00 05/05/25 08:57 Doxycycline 100 Mg Tablet PO 05/07/25 20:59 100 mg BID JANINE Administration Protocol Dutasteride 0.5 mg 04/25/25 21:00 05/04/25 21:22 Dutasteride 0.5 Mg Capsule (Non-Formulary) PO 05/25/25 20:59 0.5 mg QPM JANINE Administration Furosemide 40 mg 05/02/25 13:15 05/05/25 08:57 Furosemide Inj 10 Mg/Ml 4ml Vial IVP 06/01/25 13:14 40 mg QDAY JANINE Administration Glucagon 1 mg 05/03/25 09:39 Glucagon Inj 1 Mg Vial IM Q15MIN PRN BG <70, and no IV access Guaifenesin 100 mg 04/25/25 17:00 05/05/25 05:52 Guaifenesin Syrup 200 Mg/10 Ml Udc PO 05/25/25 16:59 Not Given QID JANINE Protocol Cefepime HCl 2 gm/ Sodium 50 mls @ 100 mls/hr 05/04/25 15:21 05/05/25 05:55 Chloride IV 05/11/25 15:20 100 mls/hr Q8HR JANINE Administration Insulin Human Lispro 0 unit 05/04/25 09:12 05/05/25 07:24 Insulin Lispro (Admelog) 1 Unit/0.01 Ml Unit SC 06/02/25 11:29 2 unit AC JANINE Administration Protocol Ipratropium Eidson 0.5 mg 04/25/25 19:00 05/05/25 10:23 Ipratropium Rt 0.5 Mg/ 2.5 Ml Nebu INH 05/25/25 18:59 Not Given Q6HRRT JANINE Levalbuterol HCl 0.63 mg 04/27/25 13:00 05/05/25 07:06 Levalbuterol Rt 0.63 Mg/3 Ml Nebu INH 05/27/25 12:59 0.63 mg Q6HRRT JANINE Administration Losartan Potassium 100 mg 05/04/25 09:00 05/05/25 08:57 Losartan Potassium 25 Mg Tablet PO 06/03/25 08:59 100 mg QDAY JANINE Administration Melatonin 6 mg 05/01/25 21:00 05/04/25 21:21 Melatonin 3 Mg Tablet PO 05/31/25 20:59 6 mg HS JANINE Administration Montelukast Sodium 10 mg 04/26/25 09:00 05/05/25 08:58 Montelukast Sodium 10 Mg Tablet PO 05/26/25 08:59 10 mg QAM JANINE Administration Ondansetron HCl 4 mg 04/25/25 12:23 05/03/25 22:16 Ondansetron Inj 2 Mg/Ml Inj 2 Ml IVP 05/25/25 12:22 4 mg Q6H PRN Administration NAUSEA OR VOMITING Protocol Pantoprazole Sodium 40 mg 05/01/25 09:00 05/05/25 08:58 Pantoprazole 40 Mg Tablet PO 05/31/25 08:59 40 mg QDAY JANINE Administration Protocol Sennosides 1 tab 04/26/25 09:00 05/05/25 08:58 Senna Tablet PO 05/26/25 08:59 1 tab QDAY JANINE Administration Protocol Tamsulosin HCl 0.4 mg 04/26/25 09:00 05/05/25 08:58 Tamsulosin Hcl 0.4 Mg Capsule PO 05/26/25 08:59 0.4 mg QAM JANINE Administration Plan Summary: Patient is an 79-year-old male with a past medical history significant for essential tremor, BPH, primary hypertension, hyperlipidemia and history of stroke in 2022 with residual right leg weakness who initially presented on 04/25/2025 with chief complaints of cough and shortness of breath, subsequently admitted for treatment and management of acute respiratory failure with hypoxia secondary to community-acquired pneumonia. #ARDS #Acute respiratory failure with hypoxia secondary to likely community-acquired pneumonia #Pulmonary fibrosis #?Acute interstitial pneumonitis versus underlying interstitial lung disease #Community-acquired pneumonia failing outpatient treatment Patient presented with worsening cough and shortness of breath refractory to outpatient antibiotics. On exam had severely reduced air entry in all lung noonan with mild crackles at bases. Labs showed WBC 28.4, lactic acid 5.4, BNP 629 and troponin 0.135 Chest x-ray showed extensive bilateral consolidation CT scan of the chest done during ICU showed severe bilateral lung opacity, pneumonia/ARDS pattern. CT chest without contrast done on 05/01/2025 shows pulmonary fibrosis pattern throughout the lungs with superimposed extensive bilateral pneumonia PSI; risk class IV. Hospitalization recommended based on risk [place] score; positive; severe ARDS P/F ratio 84.7. 45% mortality S/F ratio : 117.5 - Non-intubated ARDS Ronda index; 3.69 points. Risk of HFNC failure is high Echo showed normal left ventricular function with ejection fraction of 55 to 60%. Grade 1 diastolic dysfunction. Cocci IgM and IgG was negative x2 Beta-1 3D glucan negative Plan: ? Pending ANCA screen, antiproteinase 3 and antimyeloperoxidase ? Continue p.o. doxycycline 100 mg BID (04/30- ? Continue IV cefepime 2 g IV Q8h (04/27- ? Continue Solu-Medrol 60 mg IV every 8 hours ? Continue Lasix 40 Mg IV daily ? Levalbuterol nebs Q6 hourly ? Ipratropium nebs Q6 hourly ? Chest physiotherapy Q6 hourly - Continue Mucomyst q6h #New onset A-fib with RVR #Diastolic dysfunction grade 1 Patient endorsed some palpitations earlier this hospitalization. Initial EKG showed A-fib with RVR 155 and repeat showed A-fib rate 93. No acute ST changes Received diltiazem 15 Mg IV x 1 followed by non titratable diltiazem infusion in the ED after which rate improved to 93 [id number]; 5 points; stroke risk 7.2%. HAS-BLED; 4 points. Major risk of bleeding Echocardiogram showed ejection fraction of 60%, diastolic dysfunction grade 1. Cardiology discontinued Plavix 75 mg daily on 03/30 as there is no clinical indication at this time Plan: ? Continue telemetry monitoring ? Continue 1500 cc/day fluid restriction, strict ins and out. - Continue Lasix 40 mg IV qday ? Continue diltiazem 60 Mg p.o. 3 times daily for rate control ? Continue amiodarone 200 Mg p.o. twice daily as per cardiology recommendations ? Continue apixaban 5 Mg p.o. twice daily as per cardiology recommendations ? Plant Operator Control Room Operator, Dr. Americo Morrison consulted and closely following. Appreciate recommendations #Acute kidney injury, improving Mild DEVYN noted, patient was on Lasix 40 mg twice daily per cardiology recommendations. Diuresis was discontinued due to DEVYN, noted improvement in creatinine 1.3 to 1.1 However patient was started on Lasix 40 mg daily per cardiology recommendations, will monitor renal function closely - Continue to monitor renal function #Primary hypertension #Hyperlipidemia Plan: ? Continue home medication atorvastatin ? Patient is on Cardizem 60 mg p.o. TID - Continue losartan 100 mg qday #Multiple liver cyst #Cholelithiasis ? Incidental finding on CT chest ? Patient does not have any abdominal symptoms ? Liver function stable, we will continue to monitor closely #Right lower extremity swelling On exam right lower extremity appears to be mildly larger than the left. When questioned patient states that he had an outpatient duplex ultrasound which was negative for DVT #Troponinemia #NSTEMI type II On admission troponin mildly elevated at 0.135 down trended to 0.125. Most likely type II in setting of demand ischemia from pneumonia. -No need to further trend troponins #Essential tremor Patient was never diagnosed formally by neurologist for Parkinson's disease, did have carbidopa levodopa started by primary care physician for tremor. Patient otherwise denies any dysphagia, has no resting tremor, denies any difficulty ambulating -Continue home dose carbidopa levodopa -Patient is on buspirone at home, continue #BPH -Continue Flomax, dutasteride Health maintenance: Disposition: IV antibiotics. HFNC. Diet: Regular Lines: pIVs GI Prophylaxis: Pantoprazole 40 Mg IV daily Thrombo Prophylaxis: Apixaban Code status: DNR Patient plan of care was discussed with the attending physician, Dr. Call. Glendy Engle, PGY-1 Attending Provider Attestation/Addendum I attest that I was physically present for the evaluation, physical examination, lab and imaging review of the patient with the residents. I discussed the case with the residents and agree with the findings and plans of care as documented above. At bedside today, patient states he is feeling similar to yesterday. Denies any new complaints. Continues to be on high flow nasal cannula, 30 L or 80 FiO2. WBC count noted to be elevated to 22.4 from 19.3 yesterday, patient is on IV steroids. Also receiving broad-spectrum IV antibiotics. Kidney function is stable, BUN/creatinine of 54/1.1. Blood glucose has been well-controlled with insulin regimen. Continues to be on Lasix 40 daily. Continues to have decreased air entry bilaterally along with fine crackles. Noted to have mild edema on bilateral lower extremity, we will monitor closely, will increase his Lasix dosing if worsens. Awaiting transfer to [facility] for pulmonology service, so far, the facilities that have been tried have rejected. Prognosis remains guarded. Naseem Call MD
[2025-05-05] MEDS: POLYETHYLENE GLYCOL 17 GM PACKET PO (11:09)
--- NOTE | 2025-05-05 16:16 | PC.CC ---
Addendum entered by Danica Banks RN 05/05/25 19:22: 1922: signed transfer back agreement has been signed and efaxed back to [facility] Addendum entered by Danica Banks RN 05/05/25 19:12: 1857: called and spoke to charge nurse Jasper with update. Tuan informed me that packet is already with patient's chart on the floor. 185: called Dr. Call and updated him about pending bed availability. 1849: I called [facility] and spoke to Liseth. She confirmed that patient has been accepted by Dr. Dior at [facility], however pending bed availability. 1846: received call from Dr. Call and he stated he received a call from a doctor at [facility] and was told that they will accept the patient. Informed Dr. Call that i had not received a call yet but will call to follow up. Addendum entered by Danica Banks RN 05/05/25 17:11: 1708: received call from Ynes mccauley/ [facility], she requested more clinical information. She stated she will review and call me back. Original Note: 1622: called and spoke to Juan J at [facility], he stated the nurse will review and call me back. 1615: spoke to Eva at [facility] and she stated they have pulmonology services but declines due to capacity and to try other facilities. She stated to try again in 24-48 hours if services are still needed. 1600: sent clinicals to [facility] and [facility] for transfer request for pulmonology services. Family request. 1400: rounding with team, Dr kidd and Dr. Call stated pulmonology will be onsite on 05/09 to assess patient can not be transferred. The team stated search to transfer to continue.
--- NOTE | 2025-05-05 19:27 | ESDS_ITS ---
Planned Discharge Date 05/05/25 DS: Providers Provider Date of admission: 04/25/25 12:20 Primary care physician: Bruce Osman MD Admitting Provider: Johnny Gonzales MD Attending Provider on Admission: Naseem Call MD Consults: 04/25/25 16:30 Consult to Cardiology Routine Comment: New onset Afib Consulting Provider: Gisela Morrison 04/28/25 09:56 Consult to Filler Shredder Stat Comment: ARDS Consulting Provider: Wei Padilla Attending Provider on DC: Naseem Call MD Discharging Provider: Naseem Call MD Anticipated date of discharge: 05/05/25 DS: Diagnosis Problem List Completed Was Problem List Reviewed/Reconciled?: Yes Hospital Course Hospital Course Hospital course: Hospital Course: Mr. Escalante is a 79-year-old male with past medical history of essential tremor, BPH, primary hypertension, hyperlipidemia and history of stroke in 2022 with residual right leg weakness who initially presented on 04/25/2025 with chief complaints of cough and shortness of breath, subsequently admitted for treatment and management of acute respiratory failure with hypoxia secondary to community-acquired pneumonia. On presentation patient had significantly reduced air entry in all lung noonan with mild crackles at bases, WBC count was 28.4, lactate 5.4, chest x-ray showed extensive bilateral conso lidation, patient's [place] score was positive for severe ARDS, patient was started on high flow nasal cannula oxygen eventually, was continued on antibiotics. With the progression of hospital course patient's condition worsened, was started on IV steroids and antibiotic therapy was broadened, cardiology was consulted echocardiogram showed diastolic dysfunction and patient was started on IV Lasix. Filler Shredder was consulted due to patient's increased work of breathing and requirement of BiPAP, patient was upgraded to intensive care unit for monitoring was maxed out on high flow nasal cannula. In ICU patient's oxygen requirement decreased, was downgraded to telemetry, patient had not 2 sets of negative coccidiomycosis serology, beta 13D glucan was negative, patient is currently on IV antibiotics, IV steroids and IV Lasix for management of ARDS and underlying pulmonary fibrosis with community-acquired pneumonia. Patient also had new onset atrial fibrillation with RVR during the hospital course, cardiology was consulted, patient is currently rate controlled on amiodarone 200 mg twice daily, diltiazem 60 mg p.o. 3 times daily and is on anticoagulation with Eliquis twice daily. Patient also had an DEVYN during the hospitalization course which has resolved. Considering patient's underlying ARDS and significant acute hypoxic respiratory failure requiring high flow nasal cannula decision was made to transfer patient to higher level of care for management by a screen printer. Patient is stable for transfer on high flow nasal cannula. Discharge diagnoses: #ARDS #Acute respiratory failure with hypoxia secondary to likely community-acquired pneumonia #Pulmonary fibrosis #?Acute interstitial pneumonitis versus underlying interstitial lung disease #Community-acquired pneumonia failing outpatient treatment #New onset A-fib with RVR #Diastolic dysfunction grade 1 #Acute kidney injury #Primary hypertension #Hyperlipidemia #Multiple liver cyst #Cholelithiasis #Right lower extremity swelling #Type II troponin #Essential tremor #BPH Case discussed with Attending Dr. Call. Glendy Engle PGY1 Disclaimer: This note was dictated by speech recognition. Minor errors in archery equipment repairer may be present due to voice recognition software. Time Spent with Patient Time attestation: Total time spent providing and/or coordinating discharge services: Time spent: Greater than 30 minutes Exam Vital Signs Temp Pulse Resp BP Pulse Ox O2 Del Method O2 Flow Rate 98.2 F 72 23 H 143/74 H 93 L High Flow Nasal Cannula 30 05/05/25 16:00 05/05/25 18:59 05/05/25 18:59 05/05/25 16:00 05/05/25 18:59 05/05/25 16:00 05/05/25 18:59 FiO2 75 05/05/25 18:59 Narrative Exam Constitutional: Alert, oriented x 3 and comfortable. Elderly male on HFNC at 30L/min and 80% FiO2. Able to speak in full sentences HEENT: Vision grossly intact. Patent nares. Trachea midline Respiratory: Chest normal on inspection and decreased air entry in all lung noonan, fine inspiratory crackles and coarse crackles at bilateral bases. Cardiovascular: S1 and S2 audible, RRR. 4/6 ejection systolic murmur heard at right sternal border with radiation to bilateral carotid. JVD not assessed Abdominal: Soft, obese and non tender to palpation in all quadrants. BS + Genitourinary: No bladder tenderness, no flank pain. Normal to palpation. Condom catheter Musculoskeletal: Extremities tone within normal limits. Right lower extremity appears slightly larger than left. 1+ edema bilateral feet. Neurological: CN II - XII grossly intact. Extremity motor and sensation grossly intact. Gait not assessed Skin: Warm, dry and intact. Multiple ecchymosis on bilateral arms Psychiatric: Patient has good affect, is cooperative Discharge Plan Plan Patient Disposition: [facility] Facility Pt Being Transferred to: [facility] Service Needed for Transfer: Pulmonology Disposition Comment: pulmonary fibrosis with pneumonia ARDS Prescriptions/Referrals Prescriptions/Med Rec: No Action tamsulosin 0.4 mg capsule 0.4 mg PO QAM Patient Comments: TAKE 1 CAPSULE BY MOUTH TWICE A DAY lactulose 10 gram/15 mL solution 10 g PO QAM Patient Comments: TAKE 15ML BY MOUTH EVERY DAY IN THE MORNING FOR CONSTIPATION benzonatate 200 mg capsule 200 mg PO TID carbidopa-levodopa 25-100 mg tablet extended release 1 tab PO BID Patient Comments: TAKE 1 TABLET BY MOUTH TWICE A DAY clopidogrel 75 mg tablet 75 mg PO QDAY Patient Comments: TAKE 1 TABLET BY MOUTH EVERY DAY dutasteride 0.5 mg capsule 0.5 mg PO QPM Patient Comments: TAKE 1 CAPSULE BY MOUTH EVERY EVENING hydrochlorothiazide 12.5 mg tablet 12.5 mg PO QDAY Patient Comments: TAKE 1 TABLET BY MOUTH EVERY DAY buspirone 10 mg tablet 10 mg PO BID Patient Comments: TAKE 1 TABLET BY MOUTH TWICE A DAY cetirizine 10 mg tablet 10 mg PO QPM Patient Comments: TAKE 1 TABLET BY MOUTH AT DINNER NEEDED FOR ALLERGY atorvastatin 80 mg tablet 80 mg PO QPM Patient Comments: TAKE 1 TABLET BY MOUTH NIGHTLY AT BEDTIME montelukast 10 mg tablet 10 mg PO QAM Patient Comments: TAKE 1 TABLET BY MOUTH EVERY DAY potassium citrate 15 mEq tablet extended release 15 meq PO BID Patient Comments: TAKE 1 TABLET BY MOUTH TWICE A DAY Referrals: Bruce Osman MD [Primary Care Provider] - Patient/Caregiver Discharge Instructions Print Language: [place] Stand Alone Forms: Jane Award Info., Patient Portal Info Letter Discharge Order Discharge Orders: Discharge (Routine); Ordered 05/06/25 Ordered By: Jordi Brewer Quality Discharge Quality Measures VTE prophylaxis Attestestation Attestation I attest that I was physically present for the evaluation, physical examination, lab and imaging review of the patient with the residents. I discussed the case with the residents and agree with the findings and plans of care as documented above. Naseem Call MD
[2025-05-05] MEDS: ATORVASTATIN CALCIUM 20 MG TABLET 80 MG PO (21:45)
[2025-05-05] MEDS: DUTASTERIDE 0.5 MG CAPSULE (NON-FORMULARY) PO (21:45)
--- NOTE | 2025-05-05 22:20 | PC.NURSE ---
PT IS ACCEPTED AT [facility]. SBAR REPORT GIVEN TO UCHE SWARTZ [address] [place]. PT WILL BE ADMITTED IN RM [id number].
[2025-05-05] MEDS: MELATONIN 3 MG TABLET 6 MG PO (22:27)
[2025-05-05] MEDS: ONDANSETRON INJ 2 MG/ML INJ 2 ML 4 MG IVP (23:11)
[2025-05-06] VITALS: PULSE 66
[2025-05-06 00:21] VITALS: BP 129/64; PULSE 72; RESP 23; TEMP 36.1; O2SAT 96
[2025-05-06 00:23] VITALS: PULSE 76; RESP 19; O2SAT 90
--- NOTE | 2025-05-06 00:29 | ESPR_ITS ---
RE: FARHAN ESCALANTE : 1945 DATE OF SERVICE: 05/05/2025 SUBJECTIVE: Farhan Escalante was admitted to the hospital with pneumonia, ARDS and congestive heart failure, remains in atrial fibrillation paroxysmal episode, not having any chest pain or shortness of breath. He is still requiring high flow oxygen therapy. OBJECTIVE: Vital Signs: Blood pressure 160/90, pulse rate 76, respiratory rate 16, temperature normal. Neck: Supple. No JVD. Carotid pulse felt but no bruits. Chest: Symmetrical. Lungs: Decreased breath sounds. Heart: Sounds irregular_. Abdomen: Thin and soft. Extremities: No edema. ASSESSMENT: 1. Acute hypoxic respiratory failure secondary to a combination of pneumonia, mostly pneumonia acute respiratory distress syndrome (ARDS), possible viral pneumonia. 2. Atrial fibrillation, paroxysmal episodes. 3. History of stroke. 4. Hypertension. 5. Troponin elevation, type 2 troponin. RECOMMENDATIONS: Continue with present medication including the patient receiving high flow oxygen and amiodarone for atrial fibrillation, carbidopa/ levodopa, apixaban, and make monitoring closely for signs of decomposition. DT: 23:44:13 TT: 00:21:00 Ref: [id number] - TID: [id number] MTDD
--- NOTE | 2025-05-06 00:42 | PC.NURSE ---
RN called [facility] and update given of pt and questions answered. Ambulance personnel and RT at pt's bedside.
--- NOTE | 2025-05-06 01:08 | PC.NURSE ---
pt discharged on stretcher with ambulance personnel on oxygen highflow. pt alert and oriented x4, no acute distress.
[2025-05-06 06:45] LABS: ANA Screen, IFA POSITIVE (NEGATIVE)
[2025-05-06 06:47] LABS: ANCA Screen NEGATIVE (NEGATIVE); Myeloperoxidase Ab <1.0 AI (<1.0); Proteinase-3 Ab <1.0 AI (<1.0)
== END 2025-05-06 01:08 | disposition short-term general hospital (02) | DRG 193 ==
LOC: SERX 11:49 → SERHOLD 12:36 → S2NX 19:26 → S2SX 04-28 13:01 → S2NX 04-29 21:19
PROVIDERS: Student in an Organized Health Care Education/Training Program; Admitting Provider Student in an Organized Health Care Education/Training Program; Emergency Provider Emergency Medicine; PCP Family Medicine; Visit Provider Student in an Organized Health Care Education/Training Program
DX: J18.9 Pneumonia, unspecified organism (principal); J80 Acute respiratory distress syndrome; J96.01 Acute respiratory failure with hypoxia; D62 Acute posthemorrhagic anemia; N17.9 Acute kidney failure, unspecified; I50.30 Unspecified diastolic (congestive) heart failure; J84.114 Acute interstitial pneumonitis; I47.19 Other supraventricular tachycardia; G20.A1 Parkinson's disease without dyskinesia, without mention of fluctuations; E78.5 Hyperlipidemia, unspecified; N40.0 Benign prostatic hyperplasia without lower urinary tract symptoms; I69.341 Monoplegia of lower limb following cerebral infarction affecting right dominant side; I11.0 Hypertensive heart disease with heart failure; Z66 Do not resuscitate; I48.0 Paroxysmal atrial fibrillation; E87.8 Other disorders of electrolyte and fluid balance, not elsewhere classified; F41.9 Anxiety disorder, unspecified; Z79.01 Long term (current) use of anticoagulants; Z79.02 Long term (current) use of antithrombotics/antiplatelets; Z79.899 Other long term (current) drug therapy; G25.0 Essential tremor; K80.20 Calculus of gallbladder without cholecystitis without obstruction; J84.10 Pulmonary fibrosis, unspecified; K76.89 Other specified diseases of liver; G47.00 Insomnia, unspecified; I49.3 Ventricular premature depolarization; Z87.891 Personal history of nicotine dependence
CPT/HCPCS: 36415; 36600; 71045; 71250; 80048; 80053; 80202; 81001; 82270; 82728; 82803; 83036; 83605; 83615; 83690; 83735; 83880; 84100; 84145; 84484; 85025; 85610; 85652; 85730; 86021; 86036; 86038; 86140; 86331; 86635; 86703; 87040; 87077; 87081; 87086; 87205; 87400; 87449; 87634; 87811; 93005; 93306; 94640; 94644; 94660; 94664; 94667; 96361; 96365; 96366; 96367; 96375; 99291; J0456; J0692; J0696; J1200; J1644; J1815; J1938; J1956; J2405; J2470; J2919; J3370; J3490; J7030; J7050; A9270